=== PATIENT | male | born 1960 | race Caucasian/White ===

== ENCOUNTER 2017-09-16 21:41 | Emergency (ER) | payer MEDICAID ==
[~2017-09-16] VITALS: Ht 177.8 cm; Wt 133.0 kg
[~2017-09-16 21:41] MED LIST: ADV50250 INH; ALBU8HFA PO; AMIO200T57 PO; CHOL10002 PO; DIGO125T PO; DILT120C62 PO; DOXE50CA4 PO; ESCI10TA54 PO; FLO0.4C PO; FURO-150 PO; GABA-532 PO; HALO10TA13 PO; METH5TAB PO; METO-395 PO; METO50TA17 PO; MIRT15TA PO; NAPR-56 PO; PRED10TA23 PO; QUET-1 PO; RISP2TAB3 PO; RIVA15TA PO; SIMV10TA2 PO
[2017-09-16] MEDS ORDERED: nitroGLYCERIN 0.4mg SUBLingual tab SL PRN (21:50)
[2017-09-16] MEDS ORDERED: aspirin 81mg tab.chew PO ONE (21:50)
[2017-09-16] MEDS ORDERED: digoxin 250mcg/ml 2ml ampule IV ONE (22:05)
[2017-09-16] MEDS ORDERED: amiodarone in dextrose, iso-osm 150mg/100ml bag IV ONE (22:10)
[2017-09-16 22:31] LABS: BASOPHILS % (AUTO) 0.7 % (0-1); EOSINOPHILS # (AUTO) 0.1 X10'3 (0-0.9); EOSINOPHILS % (AUTO) 2.1 % (0-6); HEMATOCRIT 48.2 % (42.0-52.0); HEMOGLOBIN 16.5 g/dl (14.0-17.9); LYMPHOCYTES # (AUTO) 3.3 X10'3 (1.1-4.8); LYMPHOCYTES % (AUTO) 50.6 % (21-51); MEAN CORPUSCULAR HEMOGLOBIN 32.6 PG (27.0-31.0); MEAN CORPUSCULAR HGB CONC 34.3 % (33.0-36.5); MEAN CORPUSCULAR VOLUME 95.1 FL (78-98); MEAN PLATELET VOLUME 8.7 FL (7.4-10.4); MONOCYTES # (AUTO) 0.5 X10'3 (0-0.9); MONOCYTES % (AUTO) 8.1 % (2-12); NEUTROPHILS # (AUTO) 2.5 X10'3 (1.8-7.7); NEUTROPHILS % (AUTO) 38.5 % (42-75); PLATELET COUNT 204 X10'3 (140-440); RED BLOOD COUNT 5.07 X10'6 (4.70-6.10); RED CELL DISTRIBUTION WIDTH 13.6 % (11.5-14.5); WHITE BLOOD COUNT 6.5 X10'3 (4.5-11.0)
[2017-09-16 22:41] LABS: URINE AMPHETAMINE SCREEN NEGATIVE (Neg); URINE BARBITUATE SCREEN NEGATIVE (Neg); URINE BENZODIAZEPINES SCREEN NEGATIVE (Neg); URINE CANNABINOID SCREEN POSITIVE (Neg); URINE COCAINE SCREEN NEGATIVE (Neg); URINE METHADONE SCREEN POSITIVE (Neg); URINE OPIATE SCREEN NEGATIVE (Neg); URINE PHENCYCLIDINE SCREEN NEGATIVE (Neg)
[2017-09-16 22:50] LABS: D-DIMER 1.49 MG/L FEU (0-0.50)
[2017-09-16 22:55] LABS: ALANINE AMINOTRANSFERASE 156 U/L (12-78); ALBUMIN 3.5 G/DL (3.4-5.0); ALBUMIN/GLOBULIN RATIO 0.8 (1.1-1.5); ALKALINE PHOSPHATASE 79 IU/L (46-116); ANION GAP 11 (8-16); ASPARTATE AMINO TRANSFERASE 57 U/L (10-37); BILIRUBIN,TOTAL 0.5 MG/DL (0.1-1.0); BLOOD UREA NITROGEN 12 MG/DL (7-18); BUN/CREATININE RATIO 9.4 (5.4-32.0); CALCIUM 8.9 MG/DL (8.5-10.1); CHLORIDE 101 MMOL/L (99-107); CREATININE 1.27 MG/DL (0.60-1.10); ETHANOL < 0.010 GM/DL (0.0-0.010); GLUCOSE 175 MG/DL (70-104); MAGNESIUM 1.8 MG/DL (1.5-2.4); POTASSIUM 3.7 MMOL/L (3.5-5.1); SODIUM 141 MMOL/L (135-145); TOTAL CARBON DIOXIDE 28.9 MMOL/L (24-32); TOTAL PROTEIN 7.9 G/DL (6.4-8.2); eGFR 59 ML/MIN
[2017-09-16] MEDS ORDERED: iohexol 350MG/ML 100ml bottle IV ONE (23:05)
[2017-09-17 00:19] VITALS: BP 114/75
== END 2017-09-17 00:25 | disposition home or self-care (01) ==
LOC: ER 21:42
DX: I24.9 Acute ischemic heart disease, unspecified (principal); T42.6X5A Adverse effect of other antiepileptic and sedative-hypnotic drugs, initial encounter; R25.1 Tremor, unspecified; E66.01 Morbid (severe) obesity due to excess calories; I50.9 Heart failure, unspecified; I48.91 Unspecified atrial fibrillation; F12.10 Cannabis abuse, uncomplicated; Z68.41 Body mass index [BMI] 40.0-44.9, adult; Z88.6 Allergy status to analgesic agent; Z79.899 Other long term (current) drug therapy; Y92.89 Other specified places as the place of occurrence of the external cause
CPT/HCPCS: 36415; 71045; 71275; 80053; 80162; 80305; 80320; 83735; 83880; 84439; 84443; 84484; 85025; 85379; 93005; 96374; 96375; 99285; J0282; J1160; J7030; Q9967

== ENCOUNTER 2017-10-29 22:20 | Emergency (ER) | payer MEDICAID ==
[~2017-10-29] VITALS: Ht 180.3 cm; Wt 127.3 kg
[~2017-10-29 22:20] MED LIST changes: -PRED10TA23 PO
[2017-10-29] MEDS ORDERED: normal saline 1000ML IV soln IVB ONE (22:40)
[2017-10-29 22:45] LABS: INR 1.2 INR; PARTIAL THROMBOPLASTIN TIME 29 SECONDS (22-32)
[2017-10-29] MEDS ORDERED: AMIT50TA3 PO (22:50)
[2017-10-29 22:51] LABS: ALANINE AMINOTRANSFERASE 29 U/L (12-78); ALBUMIN 3.2 G/DL (3.4-5.0); ALBUMIN/GLOBULIN RATIO 0.8 (1.1-1.5); ALKALINE PHOSPHATASE 64 IU/L (46-116); ANION GAP 8 (8-16); ASPARTATE AMINO TRANSFERASE 21 U/L (10-37); BILIRUBIN,TOTAL 0.5 MG/DL (0.1-1.0); BLOOD UREA NITROGEN 11 MG/DL (7-18); BUN/CREATININE RATIO 7.3 (5.4-32.0); CALCIUM 8.5 MG/DL (8.5-10.1); CHLORIDE 98 MMOL/L (99-107); CREATININE 1.51 MG/DL (0.60-1.10); GLUCOSE 366 MG/DL (70-104); POTASSIUM 3.5 MMOL/L (3.5-5.1); SODIUM 139 MMOL/L (135-145); TOTAL PROTEIN 7.1 G/DL (6.4-8.2); eGFR 48 ML/MIN
[2017-10-29 22:58] LABS: BASOPHILS # (AUTO) 0.1 X10'3 (0-0.2); BASOPHILS % (AUTO) 1.9 % (0-1); EOSINOPHILS # (AUTO) 0.2 X10'3 (0-0.9); EOSINOPHILS % (AUTO) 2.4 % (0-6); HEMOGLOBIN 15.2 g/dl (14.0-17.9); LYMPHOCYTES # (AUTO) 3.1 X10'3 (1.1-4.8); LYMPHOCYTES % (AUTO) 47.9 % (21-51); MEAN CORPUSCULAR HGB CONC 35.2 % (33.0-36.5); MEAN CORPUSCULAR VOLUME 93.6 FL (78-98); MEAN PLATELET VOLUME 8.8 FL (7.4-10.4); MONOCYTES # (AUTO) 0.6 X10'3 (0-0.9); MONOCYTES % (AUTO) 9.7 % (2-12); NEUTROPHILS # (AUTO) 2.4 X10'3 (1.8-7.7); NEUTROPHILS % (AUTO) 38.1 % (42-75); PLATELET COUNT 151 X10'3 (140-440); RED CELL DISTRIBUTION WIDTH 13.9 % (11.5-14.5); WHITE BLOOD COUNT 6.4 X10'3 (4.5-11.0)
[2017-10-29 23:39] LABS: D-DIMER 0.77 MG/L FEU (0-0.50)
[2017-10-29] MEDS ORDERED: iohexol 350MG/ML 100ml bottle IV ONE (23:54)
[2017-10-30 05:48] VITALS: BP 126/77
== END 2017-10-30 05:50 | disposition home or self-care (01) ==
LOC: ER 22:20
DX: R07.9 Chest pain, unspecified (principal); I48.91 Unspecified atrial fibrillation; I50.9 Heart failure, unspecified; F12.90 Cannabis use, unspecified, uncomplicated; Z88.6 Allergy status to analgesic agent; Z79.899 Other long term (current) drug therapy
CPT/HCPCS: 36415; 71045; 71275; 80053; 84484; 85025; 85379; 85610; 85730; 93005; 99285; Q9967

== ENCOUNTER 2018-02-20 11:20 | Emergency (ER) | payer MEDICAID, OTHER ==
[~2018-02-20] VITALS: Ht 180.3 cm; Wt 119.0 kg
[~2018-02-20 11:20] MED LIST changes: +AMIO200T40 PO; -AMIO200T57 PO; +AMIT50TA3 PO
[2018-02-20] MEDS ORDERED: acetaminophen 325mg tablet PO ONE (13:05)
[2018-02-20 15:07] VITALS: BP 128/80
== END 2018-02-20 15:11 | disposition home or self-care (01) ==
LOC: ER 11:20
DX: S13.8XXA Sprain of joints and ligaments of other parts of neck, initial encounter (principal); R07.89 Other chest pain; R51 Headache; E66.9 Obesity, unspecified; I48.91 Unspecified atrial fibrillation; I50.9 Heart failure, unspecified; F12.90 Cannabis use, unspecified, uncomplicated; Z88.6 Allergy status to analgesic agent; Z79.899 Other long term (current) drug therapy; Z79.01 Long term (current) use of anticoagulants; V49.59XA Passenger injured in collision with other motor vehicles in traffic accident, initial encounter; Y93.89 Activity, other specified; Y92.413 State road as the place of occurrence of the external cause; Y99.9 Unspecified external cause status
CPT/HCPCS: 70450; 71046; 72125; 93005; 99284

== ENCOUNTER 2018-08-21 16:16 | Emergency (ER) | payer MEDICAID ==
[~2018-08-21] VITALS: Ht 172.7 cm; Wt 73.0 kg
[~2018-08-21 16:16] MED LIST changes: +ALBU8HFA INH; -ALBU8HFA PO
[2018-08-21] MEDS ORDERED: metoprolol tartrate 1mg/ml inj IV ONE (16:30)
[2018-08-21] MEDS ORDERED: metoprolol tartrate 50mg tablet PO ONE (16:30)
[2018-08-21 16:36] LABS: BASOPHILS # (AUTO) 0.1 X10'3 (0-0.2); BASOPHILS % (AUTO) 0.7 % (0-1); EOSINOPHILS # (AUTO) 0.1 X10'3 (0-0.9); EOSINOPHILS % (AUTO) 1.7 % (0-6); HEMATOCRIT 46.5 % (42.0-52.0); HEMOGLOBIN 15.9 g/dl (14.0-17.9); LYMPHOCYTES # (AUTO) 3.7 X10'3 (1.1-4.8); LYMPHOCYTES % (AUTO) 44.2 % (21-51); MEAN CORPUSCULAR HEMOGLOBIN 32.1 PG (27.0-31.0); MEAN CORPUSCULAR HGB CONC 34.1 g/dL (33.0-36.5); MEAN CORPUSCULAR VOLUME 94.3 FL (78-98); MEAN PLATELET VOLUME 8.3 FL (7.4-10.4); MONOCYTES # (AUTO) 0.6 X10'3 (0-0.9); MONOCYTES % (AUTO) 6.9 % (2-12); NEUTROPHILS # (AUTO) 3.9 X10'3 (1.8-7.7); NEUTROPHILS % (AUTO) 46.5 % (42-75); PLATELET COUNT 156 X10'3 (140-440); RED BLOOD COUNT 4.93 X10'6 (4.70-6.10); RED CELL DISTRIBUTION WIDTH 13.2 % (11.5-14.5); WHITE BLOOD COUNT 8.5 X10'3 (4.5-11.0)
[2018-08-21] MEDS ORDERED: FURO40TA4 PO (16:42)
[2018-08-21] MEDS ORDERED: RIVA20TA PO (16:42)
[2018-08-21] MEDS ORDERED: TRAZ-218 PO (16:44)
[2018-08-21] MEDS ORDERED: METF-436 PO (16:44)
[2018-08-21 16:49] LABS: ALANINE AMINOTRANSFERASE 17 U/L (12-78); ALBUMIN/GLOBULIN RATIO 1.1 (1.1-1.5); ALKALINE PHOSPHATASE 63 IU/L (46-116); ANION GAP 9 (8-16); ASPARTATE AMINO TRANSFERASE 14 U/L (10-37); BILIRUBIN,TOTAL 0.5 MG/DL (0.1-1.0); BLOOD UREA NITROGEN 10 MG/DL (7-18); BUN/CREATININE RATIO 8.5 (5.4-32.0); CALCIUM 9.3 MG/DL (8.5-10.1); CHLORIDE 101 MMOL/L (99-107); CREATININE 1.17 MG/DL (0.60-1.10); GLUCOSE 95 MG/DL (70-104); POTASSIUM 3.8 MMOL/L (3.5-5.1); SODIUM 141 MMOL/L (135-145); TOTAL CARBON DIOXIDE 31.2 MMOL/L (24-32); TOTAL PROTEIN 7.5 G/DL (6.4-8.2); eGFR 64 ML/MIN
[2018-08-21 16:56] LABS: MAGNESIUM 1.6 MG/DL (1.5-2.4)
[2018-08-21] MEDS ORDERED: acetaminophen 325mg tablet PO ONE (17:25)
[2018-08-21] MEDS ORDERED: normal saline 1000ML IV soln IVB ONE (17:35)
[2018-08-21 18:01] VITALS: BP 131/97
== END 2018-08-21 18:01 | disposition home or self-care (01) ==
LOC: ER 16:16
DX: I48.91 Unspecified atrial fibrillation (principal); E86.0 Dehydration; R07.89 Other chest pain; I50.9 Heart failure, unspecified; F12.90 Cannabis use, unspecified, uncomplicated; Z88.6 Allergy status to analgesic agent; Z79.84 Long term (current) use of oral hypoglycemic drugs; Z79.899 Other long term (current) drug therapy
CPT/HCPCS: 36415; 71045; 80053; 83735; 83880; 84484; 85025; 93005; 96374; 99284; J7030; J3490

== ENCOUNTER 2018-09-05 13:39 | Emergency (ER) | payer MEDICAID ==
[~2018-09-05] VITALS: Ht 180.3 cm; Wt 123.0 kg
[~2018-09-05 13:39] MED LIST changes: -ADV50250 INH; -CHOL10002 PO; -DIGO125T PO; -DILT120C62 PO; -DOXE50CA4 PO; -FURO-150 PO; +FURO40TA4 PO; +METF-436 PO; -METO-395 PO; -MIRT15TA PO; -NAPR-56 PO; -QUET-1 PO; -RIVA15TA PO; +RIVA20TA PO; -SIMV10TA2 PO; +TRAZ-218 PO
[2018-09-05] MEDS ORDERED: nitroGLYCERIN 0.4mg SUBLingual tab SL PRN (13:50)
[2018-09-05] MEDS ORDERED: aspirin 81mg tab.chew PO ONE (13:50)
[2018-09-05 14:12] LABS: BASOPHILS % (AUTO) 0.4 % (0-1); EOSINOPHILS # (AUTO) 0.1 X10'3 (0-0.9); EOSINOPHILS % (AUTO) 2.2 % (0-6); HEMATOCRIT 42.7 % (42.0-52.0); HEMOGLOBIN 14.8 g/dl (14.0-17.9); LYMPHOCYTES # (AUTO) 2.4 X10'3 (1.1-4.8); LYMPHOCYTES % (AUTO) 35.1 % (21-51); MEAN CORPUSCULAR HEMOGLOBIN 32.5 PG (27.0-31.0); MEAN CORPUSCULAR HGB CONC 34.6 g/dL (33.0-36.5); MEAN PLATELET VOLUME 8.3 FL (7.4-10.4); MONOCYTES # (AUTO) 0.5 X10'3 (0-0.9); MONOCYTES % (AUTO) 7.9 % (2-12); NEUTROPHILS # (AUTO) 3.7 X10'3 (1.8-7.7); NEUTROPHILS % (AUTO) 54.4 % (42-75); PLATELET COUNT 172 X10'3 (140-440); RED BLOOD COUNT 4.54 X10'6 (4.70-6.10); RED CELL DISTRIBUTION WIDTH 13.6 % (11.5-14.5); WHITE BLOOD COUNT 6.8 X10'3 (4.5-11.0)
[2018-09-05 14:20] LABS: ALANINE AMINOTRANSFERASE 15 U/L (12-78); ALBUMIN 3.7 G/DL (3.4-5.0); ALBUMIN/GLOBULIN RATIO 1.1 (1.1-1.5); ALKALINE PHOSPHATASE 59 IU/L (46-116); ANION GAP 5 (8-16); ASPARTATE AMINO TRANSFERASE 10 U/L (10-37); BILIRUBIN,TOTAL 0.4 MG/DL (0.1-1.0); BLOOD UREA NITROGEN 16 MG/DL (7-18); BUN/CREATININE RATIO 12.2 (5.4-32.0); CHLORIDE 103 MMOL/L (99-107); CREATININE 1.31 MG/DL (0.60-1.10); GLUCOSE 99 MG/DL (70-104); POTASSIUM 4.3 MMOL/L (3.5-5.1); SODIUM 141 MMOL/L (135-145); TOTAL CARBON DIOXIDE 32.8 MMOL/L (24-32); eGFR 57 ML/MIN
[2018-09-05] MEDS ORDERED: AMIO200T40 PO (14:24)
[2018-09-05 14:27] LABS: MAGNESIUM 1.7 MG/DL (1.5-2.4)
--- NOTE | 2018-09-05 14:28 | NUR ---
PT REPORTS PAIN RELIEF WITH ON SL NITRO. DENIES ANY C/P AT THIS TIME..
--- NOTE | 2018-09-05 14:42 | NUR ---
PT SAYS HE SEES Isabella MARIE [employer]
[2018-09-05 15:21] VITALS: BP 124/86
== END 2018-09-05 15:22 | disposition home or self-care (01) ==
LOC: ER 13:40
DX: R07.89 Other chest pain (principal); I48.91 Unspecified atrial fibrillation; N18.9 Chronic kidney disease, unspecified; I50.9 Heart failure, unspecified; E11.22 Type 2 diabetes mellitus with diabetic chronic kidney disease; F17.200 Nicotine dependence, unspecified, uncomplicated; F12.90 Cannabis use, unspecified, uncomplicated; Z88.6 Allergy status to analgesic agent; Z79.899 Other long term (current) drug therapy
CPT/HCPCS: 36415; 71045; 80053; 83735; 83880; 84484; 85025; 93005; 99284

== ENCOUNTER 2018-11-12 12:04 | Emergency (ER) | payer MEDICAID ==
[~2018-11-12] VITALS: Ht 180.3 cm; Wt 120.0 kg
[~2018-11-12 12:04] MED LIST changes: -AMIT50TA3 PO; -ESCI10TA54 PO; -HALO10TA13 PO; -TRAZ-218 PO; +TRAZ-251 PO
--- NOTE | 2018-11-12 12:18 | NUR ---
Dr. Cannon notified of patients symptoms and condition.
[2018-11-12] MEDS ORDERED: normal saline 1000ML IV soln IV ONE (12:35)
[2018-11-12 13:04] LABS: BASOPHILS % (AUTO) 0.5 % (0-1); EOSINOPHILS # (AUTO) 0.1 X10'3 (0-0.9); EOSINOPHILS % (AUTO) 1.2 % (0-6); HEMATOCRIT 41.3 % (42.0-52.0); HEMOGLOBIN 14.1 g/dl (14.0-17.9); LYMPHOCYTES # (AUTO) 2.8 X10'3 (1.1-4.8); LYMPHOCYTES % (AUTO) 40.9 % (21-51); MEAN PLATELET VOLUME 8.3 FL (7.4-10.4); MONOCYTES # (AUTO) 0.4 X10'3 (0-0.9); MONOCYTES % (AUTO) 5.6 % (2-12); NEUTROPHILS # (AUTO) 3.6 X10'3 (1.8-7.7); NEUTROPHILS % (AUTO) 51.8 % (42-75); PLATELET COUNT 152 X10'3 (140-440); RED BLOOD COUNT 4.26 X10'6 (4.70-6.10); RED CELL DISTRIBUTION WIDTH 13.3 % (11.5-14.5); WHITE BLOOD COUNT 6.9 X10'3 (4.5-11.0)
[2018-11-12 13:20] LABS: LACTIC SEPSIS 1.6 MMOL/L (0.4-2.0)
[2018-11-12 13:25] LABS: PARTIAL THROMBOPLASTIN TIME 27 SECONDS (22-32)
[2018-11-12 13:49] LABS: ALBUMIN 3.8 G/DL (3.4-5.0); ALBUMIN/GLOBULIN RATIO 1.1 (1.1-1.5); ALKALINE PHOSPHATASE 59 IU/L (46-116); ANION GAP 2 (8-16); ASPARTATE AMINO TRANSFERASE 25 U/L (10-37); BILIRUBIN,TOTAL 0.4 MG/DL (0.1-1.0); BLOOD UREA NITROGEN 17 MG/DL (7-18); BUN/CREATININE RATIO 13.2 (5.4-32.0); CALCIUM 8.6 MG/DL (8.5-10.1); CHLORIDE 102 MMOL/L (99-107); CREATININE 1.29 MG/DL (0.60-1.10); GLUCOSE 90 MG/DL (70-104); MAGNESIUM 1.7 MG/DL (1.5-2.4); PHOSPHORUS 3.3 MG/DL (2.3-4.5); POTASSIUM 3.8 MMOL/L (3.5-5.1); SODIUM 139 MMOL/L (135-145); TOTAL CARBON DIOXIDE 34.7 MMOL/L (24-32); TOTAL PROTEIN 7.3 G/DL (6.4-8.2); eGFR 58 ML/MIN
[2018-11-12 14:15] LABS: ALANINE AMINOTRANSFERASE 12 U/L (12-78)
[2018-11-12 14:19] LABS: CLARITY,URINE CLEAR (Clear); COLOR,URINE STRAW (Yellow); GLUCOSE, URINE NEGATIVE (Neg); KETONES,URINE NEGATIVE (Neg); LEUKOCYTE ESTERASE ,URINE NEGATIVE (Neg); NITRITES, URINE NEGATIVE (Neg); OCCULT BLOOD,URINE TRACE-INTACT (Neg); PH,URINE 5.5 (4.8-8.0); PROTEIN,URINE NEGATIVE (Neg); UROBILINOGEN,URINE 0.2 E.U/dL (0.2-1.0)
[2018-11-12 14:23] LABS: UA COLLECTION TYPE VOIDED
[2018-11-12 14:26] LABS: BACTERIA,URINE FEW /HPF (Neg); RBC,URINE 0-2 /HPF (0-2); SQUAMOUS EPITHELIAL CELL,UR FEW /LPF (FEW); WBC,URINE 0-4 /HPF (0-4)
--- NOTE | 2018-11-12 15:00 | NUR ---
spoke to RN/brother,will be here to tranpsort patient home in 10 minutes.
[2018-11-12 15:01] VITALS: BP 136/85
[2018-11-13] MEDS ORDERED: ESCI10TA54 PO (11:26)
[2018-11-13] MEDS ORDERED: SENN-162 PO (11:26)
[2018-11-13] MEDS ORDERED: NALO4SPR NAS (11:26)
[2018-11-13] MEDS ORDERED: METH-603 PO (11:26)
[2018-11-13] MEDS ORDERED: OXYC10TA47 PO (11:26)
== END 2018-11-12 15:13 | disposition home or self-care (01) ==
LOC: ER 12:04
DX: R53.1 Weakness (principal); R11.0 Nausea; R51 Headache; R07.9 Chest pain, unspecified; R53.83 Other fatigue; R53.81 Other malaise; M79.10 Myalgia, unspecified site; M25.50 Pain in unspecified joint; R00.1 Bradycardia, unspecified; E11.9 Type 2 diabetes mellitus without complications; I50.9 Heart failure, unspecified; I48.91 Unspecified atrial fibrillation; F12.90 Cannabis use, unspecified, uncomplicated; F17.200 Nicotine dependence, unspecified, uncomplicated; Z88.6 Allergy status to analgesic agent; Z79.899 Other long term (current) drug therapy
CPT/HCPCS: 36415; 70450; 71045; 74176; 80053; 81001; 82140; 83605; 83735; 84100; 84145; 84443; 84484; 85025; 85610; 85730; 87040; 93005; 99284; J7030

== ENCOUNTER 2018-11-13 07:47 | Inpatient (IN) | payer MEDICAID ==
[~2018-11-13] VITALS: Ht 182.9 cm; Wt 125.0 kg
[2018-11-13] MEDS ORDERED: naloxone 2mg/2ml inj IV ONE (08:15)
[2018-11-13 08:46] LABS: ABG HCO3 33.7 mmol/L (22.0-26.0); ABG OXYGEN SATURATION 96.7 % (95-98); ABG PCO2 (T) 68.1 mmHg (35.0-48.0); ABG PH (T) 7.312 (7.350-7.450); ABG PO2 (T) 95.3 mmHg (83-108); ALLEN'S TEST Positive; FCOHb 1.6 % (0.5-1.5); FLOW 15 L/min; FMetHb 0.2 % (0.3-1.12)
[2018-11-13 09:01] LABS: BASOPHILS % (AUTO) 0.4 % (0-1); EOSINOPHILS % (AUTO) 0.1 % (0-6); HEMATOCRIT 42.4 % (42.0-52.0); HEMOGLOBIN 14.4 g/dl (14.0-17.9); LYMPHOCYTES # (AUTO) 1.3 X10'3 (1.1-4.8); MEAN CORPUSCULAR HEMOGLOBIN 33.1 PG (27.0-31.0); MEAN CORPUSCULAR HGB CONC 33.9 g/dL (33.0-36.5); MEAN CORPUSCULAR VOLUME 97.4 FL (78-98); MEAN PLATELET VOLUME 8.4 FL (7.4-10.4); MONOCYTES # (AUTO) 0.4 X10'3 (0-0.9); MONOCYTES % (AUTO) 5.1 % (2-12); NEUTROPHILS # (AUTO) 6.7 X10'3 (1.8-7.7); NEUTROPHILS % (AUTO) 79.4 % (42-75); PLATELET COUNT 140 X10'3 (140-440); RED BLOOD COUNT 4.35 X10'6 (4.70-6.10); WHITE BLOOD COUNT 8.4 X10'3 (4.5-11.0)
[2018-11-13 09:13] LABS: LACTIC SEPSIS 1.5 MMOL/L (0.4-2.0)
[2018-11-13 09:20] LABS: ALANINE AMINOTRANSFERASE 46 U/L (12-78); ALBUMIN 3.6 G/DL (3.4-5.0); ALBUMIN/GLOBULIN RATIO 1.1 (1.1-1.5); ALKALINE PHOSPHATASE 56 IU/L (46-116); ANION GAP 5 (8-16); ASPARTATE AMINO TRANSFERASE 57 U/L (10-37); BILIRUBIN,TOTAL 0.5 MG/DL (0.1-1.0); BLOOD UREA NITROGEN 23 MG/DL (7-18); BUN/CREATININE RATIO 13.6 (5.4-32.0); CALCIUM 8.5 MG/DL (8.5-10.1); CHLORIDE 100 MMOL/L (99-107); CREATININE 1.69 MG/DL (0.60-1.10); GLUCOSE 129 MG/DL (70-104); POTASSIUM 4.4 MMOL/L (3.5-5.1); SODIUM 139 MMOL/L (135-145); TOTAL CARBON DIOXIDE 33.6 MMOL/L (24-32); TROPONIN I 0.08 NG/ML (0.0-0.05); eGFR 42 ML/MIN
[2018-11-13 09:24] LABS: ETHANOL < 0.010 GM/DL (0.0-0.010)
[2018-11-13] MEDS ORDERED: normal saline 1000ml 1,000 ML IV ONE ×2 (09:30→11:15)
[2018-11-13 10:31] LABS: CLARITY,URINE CLEAR (Clear); COLOR,URINE YELLOW (Yellow); GLUCOSE, URINE NEGATIVE (Neg); KETONES,URINE NEGATIVE (Neg); LEUKOCYTE ESTERASE ,URINE NEGATIVE (Neg); NITRITES, URINE NEGATIVE (Neg); OCCULT BLOOD,URINE NEGATIVE (Neg); PH,URINE 5.5 (4.8-8.0); PROTEIN,URINE NEGATIVE (Neg); UROBILINOGEN,URINE 0.2 E.U/dL (0.2-1.0)
[2018-11-13 10:39] LABS: UA COLLECTION TYPE STRAIGHT CATH
[2018-11-13 10:43] LABS: URINE AMPHETAMINE SCREEN NEGATIVE (Neg); URINE BARBITUATE SCREEN NEGATIVE (Neg); URINE BENZODIAZEPINES SCREEN NEGATIVE (Neg); URINE CANNABINOID SCREEN POSITIVE (Neg); URINE COCAINE SCREEN NEGATIVE (Neg); URINE METHADONE SCREEN POSITIVE (Neg); URINE OPIATE SCREEN NEGATIVE (Neg); URINE PHENCYCLIDINE SCREEN NEGATIVE (Neg)
[2018-11-13] MEDS ORDERED: ESCI10TA54 PO (11:26)
[2018-11-13] MEDS ORDERED: OXYC10TA47 PO (11:26)
[2018-11-13] MEDS ORDERED: NALO4SPR NAS (11:26)
[2018-11-13] MEDS ORDERED: SENN-162 PO (11:26)
[2018-11-13] MEDS ORDERED: METH-603 PO (11:26)
[2018-11-13] MEDS ORDERED: iohexol 350MG/ML 100ml bottle IV ONE (12:08)
--- NOTE | 2018-11-13 12:50 | NUR ---
RT HERE DRAWING ABGS. PT CONFUSED AND LETHARGIC. STATES, I DONT FEEL VERY WELL, WITH SLURRED SPEECH.
[2018-11-13 13:00] LABS: ABG BASE EXCESS 4.2 mmol/L (-2.0-3.0); ABG HCO3 32.9 mmol/L (22.0-26.0); ABG OXYGEN SATURATION 91.5 % (95-98); ABG PCO2 (T) 67.6 mmHg (35.0-48.0); ABG PH (T) 7.305 (7.350-7.450); ABG PO2 (T) 64.4 mmHg (83-108); ALLEN'S TEST Positive; FLOW 6 L/min; FMetHb 0.3 % (0.3-1.12); FO2Hb 90.3 % (94-100); TOTAL HEMOGLOBIN 14.9 G/dl (14.0-18.0)
--- NOTE | 2018-11-13 13:30 | NUR ---
PT OUT TO CT VIA K[facility]ERON WITH CHEMISTRY TUTOR
--- NOTE | 2018-11-13 14:40 | NUR ---
CALLIE LEACH [facility] PHONE NUMBER [phone]
--- NOTE | 2018-11-13 14:50 | NUR ---
RT AT BEDSIDE TO PLACE BIPAP, FIO2 100%, RR 20. PATIENT TOLERATING WELL, NO SIGNS OF DISTRESS NOTED. ALL SAFETY MEASURES IN PLACE.
[2018-11-13] MEDS ORDERED: sennosides 8.6mg tablet PO PRN (15:30)
[2018-11-13] MEDS ORDERED: potassium Cl 40MEQ/NS 500ml 500 ML IV PRN (15:35)
[2018-11-13] MEDS: K and/or MAG REPLACEMENT MC SCH (15:35)
[2018-11-13] MEDS ORDERED: magnesium 2GM in 50ml NS 50 ML IV PRN (15:35)
[2018-11-13] MEDS ORDERED: diphenhydrAMINE 25mg capsule PO PRN (15:35)
[2018-11-13] MEDS ORDERED: potassium Cl 20 mEq SR tablet PO PRN ×2 (15:35)
[2018-11-13] MEDS ORDERED: acetaminophen 325mg tablet PO PRN ×2 (15:35)
[2018-11-13] MEDS ORDERED: diphenhydrAMINE 50 mg/ml inj IV PRN (15:35)
[2018-11-13] MEDS ORDERED: bisacodyl 10mg suppository rectal RC PRN (15:35)
[2018-11-13] MEDS ORDERED: mag hydrox/Alum hydrox/simeth 30ml oral suspension PO PRN (15:35)
[2018-11-13] MEDS ORDERED: magnesium hydroxide 30ml (MOM) UD suspension PO PRN (15:35)
[2018-11-13] MEDS ORDERED: acetaminophen 650mg rectal suppository RC PRN (15:35)
[2018-11-13] MEDS ORDERED: ondansetron/PF 4mg/2ml inj IV PRN (15:35)
[2018-11-13] MEDS ORDERED: magnesium Cl slow-release 64mg tablet PO PRN (15:35)
[2018-11-13] MEDS ORDERED: potassium CL 10mEq/100ml bag 100 ML IV PRN (15:35)
[2018-11-13] MEDS ORDERED: magnesium 4gm in 100ml NS 100 ML IV PRN (15:35)
[2018-11-13] MEDS ORDERED: ipratropium/albuterol 3ml nebule NEB PRN (15:50)
--- NOTE | 2018-11-13 15:52 | NUR ---
PT GAVE VERBAL PERMISSION TO GIVE HIS BROTHER, ALEXANDRA MAURER, INFORMATION REGARDING PT STATUS. BROTHER WAS CALLED AT PT'S REQUESTED AND NOTIFIED THAT PT WAS CURRENTLY ON BIPAP AND WILL BE ADMITTED TO THE PCU. PT'S BROTHER STATED THAT HE WAS ON HIS WAY TO THE HOSPITAL. Addendum: 11/13/18 at 1616 by KELLI ALEXANDRA MAURER PHONE #: [phone]
[2018-11-13 16:25] LABS: HEMOGLOBIN A1C 5.5 % (4.5-6.2)
--- NOTE | 2018-11-13 16:45 | NUR ---
Received report from Yulia LEACH in ED. Awaiting patient arrival to 3013B.
[2018-11-13 16:49] LABS: TROPONIN I 0.16 NG/ML (0.0-0.05)
[2018-11-13] MEDS: normal saline 1000ml 1,000 ML IV SCH (16:55)
--- NOTE | 2018-11-13 17:05 | NUR ---
Patient arrived to PCU 3013B on gurney. Patient transferred to hospital bed. Telemetry monitoring with continuous pulse ox initiated. Patient VS: T: 98.7, HR: 84, RR: 19, O2: 99% on 9L non-rebreather, BP 135/87. Pain 7/10. Patient oriented to room and call light. In no acute distress. Will continue to monitor.
[2018-11-13 18:00] VITALS: BP 135/87
--- NOTE | 2018-11-13 18:40 | NUR ---
Problems reprioritized. Patient report given, questions answered & plan of care reviewed with Tiffanie LEACH. Patient asleep in bed on non-rebreather @ 7L. Stable at time of transfer of care.
--- NOTE | 2018-11-13 18:41 | NUR ---
Patient in room PCU 3013. I have received report from HANY Ansari and had the opportunity to ask questions and assume patient care. Patient is laying on hospital bed asking for food/water, I advised him until he passes the swallow test he is NPO. He is on a non-rebreather mask @7L.
--- NOTE | 2018-11-13 18:54 | NUR ---
I paged Dr. Carreon as the patient is a diabetic and has no hyperglycemic orders, the MD called back and advised me to put those orders in. He asked how the patient was doing on Bipap and I told him that the patient is on a non-rebreather @7L. He was not happy, said he wants him on Bipap all night! RT was up on floor and I advised of MD order and they will put on Bipap.
[2018-11-13] MEDS ORDERED: dextrose ORAL solution 15 GM/59 ML bottle PO PRN ×2 (19:00)
[2018-11-13] MEDS ORDERED: glucagon, human recombinant 1mg kit SUBCUT PRN (19:00)
[2018-11-13] MEDS ORDERED: dextrose 50%-water 50ml dispensing syringe IV PRN ×2 (19:00)
[2018-11-13] MEDS ORDERED: insulin Lispro (HumaLOG) vial - multi-dose SQ SCH (19:00)
[2018-11-13] MEDS ORDERED: MESSAGE TO PHARMACY PO ONE (19:00)
--- NOTE | 2018-11-13 19:20 | NUR ---
Per RT Dr. Carreon did not write Bipap orders for the floor, I paged him for those orders.
[2018-11-13] MEDS: rivaroxaban 20mg tablet PO SCH (20:04)
[2018-11-13] MEDS: metoprolol tartrate 50mg tablet PO SCH (20:04)
[2018-11-13] MEDS: atorvastatin 20mg tablet PO SCH (20:04)
[2018-11-13] MEDS: amiodarone 200mg tablet PO SCH (20:05)
[2018-11-13] MEDS: gabapentin 300mg capsule PO SCH (20:05)
[2018-11-13] MEDS: risperiDONE 2mg tablet PO SCH (20:05)
[2018-11-13] MEDS: ipratropium/albuterol 3ml nebule NEB SCH (20:07)
[2018-11-13] MEDS: traZODone 50mg tablet PO SCH (21:00)
[2018-11-13] MEDS: insulin glargine (Lantus) pen - multi-dose SQ SCH (21:00)
[2018-11-13 22:00] VITALS: BP 111/83
[2018-11-14] VITALS (7 sets, daily range): BP systolic 115–163; BP diastolic 79–106
[2018-11-14] MEDS: normal saline 1000ml 1,000 ML IV SCH ×2 (01:26→12:43)
--- NOTE | 2018-11-14 02:00 | NUR ---
Patient keeps messing with Bipap and is not compliant, I advised we would give it a break and he is not on 8L O2 NC. I will monitor his SpO2.
[2018-11-14] MEDS: ipratropium/albuterol 3ml nebule NEB SCH ×4 (03:05→19:39)
[2018-11-14 05:02] LABS: BASOPHILS % (AUTO) 0.3 % (0-1); EOSINOPHILS % (AUTO) 0.4 % (0-6); HEMATOCRIT 39.3 % (42.0-52.0); HEMOGLOBIN 13.7 g/dl (14.0-17.9); LYMPHOCYTES # (AUTO) 1.9 X10'3 (1.1-4.8); LYMPHOCYTES % (AUTO) 29.7 % (21-51); MEAN CORPUSCULAR HEMOGLOBIN 33.7 PG (27.0-31.0); MEAN CORPUSCULAR HGB CONC 34.8 g/dL (33.0-36.5); MEAN CORPUSCULAR VOLUME 96.6 FL (78-98); MEAN PLATELET VOLUME 8.4 FL (7.4-10.4); MONOCYTES # (AUTO) 0.5 X10'3 (0-0.9); MONOCYTES % (AUTO) 8.2 % (2-12); NEUTROPHILS # (AUTO) 3.9 X10'3 (1.8-7.7); NEUTROPHILS % (AUTO) 61.4 % (42-75); PLATELET COUNT 112 X10'3 (140-440); RED BLOOD COUNT 4.07 X10'6 (4.70-6.10); RED CELL DISTRIBUTION WIDTH 13.1 % (11.5-14.5); WHITE BLOOD COUNT 6.3 X10'3 (4.5-11.0)
[2018-11-14 05:23] LABS: ALANINE AMINOTRANSFERASE 152 U/L (12-78); ALBUMIN 3.1 G/DL (3.4-5.0); ALKALINE PHOSPHATASE 48 IU/L (46-116); ANION GAP 4 (8-16); ASPARTATE AMINO TRANSFERASE 151 U/L (10-37); BILIRUBIN,TOTAL 0.5 MG/DL (0.1-1.0); BLOOD UREA NITROGEN 15 MG/DL (7-18); BUN/CREATININE RATIO 13.6 (5.4-32.0); CALCIUM 8.4 MG/DL (8.5-10.1); CHLORIDE 106 MMOL/L (99-107); CHOL/HDL RATIO 5.7 (0.00-4.99); CHOLESTEROL 182 MG/DL (0-200); GLUCOSE 91 MG/DL (70-104); HDL CHOLESTEROL 32 MG/DL (35-60); LDL CHOLESTEROL 140 MG/DL (50-100); MAGNESIUM 1.8 MG/DL (1.5-2.4); PHOSPHORUS 2.8 MG/DL (2.3-4.5); SODIUM 143 MMOL/L (135-145); TOTAL PROTEIN 6.2 G/DL (6.4-8.2); TRIGLYCERIDES 89 MG/DL (20-135); TROPONIN I 0.15 NG/ML (0.0-0.05); eGFR 69 ML/MIN
--- NOTE | 2018-11-14 06:00 | NUR ---
Patient in room PCU 3013. I have received report from Coty LEACH and had the opportunity to ask questions and assume patient care. Pt sleeping on BiPAP FiO2 40%, no signs of distress, 94% SpO2.
[2018-11-14 07:25] LABS: ABG PH (T) 7.354 (7.350-7.450); ALLEN'S TEST Positive; MINUTE VOLUME 10 L/min; RESPIRATORY RATE 20 b/min; RESPIRATORY RATE (OBSERVED) 22 b/min
[2018-11-14 07:26] LABS: ABG BASE EXCESS 4.6 mmol/L (-2.0-3.0); ABG HCO3 31.8 mmol/L (22.0-26.0); ABG OXYGEN SATURATION 96.7 % (95-98); ABG PCO2 (T) 58.4 mmHg (35.0-48.0); ABG PO2 (T) 90.6 mmHg (83-108); FCOHb 0.3 % (0.5-1.5); FMetHb 0.2 % (0.3-1.12); FO2Hb 96.2 % (94-100); TOTAL HEMOGLOBIN 14.2 G/dl (14.0-18.0)
[2018-11-14] MEDS: K and/or MAG REPLACEMENT MC SCH (08:00)
[2018-11-14] MEDS ORDERED: aspirin 325mg tablet PO SCH (08:30)
--- NOTE | 2018-11-14 09:00 | NUR ---
Pt receiving carotid duplex exam, will administer AM meds after exam complete.
[2018-11-14] MEDS: gabapentin 300mg capsule PO SCH ×3 (10:40→20:14)
[2018-11-14] MEDS: amiodarone 200mg tablet PO SCH ×2 (10:40→20:15)
[2018-11-14] MEDS: aspirin 81mg tablet.DR PO SCH (10:41)
[2018-11-14] MEDS: citalopram 20mg tablet PO SCH (10:44)
[2018-11-14] MEDS: tamsulosin 0.4mg capsule PO SCH (10:44)
[2018-11-14] MEDS: metoprolol tartrate 50mg tablet PO SCH ×2 (10:44→20:15)
[2018-11-14] MEDS: furosemide 40mg tablet PO SCH (10:45)
[2018-11-14] MEDS: atorvastatin 20mg tablet PO SCH (10:45)
--- NOTE | 2018-11-14 10:57 | NUR ---
PAGER ID: [phone] MESSAGE: [id number] Marychuy Guerra Pt awake and alert. SpO2 92% on RA. Do you want me to keep him RA/NC as needed while awake? Sandra LEACH [phone]
--- NOTE | 2018-11-14 12:43 | NUR ---
PAGER ID: [phone] MESSAGE: [id number] Marychuy Guerra Pt states hx claustrophobia, any anxiolytics for MRI? Thanks. Sandra LEACH [phone]
[2018-11-14] MEDS: LORazepam 2 mg/ml vial IV ONE ×2 (16:10→16:39)
[2018-11-14] MEDS: rivaroxaban 20mg tablet PO SCH (17:30)
[2018-11-14] MEDS: oxyCODONE IR 5mg (immed. release) tablet PO PRN (17:30)
--- NOTE | 2018-11-14 18:00 | NUR ---
Patient in room PCU 3013. I have received report from Sandra LEACH and had the opportunity to ask questions and assume patient care.
--- NOTE | 2018-11-14 18:35 | NUR ---
Problems reprioritized. Patient report given, questions answered & plan of care reviewed with Leah RN and Wojciech RN.
[2018-11-14] MEDS: methadone 10mg tablet PO SCH (20:14)
[2018-11-14] MEDS: risperiDONE 2mg tablet PO SCH (20:14)
[2018-11-14] MEDS: traZODone 50mg tablet PO SCH (20:15)
[2018-11-14] MEDS: insulin glargine (Lantus) pen - multi-dose SQ SCH (21:00)
[2018-11-15] VITALS (10 sets, daily range): BP systolic 101–149; BP diastolic 62–122
--- NOTE | 2018-11-15 02:49 | NUR ---
pt refused all orthostatic VS tonight, attempts maid Q4 with unit routine times.
[2018-11-15] MEDS: ipratropium/albuterol 3ml nebule NEB SCH ×4 (03:09→20:12)
[2018-11-15 05:22] LABS: POTASSIUM 3.5 MMOL/L (3.5-5.1); SODIUM 143 MMOL/L (135-145)
[2018-11-15 05:34] LABS: BASOPHILS % (AUTO) 0.3 % (0-1); EOSINOPHILS # (AUTO) 0.1 X10'3 (0-0.9); EOSINOPHILS % (AUTO) 1.5 % (0-6); HEMATOCRIT 40.1 % (42.0-52.0); HEMOGLOBIN 13.8 g/dl (14.0-17.9); LYMPHOCYTES # (AUTO) 1.6 X10'3 (1.1-4.8); MEAN CORPUSCULAR HEMOGLOBIN 33.4 PG (27.0-31.0); MEAN CORPUSCULAR HGB CONC 34.5 g/dL (33.0-36.5); MEAN CORPUSCULAR VOLUME 96.9 FL (78-98); MEAN PLATELET VOLUME 8.7 FL (7.4-10.4); MONOCYTES # (AUTO) 0.4 X10'3 (0-0.9); MONOCYTES % (AUTO) 7.5 % (2-12); NEUTROPHILS # (AUTO) 3.5 X10'3 (1.8-7.7); NEUTROPHILS % (AUTO) 61.7 % (42-75); PLATELET COUNT 112 X10'3 (140-440); RED BLOOD COUNT 4.13 X10'6 (4.70-6.10); RED CELL DISTRIBUTION WIDTH 12.9 % (11.5-14.5); WHITE BLOOD COUNT 5.6 X10'3 (4.5-11.0)
[2018-11-15 06:02] LABS: ALANINE AMINOTRANSFERASE 166 U/L (12-78); ALBUMIN 3.2 G/DL (3.4-5.0); ALKALINE PHOSPHATASE 50 IU/L (46-116); ANION GAP 7 (8-16); ASPARTATE AMINO TRANSFERASE 106 U/L (10-37); BILIRUBIN,TOTAL 0.6 MG/DL (0.1-1.0); BLOOD UREA NITROGEN 17 MG/DL (7-18); BUN/CREATININE RATIO 16.3 (5.4-32.0); CALCIUM 8.6 MG/DL (8.5-10.1); CHLORIDE 105 MMOL/L (99-107); CREATININE 1.04 MG/DL (0.60-1.10); GLUCOSE 95 MG/DL (70-104); MAGNESIUM 1.8 MG/DL (1.5-2.4); TOTAL CARBON DIOXIDE 31.4 MMOL/L (24-32); TOTAL PROTEIN 6.3 G/DL (6.4-8.2); eGFR 74 ML/MIN
--- NOTE | 2018-11-15 06:29 | NUR ---
Orientee documentation: I have reviewed and agree with all interventions, assessments performed and documented by Wojciech RN . Medication Administration: For this medication-pass time frame, all medication were reviewed, dispensed, administered and documented per hospital policy by .
--- NOTE | 2018-11-15 06:33 | NUR ---
Problems reprioritized. Patient report given, questions answered & plan of care reviewed with Gillian LEACH.
[2018-11-15] MEDS: aspirin 81mg tablet.DR PO SCH (07:25)
[2018-11-15] MEDS: gabapentin 300mg capsule PO SCH ×3 (07:26→20:26)
[2018-11-15] MEDS: amiodarone 200mg tablet PO SCH ×2 (07:26→20:25)
[2018-11-15] MEDS: tamsulosin 0.4mg capsule PO SCH (07:26)
[2018-11-15] MEDS: citalopram 20mg tablet PO SCH (07:27)
[2018-11-15] MEDS: metoprolol tartrate 50mg tablet PO SCH ×2 (07:27→20:00)
[2018-11-15] MEDS: methadone 10mg tablet PO SCH ×2 (07:27→20:26)
[2018-11-15] MEDS: furosemide 40mg tablet PO SCH (07:28)
[2018-11-15] MEDS: atorvastatin 20mg tablet PO SCH (07:30)
[2018-11-15] MEDS: normal saline 1000ml 1,000 ML IV SCH ×3 (07:31→22:14)
[2018-11-15] MEDS: K and/or MAG REPLACEMENT MC SCH (08:00)
--- NOTE | 2018-11-15 12:34 | NUR ---
DM consult: Pt with A1c 5.5; DM ed not warranted at this time. Will continue to follow. Addendum: 11/15/18 at [address] Amended: Links added.
[2018-11-15] MEDS: oxyCODONE IR 5mg (immed. release) tablet PO PRN (13:14)
--- NOTE | 2018-11-15 13:45 | NUR ---
Pt. brother came in and asked for an update on pt. status. Provided with most current information at bedside with patient and answered all inquiries. Pt. and brother verbalized understanding of information given.
--- NOTE | 2018-11-15 14:11 | NUR ---
PAGER ID: [phone] MESSAGE: Benito Guerra [id number]; converted to sinus rhythm. HR 49. Pritesh LEACH PCU [id number]
--- NOTE | 2018-11-15 16:58 | NUR ---
Received call from palliative nurse Betsy with [facility] for update on pt. Provided most recent clinical progress and answered all inquiries. Received feedback that pt. has history of bradycardia with HR getting as low as the 30s-40s.
--- NOTE | 2018-11-15 17:43 | NUR ---
Paged Dr. Pearl regarding pt. request to advance diet from puree to regular. No response yet.
[2018-11-15] MEDS: rivaroxaban 20mg tablet PO SCH (17:49)
--- NOTE | 2018-11-15 18:22 | NUR ---
Problems reprioritized. Patient report given, questions answered & plan of care reviewed with Myah LEACH.
--- NOTE | 2018-11-15 18:33 | NUR ---
Patient in room PCU 3013. I have received report from Gillian LEACH and Janneth LEACH and had the opportunity to ask questions and assume patient care.
[2018-11-15] MEDS: risperiDONE 2mg tablet PO SCH (20:26)
[2018-11-15] MEDS: traZODone 50mg tablet PO SCH (20:26)
[2018-11-16 02:00] VITALS: BP 119/63
[2018-11-16] MEDS: ipratropium/albuterol 3ml nebule NEB SCH ×2 (02:00→07:24)
[2018-11-16 06:09] LABS: BASOPHILS % (AUTO) 0.5 % (0-1); EOSINOPHILS # (AUTO) 0.1 X10'3 (0-0.9); EOSINOPHILS % (AUTO) 2.5 % (0-6); HEMATOCRIT 36.9 % (42.0-52.0); HEMOGLOBIN 12.7 g/dl (14.0-17.9); LYMPHOCYTES % (AUTO) 34.1 % (21-51); MEAN CORPUSCULAR HEMOGLOBIN 33.5 PG (27.0-31.0); MEAN CORPUSCULAR HGB CONC 34.5 g/dL (33.0-36.5); MEAN CORPUSCULAR VOLUME 97.2 FL (78-98); MEAN PLATELET VOLUME 8.3 FL (7.4-10.4); MONOCYTES # (AUTO) 0.5 X10'3 (0-0.9); MONOCYTES % (AUTO) 8.5 % (2-12); NEUTROPHILS # (AUTO) 3.2 X10'3 (1.8-7.7); NEUTROPHILS % (AUTO) 54.4 % (42-75); PLATELET COUNT 116 X10'3 (140-440); RED BLOOD COUNT 3.79 X10'6 (4.70-6.10); RED CELL DISTRIBUTION WIDTH 13.2 % (11.5-14.5); WHITE BLOOD COUNT 5.9 X10'3 (4.5-11.0)
--- NOTE | 2018-11-16 06:12 | NUR ---
Problems reprioritized. Patient report given, questions answered & plan of care reviewed with Smita LEACH.
--- NOTE | 2018-11-16 06:15 | NUR ---
Patient in room PCU 3013. I have received report from Myah LEACH and had the opportunity to ask questions and assume patient care.
[2018-11-16 06:29] LABS: ALANINE AMINOTRANSFERASE 186 U/L (12-78); ALBUMIN 3.1 G/DL (3.4-5.0); ALKALINE PHOSPHATASE 48 IU/L (46-116); ANION GAP 5 (8-16); ASPARTATE AMINO TRANSFERASE 91 U/L (10-37); BILIRUBIN,TOTAL 0.5 MG/DL (0.1-1.0); BLOOD UREA NITROGEN 13 MG/DL (7-18); BUN/CREATININE RATIO 11.1 (5.4-32.0); CALCIUM 8.6 MG/DL (8.5-10.1); CHLORIDE 104 MMOL/L (99-107); CREATININE 1.17 MG/DL (0.60-1.10); GLUCOSE 88 MG/DL (70-104); MAGNESIUM 1.7 MG/DL (1.5-2.4); PHOSPHORUS 3.9 MG/DL (2.3-4.5); POTASSIUM 3.7 MMOL/L (3.5-5.1); SODIUM 143 MMOL/L (135-145); TOTAL CARBON DIOXIDE 34.3 MMOL/L (24-32); TOTAL PROTEIN 6.1 G/DL (6.4-8.2); eGFR 64 ML/MIN
[2018-11-16 07:00] VITALS: BP 127/70
[2018-11-16] MEDS: atorvastatin 20mg tablet PO SCH (07:32)
[2018-11-16] MEDS: furosemide 40mg tablet PO SCH (07:32)
[2018-11-16] MEDS: aspirin 81mg tablet.DR PO SCH (07:33)
[2018-11-16] MEDS: amiodarone 200mg tablet PO SCH (07:33)
[2018-11-16] MEDS: methadone 10mg tablet PO SCH (07:33)
[2018-11-16] MEDS: gabapentin 300mg capsule PO SCH ×2 (07:33→14:42)
[2018-11-16] MEDS: tamsulosin 0.4mg capsule PO SCH (07:34)
[2018-11-16] MEDS: citalopram 20mg tablet PO SCH (07:34)
[2018-11-16 08:00] VITALS: BP_SYST 126; BP_SYST 148; BP_SYST 156; BP_DIAS 69; BP_DIAS 74; BP_DIAS 83
[2018-11-16] MEDS: K and/or MAG REPLACEMENT MC SCH (08:00)
[2018-11-16] MEDS: metoprolol tartrate 50mg tablet PO SCH (08:00)
--- NOTE | 2018-11-16 10:00 | NUR ---
Ambulated pt with minimum assistance on room air. Pt tolerated walk well and SPO2 stayed above 95%. Will continue to monitor.
[2018-11-16 11:00] VITALS: BP 124/93
[2018-11-16] MEDS: normal saline 1000ml 1,000 ML IV SCH (13:15)
--- NOTE | 2018-11-16 15:20 | NUR ---
Patient discharge in stable condition, VSS within normal limits, room air, A&Ox4. Removed IV with catheter intact, tele removed; pt has no personal belongings. Reviewed instruction discharge and medications with the patient. Patient off unit via wheelchair and driven home by his brother.
== END 2018-11-16 15:22 | disposition home health service (06) | DRG 133 ==
LOC: ER 07:47 → PCU 3S 16:21 → CMPBEDREQ 19:39
PROVIDERS: ADMIT Family Medicine; ATTEND Family Medicine
PROC: 5A09357 Assistance with Respiratory Ventilation, Less than 24 Consecutive Hours, Continuous Positive Airway Pressure (ICD-10-PCS; principal; 2018-11-13)
PROC: BW241ZZ Computerized Tomography (CT Scan) of Chest and Abdomen using Low Osmolar Contrast (ICD-10-PCS; 2018-11-13)
DX: J96.02 Acute respiratory failure with hypercapnia (principal); G93.41 Metabolic encephalopathy; E87.2 Acidosis; E11.42 Type 2 diabetes mellitus with diabetic polyneuropathy; F20.9 Schizophrenia, unspecified; I11.0 Hypertensive heart disease with heart failure; I50.9 Heart failure, unspecified; I48.91 Unspecified atrial fibrillation; J44.1 Chronic obstructive pulmonary disease with (acute) exacerbation; T40.601A Poisoning by unspecified narcotics, accidental (unintentional), initial encounter; E78.5 Hyperlipidemia, unspecified; F11.10 Opioid abuse, uncomplicated; F32.9 Major depressive disorder, single episode, unspecified; F41.9 Anxiety disorder, unspecified; F12.90 Cannabis use, unspecified, uncomplicated; G89.4 Chronic pain syndrome; N40.0 Benign prostatic hyperplasia without lower urinary tract symptoms; Z86.19 Personal history of other infectious and parasitic diseases; Z88.8 Allergy status to other drugs, medicaments and biological substances; Z79.899 Other long term (current) drug therapy; Y92.89 Other specified places as the place of occurrence of the external cause
CPT/HCPCS: 36415; 36600; 70450; 70544; 70551; 71045; 71275; 80053; 80061; 80305; 80320; 81003; 82140; 82803; 82948; 83036; 83605; 83735; 84100; 84439; 84443; 84484; 85018; 85025; 87040; 87070; 92508; 92616; 93005; 93306; 93880; 94640; 94660; 94760; 96361; 96374; 97116; 97161; 97530; 99285; G0378; J1815; J2060; J2310; J7030; Q9967

== ENCOUNTER 2020-01-12 12:25 | Inpatient (IN) | payer MEDICAID ==
[~2020-01-12] VITALS: Ht 180.3 cm; Wt 126.4 kg
[~2020-01-12 12:25] MED LIST changes: -ALBU8HFA INH; -AMIO200T40 PO; +AMIO200T61 PO; +ESCI10TA61 PO; +METH-603 PO; -METH5TAB PO; +NALO4SPR NAS; +SENN-263 PO
[2020-01-12 13:06] LABS: BASOPHILS # (AUTO) 0.1 X10'3 (0-0.2); EOSINOPHILS # (AUTO) 0.2 X10'3 (0-0.9); EOSINOPHILS % (AUTO) 2.8 % (0-6); HEMATOCRIT 47.5 % (42.0-52.0); HEMOGLOBIN 16.1 g/dl (14.0-17.9); MEAN CORPUSCULAR HEMOGLOBIN 32.9 PG (27.0-31.0); MEAN CORPUSCULAR VOLUME 96.8 FL (78-98); MEAN PLATELET VOLUME 8.2 FL (7.4-10.4); MONOCYTES # (AUTO) 0.5 X10'3 (0-0.9); MONOCYTES % (AUTO) 6.8 % (2-12); NEUTROPHILS # (AUTO) 3.5 X10'3 (1.8-7.7); NEUTROPHILS % (AUTO) 48.4 % (42-75); PLATELET COUNT 164 X10'3 (140-440); RED CELL DISTRIBUTION WIDTH 13.7 % (11.5-14.5); WHITE BLOOD COUNT 7.3 X10'3 (4.5-11.0)
[2020-01-12 13:20] LABS: ALANINE AMINOTRANSFERASE 15 U/L (12-78); ALBUMIN 3.8 G/DL (3.4-5.0); ALBUMIN/GLOBULIN RATIO 1.1 (1.1-1.5); ALKALINE PHOSPHATASE 60 IU/L (46-116); ANION GAP 7 (8-16); ASPARTATE AMINO TRANSFERASE 14 U/L (10-37); BILIRUBIN,TOTAL 0.5 MG/DL (0.1-1.0); BLOOD UREA NITROGEN 9 MG/DL (7-18); BUN/CREATININE RATIO 8.2 (5.4-32.0); CALCIUM 8.9 MG/DL (8.5-10.1); CHLORIDE 103 MMOL/L (99-107); GLUCOSE 110 MG/DL (70-104); SODIUM 141 MMOL/L (135-145); TOTAL CARBON DIOXIDE 31.1 MMOL/L (24-32); TOTAL PROTEIN 7.4 G/DL (6.4-8.2); eGFR 69 ML/MIN
[2020-01-12] MEDS ORDERED: diltiazem 5mg/ml 5ml inj. IV ONE (13:40)
[2020-01-12 13:53] LABS: D-DIMER 0.46 MG/L FEU (0-0.50); PARTIAL THROMBOPLASTIN TIME 33 SECONDS (22-32)
[2020-01-12] MEDS ORDERED: normal saline 1000ml 1,000 ML IV SCH (14:59)
[2020-01-12] MEDS ORDERED: magnesium Cl slow-release 64mg tablet PO PRN (15:00)
[2020-01-12] MEDS ORDERED: HYDROcodone/acetaminophen 5mg/325mg tablet PO PRN (15:00)
[2020-01-12] MEDS ORDERED: magnesium 4gm in 100ml NS 100 ML IV PRN (15:00)
[2020-01-12] MEDS ORDERED: potassium CL 10mEq/100ml bag 100 ML IV PRN ×2 (15:00)
[2020-01-12] MEDS ORDERED: acetaminophen 325mg tablet PO PRN (15:00)
[2020-01-12] MEDS ORDERED: morphine 2 MG/ML inj. syringe IV PRN (15:00)
[2020-01-12] MEDS ORDERED: ondansetron/PF 4mg/2ml inj IV PRN (15:00)
[2020-01-12] MEDS ORDERED: potassium Cl 20 mEq SR tablet PO PRN ×2 (15:00)
[2020-01-12] MEDS ORDERED: magnesium 2GM in 50ml NS 50 ML IV PRN (15:00)
[2020-01-12] MEDS ORDERED: RISP1TAB3 PO (15:06)
[2020-01-12 15:45] LABS: HEMOGLOBIN A1C 5.7 % (4.5-6.2)
[2020-01-12] MEDS ORDERED: regadenoson 0.4mg/5ml syringe IV PRN (17:30)
[2020-01-12] MEDS ORDERED: nitroGLYCERIN 0.4mg SUBLingual tab SL PRN (17:30)
[2020-01-12] MEDS ORDERED: aminophylline 250mg/10ml inj. IV PRN (17:30)
[2020-01-12] MEDS ORDERED: metoprolol tartrate 1mg/ml inj IV PRN (17:30)
--- NOTE | 2020-01-12 17:54 | NUR ---
Patient sleeping comfortably in bed.
[2020-01-12] MEDS ORDERED: rivaroxaban 20mg tablet PO SCH (18:00)
[2020-01-12] MEDS: amiodarone 200mg tablet PO SCH (18:05)
[2020-01-12] MEDS: tamsulosin 0.4mg capsule PO SCH (18:06)
--- NOTE | 2020-01-12 18:36 | NUR ---
received report from Jim LEACH ER, had opportunity to ask questions, pt states he has had chest pain every morning for past few months, pt is A&O X4, awaiting pt arrival to floor, VS stable.
--- NOTE | 2020-01-12 18:42 | NUR ---
pt arrived to floor with all belongings, VS stable, tele attached to pt, pt oriented to floor, pt ambulated from hallway to bed.
[2020-01-12 18:46] VITALS: BP 152/93
[2020-01-12] MEDS: K and/or MAG REPLACEMENT MC SCH (20:00)
[2020-01-12] MEDS: docusate sod 100mg capsule PO SCH (20:00)
[2020-01-12] MEDS ORDERED: risperiDONE 0.5mg tablet PO SCH (21:00)
[2020-01-12] MEDS ORDERED: traZODone 50mg tablet PO SCH (21:00)
[2020-01-12] MEDS: gabapentin 300mg capsule PO SCH (21:10)
[2020-01-12] MEDS: methadone 10mg tablet PO SCH (21:10)
[2020-01-12] MEDS: metoprolol tartrate 50mg tablet PO SCH (21:11)
--- NOTE | 2020-01-12 21:30 | NUR ---
UNABLE TO DART AT THIS TIME pt states that he does not want to answer any questions tonight (darting Q's) but that he would be agreeable in the morning.
[2020-01-12 22:00] VITALS: BP 105/66
[2020-01-13] VITALS (14 sets, daily range): BP systolic 107–150; BP diastolic 68–114
[2020-01-13 01:01] LABS: BASOPHILS % (AUTO) 0.4 % (0-1); EOSINOPHILS # (AUTO) 0.2 X10'3 (0-0.9); EOSINOPHILS % (AUTO) 2.2 % (0-6); HEMOGLOBIN 15.6 g/dl (14.0-17.9); LYMPHOCYTES # (AUTO) 3.1 X10'3 (1.1-4.8); LYMPHOCYTES % (AUTO) 43.1 % (21-51); MEAN CORPUSCULAR HEMOGLOBIN 32.9 PG (27.0-31.0); MEAN CORPUSCULAR VOLUME 96.9 FL (78-98); MONOCYTES # (AUTO) 0.5 X10'3 (0-0.9); MONOCYTES % (AUTO) 7.2 % (2-12); NEUTROPHILS # (AUTO) 3.4 X10'3 (1.8-7.7); NEUTROPHILS % (AUTO) 47.1 % (42-75); PLATELET COUNT 139 X10'3 (140-440); RED BLOOD COUNT 4.75 X10'6 (4.70-6.10); RED CELL DISTRIBUTION WIDTH 13.9 % (11.5-14.5); WHITE BLOOD COUNT 7.3 X10'3 (4.5-11.0)
[2020-01-13 01:20] LABS: ALBUMIN 3.4 G/DL (3.4-5.0); ANION GAP 4 (8-16); BLOOD UREA NITROGEN 10 MG/DL (7-18); BUN/CREATININE RATIO 8.8 (5.4-32.0); CALCIUM 8.7 MG/DL (8.5-10.1); CHLORIDE 105 MMOL/L (99-107); CHOL/HDL RATIO 6.9 (0.00-4.99); CHOLESTEROL 207 MG/DL (0-200); CREATININE 1.14 MG/DL (0.60-1.10); GLUCOSE 84 MG/DL (70-104); HDL CHOLESTEROL 30 MG/DL (35-60); LDL CHOLESTEROL 145 MG/DL (50-100); POTASSIUM 3.9 MMOL/L (3.5-5.1); SODIUM 142 MMOL/L (135-145); TOTAL CARBON DIOXIDE 33.1 MMOL/L (24-32); TRIGLYCERIDES 242 MG/DL (20-135); eGFR 66 ML/MIN
--- NOTE | 2020-01-13 06:37 | NUR ---
Patient in room PCU 3024A. I have received report from Wojciech RN and had the opportunity to ask questions and assume patient care.
--- NOTE | 2020-01-13 06:40 | NUR ---
Problems reprioritized. Patient report given, questions answered & plan of care reviewed with Sonali LEACH.
[2020-01-13] MEDS: gabapentin 300mg capsule PO SCH ×2 (07:28→13:17)
[2020-01-13] MEDS: methadone 10mg tablet PO SCH (07:28)
[2020-01-13] MEDS: tamsulosin 0.4mg capsule PO SCH (07:28)
[2020-01-13] MEDS: metoprolol tartrate 50mg tablet PO SCH (07:29)
[2020-01-13] MEDS: docusate sod 100mg capsule PO SCH (07:29)
[2020-01-13] MEDS: amiodarone 200mg tablet PO SCH (07:33)
[2020-01-13] MEDS: K and/or MAG REPLACEMENT MC SCH (07:35)
[2020-01-13] MEDS ORDERED: sennosides 8.6mg tablet PO SCH (08:00)
[2020-01-13] MEDS ORDERED: furosemide 40mg tablet PO SCH (08:00)
[2020-01-13] MEDS ORDERED: ESCITALOPRAM OXALATE 5 MG TABLET PO SCH (08:00)
--- NOTE | 2020-01-13 09:45 | NUR ---
Patient taken down for Alia Scan
[2020-01-13] MEDS ORDERED: ondansetron 4mg rapidly disintigrating tab PO PRN (10:20)
--- NOTE | 2020-01-13 12:31 | NUR ---
Paged Dr aMdrid with riley results PAGER ID: [phone] MESSAGE: Sonali ECHEVARRIA. Marychuy Armando 3024A. ARLENE lin resulted stating "Possible small region of myocardial ischemia within the left ventricular apex versus artifact. Cardiology consultation is recommended."
--- NOTE | 2020-01-13 13:39 | NUR ---
DM Consult: Pt A1C 5.7 not on carb controlled diet w/ Glu WNL and not appropriate for DM ed at this time. Addendum: 01/13/20 at [address] Amended: Links added.
--- NOTE | 2020-01-13 14:50 | NUR ---
Paged Dr Madrid PAGER ID: [phone] MESSAGE: Sonali ECHEVARRIA. Marychuy Armando 3024A. Following up on Alia results, pt is asking if he is discharging today and if he can eat. Thank you! Addendum: 01/13/20 at 1453 by Sonali Scruggs RN Dr Madrid called back after page and said she has just left message with Dr Jimenez in cardiology and she will let me know if/when he confirms that patient is safe to discharge. Also told by to keep patient NPO
[2020-01-13] MEDS ORDERED: ATOR40TA PO (15:10)
[2020-01-13] MEDS ORDERED: PANT20TA3 PO (15:32)
--- NOTE | 2020-01-13 17:25 | NUR ---
Per MD, patient stable for discharge home. Discharge packet provided and given to patient. New prescriptions faxed to [facility] on [facility]. All questions answered. IV removed with catheter intact and tele removed and returned to television receiver analyzer. All belongings sent with patient. Patient escorted from hospital via wheelchair, accompanied by aide, and driven home by brother in private vehicle.
== END 2020-01-13 17:23 | disposition home or self-care (01) | DRG 243 ==
LOC: ER 12:26 → ED HOLD 14:59 → PCU 3S 18:40
PROVIDERS: ADMIT Internal Medicine; ATTEND Internal Medicine
DX: K21.9 Gastro-esophageal reflux disease without esophagitis (principal); I48.91 Unspecified atrial fibrillation; E11.9 Type 2 diabetes mellitus without complications; I10 Essential (primary) hypertension; G89.29 Other chronic pain; F32.9 Major depressive disorder, single episode, unspecified; I24.8 Other forms of acute ischemic heart disease; F17.210 Nicotine dependence, cigarettes, uncomplicated; Z88.8 Allergy status to other drugs, medicaments and biological substances; I50.9 Heart failure, unspecified; I11.0 Hypertensive heart disease with heart failure; N40.0 Benign prostatic hyperplasia without lower urinary tract symptoms; Z79.01 Long term (current) use of anticoagulants; Z79.84 Long term (current) use of oral hypoglycemic drugs; Z79.899 Other long term (current) drug therapy; Z86.73 Personal history of transient ischemic attack (TIA), and cerebral infarction without residual deficits
CPT/HCPCS: 36415; 71045; 78452; 80048; 80053; 80061; 82948; 83036; 83735; 83880; 84484; 85025; 85379; 85610; 85730; 87081; 93005; 93017; 93306; 96374; 99285; A9500; G0378; J0280; J2785; J3490; J7030

== ENCOUNTER 2020-01-15 14:22 | Emergency (ER) | payer MEDICAID ==
[~2020-01-15] VITALS: Ht 180.3 cm; Wt 126.0 kg
[~2020-01-15 14:22] MED LIST changes: +ATOR40TA PO; -NALO4SPR NAS; +PANT20TA3 PO; +RISP1TAB3 PO; -RISP2TAB3 PO
[2020-01-15] MEDS ORDERED: diltiazem 5mg/ml 5ml inj. IV ONE (14:55)
[2020-01-15] MEDS ORDERED: diltiazem 30mg tablet PO ONE (14:55)
[2020-01-15] MEDS ORDERED: oxyCODONE/APAP 10/325mg tablet PO ONE (15:00)
[2020-01-15 15:10] LABS: BASOPHILS % (AUTO) 0.6 % (0-1); EOSINOPHILS # (AUTO) 0.1 X10'3 (0-0.9); EOSINOPHILS % (AUTO) 2.2 % (0-6); HEMATOCRIT 46.5 % (42.0-52.0); HEMOGLOBIN 15.7 g/dl (14.0-17.9); LYMPHOCYTES # (AUTO) 2.8 X10'3 (1.1-4.8); LYMPHOCYTES % (AUTO) 44.5 % (21-51); MEAN CORPUSCULAR HGB CONC 33.7 g/dL (33.0-36.5); MEAN CORPUSCULAR VOLUME 97.7 FL (78-98); MEAN PLATELET VOLUME 8.5 FL (7.4-10.4); MONOCYTES # (AUTO) 0.4 X10'3 (0-0.9); MONOCYTES % (AUTO) 6.1 % (2-12); NEUTROPHILS % (AUTO) 46.6 % (42-75); PLATELET COUNT 162 X10'3 (140-440); RED BLOOD COUNT 4.76 X10'6 (4.70-6.10); RED CELL DISTRIBUTION WIDTH 13.8 % (11.5-14.5); WHITE BLOOD COUNT 6.4 X10'3 (4.5-11.0)
--- NOTE | 2020-01-15 15:18 | NUR ---
PT VERY DIAPHORETIC AND STATES PAIN IS WORSE IN HIS CHEST AND BACK. PAIN RX GIVEN. HR RESPONDING WELL TO ORDERED CARDIZEM.
[2020-01-15 15:26] LABS: ALANINE AMINOTRANSFERASE 15 U/L (12-78); ALBUMIN 3.9 G/DL (3.4-5.0); ALBUMIN/GLOBULIN RATIO 1.1 (1.1-1.5); ALKALINE PHOSPHATASE 59 IU/L (46-116); ANION GAP 8 (8-16); ASPARTATE AMINO TRANSFERASE 13 U/L (10-37); BILIRUBIN,TOTAL 0.5 MG/DL (0.1-1.0); BLOOD UREA NITROGEN 11 MG/DL (7-18); BUN/CREATININE RATIO 9.2 (5.4-32.0); CALCIUM 8.9 MG/DL (8.5-10.1); CHLORIDE 103 MMOL/L (99-107); GLUCOSE 127 MG/DL (70-104); POTASSIUM 3.8 MMOL/L (3.5-5.1); SODIUM 141 MMOL/L (135-145); TOTAL CARBON DIOXIDE 29.7 MMOL/L (24-32); TOTAL PROTEIN 7.5 G/DL (6.4-8.2); eGFR 62 ML/MIN
[2020-01-15 15:32] LABS: MAGNESIUM 1.7 MG/DL (1.5-2.4)
[2020-01-15] MEDS ORDERED: furosemide 10 MG/1 ML 10ml inj IV ONE (15:50)
[2020-01-15] MEDS ORDERED: ATOR40TA72 PO (16:29)
[2020-01-15] MEDS ORDERED: PANT-47 PO (16:29)
--- NOTE | 2020-01-15 16:43 | NUR ---
CASSANDRA COMPLETED MED REC
--- NOTE | 2020-01-15 16:52 | NUR ---
PT BP AND SAO2 LOW AND DROPPED WITH MD EMMANUEL AWARE, WAITING HOSPITALIST FOR ADMIT.
--- NOTE | 2020-01-15 16:53 | NUR ---
PTS BROTHER ALEXANDRA MAURER CALLED TO CHECK ON PT. PT GAVE VERBAL AGREEMENT FOR ME TO UPDATE HIS BROTHER. CELL #[phone], #[phone].
[2020-01-15] MEDS ORDERED: METO50TA17 PO (17:28)
[2020-01-15 18:01] VITALS: BP 118/93
== END 2020-01-15 18:06 | disposition home or self-care (01) ==
LOC: ER 14:22
DX: I48.91 Unspecified atrial fibrillation (principal); R06.02 Shortness of breath; R07.89 Other chest pain; I50.9 Heart failure, unspecified; J44.9 Chronic obstructive pulmonary disease, unspecified; N18.9 Chronic kidney disease, unspecified; E11.22 Type 2 diabetes mellitus with diabetic chronic kidney disease; F32.9 Major depressive disorder, single episode, unspecified; F17.210 Nicotine dependence, cigarettes, uncomplicated; F12.90 Cannabis use, unspecified, uncomplicated; Z86.73 Personal history of transient ischemic attack (TIA), and cerebral infarction without residual deficits; Z86.69 Personal history of other diseases of the nervous system and sense organs; Z86.19 Personal history of other infectious and parasitic diseases; Z98.890 Other specified postprocedural states; Z88.8 Allergy status to other drugs, medicaments and biological substances; Z79.01 Long term (current) use of anticoagulants; Z79.899 Other long term (current) drug therapy
CPT/HCPCS: 36415; 71045; 80053; 83735; 83880; 84484; 85025; 85610; 93005; 96374; 96375; 99285; J1940; J3490

== ENCOUNTER 2020-03-22 10:18 | Emergency (ER) | payer MEDICAID ==
[~2020-03-22] VITALS: Ht 180.3 cm; Wt 127.3 kg
[~2020-03-22 10:18] MED LIST changes: -ATOR40TA PO; +ATOR40TA72 PO; +PANT-47 PO; -PANT20TA3 PO
[2020-03-22 10:25] VITALS: BP 159/106
== END 2020-03-22 11:20 | disposition home or self-care (01) ==
LOC: ER 10:19
DX: R30.0 Dysuria (principal); N18.9 Chronic kidney disease, unspecified; I50.9 Heart failure, unspecified; J44.9 Chronic obstructive pulmonary disease, unspecified; F41.9 Anxiety disorder, unspecified; F32.9 Major depressive disorder, single episode, unspecified; B18.2 Chronic viral hepatitis C; F17.210 Nicotine dependence, cigarettes, uncomplicated; F12.10 Cannabis abuse, uncomplicated
CPT/HCPCS: 99283

== ENCOUNTER 2020-05-02 04:50 | Inpatient (IN) | payer MEDICAID ==
[~2020-05-02] VITALS: Ht 175.3 cm; Wt 125.0 kg
[2020-05-02] VITALS (15 sets, daily range): BP systolic 90–143; BP diastolic 55–96
[~2020-05-02 04:50] MED LIST changes: -RISP1TAB3 PO; +RISP1TAB98 PO
--- NOTE | 2020-05-02 04:57 | NUR ---
0455 PREPPED FOR INTUBATION, ETOMIDATE 40 MG IV HR 129, 91% ON 15 LITERS
--- NOTE | 2020-05-02 05:00 | NUR ---
VERBAL FOR: FROM DR. CASH VERSED 5 MG PROPOFOL GTT
[2020-05-02] MEDS ORDERED: propofol 1000mg/100ml bottle 100 ML IV ONE (05:03)
[2020-05-02] MEDS ORDERED: etomidate 2mg/ml inj. IV ONE (05:05)
[2020-05-02] MEDS ORDERED: MIDAZolam 5mg/ml 2ml vial IV ONE (05:05)
--- NOTE | 2020-05-02 05:14 | NUR ---
DR CASH ORIGINALLY ORDERED PROPOFOL AND D?T BP 101/59, STOPPED ORDER AND NOW ORDERING VERSED GTT.
[2020-05-02 05:18] LABS: BASOPHILS % (AUTO) 0.5 % (0-1); EOSINOPHILS # (AUTO) 0.2 X10'3 (0-0.9); EOSINOPHILS % (AUTO) 2.2 % (0-6); HEMATOCRIT 42.7 % (42.0-52.0); HEMOGLOBIN 14.3 g/dl (14.0-17.9); LYMPHOCYTES # (AUTO) 2.8 X10'3 (1.1-4.8); MEAN CORPUSCULAR HEMOGLOBIN 32.8 PG (27.0-31.0); MEAN CORPUSCULAR HGB CONC 33.4 g/dL (33.0-36.5); MEAN CORPUSCULAR VOLUME 98.2 FL (78-98); MEAN PLATELET VOLUME 8.3 FL (7.4-10.4); MONOCYTES # (AUTO) 0.4 X10'3 (0-0.9); MONOCYTES % (AUTO) 5.9 % (2-12); NEUTROPHILS # (AUTO) 3.5 X10'3 (1.8-7.7); NEUTROPHILS % (AUTO) 50.4 % (42-75); PLATELET COUNT 139 X10'3 (140-440); RED BLOOD COUNT 4.35 X10'6 (4.70-6.10); RED CELL DISTRIBUTION WIDTH 13.3 % (11.5-14.5); WHITE BLOOD COUNT 6.9 X10'3 (4.5-11.0)
--- NOTE | 2020-05-02 05:18 | NUR ---
BP 87/56, KATARINA ZIEGLER DOPAMINE
[2020-05-02] MEDS ORDERED: DOPamine 400mg/D5W 250ml 250 ML IV SCH (05:20)
[2020-05-02 05:26] LABS: ABG BASE EXCESS 3.6 mmol/L (-2.0-2.0); ABG PCO2 (T) 65.1 mmHg (35.0-48.0); ALLEN'S TEST POSITIVE; FCOHb 3.4 % (0.0-3.9); FMetHb 0.2 % (0.0-1.5); FO2Hb 89.7 % (94-97); PATIENT TEMPERATURE 36.6; PEEP 5 cm H2O; RESPIRATORY RATE 18 b/min; TIDAL VOLUME 500 mL; TOTAL HEMOGLOBIN 14.1 G/dl (14.0-18.0)
--- NOTE | 2020-05-02 05:26 | NUR ---
COVID RAPD SWAB COLLECTE AND LABS AND BCX.
[2020-05-02] MEDS: midazolam 100mg in NS 100ml 100 ML IV SCH ×5 (05:31→23:15)
[2020-05-02 05:38] LABS: ALANINE AMINOTRANSFERASE 19 U/L (12-78); ALBUMIN 3.9 G/DL (3.4-5.0); ALBUMIN/GLOBULIN RATIO 1.1 (1.1-1.5); ALKALINE PHOSPHATASE 75 IU/L (46-116); ANION GAP 4 (8-16); ASPARTATE AMINO TRANSFERASE 18 U/L (10-37); BILIRUBIN,TOTAL 0.4 MG/DL (0.1-1.0); BLOOD UREA NITROGEN 12 MG/DL (7-18); BUN/CREATININE RATIO 10.3 (5.4-32.0); CALCIUM 8.9 MG/DL (8.5-10.1); CHLORIDE 103 MMOL/L (99-107); CREATININE 1.16 MG/DL (0.60-1.10); GLUCOSE 121 MG/DL (70-104); POTASSIUM 4.5 MMOL/L (3.5-5.1); SODIUM 141 MMOL/L (135-145); TOTAL CARBON DIOXIDE 33.8 MMOL/L (24-32); TOTAL PROTEIN 7.6 G/DL (6.4-8.2); eGFR 65 ML/MIN
[2020-05-02] MEDS ORDERED: LIDOcaine 2% 10ml TOPICAL JELLY (Urojet) TP ONE (05:45)
--- NOTE | 2020-05-02 05:53 | NUR ---
versed gtt and dopamine gtt infusing.
[2020-05-02] MEDS ORDERED: aspirin 300mg supp.rect RC ONE (05:55)
--- NOTE | 2020-05-02 06:07 | NUR ---
PT WAS SHOWING SIGNS OF ALERTNESS TONGUE MOVING IN AND OUT OF MOUTH AND FEET WIGGLING. bOLUS OF vERCED ADMINISTERED
[2020-05-02 06:21] LABS: C-REACTIVE PROTEIN 1.85 MG/DL (0.0-0.5)
--- NOTE | 2020-05-02 06:24 | NUR ---
NEW ORDER FOR FENTYNL DRIP REC'VD FROM TOM LOPEZ IS ASSESSING PT BEDSIDE
[2020-05-02 06:28] LABS: LACTATE DEHYDROGENASE 315 U/L (85-227)
[2020-05-02] MEDS: FENTANYL-0.9 % NACL/PF 100 ML IV PRN ×2 (06:42→17:56)
[2020-05-02] MEDS ORDERED: ondansetron/PF 4mg/2ml inj IV PRN (06:45)
[2020-05-02] MEDS ORDERED: acetaminophen 325mg tablet PO PRN ×2 (06:45)
[2020-05-02] MEDS ORDERED: albuterol 2.5 MG/3 ML nebule NEB PRN (06:45)
[2020-05-02] MEDS ORDERED: FENTANYL-0.9 % NACL/PF 100 ML IV PRN (06:45)
[2020-05-02] MEDS ORDERED: potassium Cl 20mEq/100mL bag 100 ML IV PRN (06:45)
[2020-05-02] MEDS ORDERED: midazolam 100mg in NS 100ml 100 ML IV PRN (06:45)
[2020-05-02] MEDS ORDERED: DOPamine 400mg/D5W 250ml 250 ML IV PRN (06:45)
[2020-05-02 06:55] LABS: FERRITIN 124 NG/ML (26-388)
--- NOTE | 2020-05-02 06:55 | NUR ---
FERRITIN 124
[2020-05-02] MEDS: ipratropium/albuterol 3ml nebule NEB SCH ×5 (07:00→23:02)
--- NOTE | 2020-05-02 07:02 | NUR ---
Blood gas drawn by RT after ET tube exchange. Pt remains in isolation per ER MD request. Appepars comfortabhle, RASS of 0. Awaiting ICU bed.
[2020-05-02] MEDS: DOPamine 400mg/D5W 250ml 250 ML IV SCH ×2 (07:09→17:27)
--- NOTE | 2020-05-02 07:10 | NUR ---
versxed decreaed from 15ml.hr to 10 ml/hr d/t decreased hr.
[2020-05-02 07:11] LABS: ABG BASE EXCESS 1.1 mmol/L (-2.0-2.0); ABG HCO3 30.6 mmol/L (22.0-26.0); ABG OXYGEN SATURATION 89.2 % (94-97); ABG PCO2 (T) 75.9 mmHg (35.0-48.0); ABG PO2 (T) 65.8 mmHg (75.0-100.0); ALLEN'S TEST POSITIVE; FCOHb 2.3 % (0.0-3.9); FMetHb 0.2 % (0.0-1.5); PATIENT TEMPERATURE 38.3; RESPIRATORY RATE 20 b/min; TIDAL VOLUME 450 mL; TOTAL HEMOGLOBIN 15.1 G/dl (14.0-18.0)
[2020-05-02] MEDS: normal saline 1000ml 1,000 ML IV SCH ×2 (07:15→15:52)
--- NOTE | 2020-05-02 07:20 | NUR ---
Versed gtt decreased to 7 mg/hr for HR 52-51. WCTM heart rate. BP stable. RT adjusted vent settings after blood gas.
[2020-05-02 07:41] LABS: PARTIAL THROMBOPLASTIN TIME 37 SECONDS (22-32)
[2020-05-02 07:43] LABS: MAGNESIUM 2.1 MG/DL (1.5-2.4)
[2020-05-02 07:51] LABS: CLARITY,URINE SLIGHTLY CLOUDY (Clear); COLOR,URINE YELLOW (Yellow); GLUCOSE, URINE NEGATIVE (Neg); KETONES,URINE NEGATIVE (Neg); LEUKOCYTE ESTERASE ,URINE NEGATIVE (Neg); NITRITES, URINE NEGATIVE (Neg); OCCULT BLOOD,URINE SMALL (Neg); PROTEIN,URINE NEGATIVE (Neg); UROBILINOGEN,URINE 0.2 E.U/dL (0.2-1.0)
[2020-05-02 07:59] LABS: UA COLLECTION TYPE FOLEY CATH
[2020-05-02] MEDS ORDERED: rocuronium 10mg/ml inj IV ONE (08:00)
[2020-05-02] MEDS: docusate sodium 100mg/10ml UD cup PO SCH ×2 (08:00→20:00)
[2020-05-02] MEDS ORDERED: atropine 0.1mg/ml 10ml syringe ONE ×2 (08:00)
[2020-05-02] MEDS ORDERED: epiNEPHrine 0.1mg/ml 10ml syringe ONE ×2 (08:00)
[2020-05-02] MEDS ORDERED: etomidate 2mg/ml inj. ONE (08:00)
[2020-05-02] MEDS ORDERED: DOBUTamine/D5W 500mg/250ml premix IV ONE (08:00)
[2020-05-02 08:03] LABS: SQUAMOUS EPITHELIAL CELL,UR MANY /LPF (FEW)
[2020-05-02 08:04] LABS: BACTERIA,URINE FEW /HPF (Neg); WBC,URINE 0-4 /HPF (0-4)
[2020-05-02] MEDS: dexamethasone 4mg/ml inj IV SCH (08:36)
[2020-05-02] MEDS: pantoprazole 40 MG vial IV SCH (08:37)
[2020-05-02] MEDS ORDERED: OXYC10TA47 PO (09:15)
[2020-05-02] MEDS ORDERED: ONDA4TAB6 PO (09:17)
[2020-05-02] MEDS ORDERED: CefTRIAXone/D5W-Rocephin 1gm 50 ML IV ONE (09:50)
[2020-05-02] MEDS ORDERED: azithromycin/NS 500mg/250ml 250 ML IV ONE (09:50)
--- NOTE | 2020-05-02 10:40 | NUR ---
Pt. arrived to 2006 at approx. 0900 from ED. Set up on monitor and vent. MRSA swab obtained per protocol. Skin check done. Pt. assessed. IV lines labeled. Medicated with Tylenol for temp 38.7 per OGT now.
--- NOTE | 2020-05-02 11:03 | NUR ---
Initial: Pt intubated this AM admit DX bilateral PNA, COPD exacerbation, acute respiratory failure, and concerns for COVID-19 pending result verification per WEATHERSTRIP MACHINE OPERATOR note. Hx T2DM 1C 5.7 January this year, HTN, CHF, and COPD per EMR. EN recs below in case prolonged intubation; using IBW pending scaled wt this admit. Will continue to monitor. Rec: 1. IF TF; Vital High Protein at 90ml/hr; adjust as medically indicated 2. IF TF; water flush 200ml Q4 3. IF TF; PALB Q M/; daily wts 4. routine bowel care; consider opioid antagonist as medically indicated 5. scaled wt this admit Addendum: 05/02/20 at [address] Amended: Links added.
[2020-05-02 11:40] LABS: ABG BASE EXCESS 2.5 mmol/L (-2.0-2.0); ABG HCO3 27.6 mmol/L (22.0-26.0); ABG PCO2 (T) 46.8 mmHg (35.0-48.0); ABG PO2 (T) 105.1 mmHg (75.0-100.0); ALLEN'S TEST POSITIVE; FMetHb 0.4 % (0.0-1.5); FO2Hb 96.6 % (94-97); PATIENT TEMPERATURE 38.2; PEEP 10 cm H2O; RESPIRATORY RATE 26 b/min; TIDAL VOLUME 450 mL; TOTAL HEMOGLOBIN 15.7 G/dl (14.0-18.0)
[2020-05-02] MEDS ORDERED: amiodarone 150mg/dext, iso-os 100 ML IV ONE (12:25)
[2020-05-02] MEDS: amiodarone/D5 360MG/200ML BAG 200 ML IV SCH ×2 (12:42→18:29)
--- NOTE | 2020-05-02 12:43 | NUR ---
Notified Dr. Brothers of afib with labile rate up to 144. Ordered Amiodarone. Amiodarone initiated.
[2020-05-02 12:55] LABS: D-DIMER 0.57 MG/L FEU (0-0.50)
[2020-05-02 13:03] LABS: HEMOGLOBIN A1C 5.7 % (4.5-6.2)
--- NOTE | 2020-05-02 13:16 | NUR ---
Dr. Brothers said he spoke with Dr. Zambrano who stated pt. does not need a second Covid test or droplet isolation. Charge nurse notified. Pt's brother and sister called for updates.
[2020-05-02] MEDS ORDERED: mineral oil/petrolatum ophthal oint EACHEYE SCH (14:13)
[2020-05-02] MEDS ORDERED: dextrose 50%-water 50ml dispensing syringe IV PRN ×2 (17:25)
[2020-05-02] MEDS ORDERED: dextrose ORAL solution 15 GM/59 ML bottle PO PRN ×2 (17:25)
[2020-05-02] MEDS ORDERED: insulin Lispro (HumaLOG) vial - multi-dose SQ SCH (17:25)
[2020-05-02] MEDS ORDERED: MESSAGE TO PHARMACY PO ONE (17:25)
[2020-05-02] MEDS ORDERED: glucagon, human recombinant 1mg kit SUBCUT PRN (17:25)
[2020-05-02] MEDS: rivaroxaban 20mg tablet OGT SCH (17:38)
--- NOTE | 2020-05-02 18:19 | NUR ---
Problems reprioritized. Patient report given, questions answered & plan of care reviewed with Estela LEACH.
--- NOTE | 2020-05-02 18:20 | NUR ---
Patient in room CICU 2006. I have received report from HANY Lockhart and had the opportunity to ask questions and assume patient care. Patient is intubated/sedated and resting comfortably.
[2020-05-02] MEDS: metoprolol tartrate 50mg tablet PO SCH (20:00)
[2020-05-02] MEDS: insulin glargine (Lantus) pen - multi-dose SQ SCH (21:00)
[2020-05-02] MEDS: gabapentin 300mg capsule PO SCH (21:49)
[2020-05-03] VITALS (24 sets, daily range): BP systolic 104–167; BP diastolic 64–102
[2020-05-03] MEDS: amiodarone/D5 360MG/200ML BAG 200 ML IV SCH ×5 (00:48→22:57)
[2020-05-03] MEDS: normal saline 1000ml 1,000 ML IV SCH ×3 (00:50→20:43)
[2020-05-03 03:17] LABS: BASOPHILS % (AUTO) 0.4 % (0-1); EOSINOPHILS % (AUTO) 0.1 % (0-6); HEMATOCRIT 39.4 % (42.0-52.0); HEMOGLOBIN 13.1 g/dl (14.0-17.9); LYMPHOCYTES # (AUTO) 0.8 X10'3 (1.1-4.8); LYMPHOCYTES % (AUTO) 15.4 % (21-51); MEAN CORPUSCULAR HEMOGLOBIN 32.4 PG (27.0-31.0); MEAN CORPUSCULAR HGB CONC 33.2 g/dL (33.0-36.5); MEAN CORPUSCULAR VOLUME 97.5 FL (78-98); MEAN PLATELET VOLUME 8.5 FL (7.4-10.4); MONOCYTES # (AUTO) 0.2 X10'3 (0-0.9); MONOCYTES % (AUTO) 4.3 % (2-12); NEUTROPHILS # (AUTO) 4.4 X10'3 (1.8-7.7); NEUTROPHILS % (AUTO) 79.8 % (42-75); PLATELET COUNT 120 X10'3 (140-440); RED BLOOD COUNT 4.05 X10'6 (4.70-6.10); RED CELL DISTRIBUTION WIDTH 13.2 % (11.5-14.5); WHITE BLOOD COUNT 5.5 X10'3 (4.5-11.0)
[2020-05-03] MEDS: ipratropium/albuterol 3ml nebule NEB SCH ×6 (03:25→23:08)
[2020-05-03 03:26] LABS: PARTIAL THROMBOPLASTIN TIME 33 SECONDS (22-32)
[2020-05-03 03:29] LABS: ALANINE AMINOTRANSFERASE 14 U/L (12-78); ALBUMIN 3.1 G/DL (3.4-5.0); ALBUMIN/GLOBULIN RATIO 0.9 (1.1-1.5); ALKALINE PHOSPHATASE 60 IU/L (46-116); ANION GAP 5 (8-16); ASPARTATE AMINO TRANSFERASE 11 U/L (10-37); BILIRUBIN,TOTAL 0.5 MG/DL (0.1-1.0); BLOOD UREA NITROGEN 10 MG/DL (7-18); BUN/CREATININE RATIO 10.3 (5.4-32.0); CALCIUM 8.3 MG/DL (8.5-10.1); CHLORIDE 108 MMOL/L (99-107); CREATININE 0.97 MG/DL (0.60-1.10); GLUCOSE 144 MG/DL (70-104); MAGNESIUM 1.9 MG/DL (1.5-2.4); PHOSPHORUS 2.1 MG/DL (2.3-4.5); POTASSIUM 4.2 MMOL/L (3.5-5.1); SODIUM 143 MMOL/L (135-145); TOTAL CARBON DIOXIDE 29.6 MMOL/L (24-32); TOTAL PROTEIN 6.4 G/DL (6.4-8.2); eGFR 79 ML/MIN
[2020-05-03] MEDS: DOPamine 400mg/D5W 250ml 250 ML IV SCH (03:45)
[2020-05-03 04:01] LABS: ABG BASE EXCESS 0.2 mmol/L (-2.0-2.0); ABG HCO3 25.7 mmol/L (22.0-26.0); ABG OXYGEN SATURATION 92.4 % (94-97); ABG PCO2 (T) 42.6 mmHg (35.0-48.0); ABG PO2 (T) 58.7 mmHg (75.0-100.0); ALLEN'S TEST POSITIVE; FCOHb 0.3 % (0.0-3.9); FMetHb 0.1 % (0.0-1.5); PATIENT TEMPERATURE 35.8; PEEP 10 cm H2O; RESPIRATORY RATE 22 b/min; TIDAL VOLUME 450 mL; TOTAL HEMOGLOBIN 14.1 G/dl (14.0-18.0)
--- NOTE | 2020-05-03 06:18 | NUR ---
Problems reprioritized. Patient report given, questions answered & plan of care reviewed with CJ.
[2020-05-03] MEDS: docusate sodium 100mg/10ml UD cup PO SCH (07:03)
[2020-05-03] MEDS: pantoprazole 40 MG vial IV SCH (07:03)
[2020-05-03] MEDS: dexamethasone 4mg/ml inj IV SCH (07:03)
[2020-05-03] MEDS: azithromycin/NS 500mg/250ml 250 ML IV SCH (07:03)
[2020-05-03] MEDS: gabapentin 300mg capsule PO SCH ×2 (07:04→12:07)
[2020-05-03] MEDS: metoprolol tartrate 50mg tablet PO SCH (07:04)
[2020-05-03] MEDS: CefTRIAXone/D5W-Rocephin 1gm 50 ML IV SCH (07:15)
[2020-05-03] MEDS: tamsulosin 0.4mg capsule PO SCH (07:17)
[2020-05-03] MEDS ORDERED: risperiDONE 0.5mg tablet PO SCH (08:00)
[2020-05-03] MEDS ORDERED: ESCITALOPRAM OXALATE 5 MG TABLET PO SCH (08:00)
[2020-05-03] MEDS ORDERED: furosemide 40mg tablet PO SCH (08:00)
[2020-05-03] MEDS ORDERED: sennosides 8.6mg tablet PO SCH (08:00)
[2020-05-03] MEDS ORDERED: mineral oil/petrolatum ophthal oint EACHEYE SCH (08:00)
[2020-05-03] MEDS: midazolam 100mg in NS 100ml 100 ML IV SCH ×2 (08:42→20:51)
[2020-05-03] MEDS ORDERED: ondansetron 4mg rapidly disintigrating tab PO PRN (10:50)
[2020-05-03] MEDS: VANCOmycin 1250MG/NS 250ml Bag 250 ML IV SCH ×2 (11:15→23:30)
--- NOTE | 2020-05-03 12:40 | NUR ---
TF Consult: Pt to start OGTF today per MD at rounds; EN recs below using IBW given no scaled wt yet this admit. No BM yet this admit receiving routine colace and senna. Will continue to monitor for EN tolerance. Rec: 1. Continuous OGTF per MD using Vital High Protein at 90ml/hr; to provide 2160ml volume, 1814ml free water, 2160kcals, and 189g protein. 2. water flush 200ml Q4 3. IF TF; PALB Q /; daily wts 4. routine bowel care; consider opioid antagonist as medically indicated 5. scaled wt this admit; adjust EN recs pending updated wt Addendum: 05/03/20 at [address] Amended: Links added.
[2020-05-03] MEDS ORDERED: furosemide 40mg tablet OGT SCH (13:26)
[2020-05-03] MEDS ORDERED: ondansetron 4mg rapidly disintigrating tab OGT PRN (13:27)
[2020-05-03] MEDS ORDERED: dextrose ORAL solution 15 GM/59 ML bottle OGT PRN ×2 (13:40)
[2020-05-03] MEDS: FENTANYL-0.9 % NACL/PF 100 ML IV PRN (15:00)
[2020-05-03] MEDS: rivaroxaban 20mg tablet OGT SCH (17:01)
[2020-05-03] MEDS ORDERED: rivaroxaban 20mg tablet PO SCH (18:00)
--- NOTE | 2020-05-03 18:10 | NUR ---
Patient in room CICU 2006. I have received report from BORARN and had the opportunity to ask questions and assume patient care. Patient is still intubated and sedated, tube feed and additional antibiotics added today otherwise no changes
[2020-05-03] MEDS: docusate sodium 100mg/10ml UD cup OGT SCH (19:53)
[2020-05-03] MEDS: lactobacillus rhamnosus 10,000 MMU CELLS/CAPSULE PO SCH (19:53)
[2020-05-03] MEDS: metoprolol tartrate 50mg tablet OGT SCH (19:54)
[2020-05-03] MEDS: gabapentin 300mg capsule OGT SCH (19:54)
[2020-05-03] MEDS: nystatin 15 GM powder TP SCH (19:54)
[2020-05-03] MEDS: insulin glargine (Lantus) pen - multi-dose SQ SCH (21:00)
[2020-05-04] VITALS (24 sets, daily range): BP systolic 117–164; BP diastolic 9–112
[2020-05-04] MEDS: FENTANYL-0.9 % NACL/PF 100 ML IV PRN ×3 (00:12→20:19)
[2020-05-04 02:37] LABS: BASOPHILS % (AUTO) 0.1 % (0-1); EOSINOPHILS % (AUTO) 0.1 % (0-6); HEMATOCRIT 38.6 % (42.0-52.0); LYMPHOCYTES # (AUTO) 1.7 X10'3 (1.1-4.8); LYMPHOCYTES % (AUTO) 21.5 % (21-51); MEAN CORPUSCULAR HEMOGLOBIN 32.8 PG (27.0-31.0); MEAN CORPUSCULAR HGB CONC 33.6 g/dL (33.0-36.5); MEAN CORPUSCULAR VOLUME 97.5 FL (78-98); MEAN PLATELET VOLUME 8.5 FL (7.4-10.4); MONOCYTES # (AUTO) 0.5 X10'3 (0-0.9); MONOCYTES % (AUTO) 6.6 % (2-12); NEUTROPHILS # (AUTO) 5.6 X10'3 (1.8-7.7); NEUTROPHILS % (AUTO) 71.7 % (42-75); PLATELET COUNT 141 X10'3 (140-440); RED BLOOD COUNT 3.95 X10'6 (4.70-6.10); RED CELL DISTRIBUTION WIDTH 13.6 % (11.5-14.5); WHITE BLOOD COUNT 7.8 X10'3 (4.5-11.0)
[2020-05-04 02:48] LABS: PARTIAL THROMBOPLASTIN TIME 30 SECONDS (22-32)
[2020-05-04 02:55] LABS: ALANINE AMINOTRANSFERASE 14 U/L (12-78); ALBUMIN 2.9 G/DL (3.4-5.0); ALBUMIN/GLOBULIN RATIO 0.9 (1.1-1.5); ALKALINE PHOSPHATASE 52 IU/L (46-116); ANION GAP 5 (8-16); ASPARTATE AMINO TRANSFERASE 5 U/L (10-37); BILIRUBIN,TOTAL 0.3 MG/DL (0.1-1.0); BLOOD UREA NITROGEN 15 MG/DL (7-18); BUN/CREATININE RATIO 16.1 (5.4-32.0); CALCIUM 8.2 MG/DL (8.5-10.1); CHLORIDE 108 MMOL/L (99-107); CREATININE 0.93 MG/DL (0.60-1.10); GLUCOSE 119 MG/DL (70-104); MAGNESIUM 1.9 MG/DL (1.5-2.4); PHOSPHORUS 2.6 MG/DL (2.3-4.5); POTASSIUM 3.9 MMOL/L (3.5-5.1); SODIUM 142 MMOL/L (135-145); TOTAL CARBON DIOXIDE 29.3 MMOL/L (24-32); TOTAL PROTEIN 6.3 G/DL (6.4-8.2); eGFR 83 ML/MIN
[2020-05-04] MEDS: ipratropium/albuterol 3ml nebule NEB SCH ×6 (03:27→23:07)
[2020-05-04 03:41] LABS: ABG BASE EXCESS 1.1 mmol/L (-2.0-2.0); ABG HCO3 25.8 mmol/L (22.0-26.0); ABG OXYGEN SATURATION 95.5 % (94-97); ABG PCO2 (T) 40.9 mmHg (35.0-48.0); ABG PO2 (T) 75.1 mmHg (75.0-100.0); ALLEN'S TEST POSITIVE; FCOHb 0.2 % (0.0-3.9); FMetHb 0.2 % (0.0-1.5); FO2Hb 95.1 % (94-97); PATIENT TEMPERATURE 36.8; PEEP 10 cm H2O; RESPIRATORY RATE 22 b/min; TIDAL VOLUME 450 mL
--- NOTE | 2020-05-04 06:14 | NUR ---
Problems reprioritized. Patient report given, questions answered & plan of care reviewed with BORARN.
[2020-05-04] MEDS: midazolam 100mg in NS 100ml 100 ML IV SCH ×2 (06:41→17:06)
[2020-05-04] MEDS ORDERED: lactulose 20gm/30ml cup OGT PRN (06:45)
[2020-05-04] MEDS: amiodarone/D5 360MG/200ML BAG 200 ML IV SCH ×4 (07:23→22:47)
[2020-05-04] MEDS: nystatin 15 GM powder TP SCH ×2 (07:24→20:04)
[2020-05-04] MEDS: CefTRIAXone/D5W-Rocephin 1gm 50 ML IV SCH (07:24)
[2020-05-04] MEDS: dexamethasone 4mg/ml inj IV SCH (07:26)
[2020-05-04] MEDS: sennosides 8.6mg tablet OGT SCH (07:27)
[2020-05-04] MEDS: ESCITALOPRAM OXALATE 5 MG TABLET OGT SCH (07:27)
[2020-05-04] MEDS: pantoprazole 40 MG vial IV SCH (07:28)
[2020-05-04] MEDS: risperiDONE 0.5mg tablet OGT SCH (07:28)
[2020-05-04] MEDS: lactobacillus rhamnosus 10,000 MMU CELLS/CAPSULE PO SCH ×2 (07:29→20:04)
[2020-05-04] MEDS: tamsulosin 0.4mg capsule PO SCH (07:29)
[2020-05-04] MEDS: metoprolol tartrate 50mg tablet OGT SCH ×2 (07:29→20:05)
[2020-05-04] MEDS: docusate sodium 100mg/10ml UD cup OGT SCH ×2 (07:29→20:04)
[2020-05-04] MEDS: gabapentin 300mg capsule OGT SCH ×3 (07:29→20:04)
[2020-05-04] MEDS: azithromycin/NS 500mg/250ml 250 ML IV SCH (07:29)
[2020-05-04] MEDS: VANCOmycin 1250MG/NS 250ml Bag 250 ML IV SCH ×2 (10:11→23:21)
[2020-05-04] MEDS: lisinopril 10 MG tablet PO SCH (12:05)
[2020-05-04] MEDS: normal saline 1000ml 1,000 ML IV SCH (15:27)
[2020-05-04] MEDS: rivaroxaban 20mg tablet OGT SCH (17:05)
--- NOTE | 2020-05-04 18:10 | NUR ---
Patient in room CICU 2006. I have received report from BORARN and had the opportunity to ask questions and assume patient care.
[2020-05-04] MEDS: insulin glargine (Lantus) pen - multi-dose SQ SCH (20:11)
[2020-05-04] MEDS ORDERED: VANCOMYCIN LEVEL IV ONE (22:30)
[2020-05-05] VITALS (24 sets, daily range): BP systolic 105–152; BP diastolic 59–110
[2020-05-05] MEDS: midazolam 100mg in NS 100ml 100 ML IV SCH ×3 (02:25→16:26)
[2020-05-05 02:35] LABS: BASOPHILS % (AUTO) 0.1 % (0-1); EOSINOPHILS % (AUTO) 0.1 % (0-6); HEMATOCRIT 38.4 % (42.0-52.0); HEMOGLOBIN 12.9 g/dl (14.0-17.9); LYMPHOCYTES # (AUTO) 1.4 X10'3 (1.1-4.8); LYMPHOCYTES % (AUTO) 21.7 % (21-51); MEAN CORPUSCULAR HEMOGLOBIN 32.8 PG (27.0-31.0); MEAN CORPUSCULAR HGB CONC 33.6 g/dL (33.0-36.5); MEAN CORPUSCULAR VOLUME 97.7 FL (78-98); MEAN PLATELET VOLUME 8.2 FL (7.4-10.4); MONOCYTES # (AUTO) 0.4 X10'3 (0-0.9); MONOCYTES % (AUTO) 6.5 % (2-12); NEUTROPHILS # (AUTO) 4.7 X10'3 (1.8-7.7); NEUTROPHILS % (AUTO) 71.6 % (42-75); PLATELET COUNT 140 X10'3 (140-440); RED BLOOD COUNT 3.93 X10'6 (4.70-6.10); RED CELL DISTRIBUTION WIDTH 13.8 % (11.5-14.5); WHITE BLOOD COUNT 6.6 X10'3 (4.5-11.0)
[2020-05-05 02:49] LABS: PARTIAL THROMBOPLASTIN TIME 28 SECONDS (22-32)
[2020-05-05 02:58] LABS: ALANINE AMINOTRANSFERASE 15 U/L (12-78); ALBUMIN 2.8 G/DL (3.4-5.0); ALBUMIN/GLOBULIN RATIO 0.8 (1.1-1.5); ALKALINE PHOSPHATASE 51 IU/L (46-116); ANION GAP 6 (8-16); ASPARTATE AMINO TRANSFERASE 6 U/L (10-37); BILIRUBIN,TOTAL 0.3 MG/DL (0.1-1.0); BLOOD UREA NITROGEN 21 MG/DL (7-18); BUN/CREATININE RATIO 23.9 (5.4-32.0); C-REACTIVE PROTEIN 1.59 MG/DL (0.0-0.5); CALCIUM 8.2 MG/DL (8.5-10.1); CHLORIDE 107 MMOL/L (99-107); CREATININE 0.88 MG/DL (0.60-1.10); GLUCOSE 134 MG/DL (70-104); MAGNESIUM 2.1 MG/DL (1.5-2.4); PHOSPHORUS 3.1 MG/DL (2.3-4.5); POTASSIUM 3.9 MMOL/L (3.5-5.1); SODIUM 141 MMOL/L (135-145); TOTAL CARBON DIOXIDE 27.6 MMOL/L (24-32); TOTAL PROTEIN 6.2 G/DL (6.4-8.2); eGFR 89 ML/MIN
[2020-05-05] MEDS: ipratropium/albuterol 3ml nebule NEB SCH ×6 (03:19→23:27)
[2020-05-05 03:50] LABS: ABG BASE EXCESS 0.8 mmol/L (-2.0-2.0); ABG HCO3 25.2 mmol/L (22.0-26.0); ABG OXYGEN SATURATION 96.1 % (94-97); ABG PCO2 (T) 40.1 mmHg (35.0-48.0); ABG PO2 (T) 80.3 mmHg (75.0-100.0); ALLEN'S TEST POSITIVE; FMetHb 0.1 % (0.0-1.5); PATIENT TEMPERATURE 37.2; PEEP 10 cm H2O; RESPIRATORY RATE 22 b/min; TIDAL VOLUME 450 mL; TOTAL HEMOGLOBIN 13.8 G/dl (14.0-18.0)
--- NOTE | 2020-05-05 06:16 | NUR ---
Problems reprioritized. Patient report given, questions answered & plan of care reviewed with HANY Avila.
[2020-05-05] MEDS: azithromycin/NS 500mg/250ml 250 ML IV SCH (08:01)
[2020-05-05] MEDS: risperiDONE 0.5mg tablet OGT SCH (08:02)
[2020-05-05] MEDS: ESCITALOPRAM OXALATE 5 MG TABLET OGT SCH (08:02)
[2020-05-05] MEDS: sennosides 8.6mg tablet OGT SCH (08:02)
[2020-05-05] MEDS: docusate sodium 100mg/10ml UD cup OGT SCH ×2 (08:02→20:22)
[2020-05-05] MEDS: pantoprazole 40 MG vial IV SCH (08:02)
[2020-05-05] MEDS: lactobacillus rhamnosus 10,000 MMU CELLS/CAPSULE PO SCH ×2 (08:04→20:22)
[2020-05-05] MEDS: gabapentin 300mg capsule OGT SCH ×3 (08:04→20:21)
[2020-05-05] MEDS: metoprolol tartrate 50mg tablet OGT SCH ×2 (08:04→20:22)
[2020-05-05] MEDS: nystatin 15 GM powder TP SCH ×2 (08:04→20:23)
[2020-05-05] MEDS: lisinopril 10 MG tablet PO SCH (08:04)
[2020-05-05] MEDS: dexamethasone 4mg/ml inj IV SCH (08:20)
[2020-05-05] MEDS: amiodarone 200mg tablet PO SCH ×2 (08:20→20:21)
[2020-05-05] MEDS: cloNIDine 0.1 mg tablet PO SCH ×3 (08:20→20:21)
[2020-05-05] MEDS: furosemide 40mg/4ml inj IV SCH ×3 (08:21→20:21)
--- NOTE | 2020-05-05 08:34 | NUR ---
Per Dr. Trujillo d/c free water order
[2020-05-05] MEDS: FENTANYL-0.9 % NACL/PF 100 ML IV PRN (11:59)
--- NOTE | 2020-05-05 13:39 | NUR ---
Per Dr. Trujillo, if unable to tolerate 0.2mg clonidine TID, able to switch to 0.1mg TID. Hold if SBP < ____
[2020-05-05] MEDS: rivaroxaban 20mg tablet OGT SCH (17:38)
--- NOTE | 2020-05-05 18:22 | NUR ---
Problems reprioritized. Patient report given, questions answered & plan of care reviewed with HANY Spicer.
--- NOTE | 2020-05-05 18:30 | NUR ---
Patient in room ICU 2038. I have received report from HANY hardin and had the opportunity to ask questions and assume patient care.
[2020-05-05] MEDS: insulin glargine (Lantus) pen - multi-dose SQ SCH (20:31)
[2020-05-06] VITALS (24 sets, daily range): BP systolic 61–166; BP diastolic 34–90
[2020-05-06] MEDS: midazolam 100mg in NS 100ml 100 ML IV SCH ×3 (00:47→16:32)
[2020-05-06] MEDS: furosemide 40mg/4ml inj IV SCH ×3 (02:22→13:03)
[2020-05-06] MEDS: ipratropium/albuterol 3ml nebule NEB SCH ×6 (02:42→23:09)
[2020-05-06 02:59] LABS: BASOPHILS % (AUTO) 0.3 % (0-1); EOSINOPHILS % (AUTO) 0.1 % (0-6); HEMATOCRIT 42.5 % (42.0-52.0); HEMOGLOBIN 14.3 g/dl (14.0-17.9); LYMPHOCYTES # (AUTO) 1.8 X10'3 (1.1-4.8); LYMPHOCYTES % (AUTO) 25.1 % (21-51); MEAN CORPUSCULAR HEMOGLOBIN 33.1 PG (27.0-31.0); MEAN CORPUSCULAR HGB CONC 33.7 g/dL (33.0-36.5); MEAN CORPUSCULAR VOLUME 98.2 FL (78-98); MEAN PLATELET VOLUME 8.8 FL (7.4-10.4); MONOCYTES # (AUTO) 0.6 X10'3 (0-0.9); MONOCYTES % (AUTO) 8.5 % (2-12); NEUTROPHILS # (AUTO) 4.6 X10'3 (1.8-7.7); PLATELET COUNT 152 X10'3 (140-440); RED BLOOD COUNT 4.32 X10'6 (4.70-6.10); RED CELL DISTRIBUTION WIDTH 13.5 % (11.5-14.5)
[2020-05-06 03:14] LABS: ALANINE AMINOTRANSFERASE 15 U/L (12-78); ALBUMIN 3.2 G/DL (3.4-5.0); ALBUMIN/GLOBULIN RATIO 0.9 (1.1-1.5); ALKALINE PHOSPHATASE 53 IU/L (46-116); ANION GAP 7 (8-16); ASPARTATE AMINO TRANSFERASE 3 U/L (10-37); BILIRUBIN,TOTAL 0.4 MG/DL (0.1-1.0); BLOOD UREA NITROGEN 29 MG/DL (7-18); CALCIUM 8.3 MG/DL (8.5-10.1); CHLORIDE 106 MMOL/L (99-107); GLUCOSE 144 MG/DL (70-104); MAGNESIUM 2.2 MG/DL (1.5-2.4); PHOSPHORUS 4.1 MG/DL (2.3-4.5); POTASSIUM 3.8 MMOL/L (3.5-5.1); SODIUM 143 MMOL/L (135-145); TOTAL CARBON DIOXIDE 30.4 MMOL/L (24-32); TOTAL PROTEIN 6.7 G/DL (6.4-8.2); eGFR 77 ML/MIN
[2020-05-06 03:23] LABS: PARTIAL THROMBOPLASTIN TIME 27 SECONDS (22-32)
[2020-05-06] MEDS: FENTANYL-0.9 % NACL/PF 100 ML IV PRN ×3 (04:22→18:22)
[2020-05-06 04:46] LABS: ABG BASE EXCESS 3.2 mmol/L (-2.0-2.0); ABG HCO3 27.5 mmol/L (22.0-26.0); ABG OXYGEN SATURATION 92.2 % (94-97); ABG PCO2 (T) 40.8 mmHg (35.0-48.0); ABG PO2 (T) 62.4 mmHg (75.0-100.0); ALLEN'S TEST POSITIVE; FCOHb 0.2 % (0.0-3.9); FMetHb 0.2 % (0.0-1.5); FO2Hb 91.8 % (94-97); PATIENT TEMPERATURE 37.1; RESPIRATORY RATE 22 b/min; TIDAL VOLUME 450 mL; TOTAL HEMOGLOBIN 15.2 G/dl (14.0-18.0)
--- NOTE | 2020-05-06 06:12 | NUR ---
Problems reprioritized. Patient report given, questions answered & plan of care reviewed with HANY Avila.
[2020-05-06] MEDS: dexamethasone 4mg/ml inj IV SCH (07:11)
[2020-05-06] MEDS: cloNIDine 0.1 mg tablet PO SCH (07:11)
[2020-05-06] MEDS: gabapentin 300mg capsule OGT SCH ×3 (07:11→20:33)
[2020-05-06] MEDS: docusate sodium 100mg/10ml UD cup OGT SCH ×2 (07:11→20:33)
[2020-05-06] MEDS: nystatin 15 GM powder TP SCH ×2 (07:11→20:33)
[2020-05-06] MEDS: sennosides 8.6mg tablet OGT SCH (07:11)
[2020-05-06] MEDS: lactobacillus rhamnosus 10,000 MMU CELLS/CAPSULE PO SCH ×2 (07:11→20:33)
[2020-05-06] MEDS: pantoprazole 40 MG vial IV SCH (07:11)
[2020-05-06] MEDS: risperiDONE 0.5mg tablet OGT SCH (07:12)
[2020-05-06] MEDS: lisinopril 10 MG tablet PO SCH (07:12)
[2020-05-06] MEDS: metoprolol tartrate 50mg tablet OGT SCH ×2 (07:12→20:00)
[2020-05-06] MEDS: ESCITALOPRAM OXALATE 5 MG TABLET OGT SCH (07:12)
[2020-05-06] MEDS: amiodarone 200mg tablet PO SCH ×2 (07:12→20:33)
[2020-05-06] MEDS: azithromycin/NS 500mg/250ml 250 ML IV SCH (07:51)
[2020-05-06] MEDS ORDERED: methylnaltrexone br 12mg/0.6ml inj***SubQ only SQ ONE (10:35)
[2020-05-06 10:57] LABS: C-REACTIVE PROTEIN 0.79 MG/DL (0.0-0.5)
--- NOTE | 2020-05-06 11:10 | NUR ---
Reassessment: Pt tolerating TF at goal GRV WNL. No BM yet this admit to start relistor and reglan today per title search manager at rounds. CRP down to .79 from prior 1.85. Updated PALB pending at this time. Will continue to monitor for additional protein needs. Rec: 1. Continuous OGTF per MD using Vital High Protein at 90ml/hr; to provide 2160ml volume, 1814ml free water, 2160kcals, and 189g protein. 2. water flush 200ml Q4 3. IF TF; PALB Q M/Th; daily wts 4. routine bowel care; opioid antagonist and promotility agent per title search manager 5. monitor for additional protein needs pending latest PALB Addendum: 05/06/20 at [address] Amended: Links added.
[2020-05-06] MEDS: metoclopramide 5 mg/ml inj IV SCH ×2 (13:02→20:32)
[2020-05-06] MEDS: NORepinephrine 8mg/ 250ml NS 250 ML IV SCH (13:02)
[2020-05-06 13:16] LABS: CLARITY,URINE CLEAR (Clear); COLOR,URINE YELLOW (Yellow); GLUCOSE, URINE NEGATIVE (Neg); KETONES,URINE NEGATIVE (Neg); LEUKOCYTE ESTERASE ,URINE NEGATIVE (Neg); NITRITES, URINE NEGATIVE (Neg); OCCULT BLOOD,URINE NEGATIVE (Neg); PROTEIN,URINE NEGATIVE (Neg); UROBILINOGEN,URINE 0.2 E.U/dL (0.2-1.0)
[2020-05-06 13:18] LABS: UA COLLECTION TYPE NON-SPECIFIED
[2020-05-06 13:19] LABS: D-DIMER 0.94 MG/L FEU (0-0.50)
[2020-05-06] MEDS: DOPamine 400mg/D5W 250ml 250 ML IV PRN ×2 (14:25→23:51)
[2020-05-06 14:46] LABS: ABG BASE EXCESS 2.3 mmol/L (-2.0-2.0); ABG HCO3 26.7 mmol/L (22.0-26.0); ABG OXYGEN SATURATION 91.4 % (94-97); ABG PCO2 (T) 41.5 mmHg (35.0-48.0); ABG PO2 (T) 61.6 mmHg (75.0-100.0); FCOHb 0.3 % (0.0-3.9); FMetHb 0.1 % (0.0-1.5); PATIENT TEMPERATURE 37.3; PEEP 10 cm H2O; RESPIRATORY RATE 22 b/min; TIDAL VOLUME 450 mL; TOTAL HEMOGLOBIN 15.3 G/dl (14.0-18.0)
--- NOTE | 2020-05-06 15:12 | NUR ---
At 1215 pt flipped from afib in low 100s to sinus mulu in the 50s. Pt had slowly been dropping o2 sats for several hours. At start of shift, pt was on 70% FiO2 with sats in low 90s. Throughout morning, pt's sats had been hovering around 90%, then 89%, then 88%. At the same time pt's rhythm changed, RT went up to 80% FiO2 because pt's sat was 87%. Pt's blood pressure then started to decrease to 80s/40s. Levo initiated. Sats continued to slowly drop and FiO2 changed to 100%. Dr. Trujillo notified and order was given for rodrigues cultures, d dimer, procal, and troponin. Orders placed, labs and cultures drawn. physics faculty member notified of pt's bradycardia, decreased BP, and increase in O2 demands. While returning from talking to child welfare consultant. Pt's blood pressure read 61/34. Levo immediately maxed out. Pt's HR went from 50s to 40s to 30s. Crash cart wheeled to bedside. Atropine pushed with HR in 20s. physics faculty member did not feel a pulse and O2 pleth flatlined. CPR started immediately but pt grimaced after 2 compressions. HR went up to 80s, O2 sats went up to 100% and pt was moving. Dr. Trujillo at bedside. ART line placed, levo decreased significantly (bp in 200s now), FiO2 decreased back to 70%. After several minutes, HR and sats began to slowly drop again. BP stable, FiO2 increased to 100% again, and dopamine initiated. Pt's HR did not respond to high dose dopamine. Dopamine remains at 5mcg with HR sustaining in mid 50s at the moment. CXR taken. Per MD, pt will go for CTA when stabilized.
[2020-05-06] MEDS ORDERED: iohexol 350MG/ML 100ml bottle IV ONE (17:29)
--- NOTE | 2020-05-06 18:30 | NUR ---
Patient in room ICU 2038. I have received report from HANY Avila and had the opportunity to ask questions and assume patient care.
--- NOTE | 2020-05-06 18:31 | NUR ---
Problems reprioritized. Patient report given, questions answered & plan of care reviewed with HANY Spicer.
[2020-05-06] MEDS: rivaroxaban 20mg tablet OGT SCH (18:40)
[2020-05-06] MEDS: insulin glargine (Lantus) pen - multi-dose SQ SCH (20:39)
[2020-05-06] MEDS ORDERED: VANCOMYCIN LEVEL IV ONE (22:30)
[2020-05-07] VITALS (29 sets, daily range): BP systolic 90–150; BP diastolic 55–94
[2020-05-07] MEDS: midazolam 100mg in NS 100ml 100 ML IV SCH ×3 (01:17→14:51)
[2020-05-07] MEDS: ipratropium/albuterol 3ml nebule NEB SCH ×6 (02:25→23:16)
[2020-05-07] MEDS: metoclopramide 5 mg/ml inj IV SCH ×4 (02:34→19:56)
[2020-05-07] MEDS: FENTANYL-0.9 % NACL/PF 100 ML IV PRN ×2 (02:35→08:08)
[2020-05-07 02:41] LABS: ABG BASE EXCESS 1.1 mmol/L (-2.0-2.0); ABG HCO3 26.4 mmol/L (22.0-26.0); ABG OXYGEN SATURATION 94.9 % (94-97); ABG PCO2 (T) 43.9 mmHg (35.0-48.0); ABG PO2 (T) 74.8 mmHg (75.0-100.0); FCOHb 0.2 % (0.0-3.9); FMetHb 0.2 % (0.0-1.5); FO2Hb 94.5 % (94-97); PATIENT TEMPERATURE 36.9; PEEP 12 cm H2O; RESPIRATORY RATE 22 b/min; TIDAL VOLUME 450 mL; TOTAL HEMOGLOBIN 15.5 G/dl (14.0-18.0)
[2020-05-07 03:38] LABS: BASOPHILS % (AUTO) 0.1 % (0-1); EOSINOPHILS % (AUTO) 0 % (0-6); HEMATOCRIT 43.4 % (42.0-52.0); HEMOGLOBIN 14.4 g/dl (14.0-17.9); LYMPHOCYTES # (AUTO) 1.5 X10'3 (1.1-4.8); LYMPHOCYTES % (AUTO) 12.6 % (21-51); MEAN CORPUSCULAR HEMOGLOBIN 32.2 PG (27.0-31.0); MEAN CORPUSCULAR HGB CONC 33.3 g/dL (33.0-36.5); MEAN CORPUSCULAR VOLUME 96.9 FL (78-98); MEAN PLATELET VOLUME 8.1 FL (7.4-10.4); MONOCYTES % (AUTO) 8.8 % (2-12); NEUTROPHILS # (AUTO) 9.1 X10'3 (1.8-7.7); NEUTROPHILS % (AUTO) 78.5 % (42-75); PLATELET COUNT 192 X10'3 (140-440); RED BLOOD COUNT 4.48 X10'6 (4.70-6.10); RED CELL DISTRIBUTION WIDTH 13.6 % (11.5-14.5); WHITE BLOOD COUNT 11.7 X10'3 (4.5-11.0)
[2020-05-07 03:49] LABS: PARTIAL THROMBOPLASTIN TIME 26 SECONDS (22-32)
[2020-05-07 03:58] LABS: ALANINE AMINOTRANSFERASE 19 U/L (12-78); ALBUMIN 3.4 G/DL (3.4-5.0); ALBUMIN/GLOBULIN RATIO 0.9 (1.1-1.5); ALKALINE PHOSPHATASE 52 IU/L (46-116); ANION GAP 9 (8-16); ASPARTATE AMINO TRANSFERASE 7 U/L (10-37); BILIRUBIN,TOTAL 0.6 MG/DL (0.1-1.0); BLOOD UREA NITROGEN 36 MG/DL (7-18); BUN/CREATININE RATIO 39.6 (5.4-32.0); CALCIUM 8.6 MG/DL (8.5-10.1); CHLORIDE 104 MMOL/L (99-107); CREATININE 0.91 MG/DL (0.60-1.10); GLUCOSE 157 MG/DL (70-104); MAGNESIUM 2.4 MG/DL (1.5-2.4); POTASSIUM 4.2 MMOL/L (3.5-5.1); SODIUM 140 MMOL/L (135-145); TOTAL CARBON DIOXIDE 27.5 MMOL/L (24-32); TOTAL PROTEIN 7.1 G/DL (6.4-8.2); eGFR 86 ML/MIN
--- NOTE | 2020-05-07 06:20 | NUR ---
Problems reprioritized. Patient report given, questions answered & plan of care reviewed with HANY Sweet.
--- NOTE | 2020-05-07 06:30 | NUR ---
Patient in room ICU 2038. I have received report from RN and had the opportunity to ask questions and assume patient care.
[2020-05-07] MEDS: nystatin 15 GM powder TP SCH ×2 (07:39→20:02)
[2020-05-07] MEDS: ESCITALOPRAM OXALATE 5 MG TABLET OGT SCH (07:40)
[2020-05-07] MEDS: docusate sodium 100mg/10ml UD cup OGT SCH ×2 (07:40→20:01)
[2020-05-07] MEDS: pantoprazole 40 MG vial IV SCH (07:40)
[2020-05-07] MEDS: sennosides 8.6mg tablet OGT SCH (07:40)
[2020-05-07] MEDS: dexamethasone 4mg/ml inj IV SCH (07:40)
[2020-05-07] MEDS: azithromycin/NS 500mg/250ml 250 ML IV SCH (07:41)
[2020-05-07] MEDS: amiodarone 200mg tablet PO SCH ×2 (07:41→20:00)
[2020-05-07] MEDS: gabapentin 300mg capsule OGT SCH ×3 (07:42→21:59)
[2020-05-07] MEDS: lactobacillus rhamnosus 10,000 MMU CELLS/CAPSULE PO SCH (07:42)
[2020-05-07] MEDS: risperiDONE 0.5mg tablet OGT SCH (07:42)
[2020-05-07] MEDS: lisinopril 10 MG tablet PO SCH (07:43)
[2020-05-07] MEDS: metoprolol tartrate 50mg tablet OGT SCH (08:00)
[2020-05-07] MEDS: DOPamine 400mg/D5W 250ml 250 ML IV PRN (08:09)
[2020-05-07] MEDS ORDERED: linezolid 600mg/300ml PREMIX 300 ML IV ONE (08:15)
[2020-05-07] MEDS: meropenem inj 1 GM in normal saline 100ml IV soln 100 ML IV SCH ×2 (08:20→15:55)
[2020-05-07] MEDS: NORepinephrine 8mg/ 250ml NS 250 ML IV SCH (08:29)
[2020-05-07] MEDS: morphine 4 MG/ML inj SYRINge IV PRN ×2 (10:57→19:55)
[2020-05-07] MEDS: methylPREDNISolone sod succ 125mg/2ml vial IV SCH ×2 (13:33→19:57)
--- NOTE | 2020-05-07 15:15 | NUR ---
PT rhythm changed to AFIB RVR. PT diaphoretic, alert. BP began to drop. MD present. Orders received to stop Dopamine gtt and start amiodarone gtt.
[2020-05-07] MEDS ORDERED: amiodarone 150mg/dext, iso-os 100 ML IV ONE ×2 (15:30→15:33)
[2020-05-07] MEDS: amiodarone/D5 360MG/200ML BAG 200 ML IV SCH ×3 (15:51→22:00)
[2020-05-07] MEDS: rivaroxaban 20mg tablet OGT SCH (17:36)
[2020-05-07] MEDS: linezolid 600mg/300ml PREMIX 300 ML IV SCH (20:01)
[2020-05-07] MEDS: lactobacillus rhamnosus 10,000 MMU CELLS/CAPSULE OGT SCH (20:01)
[2020-05-07] MEDS ORDERED: dextrose 50%-water 50ml dispensing syringe IV PRN (20:35)
[2020-05-07] MEDS ORDERED: insulin Lispro (HumaLOG) vial - multi-dose SQ SCH (20:35)
[2020-05-07] MEDS ORDERED: MESSAGE TO PHARMACY PO ONE (20:35)
[2020-05-07] MEDS ORDERED: dextrose ORAL solution 15 GM/59 ML bottle PO PRN ×2 (20:35)
[2020-05-07] MEDS ORDERED: insulin glargine (Lantus) pen - multi-dose SQ SCH (21:00)
[2020-05-07] MEDS: propofol 1000mg/100ml bottle 100 ML IV SCH (21:05)
[2020-05-07] MEDS: insulin regular, human U-100 3ml vial - multi-dose SQ SCH (21:31)
[2020-05-07] MEDS: insulin glargine (Lantus) pen - multi-dose SQ SCH (22:19)
[2020-05-08] VITALS (23 sets, daily range): BP systolic 92–179; BP diastolic 60–105
[2020-05-08] MEDS: meropenem inj 1 GM in normal saline 100ml IV soln 100 ML IV SCH ×3 (00:36→16:26)
[2020-05-08] MEDS: ipratropium/albuterol 3ml nebule NEB SCH ×6 (02:47→23:23)
[2020-05-08 03:01] LABS: ABG BASE EXCESS 0.6 mmol/L (-2.0-2.0); ABG HCO3 24.7 mmol/L (22.0-26.0); ABG OXYGEN SATURATION 98.8 % (94-97); ABG PCO2 (T) 38.9 mmHg (35.0-48.0); ABG PO2 (T) 139.1 mmHg (75.0-100.0); ALLEN'S TEST POSITIVE; FCOHb 0.3 % (0.0-3.9); FMetHb 0.2 % (0.0-1.5); FO2Hb 98.3 % (94-97); PATIENT TEMPERATURE 37.4; PEEP 12 cm H2O; RESPIRATORY RATE 22 b/min; TIDAL VOLUME 450 mL; TOTAL HEMOGLOBIN 13.8 G/dl (14.0-18.0)
[2020-05-08] MEDS: methylPREDNISolone sod succ 125mg/2ml vial IV SCH ×4 (03:02→20:08)
[2020-05-08] MEDS: metoclopramide 5 mg/ml inj IV SCH ×4 (03:02→20:08)
[2020-05-08] MEDS: insulin regular, human U-100 3ml vial - multi-dose SQ SCH ×4 (03:05→21:31)
[2020-05-08] MEDS: NORepinephrine 8mg/ 250ml NS 250 ML IV SCH (03:07)
[2020-05-08 03:22] LABS: PARTIAL THROMBOPLASTIN TIME 28 SECONDS (22-32)
[2020-05-08 03:24] LABS: BASOPHILS % (AUTO) 0.2 % (0-1); EOSINOPHILS % (AUTO) 0 % (0-6); HEMATOCRIT 38.6 % (42.0-52.0); HEMOGLOBIN 12.8 g/dl (14.0-17.9); LYMPHOCYTES # (AUTO) 0.9 X10'3 (1.1-4.8); LYMPHOCYTES % (AUTO) 9.7 % (21-51); MEAN CORPUSCULAR HEMOGLOBIN 32.6 PG (27.0-31.0); MEAN CORPUSCULAR HGB CONC 33.2 g/dL (33.0-36.5); MEAN CORPUSCULAR VOLUME 98.3 FL (78-98); MEAN PLATELET VOLUME 8.4 FL (7.4-10.4); MONOCYTES # (AUTO) 0.3 X10'3 (0-0.9); MONOCYTES % (AUTO) 3.9 % (2-12); NEUTROPHILS # (AUTO) 7.7 X10'3 (1.8-7.7); NEUTROPHILS % (AUTO) 86.2 % (42-75); PLATELET COUNT 167 X10'3 (140-440); RED BLOOD COUNT 3.92 X10'6 (4.70-6.10); RED CELL DISTRIBUTION WIDTH 13.8 % (11.5-14.5); WHITE BLOOD COUNT 8.9 X10'3 (4.5-11.0)
[2020-05-08 03:36] LABS: ALANINE AMINOTRANSFERASE 18 U/L (12-78); ALBUMIN 3.2 G/DL (3.4-5.0); ALKALINE PHOSPHATASE 46 IU/L (46-116); ANION GAP 9 (8-16); ASPARTATE AMINO TRANSFERASE 9 U/L (10-37); BILIRUBIN,TOTAL 0.4 MG/DL (0.1-1.0); BLOOD UREA NITROGEN 39 MG/DL (7-18); BUN/CREATININE RATIO 37.1 (5.4-32.0); CALCIUM 8.5 MG/DL (8.5-10.1); CHLORIDE 105 MMOL/L (99-107); CREATININE 1.05 MG/DL (0.60-1.10); GLUCOSE 212 MG/DL (70-104); MAGNESIUM 2.5 MG/DL (1.5-2.4); PHOSPHORUS 3.5 MG/DL (2.3-4.5); POTASSIUM 4.3 MMOL/L (3.5-5.1); SODIUM 140 MMOL/L (135-145); TOTAL CARBON DIOXIDE 25.9 MMOL/L (24-32); TOTAL PROTEIN 6.5 G/DL (6.4-8.2); TRIGLYCERIDES 80 MG/DL (20-135); eGFR 73 ML/MIN
--- NOTE | 2020-05-08 06:30 | NUR ---
Patient in room ICU 2038. I have received report from Ayala Velarde RN and had the opportunity to ask questions and assume patient care.
[2020-05-08] MEDS: pantoprazole 40 MG vial IV SCH (07:57)
[2020-05-08] MEDS: methylnaltrexone br 12mg/0.6ml inj***SubQ only SQ SCH ×2 (07:58→08:25)
[2020-05-08] MEDS: sennosides 8.6mg tablet OGT SCH (08:05)
[2020-05-08] MEDS: amiodarone 200mg tablet PO SCH (08:05)
[2020-05-08] MEDS: gabapentin 300mg capsule OGT SCH ×3 (08:05→21:20)
[2020-05-08] MEDS: lactobacillus rhamnosus 10,000 MMU CELLS/CAPSULE OGT SCH ×2 (08:05→20:09)
[2020-05-08] MEDS: docusate sodium 100mg/10ml UD cup OGT SCH ×2 (08:05→20:08)
[2020-05-08] MEDS: risperiDONE 0.5mg tablet OGT SCH (08:08)
[2020-05-08] MEDS: linezolid 600mg/300ml PREMIX 300 ML IV SCH ×2 (08:24→20:08)
[2020-05-08] MEDS ORDERED: etomidate 2mg/ml inj. IV ONE (08:35)
--- NOTE | 2020-05-08 09:00 | NUR ---
Tube exchange performed due to leaking balloon to ETT. Etomodate given per Dr. Trujillo order. Patient tolerated well and maintained saturations no less than 98%. VS being monitored q3min. VSS. Will continue to monitor.
--- NOTE | 2020-05-08 09:33 | NUR ---
Reassessment: Pt tolerating TF at goal GRV WNL. Pt with CHF with EF 40%, no longer receiving water flushes per MD. Still no BM this admit, receiving routine bowel care, opioid antagonist, and prokinetic agent with PRN Lactulose available. Per RN at critical care rounds pt with active bowel sounds and passing gas, hopeful for a BM soon. Pt now receiving Zyvox, low tyramine nutrition therapy education deferred at this time as pt remains intubated. Will continue to follow closely. Rec: 1. Continuous OGTF using Vital High Protein with 90 mL/hr goal; to provide 2160 mL total volume/day, 1814 mL water, 2160 kcals, and 189 g protein. 2. Water flushes per MD given CHF with EF 40% 3. PALB Q /; daily wts 4. routine bowel care; opioid antagonist and promotility agent per manager agency Addendum: 05/08/20 at [address] Amended: Links added.
[2020-05-08] MEDS: amiodarone/D5 360MG/200ML BAG 200 ML IV SCH ×2 (09:42→17:33)
[2020-05-08] MEDS: dexmedetomidine/D5W 100mL 100 ML IV SCH ×3 (10:51→21:50)
[2020-05-08] MEDS: propofol 1000mg/100ml bottle 100 ML IV SCH ×3 (11:01→21:50)
[2020-05-08] MEDS: nystatin 15 GM powder TP SCH ×2 (12:36→20:09)
[2020-05-08] MEDS: rivaroxaban 20mg tablet OGT SCH (17:33)
[2020-05-08] MEDS: morphine 4 MG/ML inj SYRINge IV PRN ×3 (17:46→22:36)
--- NOTE | 2020-05-08 18:22 | NUR ---
Problems reprioritized. Patient report given, questions answered & plan of care reviewed with Cindi LEACH.
[2020-05-08] MEDS: insulin glargine (Lantus) pen - multi-dose SQ SCH (21:28)
[2020-05-09] VITALS (24 sets, daily range): BP systolic 111–167; BP diastolic 74–120
[2020-05-09] MEDS: meropenem inj 1 GM in normal saline 100ml IV soln 100 ML IV SCH ×3 (00:22→16:33)
[2020-05-09] MEDS: propofol 1000mg/100ml bottle 100 ML IV SCH ×6 (01:41→20:29)
[2020-05-09] MEDS: dexmedetomidine/D5W 100mL 100 ML IV SCH ×5 (01:55→21:08)
[2020-05-09] MEDS: metoclopramide 5 mg/ml inj IV SCH ×4 (02:32→21:05)
[2020-05-09] MEDS: methylPREDNISolone sod succ 125mg/2ml vial IV SCH ×2 (02:33→07:18)
[2020-05-09] MEDS: insulin regular, human U-100 3ml vial - multi-dose SQ SCH ×4 (02:37→21:30)
[2020-05-09] MEDS: ipratropium/albuterol 3ml nebule NEB SCH ×6 (02:53→23:18)
[2020-05-09 03:12] LABS: BASOPHILS % (AUTO) 0.1 % (0-1); EOSINOPHILS % (AUTO) 0 % (0-6); HEMATOCRIT 42.4 % (42.0-52.0); LYMPHOCYTES # (AUTO) 0.9 X10'3 (1.1-4.8); LYMPHOCYTES % (AUTO) 10.8 % (21-51); MEAN CORPUSCULAR VOLUME 97.1 FL (78-98); MEAN PLATELET VOLUME 8.3 FL (7.4-10.4); MONOCYTES # (AUTO) 0.4 X10'3 (0-0.9); MONOCYTES % (AUTO) 5.2 % (2-12); NEUTROPHILS % (AUTO) 83.9 % (42-75); PLATELET COUNT 170 X10'3 (140-440); RED BLOOD COUNT 4.36 X10'6 (4.70-6.10); WHITE BLOOD COUNT 8.4 X10'3 (4.5-11.0)
[2020-05-09 03:16] LABS: ABG HCO3 24.4 mmol/L (22.0-26.0); ABG OXYGEN SATURATION 91.8 % (94-97); ABG PCO2 (T) 35.8 mmHg (35.0-48.0); ABG PO2 (T) 63.1 mmHg (75.0-100.0); ALLEN'S TEST POSITIVE; FCOHb 0.5 % (0.0-3.9); FMetHb 0.2 % (0.0-1.5); FO2Hb 91.2 % (94-97); PATIENT TEMPERATURE 37.3; PEEP 10 cm H2O; RESPIRATORY RATE 22 b/min; TIDAL VOLUME 450 mL; TOTAL HEMOGLOBIN 15.2 G/dl (14.0-18.0)
[2020-05-09 03:22] LABS: ALANINE AMINOTRANSFERASE 20 U/L (12-78); ALBUMIN 3.1 G/DL (3.4-5.0); ALBUMIN/GLOBULIN RATIO 0.9 (1.1-1.5); ALKALINE PHOSPHATASE 47 IU/L (46-116); ANION GAP 7 (8-16); ASPARTATE AMINO TRANSFERASE 11 U/L (10-37); BILIRUBIN,TOTAL 0.4 MG/DL (0.1-1.0); BLOOD UREA NITROGEN 32 MG/DL (7-18); CALCIUM 8.5 MG/DL (8.5-10.1); CHLORIDE 101 MMOL/L (99-107); GLUCOSE 267 MG/DL (70-104); MAGNESIUM 2.6 MG/DL (1.5-2.4); PHOSPHORUS 4.3 MG/DL (2.3-4.5); POTASSIUM 4.6 MMOL/L (3.5-5.1); SODIUM 135 MMOL/L (135-145); TOTAL CARBON DIOXIDE 27.3 MMOL/L (24-32); TOTAL PROTEIN 6.5 G/DL (6.4-8.2); eGFR 77 ML/MIN
[2020-05-09 03:39] LABS: PARTIAL THROMBOPLASTIN TIME 28 SECONDS (22-32)
[2020-05-09] MEDS: amiodarone/D5 360MG/200ML BAG 200 ML IV SCH ×5 (05:12→22:06)
[2020-05-09] MEDS: gabapentin 300mg capsule OGT SCH ×3 (07:19→21:06)
[2020-05-09] MEDS: sennosides 8.6mg tablet OGT SCH (07:19)
[2020-05-09] MEDS: lactobacillus rhamnosus 10,000 MMU CELLS/CAPSULE OGT SCH ×2 (07:19→21:06)
[2020-05-09] MEDS: risperiDONE 0.5mg tablet OGT SCH (07:19)
[2020-05-09] MEDS: docusate sodium 100mg/10ml UD cup OGT SCH ×2 (07:19→21:06)
[2020-05-09] MEDS: nystatin 15 GM powder TP SCH ×2 (07:26→20:00)
[2020-05-09] MEDS: pantoprazole 40 MG vial IV SCH (07:26)
[2020-05-09] MEDS: acetaminophen 325mg/10.15ml oral unit dose solution OGT PRN ×2 (07:55→12:55)
[2020-05-09] MEDS: linezolid 600mg/300ml PREMIX 300 ML IV SCH ×2 (09:39→21:08)
[2020-05-09] MEDS: rivaroxaban 20mg tablet OGT SCH (17:37)
[2020-05-09] MEDS: mineral oil/petrolatum ophthal oint EACHEYE SCH (20:00)
[2020-05-09] MEDS: methylPREDNISolone sod succ/PF 40mg inj. IV SCH (21:05)
[2020-05-09] MEDS: morphine 4 MG/ML inj SYRINge IV PRN (21:06)
[2020-05-09] MEDS: insulin glargine (Lantus) pen - multi-dose SQ SCH (21:26)
[2020-05-10] VITALS (24 sets, daily range): BP systolic 114–158; BP diastolic 73–105
[2020-05-10] MEDS: meropenem inj 1 GM in normal saline 100ml IV soln 100 ML IV SCH ×4 (00:05→23:46)
[2020-05-10] MEDS: propofol 1000mg/100ml bottle 100 ML IV SCH ×8 (00:06→23:42)
[2020-05-10] MEDS: morphine 4 MG/ML inj SYRINge IV PRN ×2 (01:10→12:39)
[2020-05-10] MEDS: metoclopramide 5 mg/ml inj IV SCH ×2 (01:50→07:59)
[2020-05-10] MEDS: dexmedetomidine/D5W 100mL 100 ML IV SCH ×5 (01:51→19:23)
[2020-05-10] MEDS: mineral oil/petrolatum ophthal oint EACHEYE SCH ×4 (02:00→21:22)
[2020-05-10] MEDS: ipratropium/albuterol 3ml nebule NEB SCH ×6 (02:22→23:04)
[2020-05-10 02:40] LABS: ABG BASE EXCESS -0.5 mmol/L (-2.0-2.0); ABG HCO3 22.6 mmol/L (22.0-26.0); ABG OXYGEN SATURATION 95.8 % (94-97); ABG PCO2 (T) 34.5 mmHg (35.0-48.0); ABG PO2 (T) 84.2 mmHg (75.0-100.0); ALLEN'S TEST POSITIVE; FCOHb 0.2 % (0.0-3.9); FMetHb 0.2 % (0.0-1.5); FO2Hb 95.4 % (94-97); PATIENT TEMPERATURE 37.8; PEEP 10 cm H2O; RESPIRATORY RATE 22 b/min; TIDAL VOLUME 450 mL; TOTAL HEMOGLOBIN 15.4 G/dl (14.0-18.0)
[2020-05-10] MEDS: insulin regular, human U-100 3ml vial - multi-dose SQ SCH ×4 (02:55→21:36)
[2020-05-10 03:26] LABS: BASOPHILS % (AUTO) 0.1 % (0-1); EOSINOPHILS % (AUTO) 0 % (0-6); HEMATOCRIT 42.1 % (42.0-52.0); HEMOGLOBIN 14.2 g/dl (14.0-17.9); LYMPHOCYTES % (AUTO) 12.1 % (21-51); MEAN CORPUSCULAR HEMOGLOBIN 32.7 PG (27.0-31.0); MEAN CORPUSCULAR HGB CONC 33.8 g/dL (33.0-36.5); MEAN CORPUSCULAR VOLUME 96.9 FL (78-98); MEAN PLATELET VOLUME 8.5 FL (7.4-10.4); MONOCYTES # (AUTO) 0.5 X10'3 (0-0.9); MONOCYTES % (AUTO) 6.9 % (2-12); NEUTROPHILS # (AUTO) 6.4 X10'3 (1.8-7.7); NEUTROPHILS % (AUTO) 80.9 % (42-75); PLATELET COUNT 157 X10'3 (140-440); RED BLOOD COUNT 4.35 X10'6 (4.70-6.10); RED CELL DISTRIBUTION WIDTH 13.7 % (11.5-14.5); WHITE BLOOD COUNT 7.9 X10'3 (4.5-11.0)
[2020-05-10 03:32] LABS: PARTIAL THROMBOPLASTIN TIME 27 SECONDS (22-32)
[2020-05-10 03:38] LABS: ALANINE AMINOTRANSFERASE 20 U/L (12-78); ALBUMIN/GLOBULIN RATIO 0.9 (1.1-1.5); ALKALINE PHOSPHATASE 42 IU/L (46-116); ANION GAP 6 (8-16); ASPARTATE AMINO TRANSFERASE 8 U/L (10-37); BILIRUBIN,TOTAL 0.5 MG/DL (0.1-1.0); BLOOD UREA NITROGEN 37 MG/DL (7-18); BUN/CREATININE RATIO 38.5 (5.4-32.0); CHLORIDE 99 MMOL/L (99-107); CREATININE 0.96 MG/DL (0.60-1.10); GLUCOSE 312 MG/DL (70-104); MAGNESIUM 2.4 MG/DL (1.5-2.4); POTASSIUM 4.9 MMOL/L (3.5-5.1); SODIUM 131 MMOL/L (135-145); TOTAL PROTEIN 6.2 G/DL (6.4-8.2); eGFR 80 ML/MIN
[2020-05-10] MEDS: amiodarone/D5 360MG/200ML BAG 200 ML IV SCH ×3 (04:10→12:15)
[2020-05-10] MEDS: sennosides 8.6mg tablet OGT SCH (07:58)
[2020-05-10] MEDS: gabapentin 300mg capsule OGT SCH ×3 (07:58→21:22)
[2020-05-10] MEDS: lactobacillus rhamnosus 10,000 MMU CELLS/CAPSULE OGT SCH ×2 (07:58→21:22)
[2020-05-10] MEDS: pantoprazole 40 MG vial IV SCH (07:59)
[2020-05-10] MEDS: linezolid 600mg/300ml PREMIX 300 ML IV SCH (07:59)
[2020-05-10] MEDS: docusate sodium 100mg/10ml UD cup OGT SCH ×2 (07:59→20:00)
[2020-05-10] MEDS: nystatin 15 GM powder TP SCH ×2 (08:01→20:00)
[2020-05-10] MEDS: risperiDONE 0.5mg tablet OGT SCH (08:01)
[2020-05-10] MEDS: methylnaltrexone br 12mg/0.6ml inj***SubQ only SQ SCH (08:12)
[2020-05-10] MEDS: methylPREDNISolone sod succ/PF 40mg inj. IV SCH ×2 (08:59→21:22)
--- NOTE | 2020-05-10 11:26 | NUR ---
Javan Consult: Javan 12; skin intact. Pt tolerating TF at goal GRV WNL. No BM 8 days to receive suppository vs enema in addition to current bowel care regimen per viscera washer at rounds. Receiving colace, senna, and relistor routinely. Phos 5.0; constipation relief likely to positively impact. Will continue to monitor. Rec: 1. Continuous OGTF using Vital High Protein with 90 mL/hr goal; to provide 2160 mL total volume/day, 1814 mL water, 2160 kcals, and 189 g protein. 2. Water flushes per MD given CHF with EF 40% 3. PALB Q /; daily wts 4. routine bowel care; opioid antagonist and promotility agent per viscera washer Addendum: 05/10/20 at [address] Amended: Links added.
[2020-05-10] MEDS ORDERED: diltiazem 30mg tablet OGT SCH (14:00)
[2020-05-10] MEDS: acetaminophen 325mg/10.15ml oral unit dose solution OGT PRN (15:35)
[2020-05-10] MEDS ORDERED: bisacodyl 10mg suppository rectal RC ONE (16:00)
[2020-05-10] MEDS: rivaroxaban 20mg tablet OGT SCH (17:01)
--- NOTE | 2020-05-10 18:30 | NUR ---
Patient in room ICU 2038. I have received report from HANY SAHNI and had the opportunity to ask questions and assume patient care.
[2020-05-10] MEDS: linezolid 600mg tablet PO SCH (21:22)
[2020-05-10] MEDS: insulin glargine (Lantus) pen - multi-dose SQ SCH (21:39)
[2020-05-11] VITALS (24 sets, daily range): BP systolic 95–145; BP diastolic 60–95
[2020-05-11] MEDS: amiodarone/D5 360MG/200ML BAG 200 ML IV SCH ×6 (00:22→23:02)
[2020-05-11] MEDS: propofol 1000mg/100ml bottle 100 ML IV SCH ×9 (01:20→23:02)
[2020-05-11] MEDS: ipratropium/albuterol 3ml nebule NEB SCH ×6 (02:48→22:44)
[2020-05-11] MEDS: mineral oil/petrolatum ophthal oint EACHEYE SCH ×4 (02:49→20:07)
[2020-05-11] MEDS: insulin regular, human U-100 3ml vial - multi-dose SQ SCH ×4 (02:53→20:25)
[2020-05-11 03:01] LABS: BASOPHILS % (AUTO) 0.1 % (0-1); EOSINOPHILS % (AUTO) 0 % (0-6); HEMATOCRIT 46.2 % (42.0-52.0); HEMOGLOBIN 15.5 g/dl (14.0-17.9); LYMPHOCYTES # (AUTO) 1.2 X10'3 (1.1-4.8); LYMPHOCYTES % (AUTO) 12.4 % (21-51); MEAN CORPUSCULAR HEMOGLOBIN 32.8 PG (27.0-31.0); MEAN CORPUSCULAR HGB CONC 33.5 g/dL (33.0-36.5); MEAN PLATELET VOLUME 8.6 FL (7.4-10.4); MONOCYTES # (AUTO) 0.5 X10'3 (0-0.9); MONOCYTES % (AUTO) 5.2 % (2-12); NEUTROPHILS # (AUTO) 7.8 X10'3 (1.8-7.7); NEUTROPHILS % (AUTO) 82.3 % (42-75); PLATELET COUNT 169 X10'3 (140-440); RED BLOOD COUNT 4.71 X10'6 (4.70-6.10); RED CELL DISTRIBUTION WIDTH 13.7 % (11.5-14.5); WHITE BLOOD COUNT 9.5 X10'3 (4.5-11.0)
[2020-05-11 03:05] LABS: ABG HCO3 22.8 mmol/L (22.0-26.0); ABG OXYGEN SATURATION 95.7 % (94-97); ABG PO2 (T) 83.7 mmHg (75.0-100.0); ALLEN'S TEST POSITIVE; FCOHb 0.3 % (0.0-3.9); FMetHb 0.2 % (0.0-1.5); FO2Hb 95.2 % (94-97); PATIENT TEMPERATURE 37.5; PEEP 8 cm H2O; RESPIRATORY RATE 22 b/min; TIDAL VOLUME 400 mL; TOTAL HEMOGLOBIN 16.3 G/dl (14.0-18.0)
[2020-05-11 03:10] LABS: PARTIAL THROMBOPLASTIN TIME 26 SECONDS (22-32)
[2020-05-11 03:12] LABS: ALANINE AMINOTRANSFERASE 17 U/L (12-78); ALBUMIN 2.9 G/DL (3.4-5.0); ALBUMIN/GLOBULIN RATIO 0.9 (1.1-1.5); ALKALINE PHOSPHATASE 42 IU/L (46-116); ANION GAP 7 (8-16); ASPARTATE AMINO TRANSFERASE 4 U/L (10-37); BILIRUBIN,TOTAL 0.5 MG/DL (0.1-1.0); BLOOD UREA NITROGEN 41 MG/DL (7-18); BUN/CREATININE RATIO 41.8 (5.4-32.0); CALCIUM 8.5 MG/DL (8.5-10.1); CHLORIDE 100 MMOL/L (99-107); CREATININE 0.98 MG/DL (0.60-1.10); GLUCOSE 217 MG/DL (70-104); MAGNESIUM 2.5 MG/DL (1.5-2.4); PHOSPHORUS 5.9 MG/DL (2.3-4.5); POTASSIUM 5.1 MMOL/L (3.5-5.1); SODIUM 134 MMOL/L (135-145); TOTAL CARBON DIOXIDE 26.7 MMOL/L (24-32); TOTAL PROTEIN 6.3 G/DL (6.4-8.2); eGFR 79 ML/MIN
--- NOTE | 2020-05-11 06:11 | NUR ---
Problems reprioritized. Patient report given, questions answered & plan of care reviewed with BORARN.
[2020-05-11] MEDS: meropenem inj 1 GM in normal saline 100ml IV soln 100 ML IV SCH ×3 (07:49→23:44)
[2020-05-11] MEDS: pantoprazole 40 MG vial IV SCH (07:51)
[2020-05-11] MEDS: methylPREDNISolone sod succ/PF 40mg inj. IV SCH ×2 (07:54→20:07)
[2020-05-11] MEDS: gabapentin 300mg capsule OGT SCH ×3 (07:55→20:08)
[2020-05-11] MEDS: docusate sodium 100mg/10ml UD cup OGT SCH ×2 (07:55→20:07)
[2020-05-11] MEDS: lactobacillus rhamnosus 10,000 MMU CELLS/CAPSULE OGT SCH ×2 (07:55→20:08)
[2020-05-11] MEDS: linezolid 600mg tablet PO SCH ×2 (07:56→20:08)
[2020-05-11] MEDS: risperiDONE 0.5mg tablet OGT SCH (07:56)
[2020-05-11] MEDS: sennosides 8.6mg tablet OGT SCH (07:56)
[2020-05-11] MEDS: nystatin 15 GM powder TP SCH ×2 (07:56→20:08)
[2020-05-11] MEDS: furosemide 40mg/4ml inj IV SCH ×3 (08:08→20:07)
[2020-05-11] MEDS ORDERED: diltiazem 30mg tablet PO SCH ×2 (09:00→14:00)
[2020-05-11] MEDS: diltiazem-NS 100mg/100ml 100 ML IV SCH ×2 (17:06→23:44)
[2020-05-11] MEDS: rivaroxaban 20mg tablet OGT SCH (17:06)
--- NOTE | 2020-05-11 18:30 | NUR ---
Patient in room ICU 2038. I have received report from HANY SAHNI and had the opportunity to ask questions and assume patient care.
[2020-05-11] MEDS: dexmedetomidine/D5W 100mL 100 ML IV SCH (19:38)
[2020-05-11] MEDS: insulin glargine (Lantus) pen - multi-dose SQ SCH (20:27)
[2020-05-12] VITALS (24 sets, daily range): BP systolic 97–149; BP diastolic 58–92
[2020-05-12] MEDS: furosemide 40mg/4ml inj IV SCH ×2 (02:02→07:40)
[2020-05-12] MEDS: mineral oil/petrolatum ophthal oint EACHEYE SCH ×4 (02:02→19:43)
[2020-05-12] MEDS: morphine 4 MG/ML inj SYRINge IV PRN ×2 (02:03→12:16)
[2020-05-12] MEDS: insulin regular, human U-100 3ml vial - multi-dose SQ SCH ×4 (02:12→20:34)
[2020-05-12 02:47] LABS: BASOPHILS % (AUTO) 0 % (0-1); EOSINOPHILS % (AUTO) 0 % (0-6); HEMATOCRIT 48.7 % (42.0-52.0); LYMPHOCYTES # (AUTO) 1.2 X10'3 (1.1-4.8); MEAN CORPUSCULAR HGB CONC 32.8 g/dL (33.0-36.5); MEAN CORPUSCULAR VOLUME 97.6 FL (78-98); MONOCYTES # (AUTO) 0.7 X10'3 (0-0.9); MONOCYTES % (AUTO) 5.6 % (2-12); NEUTROPHILS # (AUTO) 11.2 X10'3 (1.8-7.7); NEUTROPHILS % (AUTO) 85.4 % (42-75); PLATELET COUNT 227 X10'3 (140-440); RED BLOOD COUNT 4.99 X10'6 (4.70-6.10); RED CELL DISTRIBUTION WIDTH 13.9 % (11.5-14.5); WHITE BLOOD COUNT 13.1 X10'3 (4.5-11.0)
[2020-05-12] MEDS: ipratropium/albuterol 3ml nebule NEB SCH ×6 (02:49→23:10)
[2020-05-12 02:51] LABS: PARTIAL THROMBOPLASTIN TIME 25 SECONDS (22-32)
[2020-05-12 02:54] LABS: ALANINE AMINOTRANSFERASE 16 U/L (12-78); ALBUMIN 3.3 G/DL (3.4-5.0); ALKALINE PHOSPHATASE 44 IU/L (46-116); ANION GAP 7 (8-16); ASPARTATE AMINO TRANSFERASE 7 U/L (10-37); BILIRUBIN,TOTAL 0.8 MG/DL (0.1-1.0); BLOOD UREA NITROGEN 61 MG/DL (7-18); BUN/CREATININE RATIO 46.9 (5.4-32.0); CALCIUM 8.7 MG/DL (8.5-10.1); CHLORIDE 99 MMOL/L (99-107); GLUCOSE 153 MG/DL (70-104); MAGNESIUM 2.5 MG/DL (1.5-2.4); PHOSPHORUS 7.1 MG/DL (2.3-4.5); POTASSIUM 4.6 MMOL/L (3.5-5.1); SODIUM 137 MMOL/L (135-145); TOTAL CARBON DIOXIDE 30.9 MMOL/L (24-32); TOTAL PROTEIN 6.7 G/DL (6.4-8.2); eGFR 57 ML/MIN
[2020-05-12 03:05] LABS: ABG HCO3 26.2 mmol/L (22.0-26.0); ABG OXYGEN SATURATION 97.6 % (94-97); ABG PCO2 (T) 37.1 mmHg (35.0-48.0); ABG PO2 (T) 100.2 mmHg (75.0-100.0); ALLEN'S TEST POSITIVE; FMetHb 0.3 % (0.0-1.5); FO2Hb 97.3 % (94-97); PATIENT TEMPERATURE 37.5; PEEP 5 cm H2O; RESPIRATORY RATE 22 b/min; TIDAL VOLUME 450 mL; TOTAL HEMOGLOBIN 17.5 G/dl (14.0-18.0)
[2020-05-12] MEDS: dexmedetomidine/D5W 100mL 100 ML IV SCH ×6 (03:11→21:37)
[2020-05-12] MEDS: propofol 1000mg/100ml bottle 100 ML IV SCH ×3 (03:34→07:47)
--- NOTE | 2020-05-12 06:08 | NUR ---
Problems reprioritized. Patient report given, questions answered & plan of care reviewed with BORARN.
[2020-05-12] MEDS: gabapentin 300mg capsule OGT SCH ×3 (07:40→20:21)
[2020-05-12] MEDS: methylnaltrexone br 12mg/0.6ml inj***SubQ only SQ SCH (07:40)
[2020-05-12] MEDS: pantoprazole 40 MG vial IV SCH (07:40)
[2020-05-12] MEDS: methylPREDNISolone sod succ/PF 40mg inj. IV SCH (07:40)
[2020-05-12] MEDS: linezolid 600mg tablet PO SCH (07:41)
[2020-05-12] MEDS: risperiDONE 0.5mg tablet OGT SCH (07:41)
[2020-05-12] MEDS: lactobacillus rhamnosus 10,000 MMU CELLS/CAPSULE OGT SCH ×2 (07:41→19:43)
[2020-05-12] MEDS: sennosides 8.6mg tablet OGT SCH (07:41)
[2020-05-12] MEDS: meropenem inj 1 GM in normal saline 100ml IV soln 100 ML IV SCH ×3 (07:43→23:35)
[2020-05-12] MEDS: nystatin 15 GM powder TP SCH ×2 (07:47→19:43)
[2020-05-12] MEDS: docusate sodium 100mg/10ml UD cup OGT SCH ×2 (07:49→19:43)
[2020-05-12] MEDS: diltiazem-NS 100mg/100ml 100 ML IV SCH ×3 (09:26→21:41)
[2020-05-12] MEDS: amiodarone/D5 360MG/200ML BAG 200 ML IV SCH ×3 (09:26→21:37)
[2020-05-12] MEDS: acetaminophen 325mg/10.15ml oral unit dose solution OGT PRN ×2 (12:15→19:07)
[2020-05-12] MEDS: rivaroxaban 20mg tablet OGT SCH (17:17)
--- NOTE | 2020-05-12 18:30 | NUR ---
Patient in room ICU 2038. I have received report from HANY SAHNI and had the opportunity to ask questions and assume patient care.
[2020-05-12] MEDS: insulin glargine (Lantus) pen - multi-dose SQ SCH (20:36)
[2020-05-13] VITALS (24 sets, daily range): BP systolic 94–148; BP diastolic 62–95
[2020-05-13] MEDS: dexmedetomidine/D5W 100mL 100 ML IV SCH ×5 (00:12→11:02)
[2020-05-13] MEDS: acetaminophen 325mg/10.15ml oral unit dose solution OGT PRN ×2 (02:32→08:20)
[2020-05-13] MEDS: mineral oil/petrolatum ophthal oint EACHEYE SCH ×4 (02:32→20:00)
[2020-05-13] MEDS: insulin regular, human U-100 3ml vial - multi-dose SQ SCH ×3 (02:35→13:44)
[2020-05-13] MEDS: ipratropium/albuterol 3ml nebule NEB SCH ×6 (03:02→23:00)
[2020-05-13 03:25] LABS: ABG BASE EXCESS 3.4 mmol/L (-2.0-2.0); ABG HCO3 24.5 mmol/L (22.0-26.0); ABG OXYGEN SATURATION 96.6 % (94-97); ABG PO2 (T) 97.8 mmHg (75.0-100.0); ALLEN'S TEST POSITIVE; FCOHb 0.4 % (0.0-3.9); FO2Hb 96.2 % (94-97); PATIENT TEMPERATURE 38.4; PEEP 5 cm H2O; RESPIRATORY RATE 18 b/min; TIDAL VOLUME 450 mL
[2020-05-13 03:36] LABS: BASOPHILS % (AUTO) 0.1 % (0-1); EOSINOPHILS % (AUTO) 0 % (0-6); HEMATOCRIT 44.2 % (42.0-52.0); LYMPHOCYTES # (AUTO) 2.1 X10'3 (1.1-4.8); LYMPHOCYTES % (AUTO) 19.5 % (21-51); MEAN CORPUSCULAR HEMOGLOBIN 33.2 PG (27.0-31.0); MEAN CORPUSCULAR VOLUME 97.8 FL (78-98); MONOCYTES % (AUTO) 9.4 % (2-12); NEUTROPHILS # (AUTO) 7.6 X10'3 (1.8-7.7); PLATELET COUNT 157 X10'3 (140-440); RED BLOOD COUNT 4.52 X10'6 (4.70-6.10); RED CELL DISTRIBUTION WIDTH 13.4 % (11.5-14.5); WHITE BLOOD COUNT 10.6 X10'3 (4.5-11.0)
[2020-05-13 03:45] LABS: PARTIAL THROMBOPLASTIN TIME 26 SECONDS (22-32)
[2020-05-13 03:59] LABS: ALANINE AMINOTRANSFERASE 19 U/L (12-78); ALBUMIN 2.9 G/DL (3.4-5.0); ALBUMIN/GLOBULIN RATIO 0.9 (1.1-1.5); ALKALINE PHOSPHATASE 36 IU/L (46-116); ANION GAP 5 (8-16); ASPARTATE AMINO TRANSFERASE 12 U/L (10-37); BILIRUBIN,TOTAL 1.1 MG/DL (0.1-1.0); BLOOD UREA NITROGEN 58 MG/DL (7-18); BUN/CREATININE RATIO 55.2 (5.4-32.0); CALCIUM 8.4 MG/DL (8.5-10.1); CHLORIDE 103 MMOL/L (99-107); CREATININE 1.05 MG/DL (0.60-1.10); GLUCOSE 130 MG/DL (70-104); MAGNESIUM 2.6 MG/DL (1.5-2.4); PHOSPHORUS 4.9 MG/DL (2.3-4.5); SODIUM 139 MMOL/L (135-145); TOTAL CARBON DIOXIDE 30.7 MMOL/L (24-32); TOTAL PROTEIN 6.1 G/DL (6.4-8.2); eGFR 73 ML/MIN
[2020-05-13] MEDS: amiodarone/D5 360MG/200ML BAG 200 ML IV SCH ×4 (04:58→23:10)
--- NOTE | 2020-05-13 06:23 | NUR ---
Problems reprioritized. Patient report given, questions answered & plan of care reviewed with HANY Smallwood.
[2020-05-13] MEDS: methylPREDNISolone sod succ/PF 40mg inj. IV SCH (07:56)
[2020-05-13] MEDS: lactobacillus rhamnosus 10,000 MMU CELLS/CAPSULE OGT SCH ×2 (07:56→20:06)
[2020-05-13] MEDS: docusate sodium 100mg/10ml UD cup OGT SCH ×2 (07:56→20:06)
[2020-05-13] MEDS: gabapentin 300mg capsule OGT SCH ×3 (07:56→20:06)
[2020-05-13] MEDS: sennosides 8.6mg tablet OGT SCH (07:56)
[2020-05-13] MEDS: pantoprazole 40 MG vial IV SCH (07:56)
[2020-05-13] MEDS: risperiDONE 0.5mg tablet OGT SCH (07:57)
[2020-05-13] MEDS: meropenem inj 1 GM in normal saline 100ml IV soln 100 ML IV SCH ×3 (07:57→23:48)
[2020-05-13] MEDS: nystatin 15 GM powder TP SCH ×2 (08:08→20:06)
--- NOTE | 2020-05-13 09:30 | NUR ---
Pt placed on cooling blanket for temperature of 38.6
[2020-05-13 11:31] LABS: CREATINE KINASE 299 U/L (39-308)
--- NOTE | 2020-05-13 11:40 | NUR ---
Reassessment: Pt tolerating TF at goal GRV WNL. Phos down to 4.9 from 7.1 prior now having consistent BM's; receiving routine senna, colace, and relistor. Pending possible extubation today w/ MOISTURE TESTER BSS prior to PO per back roll lathe operator at rounds. Will monitor for PO diet advancement if extubation and additional nutrition support needs this admit. Rec: 1. Continuous OGTF using Vital High Protein with 90 mL/hr goal; to provide 2160 mL total volume/day, 1814 mL water, 2160 kcals, and 189 g protein. 2. Water flushes per MD given CHF with EF 40% 3. PALB Q /; daily wts 4. routine bowel care; opioid antagonist and promotility agent per back roll lathe operator 5. upon extubation; advance diet as medically indicated to heart healthy Addendum: 05/13/20 at [address] Amended: Links added.
--- NOTE | 2020-05-13 13:25 | NUR ---
5F TRIPLE LUMEN PICC LINE PLACEMENT. NOTIFIED MAXX LEACH LINE WAS GOOD TO USE PER CHEST X-RAY REF: [id number] LOT: [id number] EXP: 03/03/2021
[2020-05-13] MEDS: diltiazem-NS 100mg/100ml 100 ML IV SCH (14:46)
[2020-05-13] MEDS ORDERED: digoxin 250mcg/ml 2ml ampule IV ONE (16:05)
[2020-05-13] MEDS: rivaroxaban 20mg tablet OGT SCH (17:20)
--- NOTE | 2020-05-13 18:15 | NUR ---
Problems reprioritized. Patient report given, questions answered & plan of care reviewed with to HANY Tubbs.
--- NOTE | 2020-05-13 19:48 | NUR ---
BEDSIDE SWALLOW EXAMINATION PERFORMED. PT GIVEN ICE CHIPS AND HAD NO PROBLEMS CHEWING, SWALLOWING OR BREATHING.
[2020-05-13] MEDS: amiodarone 200mg tablet PO SCH (20:06)
[2020-05-13] MEDS: diltiazem 30mg tablet PO SCH (20:06)
[2020-05-13] MEDS: insulin glargine (Lantus) pen - multi-dose SQ SCH (20:07)
[2020-05-14] VITALS (32 sets, daily range): BP systolic 118–168; BP diastolic 56–102
[2020-05-14] MEDS: mineral oil/petrolatum ophthal oint EACHEYE SCH ×4 (00:44→20:00)
[2020-05-14] MEDS: diltiazem 30mg tablet PO SCH ×4 (01:46→21:24)
--- NOTE | 2020-05-14 02:20 | NUR ---
Pt vomited. Zofran administered, bed changed.
[2020-05-14] MEDS ORDERED: ondansetron/PF 4mg/2ml inj IV PRN (02:30)
[2020-05-14 02:43] LABS: BASOPHILS % (AUTO) 0.1 % (0-1); EOSINOPHILS % (AUTO) 0 % (0-6); HEMATOCRIT 49.3 % (42.0-52.0); HEMOGLOBIN 16.4 g/dl (14.0-17.9); LYMPHOCYTES # (AUTO) 2.9 X10'3 (1.1-4.8); LYMPHOCYTES % (AUTO) 12.8 % (21-51); MEAN CORPUSCULAR HEMOGLOBIN 32.3 PG (27.0-31.0); MEAN CORPUSCULAR HGB CONC 33.3 g/dL (33.0-36.5); MEAN CORPUSCULAR VOLUME 97.2 FL (78-98); MEAN PLATELET VOLUME 8.7 FL (7.4-10.4); MONOCYTES # (AUTO) 1.9 X10'3 (0-0.9); MONOCYTES % (AUTO) 8.5 % (2-12); NEUTROPHILS # (AUTO) 17.9 X10'3 (1.8-7.7); NEUTROPHILS % (AUTO) 78.6 % (42-75); PLATELET COUNT 218 X10'3 (140-440); RED BLOOD COUNT 5.07 X10'6 (4.70-6.10); RED CELL DISTRIBUTION WIDTH 14.1 % (11.5-14.5); WHITE BLOOD COUNT 22.8 X10'3 (4.5-11.0)
[2020-05-14 02:52] LABS: PARTIAL THROMBOPLASTIN TIME 24 SECONDS (22-32)
[2020-05-14 02:59] LABS: ALANINE AMINOTRANSFERASE 20 U/L (12-78); ALBUMIN 3.3 G/DL (3.4-5.0); ALKALINE PHOSPHATASE 40 IU/L (46-116); ANION GAP 7 (8-16); ASPARTATE AMINO TRANSFERASE 17 U/L (10-37); BILIRUBIN,TOTAL 1.4 MG/DL (0.1-1.0); BLOOD UREA NITROGEN 41 MG/DL (7-18); BUN/CREATININE RATIO 47.1 (5.4-32.0); CHLORIDE 104 MMOL/L (99-107); CREATININE 0.87 MG/DL (0.60-1.10); GLUCOSE 62 MG/DL (70-104); MAGNESIUM 2.6 MG/DL (1.5-2.4); PHOSPHORUS 3.1 MG/DL (2.3-4.5); POTASSIUM 3.5 MMOL/L (3.5-5.1); SODIUM 141 MMOL/L (135-145); TOTAL CARBON DIOXIDE 30.1 MMOL/L (24-32); TOTAL PROTEIN 6.6 G/DL (6.4-8.2); eGFR 90 ML/MIN
[2020-05-14] MEDS: ipratropium/albuterol 3ml nebule NEB SCH ×6 (03:00→23:00)
[2020-05-14] MEDS: morphine 4 MG/ML inj SYRINge IV PRN ×3 (03:04→19:40)
[2020-05-14] MEDS: diltiazem-NS 100mg/100ml 100 ML IV SCH ×3 (03:34→19:02)
--- NOTE | 2020-05-14 04:12 | NUR ---
Per Julio GUITAR TEACHER, okay if pt's heart rate is in 130s. Keep npo since pt vomited, no PO meds.
[2020-05-14] MEDS: amiodarone/D5 360MG/200ML BAG 200 ML IV SCH (05:14)
[2020-05-14] MEDS: risperiDONE 0.5mg tablet OGT SCH (08:00)
[2020-05-14] MEDS: lactobacillus rhamnosus 10,000 MMU CELLS/CAPSULE OGT SCH ×2 (08:00→21:23)
[2020-05-14] MEDS: ESCITALOPRAM OXALATE 5 MG TABLET OGT SCH (08:00)
[2020-05-14] MEDS: docusate sodium 100mg/10ml UD cup OGT SCH ×2 (08:00→21:22)
[2020-05-14] MEDS: sennosides 8.6mg tablet OGT SCH (08:00)
[2020-05-14] MEDS: gabapentin 300mg capsule OGT SCH ×3 (08:00→21:23)
[2020-05-14] MEDS: amiodarone 200mg tablet PO SCH ×2 (08:00→21:24)
[2020-05-14] MEDS: methylnaltrexone br 12mg/0.6ml inj***SubQ only SQ SCH (08:00)
[2020-05-14] MEDS: meropenem inj 1 GM in normal saline 100ml IV soln 100 ML IV SCH ×2 (09:15→18:03)
[2020-05-14] MEDS: pantoprazole 40 MG vial IV SCH (09:17)
[2020-05-14] MEDS: methylPREDNISolone sod succ/PF 40mg inj. IV SCH (09:17)
[2020-05-14] MEDS: nystatin 15 GM powder TP SCH ×2 (09:18→21:22)
--- NOTE | 2020-05-14 10:37 | NUR ---
0700 SVN triaged-RT in ER
[2020-05-14] MEDS ORDERED: acetaminophen 650mg rectal suppository RC PRN (11:45)
[2020-05-14] MEDS: dexmedetomidine/D5W 100mL 100 ML IV SCH ×2 (15:28→23:02)
--- NOTE | 2020-05-14 16:45 | NUR ---
1600 svn HELD DUE TO UNSTABLE AND ELEVATED hr >130
--- NOTE | 2020-05-14 17:00 | NUR ---
For some reason unknown his BG did not register in the lab section of his chart it was 147
[2020-05-14] MEDS ORDERED: acetaminophen 1,000mg/100ml IV 100 ML IV ONE (17:10)
[2020-05-14 17:55] LABS: BASOPHILS % (AUTO) 0.1 % (0-1); EOSINOPHILS % (AUTO) 0.1 % (0-6); HEMATOCRIT 53.1 % (42.0-52.0); HEMOGLOBIN 17.6 g/dl (14.0-17.9); LYMPHOCYTES # (AUTO) 0.9 X10'3 (1.1-4.8); LYMPHOCYTES % (AUTO) 5.4 % (21-51); MEAN CORPUSCULAR HEMOGLOBIN 32.7 PG (27.0-31.0); MEAN CORPUSCULAR HGB CONC 33.1 g/dL (33.0-36.5); MEAN CORPUSCULAR VOLUME 98.8 FL (78-98); MEAN PLATELET VOLUME 8.4 FL (7.4-10.4); MONOCYTES # (AUTO) 0.4 X10'3 (0-0.9); MONOCYTES % (AUTO) 2.2 % (2-12); NEUTROPHILS # (AUTO) 14.6 X10'3 (1.8-7.7); NEUTROPHILS % (AUTO) 92.2 % (42-75); PLATELET COUNT 209 X10'3 (140-440); RED BLOOD COUNT 5.38 X10'6 (4.70-6.10); RED CELL DISTRIBUTION WIDTH 14.1 % (11.5-14.5); WHITE BLOOD COUNT 15.9 X10'3 (4.5-11.0)
--- NOTE | 2020-05-14 18:30 | NUR ---
Dr Trujillo wanted Dr Pool About pt running a most of the day 37.7 then went up to 38 38.1, 3.2 He was placed on a cooling blanket and still after several hours on it his temp was still 38 -38.1, He was clammy but his BG was checked and it was fine. Informed the dr of all the orders and she stated she would come see him tomorrow. Going for CT of the abd.
--- NOTE | 2020-05-14 18:30 | NUR ---
Patient in room ICU 2038. I have received report from Angelica LEACH and had the opportunity to ask questions and assume patient care.
[2020-05-14] MEDS: rivaroxaban 20mg tablet OGT SCH (20:05)
[2020-05-14] MEDS ORDERED: diatr meglu/diatrizoate 30ml oral sol.-(3 dose) bottle PO SCH (21:00)
[2020-05-14] MEDS: insulin glargine (Lantus) pen - multi-dose SQ SCH (21:00)
[2020-05-15] VITALS (25 sets, daily range): BP systolic 123–167; BP diastolic 74–105
[2020-05-15] MEDS: meropenem inj 1 GM in normal saline 100ml IV soln 100 ML IV SCH ×3 (01:13→17:35)
[2020-05-15] MEDS: mineral oil/petrolatum ophthal oint EACHEYE SCH ×4 (02:00→20:00)
[2020-05-15] MEDS: ipratropium/albuterol 3ml nebule NEB SCH ×6 (02:14→23:00)
[2020-05-15] MEDS: diltiazem 30mg tablet PO SCH ×4 (02:38→19:56)
[2020-05-15 03:36] LABS: PARTIAL THROMBOPLASTIN TIME 25 SECONDS (22-32)
[2020-05-15 03:45] LABS: ALANINE AMINOTRANSFERASE 24 U/L (12-78); ALBUMIN 3.3 G/DL (3.4-5.0); ALKALINE PHOSPHATASE 43 IU/L (46-116); ANION GAP 8 (8-16); ASPARTATE AMINO TRANSFERASE 19 U/L (10-37); BILIRUBIN,TOTAL 1.7 MG/DL (0.1-1.0); BLOOD UREA NITROGEN 35 MG/DL (7-18); BUN/CREATININE RATIO 39.3 (5.4-32.0); CALCIUM 8.7 MG/DL (8.5-10.1); CHLORIDE 107 MMOL/L (99-107); CREATININE 0.89 MG/DL (0.60-1.10); GLUCOSE 142 MG/DL (70-104); MAGNESIUM 2.7 MG/DL (1.5-2.4); PHOSPHORUS 2.6 MG/DL (2.3-4.5); POTASSIUM 4.5 MMOL/L (3.5-5.1); SODIUM 143 MMOL/L (135-145); TOTAL CARBON DIOXIDE 27.9 MMOL/L (24-32); TOTAL PROTEIN 6.6 G/DL (6.4-8.2); TRIGLYCERIDES 96 MG/DL (20-135); eGFR 88 ML/MIN
[2020-05-15 04:02] LABS: BASOPHILS % (AUTO) 0 % (0-1); EOSINOPHILS % (AUTO) 0 % (0-6); HEMATOCRIT 48.3 % (42.0-52.0); LYMPHOCYTES # (AUTO) 1.6 X10'3 (1.1-4.8); LYMPHOCYTES % (AUTO) 11.4 % (21-51); MEAN CORPUSCULAR HEMOGLOBIN 32.5 PG (27.0-31.0); MEAN CORPUSCULAR HGB CONC 33.2 g/dL (33.0-36.5); MEAN CORPUSCULAR VOLUME 97.9 FL (78-98); MEAN PLATELET VOLUME 8.6 FL (7.4-10.4); MONOCYTES # (AUTO) 1.1 X10'3 (0-0.9); MONOCYTES % (AUTO) 7.9 % (2-12); NEUTROPHILS # (AUTO) 11.3 X10'3 (1.8-7.7); NEUTROPHILS % (AUTO) 80.7 % (42-75); PLATELET COUNT 218 X10'3 (140-440); RED BLOOD COUNT 4.93 X10'6 (4.70-6.10); RED CELL DISTRIBUTION WIDTH 13.9 % (11.5-14.5)
[2020-05-15] MEDS: dexmedetomidine/D5W 100mL 100 ML IV SCH ×3 (06:36→21:44)
--- NOTE | 2020-05-15 06:36 | NUR ---
Problems reprioritized. Patient report given, questions answered & plan of care reviewed with Shobha LEACH .
[2020-05-15] MEDS: docusate sodium 100mg/10ml UD cup OGT SCH (08:00)
[2020-05-15] MEDS: sennosides 8.6mg tablet OGT SCH (08:00)
[2020-05-15] MEDS: amiodarone 200mg tablet PO SCH ×2 (08:33→19:55)
[2020-05-15] MEDS: nystatin 15 GM powder TP SCH ×2 (08:33→20:09)
[2020-05-15] MEDS: ESCITALOPRAM OXALATE 5 MG TABLET OGT SCH (08:33)
[2020-05-15] MEDS: methylPREDNISolone sod succ/PF 40mg inj. IV SCH (08:34)
[2020-05-15] MEDS: pantoprazole 40 MG vial IV SCH (08:34)
[2020-05-15] MEDS: lactobacillus rhamnosus 10,000 MMU CELLS/CAPSULE OGT SCH ×2 (08:34→19:55)
[2020-05-15] MEDS: gabapentin 300mg capsule OGT SCH (08:34)
[2020-05-15] MEDS: risperiDONE 0.5mg tablet OGT SCH (08:48)
--- NOTE | 2020-05-15 09:00 | NUR ---
Pt had large bowel movement soft formed Denies any nausea and vomiting Taking full liq without nausea Sl temp remains Afib remains rate low 100 VSS
--- NOTE | 2020-05-15 10:00 | NUR ---
Dr Davis aware of high heart rate A fib already on cardiazem and amiodarone Home med restarted Pt helps turns well in bed Good cough and deep breathing Does IS and flutter well with direction
[2020-05-15 10:46] LABS: TOTAL CELLS COUNTED 100
[2020-05-15 10:47] LABS: PLATELET ESTIMATE NORMAL; POLYCHROMASIA FEW; TEAR DROP CELLS FEW
[2020-05-15 10:48] LABS: STOMATOCYTES FEW
--- NOTE | 2020-05-15 12:00 | NUR ---
fell asleep during lunch Worked with PT Max assist x 2 Weak and slow to respond to questions at times MADHAVI Lopez chg from a fib to rsr HR 70 with good b/p
[2020-05-15] MEDS ORDERED: metoprolol tartrate 50mg tablet PO SCH (12:30)
[2020-05-15] MEDS ORDERED: dextrose ORAL solution 15 GM/59 ML bottle PO PRN ×2 (12:45)
[2020-05-15] MEDS ORDERED: acetaminophen 325mg/10.15ml oral unit dose solution PO PRN ×2 (12:45)
[2020-05-15] MEDS ORDERED: ondansetron 4mg rapidly disintigrating tab PO PRN (12:47)
[2020-05-15] MEDS ORDERED: lactulose 20gm/30ml cup PO PRN (12:47)
[2020-05-15] MEDS ORDERED: insulin Lispro (HumaLOG) vial - multi-dose SQ SCH (12:50)
[2020-05-15] MEDS: gabapentin 300mg capsule PO SCH ×2 (13:38→22:48)
--- NOTE | 2020-05-15 14:00 | NUR ---
turned to right side jeromy well No skin issues noted VSS Urine output QS Jeromy liq will progress to diet tomorrow
--- NOTE | 2020-05-15 17:00 | NUR ---
refusing to do resp tx explained importance then became compliant States just tired When tryin to eat was weak and tenisha stated he is like this at home
--- NOTE | 2020-05-15 18:56 | NUR ---
Report to Elicia LEACH
--- NOTE | 2020-05-15 19:00 | NUR ---
Patient in room ICU 2038. I have received report from Shobha LEACH and had the opportunity to ask questions and assume patient care.
[2020-05-15] MEDS: rivaroxaban 20mg tablet PO SCH (19:56)
[2020-05-15] MEDS: docusate sodium 100mg/10ml UD cup PO SCH (19:57)
[2020-05-15] MEDS: morphine 4 MG/ML inj SYRINge IV PRN ×2 (19:58→22:49)
[2020-05-15] MEDS: insulin glargine (Lantus) pen - multi-dose SQ SCH (21:00)
[2020-05-15] MEDS: metoprolol tartrate 50mg tablet PO SCH (22:48)
[2020-05-16] VITALS (23 sets, daily range): BP systolic 119–152; BP diastolic 79–106
[2020-05-16] MEDS: mineral oil/petrolatum ophthal oint EACHEYE SCH ×2 (02:00→08:00)
[2020-05-16] MEDS: diltiazem 30mg tablet PO SCH ×4 (02:11→20:21)
[2020-05-16] MEDS: ipratropium/albuterol 3ml nebule NEB SCH ×6 (03:00→23:00)
[2020-05-16] MEDS: dexmedetomidine/D5W 100mL 100 ML IV SCH (05:45)
--- NOTE | 2020-05-16 06:49 | NUR ---
Patient in room ICU 2038. I have received report from HANY BEJARANO and had the opportunity to ask questions and assume patient care.
--- NOTE | 2020-05-16 06:49 | NUR ---
Problems reprioritized. Patient report given, questions answered & plan of care reviewed with Yang RN.
[2020-05-16] MEDS: pantoprazole 40 MG vial IV SCH (07:56)
[2020-05-16] MEDS: methylPREDNISolone sod succ/PF 40mg inj. IV SCH (07:59)
[2020-05-16] MEDS: lactobacillus rhamnosus 10,000 MMU CELLS/CAPSULE OGT SCH ×2 (08:00→20:21)
[2020-05-16] MEDS: sennosides 8.6mg tablet PO SCH (08:00)
[2020-05-16] MEDS: docusate sodium 100mg/10ml UD cup PO SCH ×2 (08:00→20:00)
[2020-05-16] MEDS: methylnaltrexone br 12mg/0.6ml inj***SubQ only SQ SCH (08:00)
[2020-05-16] MEDS: amiodarone 200mg tablet PO SCH ×2 (08:02→20:21)
[2020-05-16] MEDS: ESCITALOPRAM OXALATE 5 MG TABLET PO SCH (08:03)
[2020-05-16] MEDS: metoprolol tartrate 50mg tablet PO SCH ×2 (08:04→20:21)
[2020-05-16] MEDS: gabapentin 300mg capsule PO SCH ×3 (08:05→20:21)
[2020-05-16] MEDS: risperiDONE 0.5mg tablet PO SCH (08:06)
[2020-05-16] MEDS: nystatin 15 GM powder TP SCH ×2 (08:07→20:21)
[2020-05-16 09:14] LABS: BASOPHILS % (AUTO) 0.1 % (0-1); EOSINOPHILS % (AUTO) 0.2 % (0-6); HEMATOCRIT 46.7 % (42.0-52.0); HEMOGLOBIN 15.3 g/dl (14.0-17.9); LYMPHOCYTES # (AUTO) 2.6 X10'3 (1.1-4.8); LYMPHOCYTES % (AUTO) 17.1 % (21-51); MEAN CORPUSCULAR HEMOGLOBIN 32.4 PG (27.0-31.0); MEAN CORPUSCULAR HGB CONC 32.8 g/dL (33.0-36.5); MEAN CORPUSCULAR VOLUME 98.9 FL (78-98); MEAN PLATELET VOLUME 8.1 FL (7.4-10.4); MONOCYTES # (AUTO) 1.4 X10'3 (0-0.9); MONOCYTES % (AUTO) 9.1 % (2-12); NEUTROPHILS % (AUTO) 73.5 % (42-75); PLATELET COUNT 187 X10'3 (140-440); RED BLOOD COUNT 4.73 X10'6 (4.70-6.10); RED CELL DISTRIBUTION WIDTH 13.6 % (11.5-14.5)
[2020-05-16] MEDS: morphine 4 MG/ML inj SYRINge IV PRN (09:14)
[2020-05-16 09:23] LABS: PARTIAL THROMBOPLASTIN TIME 26 SECONDS (22-32)
[2020-05-16 09:24] LABS: ALANINE AMINOTRANSFERASE 20 U/L (12-78); ALBUMIN 3.1 G/DL (3.4-5.0); ALKALINE PHOSPHATASE 40 IU/L (46-116); ANION GAP 8 (8-16); ASPARTATE AMINO TRANSFERASE 13 U/L (10-37); BILIRUBIN,TOTAL 1.6 MG/DL (0.1-1.0); BLOOD UREA NITROGEN 29 MG/DL (7-18); BUN/CREATININE RATIO 34.5 (5.4-32.0); CALCIUM 7.9 MG/DL (8.5-10.1); CHLORIDE 106 MMOL/L (99-107); CREATININE 0.84 MG/DL (0.60-1.10); GLUCOSE 128 MG/DL (70-104); MAGNESIUM 2.2 MG/DL (1.5-2.4); PHOSPHORUS 1.9 MG/DL (2.3-4.5); SODIUM 141 MMOL/L (135-145); TOTAL CARBON DIOXIDE 27.5 MMOL/L (24-32); TOTAL PROTEIN 6.1 G/DL (6.4-8.2); eGFR > 90 ML/MIN
--- NOTE | 2020-05-16 13:00 | NUR ---
DR. QUIROZ NOTIFIED OF MORHINE 4 MG ORDERED FOR PAIN Q 2 HOURS. ADM X1 TODAY. STATES"NO MORE MORPHINE, I WILL TAKE CARE OF IT"
[2020-05-16] MEDS: diltiazem-NS 100mg/100ml 100 ML IV SCH (14:25)
[2020-05-16] MEDS: rivaroxaban 20mg tablet PO SCH (17:40)
--- NOTE | 2020-05-16 18:29 | NUR ---
Problems reprioritized. Patient report given, questions answered & plan of care reviewed with HANY ZEE.
--- NOTE | 2020-05-16 19:10 | NUR ---
Patient in room ICU 2038. I have received report from Yang LEACH and had the opportunity to ask questions and assume patient care.
[2020-05-16] MEDS: insulin glargine (Lantus) pen - multi-dose SQ SCH (21:00)
[2020-05-16] MEDS: traZODone 50mg tablet PO SCH (21:10)
[2020-05-17] VITALS (15 sets, daily range): BP systolic 104–156; BP diastolic 73–98
[2020-05-17] MEDS: diltiazem 30mg tablet PO SCH ×4 (02:49→20:31)
[2020-05-17 04:10] LABS: BASOPHILS % (AUTO) 0.2 % (0-1); EOSINOPHILS % (AUTO) 0.1 % (0-6); HEMATOCRIT 44.7 % (42.0-52.0); HEMOGLOBIN 14.8 g/dl (14.0-17.9); LYMPHOCYTES % (AUTO) 19.3 % (21-51); MEAN CORPUSCULAR HEMOGLOBIN 32.3 PG (27.0-31.0); MEAN CORPUSCULAR VOLUME 97.7 FL (78-98); MEAN PLATELET VOLUME 8.2 FL (7.4-10.4); MONOCYTES # (AUTO) 0.8 X10'3 (0-0.9); NEUTROPHILS # (AUTO) 7.4 X10'3 (1.8-7.7); NEUTROPHILS % (AUTO) 72.4 % (42-75); PLATELET COUNT 170 X10'3 (140-440); RED BLOOD COUNT 4.57 X10'6 (4.70-6.10); RED CELL DISTRIBUTION WIDTH 13.5 % (11.5-14.5); WHITE BLOOD COUNT 10.2 X10'3 (4.5-11.0)
[2020-05-17 04:17] LABS: ALANINE AMINOTRANSFERASE 22 U/L (12-78); ALBUMIN/GLOBULIN RATIO 1.1 (1.1-1.5); ALKALINE PHOSPHATASE 38 IU/L (46-116); ANION GAP 6 (8-16); ASPARTATE AMINO TRANSFERASE 13 U/L (10-37); BILIRUBIN,TOTAL 1.6 MG/DL (0.1-1.0); BLOOD UREA NITROGEN 25 MG/DL (7-18); BUN/CREATININE RATIO 34.7 (5.4-32.0); CALCIUM 8.2 MG/DL (8.5-10.1); CHLORIDE 105 MMOL/L (99-107); CREATININE 0.72 MG/DL (0.60-1.10); GLUCOSE 99 MG/DL (70-104); POTASSIUM 4.5 MMOL/L (3.5-5.1); SODIUM 139 MMOL/L (135-145); TOTAL PROTEIN 5.8 G/DL (6.4-8.2); eGFR > 90 ML/MIN
--- NOTE | 2020-05-17 05:08 | NUR ---
0415 Patient called out for help. Pt fell out of bed while adjusting self. Stated that he "turned too far and landed on his arm." The patient was assessed, vital signs were taken HR 108, SPo2 96%, Blood pressure 145/106, Resp Rate 15. Alert and orientated. CT of the head, xray of forearm and humerous, PT, PTT and INR ordered. Patient is currently back in bed, will continue to monitor.
[2020-05-17 05:32] LABS: PARTIAL THROMBOPLASTIN TIME 24 SECONDS (22-32)
--- NOTE | 2020-05-17 06:20 | NUR ---
Patient in room ICU 2038. I have received report from james farooq and had the opportunity to ask questions and assume patient care.
--- NOTE | 2020-05-17 06:31 | NUR ---
Problems reprioritized. Patient report given, questions answered & plan of care reviewed with Amy LEACH.
[2020-05-17] MEDS: ESCITALOPRAM OXALATE 5 MG TABLET PO SCH (08:00)
[2020-05-17] MEDS: nystatin 15 GM powder TP SCH (08:00)
[2020-05-17] MEDS: docusate sodium 100mg/10ml UD cup PO SCH ×3 (08:00→20:32)
[2020-05-17] MEDS: methylPREDNISolone sod succ/PF 40mg inj. IV SCH (08:27)
[2020-05-17] MEDS: pantoprazole 40 MG vial IV SCH (08:28)
[2020-05-17] MEDS: gabapentin 300mg capsule PO SCH ×3 (08:28→20:32)
[2020-05-17] MEDS: lactobacillus rhamnosus 10,000 MMU CELLS/CAPSULE OGT SCH ×2 (08:28→20:28)
[2020-05-17] MEDS: sennosides 8.6mg tablet PO SCH (08:28)
[2020-05-17] MEDS: risperiDONE 0.5mg tablet PO SCH (08:28)
[2020-05-17] MEDS: amiodarone 200mg tablet PO SCH ×2 (08:29→20:28)
[2020-05-17] MEDS: metoprolol tartrate 50mg tablet PO SCH ×2 (08:29→20:29)
[2020-05-17] MEDS: ipratropium/albuterol 3ml nebule NEB SCH ×5 (08:42→23:00)
--- NOTE | 2020-05-17 12:18 | NUR ---
F/u 05/17: Pt extubated advanced to MM5 diet per APIARIST today. PO 25-49% prior 3 days of clear liquids. Would benefit from ensure enlive TIDWM given additional protein/kcal needs at this time; MD notified. LBM 05/15 receiving routine colace, senna, and relistor though refused relistor today per EMR. Noted zyvox last dosage 05/12; will need diet ed if discharged prior to 2 week interval following last dosage. Will continue to monitor for PO hx additional protein needs. Rec: 1. Advance diet as medically indicated to heart healthy/MM5/thins per APIARIST/MD; encourage PO 2. ensure enlive TIDWM 3. routine bowel care 4. weekly wts Addendum: 05/17/20 at [address] Amended: Links added.
[2020-05-17] MEDS: lactose-reduced food (Ensure Enlive) - 237ml bottle PO SCH ×2 (13:00→18:00)
--- NOTE | 2020-05-17 13:27 | NUR ---
attempted to call report to telemetry, rn unavailable due to rapid on another pt.left #
--- NOTE | 2020-05-17 14:35 | NUR ---
Problems reprioritized. Patient report given, questions answered & plan of care reviewed with james coronel.
--- NOTE | 2020-05-17 14:45 | NUR ---
pt transported to room 3028a with all belongings,homer ramirez aware
[2020-05-17] MEDS: morphine 4 MG/ML inj SYRINge IV PRN ×2 (15:17→23:48)
--- NOTE | 2020-05-17 16:46 | NUR ---
Patient in room PCU 3028. I have received report from Amy LEACH and had the opportunity to ask questions and assume patient care.
--- NOTE | 2020-05-17 17:06 | NUR ---
MD notified of HR trends of 120's-140's sustaining. MD order to increase Cardizem to 60 mg po q 6 hrs and increase amiodarone to 400 mg po BID. MD aware of times scheduled. No new other orders at this time. Patient is totally asymptomatic.
[2020-05-17] MEDS: rivaroxaban 20mg tablet PO SCH (18:04)
--- NOTE | 2020-05-17 18:25 | NUR ---
Problems reprioritized. Patient report given, questions answered & plan of care reviewed with Mk LEACH. Pt. eating dinner, offers no complaints, just requesting nursing to help open items on his tray.
[2020-05-17] MEDS: traZODone 50mg tablet PO SCH (20:32)
[2020-05-17] MEDS: insulin glargine (Lantus) pen - multi-dose SQ SCH (21:00)
--- NOTE | 2020-05-18 02:09 | NUR ---
Patient in room PCU 3028. I have received report from HANY Peña and had the opportunity to ask questions and assume patient care. Patient resting in bed, no signs of distress. Safety measures in place, bed in low and locked position. Call light and personal items within reach. Will continue to monitor throughout shift.
[2020-05-18] MEDS: ipratropium/albuterol 3ml nebule NEB SCH ×6 (02:18→23:00)
[2020-05-18] MEDS: nystatin 15 GM powder TP SCH ×3 (03:28→19:26)
[2020-05-18] MEDS: diltiazem 30mg tablet PO SCH ×4 (03:29→19:17)
--- NOTE | 2020-05-18 06:30 | NUR ---
Problems reprioritized. Patient report given, questions answered & plan of care reviewed with HANY Peña. VSS. Medicatons administered as ordered. Care plan followed. Patient resting in bed with no signs of distress. Safety measures in place, bed in low and locked position. Call light and personal items within reach. Will continue to monitor for remainder of shift.
--- NOTE | 2020-05-18 06:34 | NUR ---
Patient in room PCU 3028. I have received report from Monroe LEACH and had the opportunity to ask questions and assume patient care. Pt. is sleeping comfortably, in no apparent distress.
[2020-05-18 07:00] VITALS: BP 108/67
[2020-05-18] MEDS: pantoprazole 40 MG vial IV SCH (07:54)
[2020-05-18] MEDS: docusate sodium 100mg/10ml UD cup PO SCH ×2 (07:54→19:27)
[2020-05-18] MEDS: metoprolol tartrate 50mg tablet PO SCH ×2 (07:55→19:16)
[2020-05-18] MEDS: amiodarone 200mg tablet PO SCH ×2 (07:56→19:15)
[2020-05-18] MEDS: ESCITALOPRAM OXALATE 5 MG TABLET PO SCH (07:56)
[2020-05-18] MEDS: lactobacillus rhamnosus 10,000 MMU CELLS/CAPSULE OGT SCH ×2 (07:56→19:15)
[2020-05-18] MEDS: sennosides 8.6mg tablet PO SCH (07:56)
[2020-05-18] MEDS: risperiDONE 0.5mg tablet PO SCH (07:56)
[2020-05-18] MEDS: prednisone 10mg tablet PO SCH (07:57)
[2020-05-18] MEDS: gabapentin 300mg capsule PO SCH ×3 (07:57→22:06)
[2020-05-18] MEDS: methylnaltrexone br 12mg/0.6ml inj***SubQ only SQ SCH (08:00)
[2020-05-18] MEDS: lactose-reduced food (Ensure Enlive) - 237ml bottle PO SCH ×3 (08:00→14:48)
[2020-05-18] MEDS: morphine 4 MG/ML inj SYRINge IV PRN ×3 (09:30→19:17)
--- NOTE | 2020-05-18 09:52 | NUR ---
Patients [place] removed without incident. Will monitor for urinary retention. Pt. offers no complaints.
[2020-05-18 10:44] LABS: BASOPHILS % (AUTO) 0.1 % (0-1); EOSINOPHILS % (AUTO) 0.3 % (0-6); HEMATOCRIT 43.9 % (42.0-52.0); HEMOGLOBIN 14.6 g/dl (14.0-17.9); LYMPHOCYTES # (AUTO) 1.7 X10'3 (1.1-4.8); LYMPHOCYTES % (AUTO) 16.6 % (21-51); MEAN CORPUSCULAR HEMOGLOBIN 32.7 PG (27.0-31.0); MEAN CORPUSCULAR HGB CONC 33.3 g/dL (33.0-36.5); MEAN CORPUSCULAR VOLUME 98.1 FL (78-98); MONOCYTES # (AUTO) 0.7 X10'3 (0-0.9); MONOCYTES % (AUTO) 7.1 % (2-12); NEUTROPHILS # (AUTO) 7.8 X10'3 (1.8-7.7); NEUTROPHILS % (AUTO) 75.9 % (42-75); PLATELET COUNT 161 X10'3 (140-440); RED BLOOD COUNT 4.48 X10'6 (4.70-6.10); RED CELL DISTRIBUTION WIDTH 13.5 % (11.5-14.5); WHITE BLOOD COUNT 10.3 X10'3 (4.5-11.0)
[2020-05-18 10:57] LABS: ALANINE AMINOTRANSFERASE 22 U/L (12-78); ALBUMIN 3.3 G/DL (3.4-5.0); ALBUMIN/GLOBULIN RATIO 1.1 (1.1-1.5); ALKALINE PHOSPHATASE 40 IU/L (46-116); ANION GAP 11 (8-16); ASPARTATE AMINO TRANSFERASE 12 U/L (10-37); BILIRUBIN,TOTAL 1.4 MG/DL (0.1-1.0); BLOOD UREA NITROGEN 30 MG/DL (7-18); BUN/CREATININE RATIO 29.7 (5.4-32.0); CALCIUM 8.1 MG/DL (8.5-10.1); CHLORIDE 103 MMOL/L (99-107); CREATININE 1.01 MG/DL (0.60-1.10); GLUCOSE 138 MG/DL (70-104); POTASSIUM 3.7 MMOL/L (3.5-5.1); SODIUM 137 MMOL/L (135-145); TOTAL PROTEIN 6.2 G/DL (6.4-8.2); eGFR 76 ML/MIN
[2020-05-18 11:00] VITALS: BP 139/71
[2020-05-18 15:00] VITALS: BP 142/75
[2020-05-18 18:00] VITALS: BP 135/78
--- NOTE | 2020-05-18 18:00 | NUR ---
Patient in room PCU 3028. I have received report from Mariana LEACH and had the opportunity to ask questions and assume patient care.
--- NOTE | 2020-05-18 18:02 | NUR ---
PAGER ID: [phone] MESSAGE: [id number] Benito Guerra - Pt. has converted to SR, SB. Cardizem and amio was increased yesterday for a-fib uncontrolled rate. May consider decreasing dose?. Mariana LEACH
--- NOTE | 2020-05-18 18:31 | NUR ---
Received orders to decrease cardizem back to 30 mg po q 6 hrs. Reported SR, SB to NOC nurse. Problems reprioritized. Patient report given, questions answered & plan of care reviewed with Tisha LEACH. Pt. resting comfortably.
[2020-05-18] MEDS: rivaroxaban 20mg tablet PO SCH (19:16)
[2020-05-18] MEDS: insulin glargine (Lantus) pen - multi-dose SQ SCH (21:00)
[2020-05-18] MEDS: traZODone 50mg tablet PO SCH (22:06)
[2020-05-19 02:00] VITALS: BP_SYST 112; BP_SYST 113; BP_DIAS 57; BP_DIAS 68
[2020-05-19] MEDS: diltiazem 30mg tablet PO SCH ×4 (02:00→19:58)
[2020-05-19] MEDS: ipratropium/albuterol 3ml nebule NEB SCH ×6 (03:00→23:00)
--- NOTE | 2020-05-19 06:29 | NUR ---
missed 199 yaya, took blood pressure at 0400 it was 101/47, so didn't give at that time
--- NOTE | 2020-05-19 06:32 | NUR ---
Patient in room PCU 3028. I have received report from HANY Barnes and had the opportunity to ask questions and assume patient care.
--- NOTE | 2020-05-19 06:37 | NUR ---
Problems reprioritized. Patient report given, questions answered & plan of care reviewed with Marita LEACH.
[2020-05-19 07:00] VITALS: BP 148/87
[2020-05-19] MEDS: gabapentin 300mg capsule PO SCH ×3 (07:31→19:58)
[2020-05-19] MEDS: pantoprazole 40 MG vial IV SCH (07:31)
[2020-05-19] MEDS: sennosides 8.6mg tablet PO SCH (07:31)
[2020-05-19] MEDS: docusate sodium 100mg/10ml UD cup PO SCH ×2 (07:31→20:00)
[2020-05-19] MEDS: lactobacillus rhamnosus 10,000 MMU CELLS/CAPSULE OGT SCH ×2 (07:31→19:58)
[2020-05-19] MEDS: metoprolol tartrate 50mg tablet PO SCH ×2 (07:32→19:58)
[2020-05-19] MEDS: ESCITALOPRAM OXALATE 5 MG TABLET PO SCH (07:32)
[2020-05-19] MEDS: prednisone 10mg tablet PO SCH (07:32)
[2020-05-19] MEDS: amiodarone 200mg tablet PO SCH ×2 (07:32→19:58)
[2020-05-19] MEDS: risperiDONE 0.5mg tablet PO SCH (07:32)
[2020-05-19] MEDS: morphine 4 MG/ML inj SYRINge IV PRN ×3 (07:37→18:57)
[2020-05-19] MEDS: nystatin 15 GM powder TP SCH ×2 (07:40→19:58)
[2020-05-19] MEDS: lactose-reduced food (Ensure Enlive) - 237ml bottle PO SCH ×3 (07:49→18:54)
[2020-05-19 12:26] VITALS: BP 108/60
[2020-05-19 15:00] VITALS: BP 130/76
[2020-05-19 18:00] VITALS: BP 133/89
--- NOTE | 2020-05-19 18:27 | NUR ---
Problems reprioritized. Patient report given, questions answered & plan of care reviewed with HANY Ordoñez.
[2020-05-19] MEDS: rivaroxaban 20mg tablet PO SCH (18:59)
[2020-05-19] MEDS: traZODone 50mg tablet PO SCH (19:58)
[2020-05-19] MEDS: insulin glargine (Lantus) pen - multi-dose SQ SCH (21:00)
[2020-05-19 22:00] VITALS: BP 106/67
[2020-05-20 02:00] VITALS: BP 114/84
[2020-05-20] MEDS: ipratropium/albuterol 3ml nebule NEB SCH ×5 (03:00→23:20)
[2020-05-20] MEDS: diltiazem 30mg tablet PO SCH ×4 (04:04→20:15)
[2020-05-20] MEDS: morphine 4 MG/ML inj SYRINge IV PRN ×2 (04:04→09:41)
[2020-05-20 06:00] VITALS: BP 116/75
[2020-05-20] MEDS: methylnaltrexone br 12mg/0.6ml inj***SubQ only SQ SCH (08:00)
[2020-05-20] MEDS: docusate sodium 100mg/10ml UD cup PO SCH ×2 (08:00→20:17)
[2020-05-20] MEDS: sennosides 8.6mg tablet PO SCH (08:00)
[2020-05-20] MEDS: risperiDONE 0.5mg tablet PO SCH (08:01)
[2020-05-20] MEDS: prednisone 10mg tablet PO SCH (08:02)
[2020-05-20] MEDS: lactobacillus rhamnosus 10,000 MMU CELLS/CAPSULE OGT SCH ×2 (08:02→20:17)
[2020-05-20] MEDS: gabapentin 300mg capsule PO SCH ×3 (08:02→20:16)
[2020-05-20] MEDS: ESCITALOPRAM OXALATE 5 MG TABLET PO SCH (08:02)
[2020-05-20] MEDS: amiodarone 200mg tablet PO SCH ×2 (08:02→20:00)
[2020-05-20] MEDS: pantoprazole 40 MG vial IV SCH (08:03)
[2020-05-20] MEDS: nystatin 15 GM powder TP SCH ×2 (08:03→20:18)
[2020-05-20] MEDS: metoprolol tartrate 50mg tablet PO SCH ×2 (08:03→20:16)
[2020-05-20] MEDS: lactose-reduced food (Ensure Enlive) - 237ml bottle PO SCH ×3 (08:11→18:00)
[2020-05-20 11:00] VITALS: BP 96/67
--- NOTE | 2020-05-20 11:00 | NUR ---
Made MD aware that patient converted to Afib last night, heart rate 60-70's. No change in orders.
[2020-05-20] MEDS ORDERED: HYDROcodone/acetaminophen 5mg/325mg tablet PO PRN (12:25)
[2020-05-20] MEDS: HYDROcodone/acetaminophen 10/325mg tab PO PRN ×2 (13:31→19:03)
--- NOTE | 2020-05-20 14:55 | NUR ---
F/u 05/20: Pt PO 75-100% avg carb controlled/MM5 meals w/ ensure enlive TIDWM meeting needs. Glu 103-154 w/ A1C 5.7 on steroids. LBM 05/19. No nutrition concerns at this time. Will continue to monitor. Rec: 1. Advance diet as medically indicated to heart healthy/MM5/thins per [employer]/MD; encourage PO 2. ensure enlive TIDWM 3. routine bowel care 4. weekly wts Addendum: 05/20/20 at [address] Amended: Links added.
[2020-05-20 15:00] VITALS: BP 97/76
--- NOTE | 2020-05-20 16:00 | NUR ---
Spoke with patients brother to give an update.
--- NOTE | 2020-05-20 16:04 | NUR ---
Per Betsy Mallory, palliative care nurse from [facility], patient lives a sedentary lifestyle at home, he does not walk much. Patient has 3-4 steps into his home. Patient has 79 IHSS hours. And take methadone 10 mg q12 hrs and oxy 10 mg tab BID.
[2020-05-20 18:00] VITALS: BP 109/69
--- NOTE | 2020-05-20 18:21 | NUR ---
Problems reprioritized. Patient report given, questions answered & plan of care reviewed with Jareth LEACH.
--- NOTE | 2020-05-20 18:47 | NUR ---
I have received report from HANY Pina and had the opportunity to ask questions and assume patient care.
[2020-05-20] MEDS: rivaroxaban 20mg tablet PO SCH (19:04)
[2020-05-20] MEDS: traZODone 50mg tablet PO SCH (20:14)
[2020-05-20] MEDS: insulin glargine (Lantus) pen - multi-dose SQ SCH (21:00)
[2020-05-20] MEDS: morphine 2 MG/ML inj. syringe IV PRN (21:51)
[2020-05-20 22:00] VITALS: BP 106/65
[2020-05-20] MEDS ORDERED: potassium Cl 40MEQ/1/2NS 520ml 520 ML IV PRN (22:45)
[2020-05-20] MEDS ORDERED: magnesium 4gm in 100ml NS 100 ML IV PRN (22:45)
[2020-05-20] MEDS ORDERED: potassium Cl 20 mEq SR tablet PO PRN ×2 (22:45)
[2020-05-20] MEDS ORDERED: magnesium Cl slow-release 64mg tablet PO PRN (22:45)
[2020-05-21] MEDS: diltiazem 30mg tablet PO SCH ×4 (02:00→19:52)
[2020-05-21 02:34] VITALS: BP 91/48
--- NOTE | 2020-05-21 02:35 | NUR ---
yaya held to to bp 91/48 Addendum: 05/21/20 at 0235 by Jareth Mcgowan RN Amended: Links added.
[2020-05-21] MEDS: ipratropium/albuterol 3ml nebule NEB SCH ×2 (03:15→07:00)
[2020-05-21 06:00] VITALS: BP 124/69
--- NOTE | 2020-05-21 06:38 | NUR ---
Problems reprioritized. Patient report given, questions answered & plan of care reviewed with HANY Truong.
--- NOTE | 2020-05-21 06:53 | NUR ---
Patient in room PCU 3028. I have received report from Nicolás LEACH and had the opportunity to ask questions and assume patient care.
[2020-05-21] MEDS: metoprolol tartrate 50mg tablet PO SCH ×2 (08:00→19:52)
[2020-05-21] MEDS: docusate sodium 100mg/10ml UD cup PO SCH ×3 (08:00→19:58)
[2020-05-21] MEDS: K and/or MAG REPLACEMENT MC SCH ×2 (08:00→20:00)
[2020-05-21 08:21] LABS: BASOPHILS % (AUTO) 0.2 % (0-1); EOSINOPHILS # (AUTO) 0.1 X10'3 (0-0.9); EOSINOPHILS % (AUTO) 1.9 % (0-6); HEMOGLOBIN 14.5 g/dl (14.0-17.9); LYMPHOCYTES # (AUTO) 2.3 X10'3 (1.1-4.8); LYMPHOCYTES % (AUTO) 31.8 % (21-51); MEAN CORPUSCULAR HEMOGLOBIN 32.7 PG (27.0-31.0); MEAN CORPUSCULAR HGB CONC 33.6 g/dL (33.0-36.5); MEAN CORPUSCULAR VOLUME 97.4 FL (78-98); MEAN PLATELET VOLUME 8.1 FL (7.4-10.4); MONOCYTES # (AUTO) 0.4 X10'3 (0-0.9); MONOCYTES % (AUTO) 5.2 % (2-12); NEUTROPHILS # (AUTO) 4.5 X10'3 (1.8-7.7); NEUTROPHILS % (AUTO) 60.9 % (42-75); PLATELET COUNT 123 X10'3 (140-440); RED BLOOD COUNT 4.41 X10'6 (4.70-6.10); RED CELL DISTRIBUTION WIDTH 13.5 % (11.5-14.5); WHITE BLOOD COUNT 7.3 X10'3 (4.5-11.0)
[2020-05-21 08:40] LABS: ALANINE AMINOTRANSFERASE 25 U/L (12-78); ALBUMIN 3.2 G/DL (3.4-5.0); ALBUMIN/GLOBULIN RATIO 1.1 (1.1-1.5); ALKALINE PHOSPHATASE 44 IU/L (46-116); ANION GAP 8 (8-16); ASPARTATE AMINO TRANSFERASE 12 U/L (10-37); BILIRUBIN,TOTAL 0.8 MG/DL (0.1-1.0); BLOOD UREA NITROGEN 22 MG/DL (7-18); BUN/CREATININE RATIO 22.9 (5.4-32.0); CALCIUM 8.4 MG/DL (8.5-10.1); CHLORIDE 107 MMOL/L (99-107); CREATININE 0.96 MG/DL (0.60-1.10); GLUCOSE 102 MG/DL (70-104); MAGNESIUM 2.1 MG/DL (1.5-2.4); PHOSPHORUS 3.4 MG/DL (2.3-4.5); POTASSIUM 4.1 MMOL/L (3.5-5.1); SODIUM 141 MMOL/L (135-145); TOTAL CARBON DIOXIDE 25.9 MMOL/L (24-32); TOTAL PROTEIN 6.2 G/DL (6.4-8.2); TRIGLYCERIDES 112 MG/DL (20-135); eGFR 80 ML/MIN
[2020-05-21] MEDS: lactobacillus rhamnosus 10,000 MMU CELLS/CAPSULE OGT SCH ×2 (09:01→19:51)
[2020-05-21] MEDS: sennosides 8.6mg tablet PO SCH (09:01)
[2020-05-21] MEDS: risperiDONE 0.5mg tablet PO SCH (09:02)
[2020-05-21] MEDS: ESCITALOPRAM OXALATE 5 MG TABLET PO SCH (09:03)
[2020-05-21] MEDS: prednisone 10mg tablet PO SCH (09:03)
[2020-05-21] MEDS: pantoprazole 40mg Tablet.DR PO SCH (09:03)
[2020-05-21] MEDS: gabapentin 300mg capsule PO SCH ×3 (09:03→21:36)
[2020-05-21] MEDS: HYDROcodone/acetaminophen 10/325mg tab PO PRN ×2 (09:04→19:53)
[2020-05-21] MEDS: amiodarone 200mg tablet PO SCH ×2 (09:04→20:00)
[2020-05-21] MEDS: lactose-reduced food (Ensure Enlive) - 237ml bottle PO SCH ×3 (09:10→18:00)
[2020-05-21] MEDS: nystatin 15 GM powder TP SCH ×2 (09:30→19:52)
[2020-05-21 11:00] VITALS: BP 104/60
[2020-05-21] MEDS: morphine 2 MG/ML inj. syringe IV PRN ×2 (13:05→22:49)
[2020-05-21 15:00] VITALS: BP 113/67
[2020-05-21 18:00] VITALS: BP 128/70
--- NOTE | 2020-05-21 18:39 | NUR ---
Patient in room PCU 3028. I have received report from Dionne LEACH and had the opportunity to ask questions and assume patient care.
--- NOTE | 2020-05-21 18:46 | NUR ---
Problems reprioritized. Patient report given, questions answered & plan of care reviewed with Tamar LEACH.
[2020-05-21] MEDS: rivaroxaban 20mg tablet PO SCH (19:51)
[2020-05-21] MEDS: insulin glargine (Lantus) pen - multi-dose SQ SCH (21:00)
[2020-05-21] MEDS: traZODone 50mg tablet PO SCH (21:36)
[2020-05-21 22:00] VITALS: BP 123/89
[2020-05-22 02:00] VITALS: BP 128/86
[2020-05-22] MEDS: diltiazem 30mg tablet PO SCH ×4 (02:40→21:01)
--- NOTE | 2020-05-22 06:37 | NUR ---
Problems reprioritized. Patient report given, questions answered & plan of care reviewed with Gricelda LEACH.
[2020-05-22 06:47] LABS: BASOPHILS % (AUTO) 0.2 % (0-1); EOSINOPHILS # (AUTO) 0.1 X10'3 (0-0.9); EOSINOPHILS % (AUTO) 1.7 % (0-6); HEMOGLOBIN 13.7 g/dl (14.0-17.9); LYMPHOCYTES # (AUTO) 2.2 X10'3 (1.1-4.8); LYMPHOCYTES % (AUTO) 33.9 % (21-51); MEAN CORPUSCULAR HEMOGLOBIN 32.7 PG (27.0-31.0); MEAN CORPUSCULAR HGB CONC 33.5 g/dL (33.0-36.5); MEAN CORPUSCULAR VOLUME 97.5 FL (78-98); MEAN PLATELET VOLUME 7.8 FL (7.4-10.4); MONOCYTES # (AUTO) 0.4 X10'3 (0-0.9); MONOCYTES % (AUTO) 6.7 % (2-12); NEUTROPHILS # (AUTO) 3.7 X10'3 (1.8-7.7); NEUTROPHILS % (AUTO) 57.5 % (42-75); PLATELET COUNT 110 X10'3 (140-440); RED CELL DISTRIBUTION WIDTH 13.8 % (11.5-14.5); WHITE BLOOD COUNT 6.4 X10'3 (4.5-11.0)
[2020-05-22 07:00] VITALS: BP 133/78
--- NOTE | 2020-05-22 07:16 | NUR ---
Patient in room PCU 3028. I have received report from Tamar LEACH and had the opportunity to ask questions and assume patient care.
[2020-05-22 07:46] LABS: ALANINE AMINOTRANSFERASE 25 U/L (12-78); ALKALINE PHOSPHATASE 39 IU/L (46-116); ANION GAP 5 (8-16); ASPARTATE AMINO TRANSFERASE 14 U/L (10-37); BILIRUBIN,TOTAL 0.7 MG/DL (0.1-1.0); BLOOD UREA NITROGEN 20 MG/DL (7-18); CALCIUM 8.5 MG/DL (8.5-10.1); CHLORIDE 107 MMOL/L (99-107); GLUCOSE 96 MG/DL (70-104); PHOSPHORUS 3.4 MG/DL (2.3-4.5); POTASSIUM 4.4 MMOL/L (3.5-5.1); SODIUM 143 MMOL/L (135-145); TOTAL CARBON DIOXIDE 30.9 MMOL/L (24-32); TOTAL PROTEIN 5.9 G/DL (6.4-8.2); TRIGLYCERIDES 87 MG/DL (20-135); eGFR 77 ML/MIN
[2020-05-22] MEDS: nystatin 15 GM powder TP SCH ×2 (08:00→21:03)
[2020-05-22] MEDS: K and/or MAG REPLACEMENT MC SCH ×2 (08:00→20:00)
[2020-05-22] MEDS: docusate sodium 100mg/10ml UD cup PO SCH ×2 (08:00→21:00)
[2020-05-22] MEDS: ESCITALOPRAM OXALATE 5 MG TABLET PO SCH (08:01)
[2020-05-22] MEDS: lactobacillus rhamnosus 10,000 MMU CELLS/CAPSULE OGT SCH ×2 (08:01→21:01)
[2020-05-22] MEDS: prednisone 10mg tablet PO SCH (08:01)
[2020-05-22] MEDS: sennosides 8.6mg tablet PO SCH (08:01)
[2020-05-22] MEDS: amiodarone 200mg tablet PO SCH ×2 (08:01→21:00)
[2020-05-22] MEDS: gabapentin 300mg capsule PO SCH ×3 (08:01→21:00)
[2020-05-22] MEDS: methylnaltrexone br 12mg/0.6ml inj***SubQ only SQ SCH (08:01)
[2020-05-22] MEDS: risperiDONE 0.5mg tablet PO SCH (08:01)
[2020-05-22] MEDS: HYDROcodone/acetaminophen 10/325mg tab PO PRN ×4 (08:01→23:07)
[2020-05-22] MEDS: metoprolol tartrate 50mg tablet PO SCH ×2 (08:02→21:02)
[2020-05-22] MEDS: pantoprazole 40mg Tablet.DR PO SCH (08:02)
[2020-05-22] MEDS: lactose-reduced food (Ensure Enlive) - 237ml bottle PO SCH ×3 (08:05→18:31)
--- NOTE | 2020-05-22 08:05 | NUR ---
pATIENTS ENSURE DOESN'T SCAN. mANUAL ADMINISTERED.
[2020-05-22] MEDS: morphine 2 MG/ML inj. syringe IV PRN ×2 (09:48→18:31)
[2020-05-22] MEDS: rivaroxaban 20mg tablet PO SCH (17:31)
[2020-05-22 18:00] VITALS: BP 104/70
--- NOTE | 2020-05-22 18:23 | NUR ---
Problems reprioritized. Patient report given, questions answered & plan of care reviewed with Tamar LEACH.
--- NOTE | 2020-05-22 18:31 | NUR ---
Patient in room PCU 3028. I have received report from Gricelda LEACH and had the opportunity to ask questions and assume patient care.
[2020-05-22] MEDS: insulin glargine (Lantus) pen - multi-dose SQ SCH (21:00)
[2020-05-22] MEDS: traZODone 50mg tablet PO SCH (21:00)
[2020-05-22 22:00] VITALS: BP 122/72
[2020-05-23 02:00] VITALS: BP 110/79
[2020-05-23] MEDS: diltiazem 30mg tablet PO SCH ×3 (03:28→13:19)
[2020-05-23] MEDS: morphine 2 MG/ML inj. syringe IV PRN ×2 (03:29→10:27)
--- NOTE | 2020-05-23 06:15 | NUR ---
Patient in room PCU 3028. I have received report from Tamar LEACH and had the opportunity to ask questions and assume patient care.
--- NOTE | 2020-05-23 06:22 | NUR ---
Problems reprioritized. Patient report given, questions answered & plan of care reviewed with Gricelda LEACH.
[2020-05-23 06:24] LABS: BASOPHILS % (AUTO) 0.1 % (0-1); EOSINOPHILS # (AUTO) 0.1 X10'3 (0-0.9); EOSINOPHILS % (AUTO) 1.5 % (0-6); HEMATOCRIT 41.8 % (42.0-52.0); LYMPHOCYTES # (AUTO) 2.2 X10'3 (1.1-4.8); LYMPHOCYTES % (AUTO) 37.5 % (21-51); MEAN CORPUSCULAR HEMOGLOBIN 32.7 PG (27.0-31.0); MEAN CORPUSCULAR HGB CONC 33.4 g/dL (33.0-36.5); MEAN CORPUSCULAR VOLUME 97.8 FL (78-98); MEAN PLATELET VOLUME 8.2 FL (7.4-10.4); MONOCYTES # (AUTO) 0.4 X10'3 (0-0.9); MONOCYTES % (AUTO) 7.1 % (2-12); NEUTROPHILS # (AUTO) 3.2 X10'3 (1.8-7.7); NEUTROPHILS % (AUTO) 53.8 % (42-75); PLATELET COUNT 115 X10'3 (140-440); RED BLOOD COUNT 4.28 X10'6 (4.70-6.10); RED CELL DISTRIBUTION WIDTH 13.8 % (11.5-14.5); WHITE BLOOD COUNT 5.9 X10'3 (4.5-11.0)
[2020-05-23 06:37] LABS: ALANINE AMINOTRANSFERASE 28 U/L (12-78); ALBUMIN 3.1 G/DL (3.4-5.0); ALBUMIN/GLOBULIN RATIO 1.1 (1.1-1.5); ALKALINE PHOSPHATASE 41 IU/L (46-116); ANION GAP 8 (8-16); ASPARTATE AMINO TRANSFERASE 13 U/L (10-37); BILIRUBIN,TOTAL 0.7 MG/DL (0.1-1.0); BLOOD UREA NITROGEN 15 MG/DL (7-18); BUN/CREATININE RATIO 17.4 (5.4-32.0); CALCIUM 8.8 MG/DL (8.5-10.1); CHLORIDE 107 MMOL/L (99-107); CREATININE 0.86 MG/DL (0.60-1.10); GLUCOSE 88 MG/DL (70-104); PHOSPHORUS 3.7 MG/DL (2.3-4.5); POTASSIUM 4.1 MMOL/L (3.5-5.1); SODIUM 143 MMOL/L (135-145); TOTAL CARBON DIOXIDE 28.4 MMOL/L (24-32); eGFR > 90 ML/MIN
[2020-05-23 07:00] VITALS: BP 99/69
[2020-05-23] MEDS: docusate sodium 100mg/10ml UD cup PO SCH (08:00)
[2020-05-23] MEDS: risperiDONE 0.5mg tablet PO SCH (08:00)
[2020-05-23] MEDS: pantoprazole 40mg Tablet.DR PO SCH (08:00)
[2020-05-23] MEDS: K and/or MAG REPLACEMENT MC SCH (08:00)
[2020-05-23] MEDS: metoprolol tartrate 50mg tablet PO SCH (08:00)
[2020-05-23] MEDS: HYDROcodone/acetaminophen 10/325mg tab PO PRN ×2 (08:00→13:19)
[2020-05-23] MEDS: amiodarone 200mg tablet PO SCH (08:01)
[2020-05-23] MEDS: gabapentin 300mg capsule PO SCH ×2 (08:01→13:19)
[2020-05-23] MEDS: sennosides 8.6mg tablet PO SCH (08:01)
[2020-05-23] MEDS: lactobacillus rhamnosus 10,000 MMU CELLS/CAPSULE OGT SCH (08:02)
[2020-05-23] MEDS: ESCITALOPRAM OXALATE 5 MG TABLET PO SCH (08:02)
[2020-05-23] MEDS: prednisone 10mg tablet PO SCH (08:02)
[2020-05-23] MEDS: lactose-reduced food (Ensure Enlive) - 237ml bottle PO SCH (08:09)
[2020-05-23] MEDS: nystatin 15 GM powder TP SCH (08:10)
--- NOTE | 2020-05-23 08:12 | NUR ---
Patients Am BP was low, held BP medications. Pt refused docusate liquid having BMs regularly. Ensure did not scan, manually administered. Will continue to monitor.
[2020-05-23 11:00] VITALS: BP 124/79
[2020-05-23] MEDS ORDERED: CHLO25TA11 PO (11:12)
[2020-05-23] MEDS ORDERED: PANT40TA54 PO (11:12)
[2020-05-23] MEDS ORDERED: AMIO200T67 PO (11:12)
[2020-05-23] MEDS ORDERED: LACT1CAP26 OGT (11:12)
[2020-05-23] MEDS ORDERED: PRED10TA PO (11:12)
[2020-05-23] MEDS ORDERED: RIVA20TA PO (11:12)
[2020-05-23] MEDS ORDERED: LISI-604 PO (11:12)
[2020-05-23] MEDS ORDERED: LACT10SO32 PO (11:12)
[2020-05-23] MEDS ORDERED: ATOR20TA66 PO (11:16)
[2020-05-23] MEDS ORDERED: ASPI81TA52 PO (11:16)
--- NOTE | 2020-05-23 11:58 | NUR ---
Dr. Carreon at bedside with patient and Nurse. OK to discharge to home with home health. Case management is aware. Will continue to monitor.
--- NOTE | 2020-05-23 13:06 | NUR ---
Paged Case Management, Re: Benito Guerra [id number]. Pt discharging making sure Orders are acknowledge. Thank you Gricelda Le [phone]
--- NOTE | 2020-05-23 14:22 | NUR ---
Patient OK to discharge per MD orders. Patient was educated on all discharge instructions and medication regiments. Also, provided teaching to caregiver, Bulmaro, and Brother, Geoffrey. All medications were sent to pharmacy at [facility] on [address]. All education material was acknowledge and all questions were answered. Patient was dressed, tele removed, PIV removed, patient tolerated well. Patient was transported via wheelchair to [facility] with 2 Rns and helped into private vehicle with family members. Brother is aware to make follow up appt with PCP to continue to support patient.
== END 2020-05-23 14:07 | disposition home health service (06) | DRG 720 ==
LOC: ER 04:51 → ED HOLD 06:45 → CICU 2S 09:28 → ICU 2S 05-05 17:00 → PCU 3S 05-17 14:57
PROVIDERS: ADMIT Internal Medicine Critical Care Medicine; ATTEND Internal Medicine Critical Care Medicine
PROC: 5A1955Z Respiratory Ventilation, Greater than 96 Consecutive Hours (ICD-10-PCS; principal; 2020-05-02)
PROC: 0BH17EZ Insertion of Endotracheal Airway into Trachea, Via Natural or Artificial Opening (ICD-10-PCS; 2020-05-02)
PROC: 02HV33Z Insertion of Infusion Device into Superior Vena Cava, Percutaneous Approach (ICD-10-PCS; 2020-05-02)
PROC: B548ZZA Ultrasonography of Superior Vena Cava, Guidance (ICD-10-PCS; 2020-05-02)
DX: A41.9 Sepsis, unspecified organism (principal); J96.00 Acute respiratory failure, unspecified whether with hypoxia or hypercapnia; E11.22 Type 2 diabetes mellitus with diabetic chronic kidney disease; E11.65 Type 2 diabetes mellitus with hyperglycemia; E78.5 Hyperlipidemia, unspecified; E87.4 Mixed disorder of acid-base balance; F20.9 Schizophrenia, unspecified; I13.0 Hypertensive heart and chronic kidney disease with heart failure and stage 1 through stage 4 chronic kidney disease, or unspecified chronic kidney disease; I48.91 Unspecified atrial fibrillation; I50.40 Unspecified combined systolic (congestive) and diastolic (congestive) heart failure; J18.9 Pneumonia, unspecified organism; J44.0 Chronic obstructive pulmonary disease with (acute) lower respiratory infection; N18.9 Chronic kidney disease, unspecified; F17.210 Nicotine dependence, cigarettes, uncomplicated; N40.0 Benign prostatic hyperplasia without lower urinary tract symptoms; F32.9 Major depressive disorder, single episode, unspecified; R00.1 Bradycardia, unspecified; E66.01 Morbid (severe) obesity due to excess calories; Z20.828 Contact with and (suspected) exposure to other viral communicable diseases; Z68.41 Body mass index [BMI] 40.0-44.9, adult; Z74.01 Bed confinement status; Z86.73 Personal history of transient ischemic attack (TIA), and cerebral infarction without residual deficits; Z87.01 Personal history of pneumonia (recurrent); Z99.81 Dependence on supplemental oxygen; Z79.899 Other long term (current) drug therapy; Z88.8 Allergy status to other drugs, medicaments and biological substances; Z79.84 Long term (current) use of oral hypoglycemic drugs
CPT/HCPCS: 31500; 36415; 36556; 36573; 36600; 70450; 71045; 71275; 73060; 73090; 74018; 74176; 76700; 80053; 80202; 81001; 81003; 82550; 82728; 82803; 82948; 83036; 83605; 83615; 83735; 83880; 84100; 84134; 84145; 84478; 84484; 85007; 85018; 85025; 85379; 85384; 85610; 85730; 86140; 87040; 87070; 87077; 87081; 87186; 87502; 87503; 87635; 92508; 92616; 92950; 93005; 93306; 93971; 94002; 94003; 94640; 94668; 94760; 94799; 97110; 97116; 97161; 97530; 99291; C9113; C9803; G0378; J0131; J0171; J0456; J0461; J0696; J1100; J1160; J1250; J1265; J1815; J1940; J2020; J2185; J2212; J2250; J2270; J2405; J2704; J2765; J2920; J2930; J3010; J3370; J3490; J7030; J7512; Q9967

== ENCOUNTER 2020-07-29 15:02 | Emergency (ER) | payer MEDICAID ==
[~2020-07-29] VITALS: Ht 175.3 cm; Wt 127.3 kg
[~2020-07-29 15:02] MED LIST changes: -AMIO200T61 PO; +AMIO200T67 PO; +ATOR20TA66 PO; -ATOR40TA72 PO; +CHLO25TA11 PO; +ESCI-8 PO; -ESCI10TA61 PO; -FURO40TA4 PO; +LACT10SO32 PO; +LACT1CAP26 OGT; +LISI-790 PO; +ONDA4TAB6 PO; +OXYC10TA47 PO; -PANT-47 PO; +PANT40TA54 PO; +PRED10TA PO
[2020-07-29 16:58] VITALS: BP 115/51
== END 2020-07-29 17:01 | disposition home or self-care (01) ==
LOC: ER 15:03
DX: T17.228A Food in pharynx causing other injury, initial encounter (principal); R09.89 Other specified symptoms and signs involving the circulatory and respiratory systems; R05 Cough; I48.91 Unspecified atrial fibrillation; E11.22 Type 2 diabetes mellitus with diabetic chronic kidney disease; N18.9 Chronic kidney disease, unspecified; I50.9 Heart failure, unspecified; F32.9 Major depressive disorder, single episode, unspecified; J44.9 Chronic obstructive pulmonary disease, unspecified; F12.90 Cannabis use, unspecified, uncomplicated; Z86.73 Personal history of transient ischemic attack (TIA), and cerebral infarction without residual deficits; Z86.69 Personal history of other diseases of the nervous system and sense organs; Z98.890 Other specified postprocedural states; Z86.19 Personal history of other infectious and parasitic diseases; Z88.6 Allergy status to analgesic agent; Z79.899 Other long term (current) drug therapy; X58.XXXA Exposure to other specified factors, initial encounter; Y93.89 Activity, other specified; Y92.89 Other specified places as the place of occurrence of the external cause; Y99.8 Other external cause status
CPT/HCPCS: 71045; 99284

== ENCOUNTER 2021-01-29 21:21 | Inpatient (IN) | payer MEDICAID ==
[~2021-01-29] VITALS: Ht 175.3 cm; Wt 126.3 kg
[2021-01-29] MEDS ORDERED: normal saline 1000ML IV soln IVB ONE (21:40)
--- NOTE | 2021-01-29 21:50 | NUR ---
PA AT BEDSIDE
[2021-01-29 21:52] LABS: BASOPHILS % (AUTO) 0.3 % (0-1); EOSINOPHILS # (AUTO) 0.2 X10'3 (0-0.9); EOSINOPHILS % (AUTO) 2.5 % (0-6); HEMOGLOBIN 12.9 g/dl (14.0-17.9); LYMPHOCYTES # (AUTO) 2.2 X10'3 (1.1-4.8); LYMPHOCYTES % (AUTO) 31.9 % (21-51); MEAN CORPUSCULAR HEMOGLOBIN 32.2 PG (27.0-31.0); MEAN CORPUSCULAR HGB CONC 33.2 g/dL (33.0-36.5); MEAN CORPUSCULAR VOLUME 97.2 FL (78-98); MEAN PLATELET VOLUME 8.9 FL (7.4-10.4); MONOCYTES # (AUTO) 0.5 X10'3 (0-0.9); MONOCYTES % (AUTO) 6.8 % (2-12); NEUTROPHILS % (AUTO) 58.5 % (42-75); PLATELET COUNT 129 X10'3 (140-440); RED BLOOD COUNT 4.01 X10'6 (4.70-6.10); WHITE BLOOD COUNT 6.8 X10'3 (4.5-11.0)
--- NOTE | 2021-01-29 21:55 | NUR ---
PT OUT TO CT
[2021-01-29 22:14] LABS: ALANINE AMINOTRANSFERASE 15 U/L (12-78); ALBUMIN 3.9 G/DL (3.4-5.0); ALBUMIN/GLOBULIN RATIO 1.3 (1.1-1.5); ALKALINE PHOSPHATASE 103 IU/L (46-116); ANION GAP 6 (8-16); ASPARTATE AMINO TRANSFERASE 12 U/L (10-37); BILIRUBIN,TOTAL 0.5 MG/DL (0.1-1.0); BLOOD UREA NITROGEN 44 MG/DL (7-18); BUN/CREATININE RATIO 10.4 (5.4-32.0); CALCIUM 8.3 MG/DL (8.5-10.1); CHLORIDE 107 MMOL/L (99-107); CREATININE 4.22 MG/DL (0.60-1.10); GLUCOSE 101 MG/DL (70-104); POTASSIUM 5.2 MMOL/L (3.5-5.1); SODIUM 144 MMOL/L (135-145); TOTAL CARBON DIOXIDE 31.1 MMOL/L (24-32); TOTAL PROTEIN 6.9 G/DL (6.4-8.2); eGFR 15 ML/MIN
[2021-01-29] MEDS ORDERED: sodium polystyrene sulfonate 15gm/60ml oral suspension PO ONE (22:35)
[2021-01-29] MEDS ORDERED: insulin regular, human 10 units/0.1 ml syringe IV ONE (22:35)
[2021-01-29] MEDS ORDERED: normal saline 1000ml 1,000 ML IV ONE (22:55)
[2021-01-30] MEDS ORDERED: HYDROcodone/acetaminophen 5mg/325mg tablet PO PRN (00:35)
[2021-01-30] MEDS ORDERED: ondansetron/PF 4mg/2ml inj IV PRN (00:35)
[2021-01-30] MEDS ORDERED: magnesium 4gm in 100ml NS 100 ML IV PRN (00:35)
[2021-01-30] MEDS ORDERED: potassium Cl 20 mEq SR tablet PO PRN ×2 (00:35)
[2021-01-30] MEDS ORDERED: potassium Cl 40MEQ/1/2NS 520ml 520 ML IV PRN ×2 (00:35)
[2021-01-30] MEDS ORDERED: magnesium Cl slow-release 64mg tablet PO PRN (00:35)
[2021-01-30] MEDS ORDERED: acetaminophen 325mg tablet PO PRN ×2 (00:35)
[2021-01-30] MEDS ORDERED: magnesium 2GM in 50ml NS 50 ML IV PRN (00:35)
[2021-01-30] MEDS: normal saline 1000ml 1,000 ML IV SCH ×4 (01:15→13:55)
[2021-01-30] MEDS ORDERED: FLEC100T35 PO (06:48)
[2021-01-30] MEDS ORDERED: LACT10SO3 PO (06:48)
[2021-01-30] MEDS ORDERED: POTA10CA44 PO (06:48)
[2021-01-30] MEDS ORDERED: NITR0.4T51 SL (06:48)
[2021-01-30] MEDS ORDERED: PREG75CA75 PO (06:48)
[2021-01-30] MEDS ORDERED: PANT-47 PO (06:48)
[2021-01-30] MEDS ORDERED: BUME1TAB8 PO (06:48)
[2021-01-30] MEDS: K and/or MAG REPLACEMENT MC SCH ×2 (08:00→20:00)
[2021-01-30] MEDS ORDERED: heparin, porcine 5000 units/ml vial SQ SCH (08:00)
[2021-01-30 12:15] LABS: CLARITY,URINE CLEAR (Clear); COLOR,URINE YELLOW (Yellow); GLUCOSE, URINE NEGATIVE (Neg); KETONES,URINE NEGATIVE (Neg); LEUKOCYTE ESTERASE ,URINE NEGATIVE (Neg); NITRITES, URINE NEGATIVE (Neg); OCCULT BLOOD,URINE NEGATIVE (Neg); PH,URINE 5.5 (4.8-8.0); PROTEIN,URINE NEGATIVE (Neg); UA COLLECTION TYPE VOIDED; UROBILINOGEN,URINE 0.2 E.U/dL (0.2-1.0)
[2021-01-30 12:17] LABS: URINE AMPHETAMINE SCREEN NEGATIVE (Neg); URINE BARBITUATE SCREEN NEGATIVE (Neg); URINE BENZODIAZEPINES SCREEN NEGATIVE (Neg); URINE CANNABINOID SCREEN NEGATIVE (Neg); URINE COCAINE SCREEN NEGATIVE (Neg); URINE METHADONE SCREEN POSITIVE (Neg); URINE OPIATE SCREEN POSITIVE (Neg); URINE PHENCYCLIDINE SCREEN NEGATIVE (Neg)
--- NOTE | 2021-01-30 13:12 | NUR ---
FEED MILL SUPERVISOR DEBBIE NOTIFIED OF PT STATUS AND MD SHIELDS, PT BEING TAKEN TO ROOM 09
[2021-01-30] MEDS ORDERED: traZODone 50mg tablet PO PRN (14:35)
[2021-01-30] MEDS ORDERED: lactulose 20gm/30ml cup PO PRN (14:35)
[2021-01-30] MEDS ORDERED: oxyCODONE IR 5mg (immed. release) tablet PO PRN (14:50)
[2021-01-30] MEDS: pantoprazole 40mg Tablet.DR PO SCH (16:01)
[2021-01-30] MEDS: sennosides 8.6mg tablet PO SCH (16:01)
[2021-01-30] MEDS: atorvastatin 20mg tablet PO SCH (16:01)
[2021-01-30] MEDS ORDERED: rivaroxaban 20mg tablet PO SCH (18:00)
--- NOTE | 2021-01-30 19:00 | NUR ---
Patient in room PCU 3012. I have received report from jose ramirez and had the opportunity to ask questions and assume patient care.
--- NOTE | 2021-01-30 19:25 | NUR ---
pt arrives on unit via wc. from Er.
[2021-01-30] MEDS: pregabalin 75mg capsule PO SCH (20:56)
[2021-01-30] MEDS: flecainide 50mg tablet PO SCH (20:57)
[2021-01-30] MEDS: methadone 10mg tablet PO SCH (20:58)
[2021-01-30] MEDS ORDERED: temazepam 15mg capsule PO PRN (21:00)
[2021-01-30] MEDS ORDERED: tamsulosin 0.4mg capsule PO SCH (21:00)
[2021-01-30] MEDS ORDERED: risperiDONE 0.5mg tablet PO SCH (21:00)
[2021-01-30] MEDS: metoprolol tartrate 50mg tablet PO SCH (21:03)
[2021-01-31 02:00] VITALS: BP 104/56
--- NOTE | 2021-01-31 06:59 | NUR ---
Patient in room PCU 3012. I have received report from Raquel Le and had the opportunity to ask questions and assume patient care.
[2021-01-31 07:00] VITALS: BP 134/88
[2021-01-31 07:23] LABS: EOSINOPHILS # (AUTO) 0.1 X10'3 (0-0.9); LYMPHOCYTES # (AUTO) 2.5 X10'3 (1.1-4.8); MONOCYTES # (AUTO) 0.4 X10'3 (0-0.9); NEUTROPHILS # (AUTO) 2.7 X10'3 (1.8-7.7); PLATELET COUNT 107 X10'3 (140-440); WHITE BLOOD COUNT 5.8 X10'3 (4.5-11.0)
[2021-01-31 07:25] LABS: BASOPHILS % (AUTO) 0.5 % (0-1); EOSINOPHILS % (AUTO) 2.6 % (0-6); HEMATOCRIT 38.5 % (42.0-52.0); HEMOGLOBIN 12.7 g/dl (14.0-17.9); LYMPHOCYTES % (AUTO) 43.5 % (21-51); MEAN CORPUSCULAR HEMOGLOBIN 32.6 PG (27.0-31.0); MEAN CORPUSCULAR HGB CONC 32.9 g/dL (33.0-36.5); MEAN CORPUSCULAR VOLUME 99.1 FL (78-98); MEAN PLATELET VOLUME 8.8 FL (7.4-10.4); MONOCYTES % (AUTO) 7.6 % (2-12); NEUTROPHILS % (AUTO) 45.8 % (42-75); RED BLOOD COUNT 3.89 X10'6 (4.70-6.10); RED CELL DISTRIBUTION WIDTH 13.6 % (11.5-14.5)
[2021-01-31 07:38] LABS: ALANINE AMINOTRANSFERASE 9 U/L (12-78); ALBUMIN 3.1 G/DL (3.4-5.0); ALBUMIN/GLOBULIN RATIO 1.1 (1.1-1.5); ALKALINE PHOSPHATASE 87 IU/L (46-116); ANION GAP 11 (8-16); ASPARTATE AMINO TRANSFERASE 19 U/L (10-37); BILIRUBIN,TOTAL 0.5 MG/DL (0.1-1.0); BLOOD UREA NITROGEN 22 MG/DL (7-18); BUN/CREATININE RATIO 15.3 (5.4-32.0); CALCIUM 7.9 MG/DL (8.5-10.1); CHLORIDE 110 MMOL/L (99-107); CREATININE 1.44 MG/DL (0.60-1.10); GLUCOSE 85 MG/DL (70-104); MAGNESIUM 1.7 MG/DL (1.5-2.4); POTASSIUM 4.8 MMOL/L (3.5-5.1); SODIUM 143 MMOL/L (135-145); eGFR 50 ML/MIN
[2021-01-31] MEDS: K and/or MAG REPLACEMENT MC SCH (08:00)
[2021-01-31] MEDS ORDERED: ESCITALOPRAM OXALATE 5 MG TABLET PO SCH (08:00)
[2021-01-31 08:54] VITALS: BP_SYST 134
[2021-01-31] MEDS: pantoprazole 40mg Tablet.DR PO SCH (08:54)
[2021-01-31] MEDS: pregabalin 75mg capsule PO SCH (08:54)
[2021-01-31] MEDS: sennosides 8.6mg tablet PO SCH (08:54)
[2021-01-31] MEDS: atorvastatin 20mg tablet PO SCH (08:54)
[2021-01-31] MEDS: metoprolol tartrate 50mg tablet PO SCH (08:54)
[2021-01-31] MEDS: flecainide 50mg tablet PO SCH (08:54)
[2021-01-31] MEDS: methadone 10mg tablet PO SCH (08:54)
[2021-01-31] MEDS: normal saline 1000ml 1,000 ML IV SCH (08:57)
--- NOTE | 2021-01-31 11:33 | NUR ---
Pt stable for discharge per MD orders. discharge instructions explained to patient and all questions answered. PIV discontinued. Telemonitoring discontinued. Tech notified. Medications electronically transmitted to pharmacy. Pt wheeled to lobby by staff and transported home by his caregiver.
[2021-01-31] MEDS ORDERED: potassium chloride 10mEq ER tablet PO SCH (12:00)
[2021-01-31] MEDS ORDERED: bumetanide 1mg tablet PO SCH (12:00)
== END 2021-01-31 11:32 | disposition home or self-care (01) | DRG 469 ==
LOC: ER 21:23 → ED HOLD 01-30 00:37 → PCU 3S 01-30 19:25
PROVIDERS: ADMIT Internal Medicine; ATTEND Internal Medicine
DX: N17.0 Acute kidney failure with tubular necrosis (principal); D69.6 Thrombocytopenia, unspecified; E11.22 Type 2 diabetes mellitus with diabetic chronic kidney disease; I50.9 Heart failure, unspecified; E78.5 Hyperlipidemia, unspecified; E87.5 Hyperkalemia; F17.210 Nicotine dependence, cigarettes, uncomplicated; F32.9 Major depressive disorder, single episode, unspecified; G47.00 Insomnia, unspecified; G89.4 Chronic pain syndrome; I48.91 Unspecified atrial fibrillation; J44.9 Chronic obstructive pulmonary disease, unspecified; K21.9 Gastro-esophageal reflux disease without esophagitis; Z20.822 Contact with and (suspected) exposure to COVID-19; B19.20 Unspecified viral hepatitis C without hepatic coma; T50.2X5A Adverse effect of carbonic-anhydrase inhibitors, benzothiadiazides and other diuretics, initial encounter; F12.90 Cannabis use, unspecified, uncomplicated; N18.9 Chronic kidney disease, unspecified; N40.0 Benign prostatic hyperplasia without lower urinary tract symptoms; R56.9 Unspecified convulsions; Z79.01 Long term (current) use of anticoagulants; Z79.84 Long term (current) use of oral hypoglycemic drugs; Z79.899 Other long term (current) drug therapy; Z86.73 Personal history of transient ischemic attack (TIA), and cerebral infarction without residual deficits; Z88.5 Allergy status to narcotic agent; Z71.6 Tobacco abuse counseling; Y92.89 Other specified places as the place of occurrence of the external cause
CPT/HCPCS: 36415; 70450; 71045; 76770; 80053; 80305; 81003; 82948; 83735; 84484; 85025; 85610; 87081; 87635; 93005; 93306; 99285; G0378; J1644; J1815; J7030

== ENCOUNTER 2021-07-30 10:33 | Emergency (ER) | payer MEDICAID ==
[~2021-07-30] VITALS: Ht 180.3 cm; Wt 122.7 kg
[~2021-07-30 10:33] MED LIST changes: -AMIO200T67 PO; -CHLO25TA11 PO; +FLEC100T35 PO; -GABA-532 PO; -LACT10SO32 PO; -LACT1CAP26 OGT; -LISI-790 PO; +NITR0.4T51 SL; -ONDA4TAB6 PO; +PANT-47 PO; -PANT40TA54 PO; -PRED10TA PO; +PREG75CA75 PO; -SENN-263 PO
--- NOTE | 2021-07-30 11:45 | NUR ---
Attempted to call patients caregiver at which went straight to voicemail. Left a voicemail to call ER back. Addendum: 07/30/21 at [address] Oconnell request to see if patient has worsened in symptoms over the last 2-3 days.
[2021-07-30 12:06] VITALS: BP 133/79
--- NOTE | 2021-07-30 12:39 | NUR ---
Attempted to call listed number for caregiver at which went straight to voicemail.
== END 2021-07-30 14:28 | disposition home or self-care (01) ==
LOC: ER 10:34
DX: R53.1 Weakness (principal); Z20.822 Contact with and (suspected) exposure to COVID-19; R05.9 Cough, unspecified; R06.02 Shortness of breath; I48.91 Unspecified atrial fibrillation; I50.9 Heart failure, unspecified; E11.22 Type 2 diabetes mellitus with diabetic chronic kidney disease; J44.9 Chronic obstructive pulmonary disease, unspecified; F12.90 Cannabis use, unspecified, uncomplicated; N18.9 Chronic kidney disease, unspecified; Z86.73 Personal history of transient ischemic attack (TIA), and cerebral infarction without residual deficits; Z79.899 Other long term (current) drug therapy; Z95.0 Presence of cardiac pacemaker
CPT/HCPCS: 87635; 93005; 99284; C9803; 99283

== ENCOUNTER 2021-10-04 16:35 | Emergency (ER) | payer MEDICAID ==
[~2021-10-04] VITALS: Ht 177.8 cm; Wt 125.0 kg
[2021-10-04 17:16] LABS: BASOPHILS % (AUTO) 0.5 % (0-1); EOSINOPHILS # (AUTO) 0.2 X10'3 (0-0.9); EOSINOPHILS % (AUTO) 2.5 % (0-6); HEMATOCRIT 41.5 % (42.0-52.0); HEMOGLOBIN 13.3 g/dl (14.0-17.9); LYMPHOCYTES # (AUTO) 3.6 X10'3 (1.1-4.8); LYMPHOCYTES % (AUTO) 44.4 % (21-51); MEAN CORPUSCULAR HEMOGLOBIN 28.4 PG (27.0-31.0); MEAN CORPUSCULAR VOLUME 88.9 FL (78-98); MEAN PLATELET VOLUME 8.4 FL (7.4-10.4); MONOCYTES # (AUTO) 0.6 X10'3 (0-0.9); MONOCYTES % (AUTO) 7.2 % (2-12); NEUTROPHILS # (AUTO) 3.7 X10'3 (1.8-7.7); NEUTROPHILS % (AUTO) 45.4 % (42-75); PLATELET COUNT 215 X10'3 (140-440); RED BLOOD COUNT 4.66 X10'6 (4.70-6.10); RED CELL DISTRIBUTION WIDTH 15.3 % (11.5-14.5); WHITE BLOOD COUNT 8.1 X10'3 (4.5-11.0)
[2021-10-04 17:25] LABS: ANION GAP 2 (8-16); BLOOD UREA NITROGEN 10 MG/DL (7-18); CHLORIDE 107 MMOL/L (99-107); CREATININE 1.25 MG/DL (0.60-1.10); GLUCOSE 91 MG/DL (70-104); POTASSIUM 4.2 MMOL/L (3.5-5.1); SODIUM 142 MMOL/L (135-145); TOTAL CARBON DIOXIDE 32.9 MMOL/L (24-32)
[2021-10-04 17:26] LABS: ALANINE AMINOTRANSFERASE 10 U/L (12-78); ALBUMIN 3.7 G/DL (3.4-5.0); ALBUMIN/GLOBULIN RATIO 1.2 (1.1-1.5); ALKALINE PHOSPHATASE 92 IU/L (46-116); ASPARTATE AMINO TRANSFERASE 9 U/L (10-37); BILIRUBIN,TOTAL 0.5 MG/DL (0.1-1.0); CALCIUM 8.4 MG/DL (8.5-10.1); LIPASE 96 U/L (73-393); TOTAL PROTEIN 6.9 G/DL (6.4-8.2); eGFR 59 ML/MIN
--- NOTE | 2021-10-04 17:54 | NUR ---
Gave pt urinal and urine cup, asked for urine sample. Pt stable, c/o pain and blood when peeing. L flank pain as well.
[2021-10-04 18:06] LABS: CLARITY,URINE CLEAR (Clear); GLUCOSE, URINE NEGATIVE (Neg); KETONES,URINE NEGATIVE (Neg); LEUKOCYTE ESTERASE ,URINE NEGATIVE (Neg); NITRITES, URINE NEGATIVE (Neg); OCCULT BLOOD,URINE SMALL (Neg); PROTEIN,URINE NEGATIVE (Neg); UROBILINOGEN,URINE 0.2 E.U/dL (0.2-1.0)
[2021-10-04 18:11] LABS: COLOR,URINE DARK YELLOW (Yellow); UA COLLECTION TYPE NON-SPECIFIED
[2021-10-04 18:13] LABS: BACTERIA,URINE FEW /HPF (Neg); WBC,URINE 0-4 /HPF (0-4)
[2021-10-04 18:14] LABS: MUCUS STRANDS FEW /LPF (Neg); SQUAMOUS EPITHELIAL CELL,UR MODERATE /LPF (FEW)
[2021-10-04 18:49] VITALS: BP 145/97
== END 2021-10-04 19:51 | disposition home or self-care (01) ==
LOC: ER 16:36
DX: R31.9 Hematuria, unspecified (principal); Z53.21 Procedure and treatment not carried out due to patient leaving prior to being seen by health care provider
CPT/HCPCS: 36415; 80053; 81001; 83690; 85025

== ENCOUNTER 2021-11-03 01:59 | Inpatient (IN) | payer MEDICAID ==
[2021-11-03] VITALS (10 sets, daily range): BP systolic 133–164; BP diastolic 79–112
[~2021-11-03] VITALS: Ht 177.8 cm; Wt 123.6 kg
[2021-11-03 02:30] LABS: BASOPHILS % (AUTO) 0.1 % (0-1); EOSINOPHILS % (AUTO) 0.1 % (0-6); HEMATOCRIT 34.2 % (42.0-52.0); HEMOGLOBIN 10.9 g/dl (14.0-17.9); LYMPHOCYTES # (AUTO) 1.3 X10'3 (1.1-4.8); LYMPHOCYTES % (AUTO) 18.1 % (21-51); MEAN CORPUSCULAR HGB CONC 31.9 g/dL (33.0-36.5); MEAN CORPUSCULAR VOLUME 90.9 FL (78-98); MEAN PLATELET VOLUME 8.3 FL (7.4-10.4); MONOCYTES # (AUTO) 0.4 X10'3 (0-0.9); MONOCYTES % (AUTO) 6.4 % (2-12); NEUTROPHILS # (AUTO) 5.2 X10'3 (1.8-7.7); NEUTROPHILS % (AUTO) 75.3 % (42-75); PLATELET COUNT 123 X10'3 (140-440); RED BLOOD COUNT 3.76 X10'6 (4.70-6.10); RED CELL DISTRIBUTION WIDTH 15.4 % (11.5-14.5)
--- NOTE | 2021-11-03 02:35 | NUR ---
PT REPORTED HE IS USUALLY ON 2.5 LITERS OF 02 AT HOME. HE ADMITTED TO SMOKING CIGARRETES AFTER HIS CARDIAC ABLATION TODAY.
[2021-11-03 02:44] LABS: ALANINE AMINOTRANSFERASE 13 U/L (12-78); ALBUMIN 3.8 G/DL (3.4-5.0); ALBUMIN/GLOBULIN RATIO 1.3 (1.1-1.5); ALKALINE PHOSPHATASE 68 IU/L (46-116); ANION GAP 5 (8-16); ASPARTATE AMINO TRANSFERASE 17 U/L (10-37); BILIRUBIN,TOTAL 0.2 MG/DL (0.1-1.0); BLOOD UREA NITROGEN 18 MG/DL (7-18); CALCIUM 8.2 MG/DL (8.5-10.1); CHLORIDE 106 MMOL/L (99-107); GLUCOSE 133 MG/DL (70-104); POTASSIUM 4.4 MMOL/L (3.5-5.1); SODIUM 140 MMOL/L (135-145); TOTAL CARBON DIOXIDE 29.1 MMOL/L (24-32); TOTAL PROTEIN 6.8 G/DL (6.4-8.2); eGFR 62 ML/MIN
[2021-11-03 03:06] LABS: D-DIMER 0.52 MG/L FEU (0-0.50)
--- NOTE | 2021-11-03 03:20 | NUR ---
CONVERSED W/ DR COHEN CONCERNING PT'S TROPONIN. HE WILL PUT IN ORDERS FOR ASA.
[2021-11-03] MEDS ORDERED: aspirin 325mg tablet PO ONE (03:25)
[2021-11-03] MEDS ORDERED: heparin 10,000 units/1 ML INJ IV ONE ×2 (03:35→03:40)
[2021-11-03] MEDS ORDERED: methylPREDNISolone sod succ 125mg/2ml vial IV ONE (03:35)
--- NOTE | 2021-11-03 03:42 | NUR ---
PT REPORTED HE TOOK 4 BABY ASPIRIN PILLS RIGHT EMS WAS BRINGING HIM TO THE HOSPITAL. I REPORTED THIS TO DR COHEN. ORDER FOR 325 MG ASA CANCELL[address] BY DR Luque
[2021-11-03 03:59] LABS: APTT 29 SECONDS (22-32)
[2021-11-03] MEDS: heparin 25,000 UNIT/250ml bag 250 ML IV SCH ×2 (04:07→11:13)
[2021-11-03] MEDS ORDERED: nitroGLYCERIN 0.4mg SUBLingual tab SL PRN ×3 (05:15→13:40)
[2021-11-03] MEDS ORDERED: morphine 2 MG/ML inj. syringe IV PRN (05:15)
[2021-11-03] MEDS ORDERED: magnesium hydroxide 30ml (MOM) UD suspension PO PRN (05:15)
[2021-11-03] MEDS ORDERED: ondansetron/PF 4mg/2ml inj IV PRN (05:15)
[2021-11-03] MEDS ORDERED: mag hydrox/Alum hydrox/simeth 30ml oral suspension PO PRN (05:15)
[2021-11-03] MEDS ORDERED: acetaminophen 325mg tablet PO PRN ×2 (05:15)
[2021-11-03] MEDS: docusate sod 100mg capsule PO SCH ×2 (08:00→19:42)
[2021-11-03 08:16] LABS: HEMOGLOBIN A1C 5.7 % (4.5-6.2)
[2021-11-03] MEDS ORDERED: regadenoson 0.4mg/5ml syringe IV PRN (10:55)
[2021-11-03] MEDS ORDERED: metoprolol tartrate 1mg/ml inj IV PRN (10:55)
[2021-11-03] MEDS ORDERED: aminophylline 500mg/20ml vial IV PRN (10:55)
[2021-11-03] MEDS: heparin 10,000 units/1 ML INJ IV PRN (11:10)
[2021-11-03 11:59] LABS: CHOL/HDL RATIO 2.3 (0.00-4.99); CHOLESTEROL 144 MG/DL (0-200); HDL CHOLESTEROL 62 MG/DL (35-60); LDL CHOLESTEROL 67 MG/DL (50-100); TRIGLYCERIDES 43 MG/DL (20-135)
[2021-11-03] MEDS ORDERED: PREG150C46 PO (12:52)
[2021-11-03] MEDS ORDERED: FLEC150T PO (12:52)
[2021-11-03] MEDS ORDERED: RISP2TAB SL (12:52)
[2021-11-03] MEDS ORDERED: METF-516 PO (12:52)
[2021-11-03] MEDS ORDERED: traZODone 50mg tablet PO PRN (13:40)
[2021-11-03] MEDS ORDERED: tamsulosin 0.4mg capsule PO SCH (13:40)
[2021-11-03] MEDS: flecainide 50mg tablet PO SCH ×2 (14:08→19:38)
--- NOTE | 2021-11-03 16:51 | NUR ---
Message: Benito Nunezall [id number] can you review riley scan? Can patient eat? He is agitated re his wait. Thank you Rena LEACH [phone]
[2021-11-03] MEDS: atorvastatin 20mg tablet PO SCH (17:07)
[2021-11-03] MEDS: ESCITALOPRAM OXALATE 5 MG TABLET PO SCH (17:08)
[2021-11-03] MEDS: morphine 2 MG/ML inj. syringe IV PRN (17:11)
[2021-11-03] MEDS: pregabalin 75mg capsule PO SCH (19:38)
[2021-11-03] MEDS: metoprolol tartrate 50mg tablet PO SCH (19:39)
[2021-11-03] MEDS: risperiDONE 2mg tablet PO SCH (20:55)
[2021-11-04] MEDS: heparin 25,000 UNIT/250ml bag 250 ML IV SCH (01:30)
[2021-11-04] MEDS: heparin 10,000 units/1 ML INJ IV PRN ×2 (01:53→13:06)
--- NOTE | 2021-11-04 02:00 | NUR ---
Pt refused 0200 vital signs
--- NOTE | 2021-11-04 02:00 | NUR ---
PTT lab late d/t requiring three separate lab draws for successful lab reading. Lab deemed for tube "too full," second one coagulated, third success.
[2021-11-04 07:04] VITALS: BP 160/104
[2021-11-04] MEDS: flecainide 50mg tablet PO SCH ×2 (07:58→20:08)
[2021-11-04] MEDS: ESCITALOPRAM OXALATE 5 MG TABLET PO SCH (07:58)
[2021-11-04] MEDS: metoprolol tartrate 50mg tablet PO SCH ×2 (07:59→20:09)
[2021-11-04] MEDS: pregabalin 75mg capsule PO SCH ×2 (08:00→20:08)
[2021-11-04] MEDS: atorvastatin 20mg tablet PO SCH (08:00)
[2021-11-04] MEDS: docusate sod 100mg capsule PO SCH ×2 (08:00→20:00)
[2021-11-04] MEDS: morphine 2 MG/ML inj. syringe IV PRN ×3 (08:03→20:13)
--- NOTE | 2021-11-04 08:12 | NUR ---
DM consult: Pt with T2DM, well controlled with A1c 5.7%, DM education not warranted at this time. Recommend not providing CHO controlled restriction with diet advancement. Will continue to follow. Addendum: 11/04/21 at [address] Amended: Links added.
[2021-11-04] MEDS: pantoprazole 40mg Tablet.DR PO SCH (08:15)
[2021-11-04 08:25] LABS: BASOPHILS % (AUTO) 0.1 % (0-1); EOSINOPHILS % (AUTO) 0 % (0-6); HEMATOCRIT 36.5 % (42.0-52.0); HEMOGLOBIN 11.8 g/dl (14.0-17.9); LYMPHOCYTES # (AUTO) 1.1 X10'3 (1.1-4.8); LYMPHOCYTES % (AUTO) 20.2 % (21-51); MEAN CORPUSCULAR HEMOGLOBIN 29.2 PG (27.0-31.0); MEAN CORPUSCULAR HGB CONC 32.4 g/dL (33.0-36.5); MEAN PLATELET VOLUME 8.6 FL (7.4-10.4); MONOCYTES # (AUTO) 0.4 X10'3 (0-0.9); MONOCYTES % (AUTO) 6.6 % (2-12); NEUTROPHILS # (AUTO) 4.1 X10'3 (1.8-7.7); NEUTROPHILS % (AUTO) 73.1 % (42-75); PLATELET COUNT 123 X10'3 (140-440); RED BLOOD COUNT 4.05 X10'6 (4.70-6.10); WHITE BLOOD COUNT 5.6 X10'3 (4.5-11.0)
[2021-11-04 08:35] LABS: ALBUMIN 3.5 G/DL (3.4-5.0); ANION GAP 4 (8-16); BLOOD UREA NITROGEN 16 MG/DL (7-18); BUN/CREATININE RATIO 15.8 (5.4-32.0); CALCIUM 8.8 MG/DL (8.5-10.1); CHLORIDE 106 MMOL/L (99-107); CHOL/HDL RATIO 2.6 (0.00-4.99); CHOLESTEROL 183 MG/DL (0-200); CREATININE 1.01 MG/DL (0.60-1.10); GLUCOSE 108 MG/DL (70-104); HDL CHOLESTEROL 71 MG/DL (35-60); LDL CHOLESTEROL 85 MG/DL (50-100); POTASSIUM 4.5 MMOL/L (3.5-5.1); SODIUM 139 MMOL/L (135-145); TOTAL CARBON DIOXIDE 28.7 MMOL/L (24-32); TRIGLYCERIDES 78 MG/DL (20-135); eGFR 76 ML/MIN
[2021-11-04 09:35] LABS: APTT 29 SECONDS (22-32)
[2021-11-04 11:00] VITALS: BP 168/108
--- NOTE | 2021-11-04 12:43 | NUR ---
Dr. Lauri sen
--- NOTE | 2021-11-04 12:44 | NUR ---
Dr. Carreon called to ask nursing to turn off Heparin drip and walk patient to see if he had chest pain. I walked patient 300' and he had no chest pain. Will notify Dr. Carreon.
--- NOTE | 2021-11-04 12:50 | NUR ---
Message: Benito Guerra in 3012C walked with Heparin off and had no chest pain. Please advise? I turned the heparin back on. Rena [phone]
[2021-11-04] MEDS ORDERED: ondansetron 4mg rapidly disintigrating tab PO PRN (14:20)
[2021-11-04 17:00] VITALS: BP 141/87
[2021-11-04 18:00] VITALS: BP 116/68
[2021-11-04] MEDS: risperiDONE 2mg tablet PO SCH (20:09)
[2021-11-04 22:00] VITALS: BP 137/78
--- NOTE | 2021-11-04 23:39 | NUR ---
Patient easily agitated, when RN tried to draw blood for PTT patient initially refused. stated " I, sick of being poked, I wanna go home, you people dont let me sleep" Rn informed patient why the lab draw was needed d/t heparin drip, risk of not having lab checked. Rn also informed patient why he has heparin drip and that it is 2300 at night. Patient finally agreed but states "im leaving in the morning, Im going to check myself out". RN thanked patient for allowing lab draw.
[2021-11-05] MEDS: heparin 25,000 UNIT/250ml bag 250 ML IV SCH (00:22)
[2021-11-05] MEDS: heparin 10,000 units/1 ML INJ IV PRN (00:23)
[2021-11-05] MEDS: morphine 2 MG/ML inj. syringe IV PRN ×2 (05:37→11:01)
[2021-11-05 06:54] LABS: BASOPHILS % (AUTO) 0.1 % (0-1); EOSINOPHILS % (AUTO) 0.6 % (0-6); HEMATOCRIT 35.5 % (42.0-52.0); HEMOGLOBIN 11.6 g/dl (14.0-17.9); LYMPHOCYTES # (AUTO) 2.2 X10'3 (1.1-4.8); LYMPHOCYTES % (AUTO) 34.6 % (21-51); MEAN CORPUSCULAR HEMOGLOBIN 29.3 PG (27.0-31.0); MEAN CORPUSCULAR HGB CONC 32.6 g/dL (33.0-36.5); MEAN PLATELET VOLUME 8.2 FL (7.4-10.4); MONOCYTES # (AUTO) 0.5 X10'3 (0-0.9); MONOCYTES % (AUTO) 8.3 % (2-12); NEUTROPHILS # (AUTO) 3.6 X10'3 (1.8-7.7); NEUTROPHILS % (AUTO) 56.4 % (42-75); PLATELET COUNT 115 X10'3 (140-440); RED BLOOD COUNT 3.95 X10'6 (4.70-6.10); RED CELL DISTRIBUTION WIDTH 15.3 % (11.5-14.5); WHITE BLOOD COUNT 6.4 X10'3 (4.5-11.0)
[2021-11-05 07:14] LABS: ALBUMIN 3.1 G/DL (3.4-5.0); ANION GAP 6 (8-16); BLOOD UREA NITROGEN 18 MG/DL (7-18); BUN/CREATININE RATIO 15.7 (5.4-32.0); CALCIUM 8.4 MG/DL (8.5-10.1); CHLORIDE 106 MMOL/L (99-107); CREATININE 1.15 MG/DL (0.60-1.10); GLUCOSE 88 MG/DL (70-104); POTASSIUM 4.4 MMOL/L (3.5-5.1); SODIUM 142 MMOL/L (135-145); eGFR 65 ML/MIN
--- NOTE | 2021-11-05 07:40 | NUR ---
Patient in room PCU 3012. I have received report from Joana and had the opportunity to ask questions and assume patient care.
--- NOTE | 2021-11-05 07:41 | NUR ---
Message: Benito Charlie 3012C FYI has a ptt of 130 I turned heparin drip off for 120 minutes per protocol. Rena LEACH ext [phone]
[2021-11-05] MEDS: docusate sod 100mg capsule PO SCH (08:00)
[2021-11-05] MEDS: pregabalin 75mg capsule PO SCH (08:00)
[2021-11-05 09:28] VITALS: BP_SYST 149
[2021-11-05] MEDS: atorvastatin 20mg tablet PO SCH (09:28)
[2021-11-05] MEDS: pantoprazole 40mg Tablet.DR PO SCH (09:28)
[2021-11-05] MEDS: metoprolol tartrate 50mg tablet PO SCH (09:28)
[2021-11-05] MEDS: ESCITALOPRAM OXALATE 5 MG TABLET PO SCH (09:29)
[2021-11-05] MEDS: flecainide 50mg tablet PO SCH (09:29)
[2021-11-05] MEDS ORDERED: AMIO100T4 PO (14:07)
[2021-11-05] MEDS ORDERED: ASPI-611 PO (14:07)
--- NOTE | 2021-11-05 15:17 | NUR ---
Patient was discharged at 15:10 PM with staff bringing him in the front lobby via w/C, his family brother picked him at the front of lobby via car, patient is alert/oriented x 3, no complain of pain, no distressful, IV right AC discontinued, Tele meter disconnected patient no S/S of bleeding/infection at IV inserted area, discharge instruction, home meds and follow up instruction are reviewed with patient by primary RN, answered all questions patients asked for.
== END 2021-11-05 15:15 | disposition home health service (06) | DRG 190 ==
LOC: ER 02:00 → ED HOLD 05:18 → PCU 3S 15:30
PROVIDERS: ADMIT Internal Medicine; ATTEND Internal Medicine
PROC: 4A02XM4 Measurement of Cardiac Total Activity, External Approach (ICD-10-PCS; principal; 2021-11-03)
PROC: 3E033HZ Introduction of Radioactive Substance into Peripheral Vein, Percutaneous Approach (ICD-10-PCS; 2021-11-03)
DX: I21.4 Non-ST elevation (NSTEMI) myocardial infarction (principal); J96.11 Chronic respiratory failure with hypoxia; I49.5 Sick sinus syndrome; I13.0 Hypertensive heart and chronic kidney disease with heart failure and stage 1 through stage 4 chronic kidney disease, or unspecified chronic kidney disease; I50.9 Heart failure, unspecified; J44.1 Chronic obstructive pulmonary disease with (acute) exacerbation; I48.0 Paroxysmal atrial fibrillation; B19.20 Unspecified viral hepatitis C without hepatic coma; G40.909 Epilepsy, unspecified, not intractable, without status epilepticus; E11.22 Type 2 diabetes mellitus with diabetic chronic kidney disease; N18.9 Chronic kidney disease, unspecified; G47.30 Sleep apnea, unspecified; G89.29 Other chronic pain; M54.9 Dorsalgia, unspecified; N40.0 Benign prostatic hyperplasia without lower urinary tract symptoms; E66.01 Morbid (severe) obesity due to excess calories; E78.5 Hyperlipidemia, unspecified; F17.210 Nicotine dependence, cigarettes, uncomplicated; F32.A Depression, unspecified; F41.9 Anxiety disorder, unspecified; Z68.39 Body mass index [BMI] 39.0-39.9, adult; Z79.01 Long term (current) use of anticoagulants; Z79.899 Other long term (current) drug therapy; Z95.0 Presence of cardiac pacemaker; Z86.73 Personal history of transient ischemic attack (TIA), and cerebral infarction without residual deficits; Z88.8 Allergy status to other drugs, medicaments and biological substances; Z86.718 Personal history of other venous thrombosis and embolism; Z99.81 Dependence on supplemental oxygen; Z71.6 Tobacco abuse counseling
CPT/HCPCS: 36415; 71045; 78452; 80048; 80053; 80061; 82948; 83036; 83880; 84145; 84439; 84443; 84484; 85025; 85379; 85610; 85730; 87081; 93005; 93017; 93306; 96374; 96375; 99285; A9500; G0378; J1644; J2270; J2785; J2930

== ENCOUNTER 2022-02-07 20:08 | Emergency (ER) | payer MEDICAID ==
[~2022-02-07] VITALS: Ht 180.3 cm; Wt 122.7 kg
[~2022-02-07 20:08] MED LIST changes: +AMIO100T4 PO; -FLEC100T35 PO; -METF-436 PO; +METF-516 PO; +PREG150C46 PO; -PREG75CA75 PO; -RISP1TAB98 PO; +RISP2TAB SL
[2022-02-07 21:27] LABS: BASOPHILS # (AUTO) 0.1 X10'3 (0-0.2); BASOPHILS % (AUTO) 1.5 % (0-1); EOSINOPHILS % (AUTO) 0.7 % (0-6); HEMATOCRIT 41.4 % (42.0-52.0); HEMOGLOBIN 13.8 g/dl (14.0-17.9); LYMPHOCYTES # (AUTO) 1.2 X10'3 (1.1-4.8); LYMPHOCYTES % (AUTO) 29.1 % (21-51); MEAN CORPUSCULAR HGB CONC 33.3 g/dL (33.0-36.5); MEAN CORPUSCULAR VOLUME 90.1 FL (78-98); MEAN PLATELET VOLUME 8.7 FL (7.4-10.4); MONOCYTES # (AUTO) 0.4 X10'3 (0-0.9); MONOCYTES % (AUTO) 10.1 % (2-12); NEUTROPHILS # (AUTO) 2.3 X10'3 (1.8-7.7); NEUTROPHILS % (AUTO) 58.6 % (42-75); PLATELET COUNT 106 X10'3 (140-440); RED BLOOD COUNT 4.59 X10'6 (4.70-6.10); RED CELL DISTRIBUTION WIDTH 15.7 % (11.5-14.5)
[2022-02-07 21:42] LABS: ALANINE AMINOTRANSFERASE 30 U/L (12-78); ALBUMIN 3.7 G/DL (3.4-5.0); ALBUMIN/GLOBULIN RATIO 1.1 (1.1-1.5); ALKALINE PHOSPHATASE 75 IU/L (46-116); ANION GAP 10 (8-16); ASPARTATE AMINO TRANSFERASE 42 U/L (10-37); BILIRUBIN,TOTAL 0.4 MG/DL (0.1-1.0); BLOOD UREA NITROGEN 14 MG/DL (7-18); BUN/CREATININE RATIO 9.1 (5.4-32.0); CALCIUM 8.7 MG/DL (8.5-10.1); CHLORIDE 103 MMOL/L (99-107); CREATININE 1.54 MG/DL (0.60-1.10); GLUCOSE 109 MG/DL (70-104); POTASSIUM 4.3 MMOL/L (3.5-5.1); SODIUM 142 MMOL/L (135-145); TOTAL CARBON DIOXIDE 28.8 MMOL/L (24-32); eGFR 46 ML/MIN
[2022-02-07 21:48] LABS: MAGNESIUM 1.3 MG/DL (1.5-2.4)
[2022-02-07] MEDS ORDERED: acetaminophen 325mg tablet PO ONE (23:40)
[2022-02-07] MEDS ORDERED: ondansetron/PF 4mg/2ml inj IV ONE (23:40)
[2022-02-07] MEDS ORDERED: normal saline 1000ml 1,000 ML IV ONE (23:40)
[2022-02-08 00:48] VITALS: BP 114/85
[2022-02-09] MEDS ORDERED: AMIO100T4 PO (13:20)
[2022-02-09] MEDS ORDERED: ATOR20TA66 PO (13:20)
== END 2022-02-08 00:49 | disposition home or self-care (01) ==
LOC: ER 20:09
DX: T67.5XXA Heat exhaustion, unspecified, initial encounter (principal); R07.9 Chest pain, unspecified; I13.0 Hypertensive heart and chronic kidney disease with heart failure and stage 1 through stage 4 chronic kidney disease, or unspecified chronic kidney disease; E13.22 Other specified diabetes mellitus with diabetic chronic kidney disease; N18.9 Chronic kidney disease, unspecified; J44.9 Chronic obstructive pulmonary disease, unspecified; F12.10 Cannabis abuse, uncomplicated; Z79.899 Other long term (current) drug therapy; Z88.6 Allergy status to analgesic agent; F31.9 Bipolar disorder, unspecified; X58.XXXA Exposure to other specified factors, initial encounter; Y93.89 Activity, other specified; Y92.89 Other specified places as the place of occurrence of the external cause; Y99.8 Other external cause status
CPT/HCPCS: 36415; 71045; 80053; 83735; 83880; 84484; 85025; 93005; 96361; 96374; 99285; J2405; J7030; A4615

== ENCOUNTER 2022-02-08 13:34 | Inpatient (IN) | payer MEDICAID ==
[~2022-02-08] VITALS: Ht 180.3 cm; Wt 124.0 kg
[2022-02-08] MEDS ORDERED: acetaminophen 325mg tablet PO ONE (14:15)
--- NOTE | 2022-02-08 14:54 | NUR ---
Placed in isolation due to positive covid status.
[2022-02-08 15:02] LABS: BASOPHILS % (AUTO) 0.4 % (0-1); EOSINOPHILS % (AUTO) 0.1 % (0-6); HEMATOCRIT 36.1 % (42.0-52.0); HEMOGLOBIN 12.1 g/dl (14.0-17.9); LYMPHOCYTES # (AUTO) 0.6 X10'3 (1.1-4.8); LYMPHOCYTES % (AUTO) 22.9 % (21-51); MEAN CORPUSCULAR HGB CONC 33.4 g/dL (33.0-36.5); MEAN CORPUSCULAR VOLUME 89.7 FL (78-98); MEAN PLATELET VOLUME 8.6 FL (7.4-10.4); MONOCYTES # (AUTO) 0.3 X10'3 (0-0.9); MONOCYTES % (AUTO) 11.1 % (2-12); NEUTROPHILS # (AUTO) 1.6 X10'3 (1.8-7.7); NEUTROPHILS % (AUTO) 65.5 % (42-75); PLATELET COUNT 89 X10'3 (140-440); RED BLOOD COUNT 4.02 X10'6 (4.70-6.10); RED CELL DISTRIBUTION WIDTH 15.8 % (11.5-14.5); WHITE BLOOD COUNT 2.4 X10'3 (4.5-11.0)
[2022-02-08 15:04] LABS: ALANINE AMINOTRANSFERASE 43 U/L (12-78); ALBUMIN 3.1 G/DL (3.4-5.0); ALBUMIN/GLOBULIN RATIO 1.1 (1.1-1.5); ALKALINE PHOSPHATASE 59 IU/L (46-116); ANION GAP 6 (8-16); ASPARTATE AMINO TRANSFERASE 70 U/L (10-37); BILIRUBIN,TOTAL 0.3 MG/DL (0.1-1.0); BLOOD UREA NITROGEN 15 MG/DL (7-18); BUN/CREATININE RATIO 10.9 (5.4-32.0); CALCIUM 7.8 MG/DL (8.5-10.1); CHLORIDE 106 MMOL/L (99-107); CREATININE 1.37 MG/DL (0.60-1.10); GLUCOSE 108 MG/DL (70-104); SODIUM 142 MMOL/L (135-145); TOTAL CARBON DIOXIDE 30.2 MMOL/L (24-32); TOTAL PROTEIN 5.9 G/DL (6.4-8.2); eGFR 53 ML/MIN
[2022-02-08 15:05] LABS: POTASSIUM 4.4 MMOL/L (3.5-5.1)
[2022-02-08 15:06] LABS: CLARITY,URINE CLEAR (Clear); GLUCOSE, URINE NEGATIVE (Neg); KETONES,URINE NEGATIVE (Neg); LEUKOCYTE ESTERASE ,URINE NEGATIVE (Neg); NITRITES, URINE NEGATIVE (Neg); OCCULT BLOOD,URINE SMALL (Neg); PH,URINE 5.5 (4.8-8.0); PROTEIN,URINE TRACE mg/dl (Neg); UROBILINOGEN,URINE 0.2 E.U/dL (0.2-1.0)
[2022-02-08 15:14] LABS: URINE AMPHETAMINE SCREEN NEGATIVE (Neg); URINE BARBITUATE SCREEN NEGATIVE (Neg); URINE BENZODIAZEPINES SCREEN NEGATIVE (Neg); URINE CANNABINOID SCREEN NEGATIVE (Neg); URINE COCAINE SCREEN NEGATIVE (Neg); URINE METHADONE SCREEN POSITIVE (Neg); URINE OPIATE SCREEN POSITIVE (Neg); URINE PHENCYCLIDINE SCREEN NEGATIVE (Neg)
[2022-02-08 15:21] LABS: COLOR,URINE YELLOW (Yellow); UA COLLECTION TYPE VOIDED
[2022-02-08 15:23] LABS: SQUAMOUS EPITHELIAL CELL,UR FEW /LPF (FEW)
[2022-02-08 15:24] LABS: BACTERIA,URINE FEW /HPF (Neg); RBC,URINE 0-2 /HPF (0-2); WBC,URINE 0-4 /HPF (0-4)
[2022-02-08 15:48] LABS: PLATELET ESTIMATE DECREASED; TOTAL CELLS COUNTED 100
[2022-02-08 15:54] LABS: CREATINE KINASE 625 U/L (39-308); ETHANOL < 0.010 GM/DL (0.0-0.010)
[2022-02-08 16:04] LABS: ACETAMINOPHEN < 2.0 UG/ML (10-30)
[2022-02-08] MEDS ORDERED: REMDESIVIR INJ 200 MG in normal saline 100ml IV soln 100 ML IV ONE (16:20)
[2022-02-08] MEDS ORDERED: HYDROcodone/acetaminophen 5mg/325mg tablet PO PRN (16:45)
[2022-02-08] MEDS ORDERED: bisacodyl 10mg suppository rectal RC PRN (16:45)
[2022-02-08] MEDS ORDERED: POTASSIUM BICARB 20meq eff tab 20 MEQ TABLET.EFF PO PRN ×2 (16:45)
[2022-02-08] MEDS ORDERED: acetaminophen 325mg tablet PO PRN ×2 (16:45)
[2022-02-08] MEDS ORDERED: ondansetron 4mg rapidly disintigrating tab PO PRN (16:45)
[2022-02-08] MEDS ORDERED: magnesium 4gm in 100ml NS 100 ML IV PRN (16:45)
[2022-02-08] MEDS ORDERED: potassium CL 10mEq/100ml bag 100 ML IV PRN (16:45)
[2022-02-08] MEDS ORDERED: ondansetron/PF 4mg/2ml inj IV PRN (16:45)
[2022-02-08] MEDS ORDERED: magnesium 2GM in 50ml NS 50 ML IV PRN (16:45)
[2022-02-08] MEDS ORDERED: mag hydrox/Alum hydrox/simeth 30ml oral suspension PO PRN (16:45)
[2022-02-08] MEDS ORDERED: magnesium Cl slow-release 64mg tablet PO PRN (16:45)
[2022-02-08] MEDS ORDERED: magnesium hydroxide 30ml (MOM) UD suspension PO PRN (16:45)
[2022-02-08] MEDS: normal saline 1000ml 1,000 ML IV SCH ×2 (16:58→20:45)
[2022-02-08] MEDS ORDERED: iohexol 350MG/ML 100ml bottle IV ONE (16:59)
[2022-02-08 17:32] LABS: C-REACTIVE PROTEIN 1.26 MG/DL (0.0-0.5); MAGNESIUM 1.6 MG/DL (1.5-2.4); POTASSIUM 4.4 MMOL/L (3.5-5.1)
[2022-02-08 17:33] LABS: APTT 32 SECONDS (22-32); D-DIMER 0.54 MG/L FEU (0-0.50)
--- NOTE | 2022-02-08 18:00 | NUR ---
Pharmacy verified and delivered the Remdesivir Does that was due @8943.
[2022-02-08] MEDS: MESSAGE TO NURSING PO NR (18:09)
[2022-02-08] MEDS: K and/or MAG REPLACEMENT MC SCH (19:57)
[2022-02-08] MEDS: docusate sod 100mg capsule PO SCH (20:00)
[2022-02-08 21:00] VITALS: BP 123/77
[2022-02-08] MEDS ORDERED: temazepam 15mg capsule PO PRN (21:00)
[2022-02-08 22:00] VITALS: BP 144/97
[2022-02-09 02:00] VITALS: BP 149/94
[2022-02-09 06:00] VITALS: BP 149/59
[2022-02-09] MEDS: dexamethasone inj 6 MG in dextrose 5%-water 50ml 50 ML IV SCH (07:33)
[2022-02-09] MEDS: REMDESIVIR INJ 100 MG in normal saline 100ml IV soln 100 ML IV SCH (07:33)
[2022-02-09] MEDS: docusate sod 100mg capsule PO SCH ×2 (07:33→20:06)
[2022-02-09] MEDS: DEXAMETHASONE 6 MG TABLET PO SCH (07:33)
[2022-02-09 07:41] LABS: BASOPHILS % (AUTO) 0.3 % (0-1); EOSINOPHILS % (AUTO) 0.2 % (0-6); HEMATOCRIT 38.7 % (42.0-52.0); HEMOGLOBIN 12.8 g/dl (14.0-17.9); LYMPHOCYTES % (AUTO) 47.9 % (21-51); MEAN CORPUSCULAR VOLUME 90.7 FL (78-98); MEAN PLATELET VOLUME 8.1 FL (7.4-10.4); MONOCYTES # (AUTO) 0.4 X10'3 (0-0.9); MONOCYTES % (AUTO) 9.1 % (2-12); NEUTROPHILS # (AUTO) 1.8 X10'3 (1.8-7.7); NEUTROPHILS % (AUTO) 42.5 % (42-75); PLATELET COUNT 91 X10'3 (140-440); RED BLOOD COUNT 4.26 X10'6 (4.70-6.10); RED CELL DISTRIBUTION WIDTH 15.7 % (11.5-14.5); WHITE BLOOD COUNT 4.2 X10'3 (4.5-11.0)
[2022-02-09 07:58] LABS: ALANINE AMINOTRANSFERASE 53 U/L (12-78); ALBUMIN 3.3 G/DL (3.4-5.0); ALBUMIN/GLOBULIN RATIO 1.2 (1.1-1.5); ALKALINE PHOSPHATASE 57 IU/L (46-116); ANION GAP 7 (8-16); ASPARTATE AMINO TRANSFERASE 75 U/L (10-37); BILIRUBIN,TOTAL 0.2 MG/DL (0.1-1.0); BLOOD UREA NITROGEN 13 MG/DL (7-18); BUN/CREATININE RATIO 11.7 (5.4-32.0); C-REACTIVE PROTEIN 1.15 MG/DL (0.0-0.5); CHLORIDE 106 MMOL/L (99-107); CREATININE 1.11 MG/DL (0.60-1.10); GLUCOSE 99 MG/DL (70-104); MAGNESIUM 1.7 MG/DL (1.5-2.4); POTASSIUM 4.2 MMOL/L (3.5-5.1); SODIUM 143 MMOL/L (135-145); TOTAL CARBON DIOXIDE 30.4 MMOL/L (24-32); eGFR 68 ML/MIN
[2022-02-09] MEDS: K and/or MAG REPLACEMENT MC SCH ×2 (08:00→20:27)
[2022-02-09] MEDS: HYDROcodone/acetaminophen 10/325mg tab PO PRN ×2 (08:35→20:08)
[2022-02-09 08:47] LABS: D-DIMER 0.73 MG/L FEU (0-0.50)
[2022-02-09] MEDS: MESSAGE TO NURSING PO NR (10:14)
[2022-02-09] MEDS: ALBUTEROL INHALER 1 PUFF/90 MCG INHALation IH PRN (10:43)
[2022-02-09 11:00] VITALS: BP 140/85
[2022-02-09] MEDS: methadone 10mg tablet PO SCH ×2 (11:05→20:07)
[2022-02-09] MEDS ORDERED: oxyCODONE IR 5mg (immed. release) tablet PO PRN (11:05)
[2022-02-09] MEDS: normal saline 1000ml 1,000 ML IV SCH ×2 (12:45→20:10)
[2022-02-09] MEDS ORDERED: ATOR20TA66 PO (13:20)
[2022-02-09] MEDS ORDERED: AMIO100T4 PO (13:20)
[2022-02-09 15:00] VITALS: BP 159/98
[2022-02-09] MEDS ORDERED: traZODone 50mg tablet PO PRN (17:50)
[2022-02-09] MEDS ORDERED: non-formulary drug (Oxycodone Hcl 1 TAB) PO PRN (17:50)
[2022-02-09] MEDS ORDERED: tamsulosin 0.4mg capsule PO SCH (17:50)
[2022-02-09 18:00] VITALS: BP 171/106
[2022-02-09] MEDS ORDERED: rivaroxaban 20mg tablet PO SCH (18:00)
--- NOTE | 2022-02-09 18:30 | NUR ---
Patient in room PCU 3008. I have received report from Wanda LEACH and had the opportunity to ask questions and assume patient care.
[2022-02-09] MEDS ORDERED: metoprolol tartrate 50mg tablet PO SCH (20:00)
[2022-02-09] MEDS ORDERED: methadone 10mg tablet PO SCH (20:00)
[2022-02-09] MEDS ORDERED: amiodarone 100mg tablet PO SCH (20:00)
[2022-02-09] MEDS: amiodarone 100mg tablet PO SCH (20:06)
[2022-02-09] MEDS: metoprolol tartrate 50mg tablet PO SCH (20:07)
[2022-02-09] MEDS: pregabalin 75mg capsule PO SCH (20:07)
[2022-02-09] MEDS ORDERED: risperiDONE 2mg tablet PO SCH (21:00)
--- NOTE | 2022-02-09 22:00 | NUR ---
pt was resting and did not want to get up for 2200 BP check.
[2022-02-10 02:00] VITALS: BP 149/96
--- NOTE | 2022-02-10 06:25 | NUR ---
Problems reprioritized. Patient report given, questions answered & plan of care reviewed with Ruthie LEACH.
[2022-02-10] MEDS ORDERED: glucagon, human recombinant 1mg kit SUBCUT PRN (06:30)
[2022-02-10] MEDS ORDERED: MESSAGE TO PHARMACY PO ONE (06:30)
[2022-02-10] MEDS ORDERED: insulin Lispro (HumaLOG) vial - multi-dose SQ SCH (06:30)
[2022-02-10] MEDS ORDERED: dextrose 50%-water 50ml dispensing syringe IV PRN ×2 (06:30)
[2022-02-10] MEDS ORDERED: DEXTROSE 15 GM of carb/4 tabs (each vial/BOTTLE has 4 tablets) PO PRN ×2 (06:30)
[2022-02-10 08:00] VITALS: BP_SYST 124; BP_SYST 127; BP_DIAS 70; BP_DIAS 74
[2022-02-10] MEDS ORDERED: REMDESIVIR INJ 100 MG in normal saline 100ml IV soln 100 ML IV SCH (08:00)
[2022-02-10] MEDS ORDERED: atorvastatin 20mg tablet PO SCH (08:00)
[2022-02-10] MEDS: K and/or MAG REPLACEMENT MC SCH (08:00)
[2022-02-10] MEDS ORDERED: pantoprazole 40mg Tablet.DR PO SCH (08:00)
[2022-02-10] MEDS ORDERED: ESCITALOPRAM OXALATE 5 MG TABLET PO SCH (08:00)
[2022-02-10 08:05] VITALS: BP 120/76
[2022-02-10 08:10] VITALS: BP 117/71
[2022-02-10 08:35] LABS: BASOPHILS % (AUTO) 0.1 % (0-1); EOSINOPHILS % (AUTO) 0 % (0-6); HEMATOCRIT 40.7 % (42.0-52.0); HEMOGLOBIN 13.5 g/dl (14.0-17.9); LYMPHOCYTES % (AUTO) 38.1 % (21-51); MEAN CORPUSCULAR HEMOGLOBIN 29.9 PG (27.0-31.0); MEAN CORPUSCULAR HGB CONC 33.2 g/dL (33.0-36.5); MEAN CORPUSCULAR VOLUME 90.1 FL (78-98); MEAN PLATELET VOLUME 8.4 FL (7.4-10.4); MONOCYTES # (AUTO) 0.3 X10'3 (0-0.9); MONOCYTES % (AUTO) 10.2 % (2-12); NEUTROPHILS # (AUTO) 1.4 X10'3 (1.8-7.7); NEUTROPHILS % (AUTO) 51.6 % (42-75); PLATELET COUNT 94 X10'3 (140-440); RED BLOOD COUNT 4.52 X10'6 (4.70-6.10); RED CELL DISTRIBUTION WIDTH 15.4 % (11.5-14.5); WHITE BLOOD COUNT 2.7 X10'3 (4.5-11.0)
[2022-02-10] MEDS: REMDESIVIR INJ 100 MG in normal saline 100ml IV soln 100 ML IV SCH (08:44)
[2022-02-10] MEDS: methadone 10mg tablet PO SCH (08:45)
[2022-02-10] MEDS: pregabalin 75mg capsule PO SCH (08:45)
[2022-02-10] MEDS: normal saline 1000ml 1,000 ML IV SCH (08:45)
[2022-02-10] MEDS: docusate sod 100mg capsule PO SCH (08:45)
[2022-02-10] MEDS: dexamethasone inj 6 MG in dextrose 5%-water 50ml 50 ML IV SCH (08:46)
[2022-02-10] MEDS: DEXAMETHASONE 6 MG TABLET PO SCH (08:46)
[2022-02-10 08:53] LABS: D-DIMER 0.86 MG/L FEU (0-0.50)
[2022-02-10] MEDS: metoprolol tartrate 50mg tablet PO SCH (08:56)
[2022-02-10 08:58] LABS: ALANINE AMINOTRANSFERASE 50 U/L (12-78); ALBUMIN 3.4 G/DL (3.4-5.0); ALBUMIN/GLOBULIN RATIO 1.1 (1.1-1.5); ALKALINE PHOSPHATASE 58 IU/L (46-116); ANION GAP 4 (8-16); ASPARTATE AMINO TRANSFERASE 47 U/L (10-37); BILIRUBIN,TOTAL 0.3 MG/DL (0.1-1.0); BLOOD UREA NITROGEN 11 MG/DL (7-18); BUN/CREATININE RATIO 11.1 (5.4-32.0); C-REACTIVE PROTEIN 0.67 MG/DL (0.0-0.5); CALCIUM 8.6 MG/DL (8.5-10.1); CHLORIDE 106 MMOL/L (99-107); CREATININE 0.99 MG/DL (0.60-1.10); GLUCOSE 103 MG/DL (70-104); MAGNESIUM 1.9 MG/DL (1.5-2.4); POTASSIUM 4.8 MMOL/L (3.5-5.1); SODIUM 145 MMOL/L (135-145); TOTAL CARBON DIOXIDE 34.6 MMOL/L (24-32); TOTAL PROTEIN 6.4 G/DL (6.4-8.2); eGFR 77 ML/MIN
[2022-02-10] MEDS: amiodarone 100mg tablet PO SCH (09:01)
[2022-02-10 09:20] LABS: TOTAL CELLS COUNTED 100
[2022-02-10 09:21] LABS: PLATELET ESTIMATE DECREASED
[2022-02-10] MEDS: MESSAGE TO NURSING PO NR ×2 (10:00→16:18)
[2022-02-10] MEDS ORDERED: DEC4T PO (10:29)
[2022-02-10] MEDS ORDERED: ALBU6.7H9 IH (10:29)
[2022-02-10 11:00] VITALS: BP 124/76
[2022-02-10] MEDS: ALBUTEROL INHALER 1 PUFF/90 MCG INHALation IH PRN (11:48)
[2022-02-10 15:45] VITALS: BP 129/67
[2022-02-10] MEDS: HYDROcodone/acetaminophen 10/325mg tab PO PRN (15:58)
[2022-02-10] MEDS ORDERED: FURO-150 PO (16:44)
--- NOTE | 2022-02-10 16:45 | NUR ---
Patient cleared for discharge. Patient's IV and tele discontinued. Patient gathered all belongings. Patient verbalized understanding of discharge instructions and prescriptions. Instructions and prescription information also given to patient's brother and caregiver over the phone. They said they would package pick up prescriptions before picking up patient.
[2022-02-10] MEDS ORDERED: insulin glargine (Lantus) pen - multi-dose SQ SCH (21:00)
== END 2022-02-10 17:19 | disposition home health service (06) | DRG 137 ==
LOC: ER 13:35 → ED HOLD 16:52 → EDBEDREQ 18:12 → PCU 3S 20:00
PROVIDERS: ADMIT Family Medicine; ATTEND Family Medicine
PROC: XW033E5 Introduction of Remdesivir Anti-infective into Peripheral Vein, Percutaneous Approach, New Technology Group 5 (ICD-10-PCS; principal; 2022-02-08)
PROC: B32T1ZZ Computerized Tomography (CT Scan) of Left Pulmonary Artery using Low Osmolar Contrast (ICD-10-PCS; 2022-02-08)
PROC: B3201ZZ Computerized Tomography (CT Scan) of Thoracic Aorta using Low Osmolar Contrast (ICD-10-PCS; 2022-02-08)
PROC: B32S1ZZ Computerized Tomography (CT Scan) of Right Pulmonary Artery using Low Osmolar Contrast (ICD-10-PCS; 2022-02-08)
DX: U07.1 COVID-19 (principal); J96.01 Acute respiratory failure with hypoxia; J12.82 Pneumonia due to coronavirus disease 2019; G93.41 Metabolic encephalopathy; D69.6 Thrombocytopenia, unspecified; I50.9 Heart failure, unspecified; I27.81 Cor pulmonale (chronic); I13.0 Hypertensive heart and chronic kidney disease with heart failure and stage 1 through stage 4 chronic kidney disease, or unspecified chronic kidney disease; E11.22 Type 2 diabetes mellitus with diabetic chronic kidney disease; B19.20 Unspecified viral hepatitis C without hepatic coma; F11.90 Opioid use, unspecified, uncomplicated; F32.A Depression, unspecified; E66.01 Morbid (severe) obesity due to excess calories; G89.4 Chronic pain syndrome; I25.10 Atherosclerotic heart disease of native coronary artery without angina pectoris; E78.5 Hyperlipidemia, unspecified; F17.210 Nicotine dependence, cigarettes, uncomplicated; I48.0 Paroxysmal atrial fibrillation; J44.0 Chronic obstructive pulmonary disease with (acute) lower respiratory infection; N18.9 Chronic kidney disease, unspecified; N40.0 Benign prostatic hyperplasia without lower urinary tract symptoms; Z79.01 Long term (current) use of anticoagulants; Z79.84 Long term (current) use of oral hypoglycemic drugs; Z79.899 Other long term (current) drug therapy; Z86.73 Personal history of transient ischemic attack (TIA), and cerebral infarction without residual deficits; Z88.8 Allergy status to other drugs, medicaments and biological substances; Z68.38 Body mass index [BMI] 38.0-38.9, adult; Z71.6 Tobacco abuse counseling
CPT/HCPCS: 36415; 70450; 71045; 71275; 80053; 80305; 80320; 80329; 81001; 82550; 82948; 83036; 83605; 83735; 83880; 84100; 84132; 84145; 85007; 85025; 85379; 85610; 85730; 86140; 87040; 87081; 87635; 94640; 94664; 94668; 94760; 97162; 99285; C9803; G0378; J1100; J1815; J3490; J7030; J7040; J7060; J8540; Q9967

== ENCOUNTER 2022-02-23 09:01 | Inpatient (IN) | payer MEDICAID ==
[~2022-02-23] VITALS: Ht 177.8 cm; Wt 122.7 kg
[~2022-02-23 09:01] MED LIST changes: +ALBU6.7H14 IH; +DEC4T PO; +FURO-150 PO; -NITR0.4T51 SL
[2022-02-23 09:59] LABS: BASOPHILS % (AUTO) 0.4 % (0-1); EOSINOPHILS % (AUTO) 0.6 % (0-6); HEMATOCRIT 40.6 % (42.0-52.0); HEMOGLOBIN 13.7 g/dl (14.0-17.9); LYMPHOCYTES # (AUTO) 2.5 X10'3 (1.1-4.8); LYMPHOCYTES % (AUTO) 33.9 % (21-51); MEAN CORPUSCULAR HEMOGLOBIN 30.5 PG (27.0-31.0); MEAN CORPUSCULAR HGB CONC 33.6 g/dL (33.0-36.5); MEAN CORPUSCULAR VOLUME 90.7 FL (78-98); MEAN PLATELET VOLUME 7.8 FL (7.4-10.4); MONOCYTES # (AUTO) 0.5 X10'3 (0-0.9); MONOCYTES % (AUTO) 6.7 % (2-12); NEUTROPHILS # (AUTO) 4.3 X10'3 (1.8-7.7); NEUTROPHILS % (AUTO) 58.4 % (42-75); PLATELET COUNT 102 X10'3 (140-440); RED BLOOD COUNT 4.47 X10'6 (4.70-6.10); WHITE BLOOD COUNT 7.4 X10'3 (4.5-11.0)
--- NOTE | 2022-02-23 10:02 | NUR ---
pt requesting prn for pain,Dr Brian made aware.
--- NOTE | 2022-02-23 10:25 | NUR ---
Dr. Brian at bedside.
[2022-02-23] MEDS ORDERED: acetaminophen 325mg tablet PO ONE ×2 (10:30→13:28)
[2022-02-23 10:36] LABS: ALANINE AMINOTRANSFERASE 18 U/L (12-78); ALBUMIN 2.7 G/DL (3.4-5.0); ALBUMIN/GLOBULIN RATIO 0.9 (1.1-1.5); ALKALINE PHOSPHATASE 54 IU/L (46-116); ANION GAP 5 (8-16); ASPARTATE AMINO TRANSFERASE 15 U/L (10-37); BILIRUBIN,TOTAL 0.6 MG/DL (0.1-1.0); BLOOD UREA NITROGEN 17 MG/DL (7-18); BUN/CREATININE RATIO 15.2 (5.4-32.0); CALCIUM 8.1 MG/DL (8.5-10.1); CHLORIDE 109 MMOL/L (99-107); CREATININE 1.12 MG/DL (0.60-1.10); GLUCOSE 119 MG/DL (70-104); POTASSIUM 3.9 MMOL/L (3.5-5.1); SODIUM 144 MMOL/L (135-145); TOTAL CARBON DIOXIDE 29.8 MMOL/L (24-32); TOTAL PROTEIN 5.7 G/DL (6.4-8.2); eGFR 67 ML/MIN
[2022-02-23] MEDS ORDERED: BEBTELOVIMAB 175 MG/2 ML VIAL IV ONE (12:20)
--- NOTE | 2022-02-23 13:00 | NUR ---
Patient is a very hard stick,multiple attempts to start piv. Started successfully on right upper arm.
[2022-02-23] MEDS ORDERED: iohexol 350MG/ML 100ml bottle IV ONE ×2 (13:21→13:35)
--- NOTE | 2022-02-23 13:58 | NUR ---
Patient came back with infiltrated right upper arm PIV.CT with contrast not completed.
--- NOTE | 2022-02-23 14:07 | NUR ---
ALEXANDRA MAURER BROTHER #: [phone]
[2022-02-23] MEDS ORDERED: methadone 10mg tablet PO ONE (14:10)
--- NOTE | 2022-02-23 14:47 | NUR ---
methadone unavailable from the [facility] 1 or 2, pharmacy to deliver.
[2022-02-23] MEDS ORDERED: esmolol/sodium cl bag 250 ML IV SCH (16:15)
--- NOTE | 2022-02-23 16:22 | NUR ---
started on esmolol, no bolus per Dr. Brian.
[2022-02-23] MEDS ORDERED: morphine 4 MG/ML inj SYRINge IV ONE (16:30)
--- NOTE | 2022-02-23 17:09 | NUR ---
Left arm bp 163/114 hr 78 saturation 97% right arm Bp 188/120 hr 86 saturation 97%
--- NOTE | 2022-02-23 17:21 | NUR ---
Change esmolol rate to 300mcg/kg/min.Bp 179/117 hr 77 paced at this time,pt erquesting prn for pain. aware.
--- NOTE | 2022-02-23 17:31 | NUR ---
Paged Group pager hospitalist,pt requesting prn for anxiety.
[2022-02-23] MEDS ORDERED: morphine 10mg/ml inj. IV ONE (17:35)
[2022-02-23] MEDS: niCARDipine-NS 40mg/200ml IVPB 200 ML IV SCH (17:50)
--- NOTE | 2022-02-23 17:57 | NUR ---
started on nicardipine.esmolol dcd by .
[2022-02-23] MEDS ORDERED: magnesium 2GM in 50ml NS 50 ML IV PRN (20:30)
[2022-02-23] MEDS ORDERED: acetaminophen 325mg tablet PO PRN ×2 (20:30)
[2022-02-23] MEDS ORDERED: potassium CL 10mEq/100ml bag 100 ML IV PRN (20:30)
[2022-02-23] MEDS ORDERED: POTASSIUM BICARB 20meq eff tab 20 MEQ TABLET.EFF PO PRN ×2 (20:30)
[2022-02-23] MEDS ORDERED: magnesium Cl slow-release 64mg tablet PO PRN (20:30)
[2022-02-23] MEDS ORDERED: magnesium 4gm in 100ml NS 100 ML IV PRN (20:30)
[2022-02-23] MEDS ORDERED: albuterol 2.5 MG/3 ML nebule NEB PRN (20:35)
[2022-02-23] MEDS ORDERED: dextrose 50%-water 50ml dispensing syringe IV PRN ×2 (20:40)
[2022-02-23] MEDS ORDERED: MESSAGE TO PHARMACY PO ONE (20:40)
[2022-02-23] MEDS ORDERED: insulin Lispro (HumaLOG) vial - multi-dose SQ SCH (20:40)
[2022-02-23] MEDS ORDERED: DEXTROSE 15 GM of carb/4 tabs (each vial/BOTTLE has 4 tablets) PO PRN ×2 (20:40)
[2022-02-23] MEDS ORDERED: glucagon, human recombinant 1mg kit SUBCUT PRN (20:40)
[2022-02-23] MEDS ORDERED: temazepam 15mg capsule PO PRN (21:00)
[2022-02-23] MEDS: insulin glargine (Lantus) pen - multi-dose SQ SCH (21:00)
[2022-02-23] MEDS ORDERED: FURO-150 PO (21:36)
[2022-02-23] MEDS ORDERED: ALBU6.7H14 INH (22:10)
[2022-02-23] MEDS: ondansetron/PF 4mg/2ml inj IV PRN (22:49)
[2022-02-23] MEDS: morphine 2 MG/ML inj. syringe IV PRN (22:49)
[2022-02-23] MEDS ORDERED: traZODone 50mg tablet PO PRN (23:55)
[2022-02-23] MEDS ORDERED: tamsulosin 0.4mg capsule PO SCH (23:55)
[2022-02-24] MEDS: niCARDipine-NS 40mg/200ml IVPB 200 ML IV SCH ×2 (01:35→09:35)
--- NOTE | 2022-02-24 05:23 | NUR ---
Patient sat at bedside to use the urinal, HR rodríguez to 170 and returned to 130.. Patient c/o of slightly worsening chest pain. Call to Magu, ordered single troponin, no other orders at this time.
--- NOTE | 2022-02-24 05:30 | NUR ---
After patient used the urinal and laid back down, IV stopped working. New IV established with use of ultrasound.
[2022-02-24] MEDS: morphine 2 MG/ML inj. syringe IV PRN ×2 (05:33→09:31)
[2022-02-24] MEDS: ondansetron/PF 4mg/2ml inj IV PRN (05:33)
[2022-02-24 06:39] LABS: ALANINE AMINOTRANSFERASE 18 U/L (12-78); ALBUMIN 3.1 G/DL (3.4-5.0); ALKALINE PHOSPHATASE 62 IU/L (46-116); ANION GAP 4 (8-16); ASPARTATE AMINO TRANSFERASE 10 U/L (10-37); BLOOD UREA NITROGEN 10 MG/DL (7-18); BUN/CREATININE RATIO 10.9 (5.4-32.0); CALCIUM 8.5 MG/DL (8.5-10.1); CHLORIDE 104 MMOL/L (99-107); CREATININE 0.92 MG/DL (0.60-1.10); GLUCOSE 101 MG/DL (70-104); POTASSIUM 3.9 MMOL/L (3.5-5.1); SODIUM 141 MMOL/L (135-145); TOTAL CARBON DIOXIDE 33.1 MMOL/L (24-32); TOTAL PROTEIN 6.3 G/DL (6.4-8.2); eGFR 84 ML/MIN
--- NOTE | 2022-02-24 07:05 | NUR ---
Pt BP with two consecutive BP under 100 systolic. Titrated down to 2.5mg/hr
--- NOTE | 2022-02-24 07:37 | NUR ---
BP 93/70, Nicardipine held. Oxygen increased to 4L as pt is desatting while asleep.
--- NOTE | 2022-02-24 07:43 | NUR ---
Spoke to Hospitalist, Dr. Brian regarding pt's case. Per Dr. Gonsalez(ID) pt no longer needs COVID isolation as he had active COVID 16 days ago. Also made hospitalist aware of pt's BP and a-fib RVR. Order to hold PO amiodarone; and gtt to be initiated. Keep nicardipine held pending BP.
[2022-02-24] MEDS ORDERED: amiodarone 150mg/dext, iso-os 100 ML IV ONE (07:45)
[2022-02-24] MEDS: K and/or MAG REPLACEMENT MC SCH ×2 (08:00→20:00)
[2022-02-24] MEDS ORDERED: amiodarone 100mg tablet PO SCH (08:00)
[2022-02-24] MEDS ORDERED: rivaroxaban 10mg tablet PO SCH (08:00)
[2022-02-24 08:45] LABS: BASOPHILS % (AUTO) 0.2 % (0-1); EOSINOPHILS % (AUTO) 0.4 % (0-6); HEMATOCRIT 40.2 % (42.0-52.0); HEMOGLOBIN 13.7 g/dl (14.0-17.9); LYMPHOCYTES # (AUTO) 1.2 X10'3 (1.1-4.8); MEAN CORPUSCULAR HEMOGLOBIN 30.8 PG (27.0-31.0); MEAN CORPUSCULAR HGB CONC 34.1 g/dL (33.0-36.5); MEAN CORPUSCULAR VOLUME 90.5 FL (78-98); MEAN PLATELET VOLUME 7.8 FL (7.4-10.4); MONOCYTES # (AUTO) 0.6 X10'3 (0-0.9); MONOCYTES % (AUTO) 8.3 % (2-12); NEUTROPHILS # (AUTO) 5.4 X10'3 (1.8-7.7); NEUTROPHILS % (AUTO) 75.1 % (42-75); PLATELET COUNT 98 X10'3 (140-440); RED BLOOD COUNT 4.44 X10'6 (4.70-6.10); RED CELL DISTRIBUTION WIDTH 15.6 % (11.5-14.5); WHITE BLOOD COUNT 7.3 X10'3 (4.5-11.0)
--- NOTE | 2022-02-24 08:50 | NUR ---
Amiodarone and nicardipine IV Y-site compatible per [employer].
[2022-02-24] MEDS: amiodarone/D5 360MG/200ML BAG 200 ML IV SCH ×2 (09:22→15:12)
[2022-02-24] MEDS: pantoprazole 40mg Tablet.DR PO SCH (09:33)
[2022-02-24] MEDS: metoprolol tartrate 50mg tablet PO SCH ×2 (09:34→21:11)
[2022-02-24] MEDS: ESCITALOPRAM OXALATE 5 MG TABLET PO SCH (09:34)
[2022-02-24] MEDS: atorvastatin 20mg tablet PO SCH (09:35)
[2022-02-24] MEDS: pregabalin 75mg capsule PO SCH ×2 (09:35→21:09)
[2022-02-24] MEDS: methadone 10mg tablet PO SCH ×2 (10:12→21:12)
--- NOTE | 2022-02-24 10:30 | NUR ---
BEDSIDE ECHO BEING DONE @ BEDSIDE BY TECH. PATIENT PLACED ON HOSPITAL BED EARLIER D/T BACK DISCOMFORT ON GURNEY. AWAITING IP ROOM ASSIGNMENT
--- NOTE | 2022-02-24 14:02 | NUR ---
Spoke to hospitalist regarding ecchymosis to B/L upper arms. Telephone order obtained for DIC panel and PT INR.
[2022-02-24] MEDS ORDERED: ondansetron 4mg rapidly disintigrating tab PO PRN (14:20)
[2022-02-24 14:50] VITALS: BP 100/58
[2022-02-24 15:23] LABS: PLATELET COUNT 102 X10'3 (140-440)
[2022-02-24 15:32] LABS: APTT 28 SECONDS (22-32); D-DIMER 0.68 MG/L FEU (0-0.50)
[2022-02-24 16:00] VITALS: BP 85/70
[2022-02-24 18:00] VITALS: BP 115/81
--- NOTE | 2022-02-24 18:00 | NUR ---
Patient in room PCU 3026. I have received report from Vonda LEACH and had the opportunity to ask questions and assume patient care.
[2022-02-24] MEDS: insulin glargine (Lantus) pen - multi-dose SQ SCH (21:00)
[2022-02-24] MEDS: risperiDONE 2mg tablet PO SCH (21:12)
[2022-02-24 22:00] VITALS: BP 112/78
[2022-02-25] MEDS: amiodarone/D5 360MG/200ML BAG 200 ML IV SCH (01:38)
[2022-02-25 02:00] VITALS: BP 115/76
[2022-02-25 06:00] VITALS: BP 115/71
[2022-02-25 06:30] VITALS: BP 101/67
[2022-02-25 06:35] LABS: BASOPHILS % (AUTO) 0.2 % (0-1); EOSINOPHILS # (AUTO) 0.1 X10'3 (0-0.9); EOSINOPHILS % (AUTO) 0.8 % (0-6); HEMATOCRIT 37.9 % (42.0-52.0); HEMOGLOBIN 12.7 g/dl (14.0-17.9); LYMPHOCYTES # (AUTO) 1.4 X10'3 (1.1-4.8); MEAN CORPUSCULAR HEMOGLOBIN 30.7 PG (27.0-31.0); MEAN CORPUSCULAR HGB CONC 33.5 g/dL (33.0-36.5); MEAN CORPUSCULAR VOLUME 91.6 FL (78-98); MEAN PLATELET VOLUME 7.8 FL (7.4-10.4); MONOCYTES # (AUTO) 0.6 X10'3 (0-0.9); MONOCYTES % (AUTO) 8.5 % (2-12); NEUTROPHILS # (AUTO) 4.5 X10'3 (1.8-7.7); NEUTROPHILS % (AUTO) 68.5 % (42-75); PLATELET COUNT 86 X10'3 (140-440); RED BLOOD COUNT 4.13 X10'6 (4.70-6.10); RED CELL DISTRIBUTION WIDTH 15.7 % (11.5-14.5); WHITE BLOOD COUNT 6.5 X10'3 (4.5-11.0)
[2022-02-25 06:52] LABS: ALANINE AMINOTRANSFERASE 15 U/L (12-78); ALBUMIN 2.6 G/DL (3.4-5.0); ALBUMIN/GLOBULIN RATIO 0.8 (1.1-1.5); ALKALINE PHOSPHATASE 51 IU/L (46-116); ANION GAP 3 (8-16); ASPARTATE AMINO TRANSFERASE 13 U/L (10-37); BILIRUBIN,TOTAL 0.7 MG/DL (0.1-1.0); BLOOD UREA NITROGEN 11 MG/DL (7-18); BUN/CREATININE RATIO 12.6 (5.4-32.0); CALCIUM 8.1 MG/DL (8.5-10.1); CHLORIDE 107 MMOL/L (99-107); CREATININE 0.87 MG/DL (0.60-1.10); GLUCOSE 94 MG/DL (70-104); POTASSIUM 4.2 MMOL/L (3.5-5.1); SODIUM 143 MMOL/L (135-145); TOTAL CARBON DIOXIDE 32.8 MMOL/L (24-32); TOTAL PROTEIN 5.7 G/DL (6.4-8.2); eGFR 90 ML/MIN
--- NOTE | 2022-02-25 07:21 | NUR ---
Problems reprioritized. Patient report given, questions answered & plan of care reviewed with Lala LEACH.
[2022-02-25] MEDS: K and/or MAG REPLACEMENT MC SCH (08:00)
[2022-02-25 08:30] VITALS: BP 124/99
[2022-02-25] MEDS ORDERED: ipratropium/albuterol 3ml nebule NEB PRN (09:40)
[2022-02-25] MEDS ORDERED: albuterol 2.5 MG/3 ML nebule NEB PRN (09:40)
[2022-02-25] MEDS: nicotine 14mg patch - 24hr TD SCH (10:21)
[2022-02-25] MEDS: HYDROcodone/acetaminophen 5mg/325mg tablet PO PRN ×2 (10:22→18:51)
[2022-02-25] MEDS: atorvastatin 20mg tablet PO SCH (10:22)
[2022-02-25] MEDS: pregabalin 75mg capsule PO SCH ×2 (10:23→23:23)
[2022-02-25] MEDS: ESCITALOPRAM OXALATE 5 MG TABLET PO SCH (10:23)
[2022-02-25] MEDS: amiodarone 200mg tablet PO SCH ×2 (10:23→21:36)
[2022-02-25] MEDS: metoprolol tartrate 50mg tablet PO SCH ×2 (10:24→21:40)
[2022-02-25] MEDS: pantoprazole 40mg Tablet.DR PO SCH (10:24)
[2022-02-25] MEDS: rivaroxaban 10mg tablet PO SCH (10:25)
[2022-02-25 11:13] VITALS: BP 137/85
[2022-02-25] MEDS: methadone 10mg tablet PO SCH ×2 (11:18→21:40)
[2022-02-25] MEDS: methylPREDNISolone sod succ 125mg/2ml vial IV SCH ×2 (14:10→23:26)
[2022-02-25 15:45] VITALS: BP 91/65
--- NOTE | 2022-02-25 18:30 | NUR ---
Problems reprioritized. Patient report given, questions answered & plan of care reviewed with HANY Pabon.
[2022-02-25] MEDS: insulin glargine (Lantus) pen - multi-dose SQ SCH (21:00)
[2022-02-25] MEDS: risperiDONE 2mg tablet PO SCH (23:23)
[2022-02-26 06:00] VITALS: BP 129/70
[2022-02-26] MEDS: nicotine 14mg patch - 24hr TD SCH (07:26)
[2022-02-26] MEDS: pregabalin 75mg capsule PO SCH (07:28)
[2022-02-26] MEDS: methylPREDNISolone sod succ 125mg/2ml vial IV SCH (07:28)
[2022-02-26] MEDS: atorvastatin 20mg tablet PO SCH (07:28)
[2022-02-26] MEDS: amiodarone 200mg tablet PO SCH (07:28)
[2022-02-26] MEDS: methadone 10mg tablet PO SCH (07:28)
[2022-02-26 07:32] VITALS: BP_SYST 137
[2022-02-26] MEDS: metoprolol tartrate 50mg tablet PO SCH (07:32)
[2022-02-26] MEDS: ESCITALOPRAM OXALATE 5 MG TABLET PO SCH (07:32)
[2022-02-26] MEDS: pantoprazole 40mg Tablet.DR PO SCH (07:32)
[2022-02-26] MEDS: rivaroxaban 10mg tablet PO SCH (07:32)
[2022-02-26 08:12] LABS: BASOPHILS % (AUTO) 0 % (0-1); EOSINOPHILS % (AUTO) 0 % (0-6); HEMATOCRIT 37.7 % (42.0-52.0); HEMOGLOBIN 12.7 g/dl (14.0-17.9); LYMPHOCYTES # (AUTO) 0.7 X10'3 (1.1-4.8); LYMPHOCYTES % (AUTO) 9.4 % (21-51); MEAN CORPUSCULAR HGB CONC 33.8 g/dL (33.0-36.5); MEAN CORPUSCULAR VOLUME 91.9 FL (78-98); MEAN PLATELET VOLUME 8.5 FL (7.4-10.4); MONOCYTES # (AUTO) 0.3 X10'3 (0-0.9); MONOCYTES % (AUTO) 3.8 % (2-12); NEUTROPHILS # (AUTO) 6.7 X10'3 (1.8-7.7); NEUTROPHILS % (AUTO) 86.8 % (42-75); PLATELET COUNT 100 X10'3 (140-440); RED BLOOD COUNT 4.11 X10'6 (4.70-6.10); RED CELL DISTRIBUTION WIDTH 15.5 % (11.5-14.5); WHITE BLOOD COUNT 7.7 X10'3 (4.5-11.0)
[2022-02-26 08:26] LABS: ALANINE AMINOTRANSFERASE 15 U/L (12-78); ALBUMIN 2.7 G/DL (3.4-5.0); ALBUMIN/GLOBULIN RATIO 0.8 (1.1-1.5); ALKALINE PHOSPHATASE 54 IU/L (46-116); ANION GAP 3 (8-16); ASPARTATE AMINO TRANSFERASE 13 U/L (10-37); BILIRUBIN,TOTAL 0.7 MG/DL (0.1-1.0); BLOOD UREA NITROGEN 15 MG/DL (7-18); BUN/CREATININE RATIO 16.5 (5.4-32.0); CALCIUM 8.7 MG/DL (8.5-10.1); CHLORIDE 107 MMOL/L (99-107); CREATININE 0.91 MG/DL (0.60-1.10); GLUCOSE 168 MG/DL (70-104); POTASSIUM 4.7 MMOL/L (3.5-5.1); SODIUM 142 MMOL/L (135-145); TOTAL CARBON DIOXIDE 31.8 MMOL/L (24-32); TOTAL PROTEIN 6.3 G/DL (6.4-8.2); eGFR 85 ML/MIN
[2022-02-26] MEDS ORDERED: AMIO200T67 PO (10:56)
[2022-02-26] MEDS ORDERED: NICO-631 TD (10:56)
[2022-02-26] MEDS: HYDROcodone/acetaminophen 5mg/325mg tablet PO PRN (11:56)
--- NOTE | 2022-02-26 15:29 | NUR ---
Discharge: met by Brother for transportation home and also to [facility] pharmacy to berry picker discharge medications. Patient is stable he has all of his belongings. Written instructions are provided, family support is available, and he does have a personal service workers to assist with ADL.
== END 2022-02-26 14:45 | disposition home health service (06) | DRG 197 ==
LOC: ER 09:02 → ED HOLD 20:33 → PCU 3S 02-24 14:55
PROVIDERS: ADMIT Internal Medicine; ATTEND Family Medicine
PROC: XW033H6 Introduction of Other New Technology Monoclonal Antibody into Peripheral Vein, Percutaneous Approach, New Technology Group 6 (ICD-10-PCS; principal; 2022-02-23)
PROC: B32T1ZZ Computerized Tomography (CT Scan) of Left Pulmonary Artery using Low Osmolar Contrast (ICD-10-PCS; 2022-02-23)
PROC: B3201ZZ Computerized Tomography (CT Scan) of Thoracic Aorta using Low Osmolar Contrast (ICD-10-PCS; 2022-02-23)
PROC: B32S1ZZ Computerized Tomography (CT Scan) of Right Pulmonary Artery using Low Osmolar Contrast (ICD-10-PCS; 2022-02-23)
DX: I71.01 Dissection of thoracic aorta (principal); U07.1 COVID-19; D69.6 Thrombocytopenia, unspecified; J96.10 Chronic respiratory failure, unspecified whether with hypoxia or hypercapnia; E11.22 Type 2 diabetes mellitus with diabetic chronic kidney disease; I50.9 Heart failure, unspecified; I13.0 Hypertensive heart and chronic kidney disease with heart failure and stage 1 through stage 4 chronic kidney disease, or unspecified chronic kidney disease; G40.909 Epilepsy, unspecified, not intractable, without status epilepticus; I48.20 Chronic atrial fibrillation, unspecified; B19.20 Unspecified viral hepatitis C without hepatic coma; E66.9 Obesity, unspecified; E78.5 Hyperlipidemia, unspecified; F17.210 Nicotine dependence, cigarettes, uncomplicated; F31.9 Bipolar disorder, unspecified; G89.4 Chronic pain syndrome; I16.9 Hypertensive crisis, unspecified; F11.90 Opioid use, unspecified, uncomplicated; I25.10 Atherosclerotic heart disease of native coronary artery without angina pectoris; M54.9 Dorsalgia, unspecified; J44.9 Chronic obstructive pulmonary disease, unspecified; N18.9 Chronic kidney disease, unspecified; Z78.9 Other specified health status; Z79.01 Long term (current) use of anticoagulants; Z79.84 Long term (current) use of oral hypoglycemic drugs; Z79.899 Other long term (current) drug therapy; Z86.73 Personal history of transient ischemic attack (TIA), and cerebral infarction without residual deficits; Z87.01 Personal history of pneumonia (recurrent); Z91.19 Patient's noncompliance with other medical treatment and regimen; Z95.0 Presence of cardiac pacemaker; Z88.8 Allergy status to other drugs, medicaments and biological substances; Z68.38 Body mass index [BMI] 38.0-38.9, adult; Z71.6 Tobacco abuse counseling
CPT/HCPCS: 36415; 71045; 71275; 80053; 82948; 83880; 84484; 85025; 85379; 85384; 85610; 85730; 87502; 87503; 87635; 93306; 94760; 97161; 97530; 99285; A4615; A6213; C9803; G0378; J0282; J1815; J2270; J2274; J2405; J2930; J3490; Q0222; Q9967

== ENCOUNTER 2022-02-28 13:37 | Emergency (ER) | payer MEDICAID ==
[~2022-02-28] VITALS: Ht 177.8 cm; Wt 118.2 kg
[~2022-02-28 13:37] MED LIST changes: -ALBU6.7H14 IH; +ALBU6.7H14 INH; -AMIO100T4 PO; +AMIO200T67 PO; -DEC4T PO; +NICO-631 TD
[2022-02-28] MEDS ORDERED: iohexol 350MG/ML 100ml bottle IV ONE (14:14)
[2022-02-28 14:16] LABS: BASOPHILS % (AUTO) 0.3 % (0-1); EOSINOPHILS % (AUTO) 0.9 % (0-6); HEMATOCRIT 38.4 % (42.0-52.0); HEMOGLOBIN 12.6 g/dl (14.0-17.9); LYMPHOCYTES # (AUTO) 1.4 X10'3 (1.1-4.8); LYMPHOCYTES % (AUTO) 28.1 % (21-51); MEAN CORPUSCULAR HEMOGLOBIN 30.6 PG (27.0-31.0); MEAN CORPUSCULAR HGB CONC 32.9 g/dL (33.0-36.5); MEAN CORPUSCULAR VOLUME 92.8 FL (78-98); MEAN PLATELET VOLUME 8.1 FL (7.4-10.4); MONOCYTES # (AUTO) 0.4 X10'3 (0-0.9); MONOCYTES % (AUTO) 8.1 % (2-12); NEUTROPHILS # (AUTO) 3.2 X10'3 (1.8-7.7); NEUTROPHILS % (AUTO) 62.6 % (42-75); PLATELET COUNT 100 X10'3 (140-440); RED BLOOD COUNT 4.14 X10'6 (4.70-6.10); RED CELL DISTRIBUTION WIDTH 16.3 % (11.5-14.5); WHITE BLOOD COUNT 5.1 X10'3 (4.5-11.0)
--- NOTE | 2022-02-28 14:23 | NUR ---
Pt left ED for CT, offered apple juice due to having blood glucose 87
[2022-02-28] MEDS ORDERED: normal saline 1000ML IV soln IVB ONE (14:25)
[2022-02-28 14:33] LABS: ALANINE AMINOTRANSFERASE 26 U/L (12-78); ALBUMIN 2.6 G/DL (3.4-5.0); ALBUMIN/GLOBULIN RATIO 0.8 (1.1-1.5); ALKALINE PHOSPHATASE 58 IU/L (46-116); ANION GAP 8 (8-16); ASPARTATE AMINO TRANSFERASE 15 U/L (10-37); BILIRUBIN,TOTAL 0.4 MG/DL (0.1-1.0); BLOOD UREA NITROGEN 15 MG/DL (7-18); BUN/CREATININE RATIO 13.3 (5.4-32.0); CALCIUM 8.4 MG/DL (8.5-10.1); CHLORIDE 103 MMOL/L (99-107); CREATININE 1.13 MG/DL (0.60-1.10); GLUCOSE 123 MG/DL (70-104); POTASSIUM 3.7 MMOL/L (3.5-5.1); SODIUM 141 MMOL/L (135-145); TOTAL CARBON DIOXIDE 29.6 MMOL/L (24-32); TOTAL PROTEIN 5.8 G/DL (6.4-8.2); eGFR 66 ML/MIN
[2022-02-28] MEDS ORDERED: MESSAGE TO NURSING PO NR ×2 (14:35)
[2022-02-28 16:50] VITALS: BP 126/67
== END 2022-02-28 16:51 | disposition home or self-care (01) ==
LOC: ER 13:37
DX: R07.9 Chest pain, unspecified (principal); I11.0 Hypertensive heart disease with heart failure; F12.10 Cannabis abuse, uncomplicated; F31.9 Bipolar disorder, unspecified; F17.200 Nicotine dependence, unspecified, uncomplicated; J44.9 Chronic obstructive pulmonary disease, unspecified; Z88.6 Allergy status to analgesic agent; Z79.899 Other long term (current) drug therapy
CPT/HCPCS: 36415; 71045; 71275; 74174; 80053; 82948; 83880; 84145; 84484; 85025; 86885; 86900; 86901; 93005; 96360; 99285; J3490; J7030; Q9967

== ENCOUNTER 2023-05-16 22:25 | Inpatient (IN) | payer MEDICAID ==
[~2023-05-16] VITALS: Ht 177.8 cm; Wt 130.2 kg
[~2023-05-16 22:25] MED LIST changes: -PREG150C46 PO; +PREG150C47 PO
[2023-05-16] MEDS ORDERED: acetaminophen 325mg tablet PO ONE (22:40)
[2023-05-16] MEDS ORDERED: acetaminophen 1,000mg/100ml IV 100 ML IV ONE (23:15)
[2023-05-16] MEDS ORDERED: CefTRIAXone/D5W-Rocephin 1gm 50 ML IV ONE (23:15)
[2023-05-16] MEDS ORDERED: normal saline 1000ML IV soln IVB ONE (23:15)
[2023-05-16 23:44] LABS: BASOPHILS # (AUTO) 0.1 X10'3 (0-0.2); BASOPHILS % (AUTO) 1.3 % (0-1); EOSINOPHILS % (AUTO) 0.2 % (0-6); HEMOGLOBIN 13.9 g/dl (14.0-17.9); LYMPHOCYTES # (AUTO) 0.5 X10'3 (1.1-4.8); LYMPHOCYTES % (AUTO) 4.8 % (21-51); MEAN CORPUSCULAR HEMOGLOBIN 31.3 PG (27.0-31.0); MEAN CORPUSCULAR HGB CONC 33.1 g/dL (33.0-36.5); MEAN CORPUSCULAR VOLUME 94.7 FL (78-98); MEAN PLATELET VOLUME 8.5 FL (7.4-10.4); MONOCYTES # (AUTO) 0.5 X10'3 (0-0.9); MONOCYTES % (AUTO) 4.6 % (2-12); NEUTROPHILS # (AUTO) 10.1 X10'3 (1.8-7.7); NEUTROPHILS % (AUTO) 89.1 % (42-75); PLATELET COUNT 162 X10'3 (140-440); RED BLOOD COUNT 4.43 X10'6 (4.70-6.10); RED CELL DISTRIBUTION WIDTH 14.2 % (11.5-14.5); WHITE BLOOD COUNT 11.4 X10'3 (4.5-11.0)
[2023-05-16 23:57] LABS: ALANINE AMINOTRANSFERASE 18 U/L (12-78); ALBUMIN 3.5 G/DL (3.4-5.0); ALBUMIN/GLOBULIN RATIO 0.9 (1.1-1.5); ALKALINE PHOSPHATASE 102 IU/L (46-116); ANION GAP 7 (8-16); ASPARTATE AMINO TRANSFERASE 20 U/L (10-37); BILIRUBIN,TOTAL 0.5 MG/DL (0.1-1.0); BLOOD UREA NITROGEN 19 MG/DL (7-18); BUN/CREATININE RATIO 13.2 (10.0-20.0); CALCIUM 7.8 MG/DL (8.5-10.1); CHLORIDE 101 MMOL/L (99-107); CREATININE 1.44 MG/DL (0.60-1.10); GLUCOSE 154 MG/DL (70-104); POTASSIUM 4.3 MMOL/L (3.5-5.1); SODIUM 137 MMOL/L (135-145); TOTAL CARBON DIOXIDE 28.8 MMOL/L (24-32); TOTAL PROTEIN 7.2 G/DL (6.4-8.2); eCRCL 56 ML/MIN; eGFR 50 ML/MIN
[2023-05-17 00:06] LABS: PRO BRAIN NATRIURETIC PEPTIDE 298 PG/ML (0-125)
[2023-05-17 00:47] LABS: BILIRUBIN,URINE NEGATIVE (Neg); COLOR,URINE YELLOW (Yellow); GLUCOSE, URINE NEGATIVE (Neg); KETONES,URINE TRACE mg/dl (Neg); LEUKOCYTE ESTERASE ,URINE NEGATIVE (Neg); NITRITES, URINE NEGATIVE (Neg); OCCULT BLOOD,URINE NEGATIVE (Neg); PH,URINE 5.5 (4.8-8.0); PROTEIN,URINE NEGATIVE (Neg); UROBILINOGEN,URINE 0.2 E.U/dL (0.2-1.0)
[2023-05-17 00:50] LABS: UA COLLECTION TYPE CLN CATCH MIDSTREAM
[2023-05-17 00:53] LABS: CLARITY,URINE SLIGHTLY CLOUDY (Clear)
[2023-05-17 00:56] LABS: BACTERIA,URINE NONE SEEN /HPF (Neg); RBC,URINE 0-2 /HPF (0-2); SQUAMOUS EPITHELIAL CELL,UR FEW /LPF (FEW); TRANSITIONAL EPI CELLS,URINE FEW /HPF; WBC,URINE 0-4 /HPF (0-4)
[2023-05-17 00:57] LABS: URIC ACID CRYSTALS FEW /HPF (NEGATIVE)
[2023-05-17] MEDS ORDERED: magnesium hydroxide 30ml (MOM) UD suspension PO PRN (03:10)
[2023-05-17] MEDS ORDERED: mag hydrox/Alum hydrox/simeth 30ml oral suspension PO PRN (03:10)
[2023-05-17] MEDS ORDERED: acetaminophen 650mg rectal suppository RC PRN (03:10)
[2023-05-17] MEDS ORDERED: diphenhydrAMINE 50 mg/ml inj IV PRN (03:10)
[2023-05-17] MEDS ORDERED: ondansetron 4mg rapidly disintigrating tab PO PRN (03:10)
[2023-05-17] MEDS ORDERED: bisacodyl 10mg suppository rectal RC PRN (03:10)
[2023-05-17] MEDS ORDERED: HYDROcodone/acetaminophen 5mg/325mg tablet PO PRN (03:10)
[2023-05-17] MEDS ORDERED: morphine 2 MG/ML inj. syringe IV PRN (03:10)
[2023-05-17] MEDS ORDERED: diphenhydrAMINE 25mg capsule PO PRN (03:10)
[2023-05-17] MEDS ORDERED: ondansetron/PF 4mg/2ml inj IV PRN (03:10)
[2023-05-17] MEDS ORDERED: ipratropium/albuterol 3ml nebule NEB PRN (03:10)
[2023-05-17] MEDS ORDERED: acetaminophen 325mg tablet PO PRN ×2 (03:10)
[2023-05-17] MEDS ORDERED: insulin Lispro (HumaLOG) vial - multi-dose SQ SCH (03:15)
[2023-05-17] MEDS ORDERED: glucagon, human recombinant 1mg kit SUBCUT PRN (03:15)
[2023-05-17] MEDS ORDERED: DEXTROSE 15 GM of carb/4 tabs (each vial/BOTTLE has 4 tablets) PO PRN ×2 (03:15)
[2023-05-17] MEDS ORDERED: dextrose 50%-water 50ml dispensing syringe IV PRN ×2 (03:15)
[2023-05-17] MEDS ORDERED: MESSAGE TO PHARMACY PO ONE (03:15)
[2023-05-17 03:34] LABS: APTT 31 SECONDS (22-32); D-DIMER 0.72 MG/L FEU (0-0.50); PROTHROMBIN TIME 10.9 SECONDS (9.0-12.0)
[2023-05-17 03:42] LABS: MAGNESIUM 1.6 MG/DL (1.5-2.4); PHOSPHORUS 2.3 MG/DL (2.3-4.5)
[2023-05-17 03:54] VITALS: PULSE 70; RESP 16; O2SAT 96
[2023-05-17] MEDS: normal saline 1000ml 1,000 ML IV SCH ×2 (04:00→13:22)
[2023-05-17] MEDS: docusate sod 100mg capsule PO SCH ×2 (07:23→20:00)
[2023-05-17] MEDS: CefTRIAXone/D5W-Rocephin 1gm 50 ML IV SCH (07:24)
[2023-05-17] MEDS: pantoprazole 40mg Tablet.DR PO SCH (07:24)
[2023-05-17] MEDS: azithromycin/NS 500mg/250ml 250 ML IV SCH (10:36)
[2023-05-17 20:59] VITALS: PULSE 70; RESP 16; O2SAT 92
[2023-05-17] MEDS ORDERED: insulin glargine (Lantus) pen - multi-dose SQ SCH (21:00)
[2023-05-17] MEDS ORDERED: temazepam 15mg capsule PO PRN (21:00)
[2023-05-18] MEDS: normal saline 1000ml 1,000 ML IV SCH (04:44)
[2023-05-18 06:42] VITALS: BP 144/97; PULSE 72; RESP 15; TEMP 98.6; O2SAT 96
[2023-05-18] MEDS: azithromycin/NS 500mg/250ml 250 ML IV SCH (08:00)
[2023-05-18] MEDS: CefTRIAXone/D5W-Rocephin 1gm 50 ML IV SCH (08:00)
[2023-05-18] MEDS: docusate sod 100mg capsule PO SCH (08:00)
[2023-05-18 09:00] LABS: BASOPHILS % (AUTO) 0.3 % (0-1); EOSINOPHILS # (AUTO) 0.1 X10'3 (0-0.9); EOSINOPHILS % (AUTO) 1.4 % (0-6); HEMATOCRIT 40.2 % (42.0-52.0); HEMOGLOBIN 13.1 g/dl (14.0-17.9); LYMPHOCYTES # (AUTO) 1.8 X10'3 (1.1-4.8); LYMPHOCYTES % (AUTO) 33.8 % (21-51); MEAN CORPUSCULAR HGB CONC 32.7 g/dL (33.0-36.5); MEAN CORPUSCULAR VOLUME 94.9 FL (78-98); MEAN PLATELET VOLUME 8.2 FL (7.4-10.4); MONOCYTES # (AUTO) 0.5 X10'3 (0-0.9); MONOCYTES % (AUTO) 9.2 % (2-12); NEUTROPHILS # (AUTO) 2.9 X10'3 (1.8-7.7); NEUTROPHILS % (AUTO) 55.3 % (42-75); PLATELET COUNT 130 X10'3 (140-440); RED BLOOD COUNT 4.24 X10'6 (4.70-6.10); RED CELL DISTRIBUTION WIDTH 14.2 % (11.5-14.5); WHITE BLOOD COUNT 5.3 X10'3 (4.5-11.0)
[2023-05-18 09:13] LABS: ALBUMIN 3.1 G/DL (3.4-5.0); ANION GAP 8 (8-16); BLOOD UREA NITROGEN 10 MG/DL (7-18); BUN/CREATININE RATIO 9.8 (10.0-20.0); CALCIUM 8.9 MG/DL (8.5-10.1); CHLORIDE 106 MMOL/L (99-107); CREATININE 1.02 MG/DL (0.60-1.10); GLUCOSE 94 MG/DL (70-104); POTASSIUM 3.9 MMOL/L (3.5-5.1); SODIUM 141 MMOL/L (135-145); TOTAL CARBON DIOXIDE 27.4 MMOL/L (24-32); eCRCL 79 ML/MIN; eGFR 74 ML/MIN
[2023-05-18] MEDS ORDERED: LEVO-65 PO (09:36)
[2023-05-18] MEDS: pantoprazole 40mg Tablet.DR PO SCH (09:48)
== END 2023-05-18 10:39 | disposition home or self-care (01) | DRG 194 ==
LOC: ER 22:26 → ED HOLD 05-17 03:14
PROVIDERS: ADMIT Family Medicine; ATTEND Internal Medicine
DX: I13.0 Hypertensive heart and chronic kidney disease with heart failure and stage 1 through stage 4 chronic kidney disease, or unspecified chronic kidney disease (principal); J96.01 Acute respiratory failure with hypoxia; N17.9 Acute kidney failure, unspecified; E86.1 Hypovolemia; E11.22 Type 2 diabetes mellitus with diabetic chronic kidney disease; I48.91 Unspecified atrial fibrillation; E11.65 Type 2 diabetes mellitus with hyperglycemia; B19.20 Unspecified viral hepatitis C without hepatic coma; I50.33 Acute on chronic diastolic (congestive) heart failure; E66.01 Morbid (severe) obesity due to excess calories; F20.9 Schizophrenia, unspecified; R82.4 Acetonuria; G89.4 Chronic pain syndrome; Z20.822 Contact with and (suspected) exposure to COVID-19; F32.A Depression, unspecified; N18.9 Chronic kidney disease, unspecified; Z79.899 Other long term (current) drug therapy; Z88.1 Allergy status to other antibiotic agents; Z79.01 Long term (current) use of anticoagulants; Z68.41 Body mass index [BMI] 40.0-44.9, adult; Z87.891 Personal history of nicotine dependence; Z79.891 Long term (current) use of opiate analgesic; Z86.73 Personal history of transient ischemic attack (TIA), and cerebral infarction without residual deficits; Z95.0 Presence of cardiac pacemaker
CPT/HCPCS: 36415; 71045; 74176; 80048; 80053; 81001; 82948; 83605; 83735; 83880; 84100; 84145; 84484; 85025; 85379; 85610; 85730; 87040; 87502; 87503; 87811; 94760; 96365; 96367; 99285; A4615; G0378; J0131; J0456; J0696; J1815; J7030

== ENCOUNTER 2023-11-04 17:53 | Emergency (ER) | payer MEDICAID ==
[~2023-11-04] VITALS: Ht 175.3 cm; Wt 131.4 kg
[~2023-11-04 17:53] MED LIST changes: -FURO-150 PO; -METF-516 PO; -PANT-47 PO
[2023-11-04 19:12] LABS: BASOPHILS % (AUTO) 0.3 % (0-1); EOSINOPHILS # (AUTO) 0.1 X10'3 (0-0.9); EOSINOPHILS % (AUTO) 1.3 % (0-6); HEMATOCRIT 37.3 % (42.0-52.0); HEMOGLOBIN 12.4 g/dl (14.0-17.9); LYMPHOCYTES % (AUTO) 24.8 % (21-51); MEAN CORPUSCULAR HEMOGLOBIN 31.4 PG (27.0-31.0); MEAN CORPUSCULAR HGB CONC 33.4 g/dL (33.0-36.5); MEAN PLATELET VOLUME 8.3 FL (7.4-10.4); MONOCYTES # (AUTO) 0.7 X10'3 (0-0.9); MONOCYTES % (AUTO) 8.3 % (2-12); NEUTROPHILS # (AUTO) 5.3 X10'3 (1.8-7.7); NEUTROPHILS % (AUTO) 65.3 % (42-75); PLATELET COUNT 175 X10'3 (140-440); RED BLOOD COUNT 3.97 X10'6 (4.70-6.10); RED CELL DISTRIBUTION WIDTH 14.6 % (11.5-14.5); WHITE BLOOD COUNT 8.1 X10'3 (4.5-11.0)
[2023-11-04 19:24] LABS: ALBUMIN 3.3 G/DL (3.4-5.0); ANION GAP 7 (8-16); BLOOD UREA NITROGEN 12 MG/DL (7-18); BUN/CREATININE RATIO 10.3 (10.0-20.0); CALCIUM 8.4 MG/DL (8.5-10.1); CHLORIDE 102 MMOL/L (99-107); CREATININE 1.17 MG/DL (0.60-1.10); GLUCOSE 117 MG/DL (70-104); POTASSIUM 4.3 MMOL/L (3.5-5.1); SODIUM 139 MMOL/L (135-145); TOTAL CARBON DIOXIDE 29.7 MMOL/L (24-32); eCRCL 66 ML/MIN; eGFR 63 ML/MIN
[2023-11-04] MEDS: ipratropium/albuterol 3ml nebule NEB ONE (19:40)
[2023-11-04] MEDS: DOXYCYCLINE 100MG CAPSULE PO STA (19:49)
[2023-11-04] MEDS: predniSONE 20 mg tablet PO ONE (19:49)
[2023-11-04] MEDS: amox tr/potassium clavulanate 875/125mg TAB PO ONE (19:50)
[2023-11-04 20:31] LABS: PRO BRAIN NATRIURETIC PEPTIDE 645 PG/ML (0-125)
[2023-11-04] MEDS ORDERED: DOXY-457 PO (20:36)
[2023-11-04] MEDS ORDERED: PRED20TA PO (20:36)
[2023-11-04] MEDS ORDERED: AMOX-117 PO (20:36)
[2023-11-04 20:43] LABS: BILIRUBIN,URINE NEGATIVE (Neg); CLARITY,URINE CLEAR (Clear); COLOR,URINE YELLOW (Yellow); GLUCOSE, URINE NEGATIVE (Neg); KETONES,URINE NEGATIVE (Neg); LEUKOCYTE ESTERASE ,URINE NEGATIVE (Neg); NITRITES, URINE NEGATIVE (Neg); OCCULT BLOOD,URINE NEGATIVE (Neg); PROTEIN,URINE NEGATIVE (Neg); UROBILINOGEN,URINE 0.2 E.U/dL (0.2-1.0)
[2023-11-04 20:55] LABS: UA COLLECTION TYPE CLN CATCH MIDSTREAM
[2023-11-04 21:28] VITALS: BP 158/77; PULSE 63; RESP 16; TEMP 97.7; O2SAT 98
== END 2023-11-04 21:30 | disposition home or self-care (01) ==
LOC: ER 17:54
DX: J18.9 Pneumonia, unspecified organism (principal); Z88.8 Allergy status to other drugs, medicaments and biological substances; Z86.73 Personal history of transient ischemic attack (TIA), and cerebral infarction without residual deficits; I48.91 Unspecified atrial fibrillation; I11.0 Hypertensive heart disease with heart failure; I50.9 Heart failure, unspecified; E11.9 Type 2 diabetes mellitus without complications; J45.909 Unspecified asthma, uncomplicated; J44.9 Chronic obstructive pulmonary disease, unspecified; F32.A Depression, unspecified; Z95.0 Presence of cardiac pacemaker; F12.90 Cannabis use, unspecified, uncomplicated
CPT/HCPCS: 36415; 71045; 80048; 81003; 83605; 83880; 84145; 84484; 85025; 87040; 93005; 99285; J7512

== ENCOUNTER 2023-12-13 11:58 | Emergency (ER) | payer MEDICAID ==
[~2023-12-13] VITALS: Ht 175.3 cm; Wt 127.3 kg
[2023-12-13 12:05] VITALS: TEMP 99
[2023-12-13 12:58] LABS: BASOPHILS % (AUTO) 0.3 % (0-1); EOSINOPHILS # (AUTO) 0.1 X10'3 (0-0.9); EOSINOPHILS % (AUTO) 0.6 % (0-6); HEMATOCRIT 41.2 % (42.0-52.0); HEMOGLOBIN 13.4 g/dl (14.0-17.9); LYMPHOCYTES # (AUTO) 1.7 X10'3 (1.1-4.8); MEAN CORPUSCULAR HEMOGLOBIN 30.4 PG (27.0-31.0); MEAN CORPUSCULAR HGB CONC 32.5 g/dL (33.0-36.5); MEAN CORPUSCULAR VOLUME 93.3 FL (78-98); MEAN PLATELET VOLUME 8.4 FL (7.4-10.4); MONOCYTES # (AUTO) 0.5 X10'3 (0-0.9); MONOCYTES % (AUTO) 5.7 % (2-12); NEUTROPHILS # (AUTO) 5.9 X10'3 (1.8-7.7); NEUTROPHILS % (AUTO) 72.4 % (42-75); PLATELET COUNT 183 X10'3 (140-440); RED BLOOD COUNT 4.41 X10'6 (4.70-6.10); RED CELL DISTRIBUTION WIDTH 14.3 % (11.5-14.5); WHITE BLOOD COUNT 8.1 X10'3 (4.5-11.0)
[2023-12-13] MEDS: methylPREDNISolone sod succ 125mg/2ml vial IV ONE (12:59)
[2023-12-13 13:13] LABS: ALANINE AMINOTRANSFERASE 25 U/L (12-78); ALBUMIN 3.7 G/DL (3.4-5.0); ALBUMIN/GLOBULIN RATIO 0.9 (1.1-1.5); ALKALINE PHOSPHATASE 105 IU/L (46-116); ANION GAP 9 (8-16); ASPARTATE AMINO TRANSFERASE 30 U/L (10-37); BILIRUBIN,TOTAL 0.6 MG/DL (0.1-1.0); BLOOD UREA NITROGEN 17 MG/DL (7-18); BUN/CREATININE RATIO 11.7 (10.0-20.0); CALCIUM 9.3 MG/DL (8.5-10.1); CHLORIDE 103 MMOL/L (99-107); CREATININE 1.45 MG/DL (0.60-1.10); GLUCOSE 132 MG/DL (70-104); POTASSIUM 5.4 MMOL/L (3.5-5.1); SODIUM 138 MMOL/L (135-145); TOTAL CARBON DIOXIDE 26.5 MMOL/L (24-32); TOTAL PROTEIN 7.6 G/DL (6.4-8.2); eCRCL 54 ML/MIN; eGFR 49 ML/MIN
[2023-12-13 13:20] LABS: BILIRUBIN,DIRECT 0.2 MG/DL (0-0.3); PRO BRAIN NATRIURETIC PEPTIDE 224 PG/ML (0-125)
[2023-12-13] MEDS: normal saline 500ml IV soln 500 ML IV SCH (13:47)
[2023-12-13 16:23] LABS: BILIRUBIN,URINE NEGATIVE (Neg); CLARITY,URINE SLIGHTLY CLOUDY (Clear); COLOR,URINE YELLOW (Yellow); GLUCOSE, URINE NEGATIVE (Neg); KETONES,URINE NEGATIVE (Neg); LEUKOCYTE ESTERASE ,URINE NEGATIVE (Neg); NITRITES, URINE NEGATIVE (Neg); OCCULT BLOOD,URINE NEGATIVE (Neg); PROTEIN,URINE NEGATIVE (Neg); UROBILINOGEN,URINE 0.2 E.U/dL (0.2-1.0)
[2023-12-13 16:32] LABS: SQUAMOUS EPITHELIAL CELL,UR MANY /LPF (FEW); UA COLLECTION TYPE CLN CATCH MIDSTREAM
[2023-12-13 16:33] LABS: BACTERIA,URINE 1+ /HPF (Neg); HYALINE CASTS 0-3 /LPF (NEGATIVE); RBC,URINE 0-2 /HPF (0-2); WBC,URINE 0-4 /HPF (0-4)
[2023-12-13 17:12] VITALS: BP 136/88; PULSE 84; RESP 14; O2SAT 96
== END 2023-12-13 17:25 | disposition home or self-care (01) ==
LOC: ER 11:58
DX: R53.1 Weakness (principal); R05.9 Cough, unspecified; R52 Pain, unspecified; J45.909 Unspecified asthma, uncomplicated; J44.9 Chronic obstructive pulmonary disease, unspecified; I13.0 Hypertensive heart and chronic kidney disease with heart failure and stage 1 through stage 4 chronic kidney disease, or unspecified chronic kidney disease; I50.9 Heart failure, unspecified; N18.9 Chronic kidney disease, unspecified; E11.9 Type 2 diabetes mellitus without complications; F32.A Depression, unspecified; F12.90 Cannabis use, unspecified, uncomplicated; I48.91 Unspecified atrial fibrillation; F15.90 Other stimulant use, unspecified, uncomplicated; R22.0 Localized swelling, mass and lump, head; Z20.822 Contact with and (suspected) exposure to COVID-19; Z88.8 Allergy status to other drugs, medicaments and biological substances; Z79.899 Other long term (current) drug therapy; Z86.73 Personal history of transient ischemic attack (TIA), and cerebral infarction without residual deficits; Z95.0 Presence of cardiac pacemaker; Z98.890 Other specified postprocedural states
CPT/HCPCS: 36415; 70450; 71045; 71250; 80048; 80076; 81001; 83605; 83880; 84145; 84484; 85025; 87040; 87811; 93005; 96374; 99285; J2919; J7040

== ENCOUNTER 2024-03-07 11:03 | Emergency (ER) | payer MEDICAID ==
[~2024-03-07] VITALS: Ht 177.8 cm; Wt 129.8 kg
[2024-03-07] MEDS: HYDROcodone/acetaminophen 5mg/325mg tablet PO ONE (13:30)
[2024-03-07 13:31] VITALS: BP 128/83; PULSE 70; RESP 20; TEMP 98.9; O2SAT 95
== END 2024-03-07 14:45 | disposition home or self-care (01) ==
LOC: ER 11:05
DX: S60.211A Contusion of right wrist, initial encounter (principal); J44.89 Other specified chronic obstructive pulmonary disease; E11.22 Type 2 diabetes mellitus with diabetic chronic kidney disease; I13.0 Hypertensive heart and chronic kidney disease with heart failure and stage 1 through stage 4 chronic kidney disease, or unspecified chronic kidney disease; I48.91 Unspecified atrial fibrillation; I50.9 Heart failure, unspecified; N18.9 Chronic kidney disease, unspecified; R51.9 Headache, unspecified; F12.90 Cannabis use, unspecified, uncomplicated; Z88.6 Allergy status to analgesic agent; Z88.8 Allergy status to other drugs, medicaments and biological substances; Z86.73 Personal history of transient ischemic attack (TIA), and cerebral infarction without residual deficits; Y04.0XXA Assault by unarmed brawl or fight, initial encounter; Y93.89 Activity, other specified; Y92.89 Other specified places as the place of occurrence of the external cause; Y99.8 Other external cause status
CPT/HCPCS: 29125; 70450; 72125; 73060; 73090; 73110; 99284; A4615

== ENCOUNTER 2024-05-15 14:42 | Emergency (ER) | payer MEDICAID ==
[~2024-05-15] VITALS: Ht 177.8 cm; Wt 129.6 kg
[2024-05-15] MEDS ORDERED: CLIN-97 PO (16:34)
[2024-05-15 17:08] VITALS: BP 132/87; PULSE 70; RESP 18; TEMP 98.3; O2SAT 95
== END 2024-05-15 17:11 | disposition home or self-care (01) ==
LOC: ER 14:43
DX: L03.213 Periorbital cellulitis (principal); I48.91 Unspecified atrial fibrillation; E11.22 Type 2 diabetes mellitus with diabetic chronic kidney disease; I13.0 Hypertensive heart and chronic kidney disease with heart failure and stage 1 through stage 4 chronic kidney disease, or unspecified chronic kidney disease; I50.9 Heart failure, unspecified; N18.9 Chronic kidney disease, unspecified; F12.90 Cannabis use, unspecified, uncomplicated; Z88.6 Allergy status to analgesic agent; Z79.899 Other long term (current) drug therapy; Z86.73 Personal history of transient ischemic attack (TIA), and cerebral infarction without residual deficits; Z95.0 Presence of cardiac pacemaker
CPT/HCPCS: 99283

== ENCOUNTER 2024-06-09 13:32 | Inpatient (IN) | payer MEDICAID ==
[~2024-06-09] VITALS: Ht 177.8 cm; Wt 132.0 kg
[~2024-06-09 13:32] MED LIST changes: +CLIN-97 PO
[2024-06-09 14:07] LABS: BASOPHILS % (AUTO) 0.5 % (0-1); EOSINOPHILS # (AUTO) 0.4 X10'3 (0-0.9); EOSINOPHILS % (AUTO) 8.1 % (0-6); HEMATOCRIT 41.8 % (42.0-52.0); LYMPHOCYTES # (AUTO) 1.6 X10'3 (1.1-4.8); LYMPHOCYTES % (AUTO) 33.8 % (21-51); MEAN CORPUSCULAR HEMOGLOBIN 27.4 PG (27.0-31.0); MEAN CORPUSCULAR VOLUME 88.3 FL (78-98); MONOCYTES # (AUTO) 0.5 X10'3 (0-0.9); NEUTROPHILS # (AUTO) 2.3 X10'3 (1.8-7.7); NEUTROPHILS % (AUTO) 47.6 % (42-75); PLATELET COUNT 157 X10'3 (140-440); RED BLOOD COUNT 4.74 X10'6 (4.70-6.10); RED CELL DISTRIBUTION WIDTH 17.8 % (11.5-14.5); WHITE BLOOD COUNT 4.7 X10'3 (4.5-11.0)
[2024-06-09 14:18] LABS: ALBUMIN 3.2 G/DL (3.4-5.0); ANION GAP 11 (8-16); BLOOD UREA NITROGEN 11 MG/DL (7-18); BUN/CREATININE RATIO 8.2 (10.0-20.0); CALCIUM 8.3 MG/DL (8.5-10.1); CHLORIDE 106 MMOL/L (99-107); CREATININE 1.34 MG/DL (0.60-1.10); GLUCOSE 107 MG/DL (70-104); MAGNESIUM 3.6 MG/DL (1.5-2.4); POTASSIUM 4.7 MMOL/L (3.5-5.1); SODIUM 138 MMOL/L (135-145); TOTAL CARBON DIOXIDE 20.8 MMOL/L (24-32); eCRCL 59 ML/MIN; eGFR 54 ML/MIN
[2024-06-09] MEDS: normal saline 1000ML IV soln IVB ONE (14:39)
[2024-06-09] MEDS: methylPREDNISolone sod succ 125mg/2ml vial IV ONE (14:39)
[2024-06-09] MEDS ORDERED: ondansetron/PF 4mg/2ml inj IV PRN (15:25)
[2024-06-09] MEDS ORDERED: magnesium sulf-water 2g/50mL 50 ML IV PRN (15:25)
[2024-06-09] MEDS ORDERED: potassium Cl 40MEQ/1/2NS 520ml 520 ML IV PRN (15:25)
[2024-06-09] MEDS ORDERED: magnesium sulf-water 4G/100mL 100 ML IV PRN (15:25)
[2024-06-09] MEDS ORDERED: potassium Cl 20 mEq SR tablet PO PRN ×2 (15:25)
[2024-06-09] MEDS ORDERED: acetaminophen 325mg tablet PO PRN (15:25)
[2024-06-09] MEDS ORDERED: magnesium Cl slow-release 64mg tablet PO PRN (15:25)
[2024-06-09] MEDS ORDERED: guaiFENesin 200 MG/10 ML oral syrup UD cup PO PRN (15:50)
[2024-06-09] MEDS: albuterol 2.5 MG/3 ML nebule NEB SCH (16:00)
[2024-06-09] MEDS: CefTRIAXone 2gm/D5W 50ml BAG 50 ML IV SCH (17:00)
[2024-06-09 17:40] LABS: BILIRUBIN,URINE NEGATIVE (Neg); CLARITY,URINE CLEAR (Clear); COLOR,URINE YELLOW (Yellow); GLUCOSE, URINE >=1000 mg/dl (Neg); KETONES,URINE NEGATIVE (Neg); LEUKOCYTE ESTERASE ,URINE SMALL (Neg); NITRITES, URINE NEGATIVE (Neg); OCCULT BLOOD,URINE NEGATIVE (Neg); PROTEIN,URINE NEGATIVE (Neg); UROBILINOGEN,URINE 0.2 E.U/dL (0.2-1.0)
[2024-06-09 17:41] LABS: UA COLLECTION TYPE CLN CATCH MIDSTREAM
[2024-06-09 17:45] LABS: URINE AMPHETAMINE SCREEN NEGATIVE (Neg); URINE BARBITUATE SCREEN NEGATIVE (Neg); URINE BENZODIAZEPINES SCREEN NEGATIVE (Neg); URINE CANNABINOID SCREEN NEGATIVE (Neg); URINE COCAINE SCREEN NEGATIVE (Neg); URINE METHADONE SCREEN POSITIVE (Neg); URINE OPIATE SCREEN NEGATIVE (Neg); URINE PHENCYCLIDINE SCREEN NEGATIVE (Neg)
[2024-06-09 18:03] LABS: BACTERIA,URINE NONE SEEN /HPF (Neg); MUCUS STRANDS FEW /LPF (Neg); RBC,URINE NONE SEEN /HPF (0-2); SQUAMOUS EPITHELIAL CELL,UR FEW /LPF (FEW)
[2024-06-09 18:10] VITALS: PULSE 89; RESP 19; O2SAT 97
[2024-06-09 19:41] VITALS: PULSE 72; RESP 15; O2SAT 97
[2024-06-09 19:50] VITALS: PULSE 73; RESP 15
[2024-06-09] MEDS: methylPREDNISolone sod succ 125mg/2ml vial IV SCH (20:09)
[2024-06-09] MEDS: heparin, porcine 5000 units/ml vial SQ SCH (20:09)
[2024-06-09 22:58] VITALS: PULSE 99; RESP 22; O2SAT 96
[2024-06-09 23:07] VITALS: PULSE 88; RESP 22
[2024-06-09] MEDS: oxyCODONE SR 10mg (sust. release) tab PO ONE (23:11)
[2024-06-09 23:45] VITALS: BP 116/67; PULSE 77; RESP 20; TEMP 97.6; O2SAT 97
[2024-06-10] MEDS: acetaminophen 325mg tablet PO PRN (05:55)
[2024-06-10 06:00] VITALS: BP 139/77; PULSE 71; RESP 19; TEMP 97.4; O2SAT 92
[2024-06-10 07:36] VITALS: PULSE 71; RESP 18; O2SAT 93
[2024-06-10] MEDS ORDERED: albuterol 2.5 MG/3 ML nebule NEB PRN (08:00)
[2024-06-10] MEDS ORDERED: tamsulosin 0.4mg capsule PO SCH (08:00)
[2024-06-10] MEDS: pregabalin 75mg capsule PO SCH (08:41)
[2024-06-10] MEDS: metoprolol tartrate 50mg tablet PO SCH (08:41)
[2024-06-10] MEDS: amiodarone 200mg tablet PO SCH (08:42)
[2024-06-10] MEDS: atorvastatin 20mg tablet PO SCH (08:42)
[2024-06-10] MEDS: ESCITALOPRAM 10 mg tablet 10 MG TABLET PO SCH (08:42)
[2024-06-10] MEDS: azithromycin 250mg tablet PO SCH (08:52)
[2024-06-10] MEDS: methadone 10mg tablet PO SCH (08:52)
[2024-06-10] MEDS: ipratropium/albuterol 3ml nebule NEB SCH (09:08)
[2024-06-10 09:17] LABS: BASOPHILS % (AUTO) 0.1 % (0-1); EOSINOPHILS % (AUTO) 0 % (0-6); HEMATOCRIT 40.6 % (42.0-52.0); LYMPHOCYTES # (AUTO) 0.9 X10'3 (1.1-4.8); LYMPHOCYTES % (AUTO) 20.9 % (21-51); MEAN CORPUSCULAR HEMOGLOBIN 27.6 PG (27.0-31.0); MEAN CORPUSCULAR HGB CONC 32.1 g/dL (33.0-36.5); MEAN CORPUSCULAR VOLUME 85.9 FL (78-98); MEAN PLATELET VOLUME 8.2 FL (7.4-10.4); MONOCYTES # (AUTO) 0.1 X10'3 (0-0.9); MONOCYTES % (AUTO) 3.3 % (2-12); NEUTROPHILS # (AUTO) 3.3 X10'3 (1.8-7.7); NEUTROPHILS % (AUTO) 75.7 % (42-75); PLATELET COUNT 174 X10'3 (140-440); RED BLOOD COUNT 4.73 X10'6 (4.70-6.10); RED CELL DISTRIBUTION WIDTH 17.1 % (11.5-14.5); WHITE BLOOD COUNT 4.4 X10'3 (4.5-11.0)
[2024-06-10 09:50] LABS: ALANINE AMINOTRANSFERASE 15 U/L (12-78); ALBUMIN 3.5 G/DL (3.4-5.0); ALBUMIN/GLOBULIN RATIO 0.9 (1.1-1.5); ALKALINE PHOSPHATASE 81 IU/L (46-116); ANION GAP 15 (8-16); ASPARTATE AMINO TRANSFERASE 15 U/L (10-37); BILIRUBIN,TOTAL 0.4 MG/DL (0.1-1.0); BLOOD UREA NITROGEN 15 MG/DL (7-18); BUN/CREATININE RATIO 10.8 (10.0-20.0); CALCIUM 8.8 MG/DL (8.5-10.1); CHLORIDE 105 MMOL/L (99-107); CHOL/HDL RATIO 3.1 (0.00-4.99); CHOLESTEROL 175 MG/DL (0-200); CREATININE 1.39 MG/DL (0.60-1.10); FREE T4 (FREE THYROXINE) 1.27 NG/DL (0.73-1.40); GLUCOSE 152 MG/DL (70-104); HDL CHOLESTEROL 56 MG/DL (35-60); LDL CHOLESTEROL 100 MG/DL (50-100); POTASSIUM 4.3 MMOL/L (3.5-5.1); SODIUM 141 MMOL/L (135-145); THYROID STIMULATING HORMONE 0.31 ulU/ml (0.34-4.50); TOTAL CARBON DIOXIDE 21.1 MMOL/L (24-32); TOTAL PROTEIN 7.4 G/DL (6.4-8.2); TRIGLYCERIDES 92 MG/DL (20-135); eCRCL 57 ML/MIN; eGFR 52 ML/MIN
[2024-06-10 10:00] VITALS: BP 133/72; PULSE 74; RESP 14; TEMP 98.4; O2SAT 92
[2024-06-10 10:02] LABS: HEMOGLOBIN A1C 5.8 % (4.5-6.2)
[2024-06-10] MEDS: normal saline 1000ml 1,000 ML IV ONE ×2 (11:50→14:47)
[2024-06-10] MEDS: methylPREDNISolone sod succ/PF 40mg inj. IV SCH (16:22)
[2024-06-10] MEDS: rivaroxaban 20mg tablet PO SCH (16:26)
[2024-06-10 18:00] VITALS: BP 158/100; PULSE 69; RESP 18; TEMP 98.7; O2SAT 100
[2024-06-10 19:16] LABS: APTT 35 SECONDS (22-32); D-DIMER 0.68 MG/L FEU (0-0.50); INR 1.4 INR; PROTHROMBIN TIME 13.9 SECONDS (9.0-12.0)
[2024-06-10 22:00] VITALS: BP 160/89; PULSE 76; RESP 19; TEMP 98.1; O2SAT 94
[2024-06-10] MEDS: risperiDONE 2mg tablet PO SCH (22:02)
[2024-06-10] MEDS: normal saline 1000ml 1,000 ML IV SCH (22:02)
[2024-06-10] MEDS: traZODone 50mg tablet PO PRN (22:20)
[2024-06-11 02:06] LABS: TOTAL PROTEIN,URINE RANDOM 7.3 MG/DL
[2024-06-11 06:00] VITALS: BP 164/92; PULSE 82; RESP 19; TEMP 97.7; O2SAT 96
[2024-06-11 06:58] LABS: BASOPHILS % (AUTO) 0 % (0-1); EOSINOPHILS % (AUTO) 0 % (0-6); HEMATOCRIT 35.9 % (42.0-52.0); HEMOGLOBIN 11.7 g/dl (14.0-17.9); LYMPHOCYTES # (AUTO) 0.9 X10'3 (1.1-4.8); LYMPHOCYTES % (AUTO) 11.9 % (21-51); MEAN CORPUSCULAR HGB CONC 32.6 g/dL (33.0-36.5); MEAN CORPUSCULAR VOLUME 85.9 FL (78-98); MEAN PLATELET VOLUME 8.3 FL (7.4-10.4); MONOCYTES # (AUTO) 0.1 X10'3 (0-0.9); MONOCYTES % (AUTO) 1.6 % (2-12); NEUTROPHILS # (AUTO) 6.4 X10'3 (1.8-7.7); NEUTROPHILS % (AUTO) 86.5 % (42-75); PLATELET COUNT 162 X10'3 (140-440); RED BLOOD COUNT 4.18 X10'6 (4.70-6.10); RED CELL DISTRIBUTION WIDTH 17.1 % (11.5-14.5); WHITE BLOOD COUNT 7.4 X10'3 (4.5-11.0)
[2024-06-11 07:28] LABS: ALANINE AMINOTRANSFERASE 15 U/L (12-78); ALBUMIN 2.9 G/DL (3.4-5.0); ALBUMIN/GLOBULIN RATIO 0.8 (1.1-1.5); ALKALINE PHOSPHATASE 70 IU/L (46-116); ANION GAP 11 (8-16); ASPARTATE AMINO TRANSFERASE 14 U/L (10-37); BILIRUBIN,TOTAL 0.3 MG/DL (0.1-1.0); BLOOD UREA NITROGEN 21 MG/DL (7-18); BUN/CREATININE RATIO 19.3 (10.0-20.0); CALCIUM 8.5 MG/DL (8.5-10.1); CHLORIDE 109 MMOL/L (99-107); CREATININE 1.09 MG/DL (0.60-1.10); GLUCOSE 168 MG/DL (70-104); POTASSIUM 4.6 MMOL/L (3.5-5.1); SODIUM 141 MMOL/L (135-145); TOTAL CARBON DIOXIDE 20.8 MMOL/L (24-32); TOTAL PROTEIN 6.4 G/DL (6.4-8.2); eCRCL 73 ML/MIN; eGFR 69 ML/MIN
[2024-06-11] MEDS: albuterol 60 PUFF/8GM Inhaler (90mcg/1 puff) IH PRN (09:15)
[2024-06-11 09:16] VITALS: PULSE 72; RESP 20; O2SAT 95
[2024-06-11 09:18] VITALS: PULSE 74; RESP 20
[2024-06-11 10:00] VITALS: BP 128/63; PULSE 74; RESP 17; TEMP 97.9; O2SAT 98
[2024-06-11 10:22] VITALS: BP_SYST 164; PULSE 82
[2024-06-11] MEDS ORDERED: AZIT500T9 PO (12:58)
[2024-06-11] MEDS ORDERED: BUDE10.2 INH (12:58)
[2024-06-11] MEDS ORDERED: DEXA6TAB PO (12:58)
[2024-06-11] MEDS ORDERED: NIRM1TAB9 PO (12:58)
[2024-06-11] MEDS ORDERED: CEFD300C3 PO (12:58)
[2024-06-11] MEDS ORDERED: LACT1CAP26 PO (12:58)
[2024-06-11] MEDS: FLU VACC TS2024-25(6MOS UP)/PF 45 MCG/0.5 ML SYRINGE IMVAC ONE (15:05)
== END 2024-06-11 16:05 | disposition home or self-care (01) | DRG 137 ==
LOC: ER 13:33 → ORTHO 4S 15:28
PROVIDERS: ADMIT Internal Medicine; ATTEND Family Medicine
DX: U07.1 COVID-19 (principal); N17.0 Acute kidney failure with tubular necrosis; J12.82 Pneumonia due to coronavirus disease 2019; I13.0 Hypertensive heart and chronic kidney disease with heart failure and stage 1 through stage 4 chronic kidney disease, or unspecified chronic kidney disease; J15.9 Unspecified bacterial pneumonia; I50.9 Heart failure, unspecified; I48.20 Chronic atrial fibrillation, unspecified; E11.22 Type 2 diabetes mellitus with diabetic chronic kidney disease; N18.30 Chronic kidney disease, stage 3 unspecified; N40.0 Benign prostatic hyperplasia without lower urinary tract symptoms; J44.1 Chronic obstructive pulmonary disease with (acute) exacerbation; F32.A Depression, unspecified; Z95.0 Presence of cardiac pacemaker; Z87.891 Personal history of nicotine dependence; Z79.01 Long term (current) use of anticoagulants; Z79.899 Other long term (current) drug therapy; Z23 Encounter for immunization
CPT/HCPCS: 36415; 71045; 80048; 80053; 80061; 80305; 81001; 82570; 82948; 83036; 83605; 83735; 83930; 83935; 84145; 84156; 84300; 84439; 84443; 84484; 85025; 85379; 85610; 85730; 86140; 87040; 87081; 87088; 87207; 87502; 87503; 87811; 93005; 93306; 94640; 94760; 99285; A4615; G0378; J0696; J1644; J2919; J7030

== ENCOUNTER 2024-06-25 10:39 | Emergency (ER) | payer MEDICAID ==
[~2024-06-25] VITALS: Ht 177.8 cm; Wt 127.2 kg
[~2024-06-25 10:39] MED LIST changes: +AZIT500T9 PO; +BUDE10.2 INH; +DEXA6TAB PO; +LACT1CAP26 PO; -NICO-631 TD; +NIRM1TAB9 PO
[2024-06-25 10:48] VITALS: TEMP 97.3
[2024-06-25 11:05] LABS: BASOPHILS % (AUTO) 0.3 % (0-1); EOSINOPHILS # (AUTO) 0.1 X10'3 (0-0.9); EOSINOPHILS % (AUTO) 1.8 % (0-6); HEMATOCRIT 42.6 % (42.0-52.0); HEMOGLOBIN 13.7 g/dl (14.0-17.9); LYMPHOCYTES # (AUTO) 1.9 X10'3 (1.1-4.8); MEAN CORPUSCULAR HGB CONC 32.1 g/dL (33.0-36.5); MEAN CORPUSCULAR VOLUME 87.2 FL (78-98); MEAN PLATELET VOLUME 7.9 FL (7.4-10.4); MONOCYTES # (AUTO) 0.7 X10'3 (0-0.9); MONOCYTES % (AUTO) 10.1 % (2-12); NEUTROPHILS # (AUTO) 4.1 X10'3 (1.8-7.7); NEUTROPHILS % (AUTO) 59.8 % (42-75); PLATELET COUNT 165 X10'3 (140-440); RED BLOOD COUNT 4.88 X10'6 (4.70-6.10); RED CELL DISTRIBUTION WIDTH 17.6 % (11.5-14.5); WHITE BLOOD COUNT 6.8 X10'3 (4.5-11.0)
[2024-06-25 11:36] LABS: ALANINE AMINOTRANSFERASE 15 U/L (12-78); ALBUMIN 3.3 G/DL (3.4-5.0); ALBUMIN/GLOBULIN RATIO 0.9 (1.1-1.5); ALKALINE PHOSPHATASE 81 IU/L (46-116); ANION GAP 8 (8-16); ASPARTATE AMINO TRANSFERASE 12 U/L (10-37); BILIRUBIN,TOTAL 0.7 MG/DL (0.1-1.0); BLOOD UREA NITROGEN 16 MG/DL (7-18); BUN/CREATININE RATIO 9.8 (10.0-20.0); CHLORIDE 103 MMOL/L (99-107); CREATININE 1.63 MG/DL (0.60-1.10); GLUCOSE 102 MG/DL (70-104); POTASSIUM 4.3 MMOL/L (3.5-5.1); PRO BRAIN NATRIURETIC PEPTIDE 187 PG/ML (0-125); SODIUM 137 MMOL/L (135-145); TOTAL CARBON DIOXIDE 26.3 MMOL/L (24-32); eCRCL 49 ML/MIN; eGFR 43 ML/MIN
[2024-06-25 11:41] LABS: CALCIUM 8.7 MG/DL (8.5-10.1)
[2024-06-25] MEDS ORDERED: LIDO700A32 TOP (15:33)
[2024-06-25] MEDS: ketorolac trometh 15mg/ml vial 15 MG/ML ML IM ONE (16:21)
[2024-06-25 16:28] VITALS: BP 148/88; PULSE 98; RESP 18; O2SAT 98
== END 2024-06-25 16:36 | disposition home or self-care (01) ==
LOC: ER 10:40
DX: M54.50 Low back pain, unspecified (principal); I13.0 Hypertensive heart and chronic kidney disease with heart failure and stage 1 through stage 4 chronic kidney disease, or unspecified chronic kidney disease; E11.22 Type 2 diabetes mellitus with diabetic chronic kidney disease; N18.9 Chronic kidney disease, unspecified; I50.23 Acute on chronic systolic (congestive) heart failure; J44.9 Chronic obstructive pulmonary disease, unspecified; F32.A Depression, unspecified; I48.91 Unspecified atrial fibrillation; Z86.73 Personal history of transient ischemic attack (TIA), and cerebral infarction without residual deficits; F12.90 Cannabis use, unspecified, uncomplicated; Z88.6 Allergy status to analgesic agent; Z95.0 Presence of cardiac pacemaker; Z98.890 Other specified postprocedural states; W19.XXXA Unspecified fall, initial encounter; Y93.89 Activity, other specified; Y92.89 Other specified places as the place of occurrence of the external cause; Y99.8 Other external cause status
CPT/HCPCS: 36415; 70450; 71045; 80053; 83880; 84484; 85025; 93005; 96372; 99285; J1885

== ENCOUNTER 2024-07-27 14:28 | Emergency (ER) | payer MEDICAID ==
[~2024-07-27] VITALS: Ht 177.8 cm; Wt 130.0 kg
[~2024-07-27 14:28] MED LIST changes: +LIDO700A32 TOP
[2024-07-27] MEDS: morphine 4 MG/ML inj SYRINge IV ONE (15:05)
[2024-07-27 15:20] LABS: BASOPHILS % (AUTO) 0.4 % (0-1); EOSINOPHILS # (AUTO) 0.1 X10'3 (0-0.9); EOSINOPHILS % (AUTO) 1.6 % (0-6); HEMATOCRIT 39.6 % (42.0-52.0); HEMOGLOBIN 12.6 g/dl (14.0-17.9); LYMPHOCYTES # (AUTO) 2.2 X10'3 (1.1-4.8); LYMPHOCYTES % (AUTO) 34.4 % (21-51); MEAN CORPUSCULAR HEMOGLOBIN 27.2 PG (27.0-31.0); MEAN CORPUSCULAR HGB CONC 31.7 g/dL (33.0-36.5); MEAN CORPUSCULAR VOLUME 85.9 FL (78-98); MEAN PLATELET VOLUME 9.2 FL (7.4-10.4); MONOCYTES # (AUTO) 0.6 X10'3 (0-0.9); NEUTROPHILS # (AUTO) 3.4 X10'3 (1.8-7.7); NEUTROPHILS % (AUTO) 54.6 % (42-75); PLATELET COUNT 159 X10'3 (140-440); RED BLOOD COUNT 4.61 X10'6 (4.70-6.10); RED CELL DISTRIBUTION WIDTH 16.8 % (11.5-14.5); WHITE BLOOD COUNT 6.3 X10'3 (4.5-11.0)
[2024-07-27 15:26] LABS: ALANINE AMINOTRANSFERASE 9 U/L (12-78); ALBUMIN 3.8 G/DL (3.4-5.0); ALBUMIN/GLOBULIN RATIO 1.1 (1.1-1.5); ALKALINE PHOSPHATASE 103 IU/L (46-116); ANION GAP 6 (8-16); ASPARTATE AMINO TRANSFERASE 19 U/L (10-37); BILIRUBIN,TOTAL 0.8 MG/DL (0.1-1.0); BLOOD UREA NITROGEN 13 MG/DL (7-18); BUN/CREATININE RATIO 9.7 (10.0-20.0); CHLORIDE 104 MMOL/L (99-107); CREATININE 1.34 MG/DL (0.60-1.10); GLUCOSE 84 MG/DL (70-104); POTASSIUM 4.7 MMOL/L (3.5-5.1); SODIUM 139 MMOL/L (135-145); TOTAL CARBON DIOXIDE 28.8 MMOL/L (24-32); TOTAL PROTEIN 7.3 G/DL (6.4-8.2); eCRCL 59 ML/MIN; eGFR 54 ML/MIN
[2024-07-27 15:38] LABS: PRO BRAIN NATRIURETIC PEPTIDE 491 PG/ML (0-125)
[2024-07-27] MEDS: ketorolac trometh 30MG/ML vial 30 MG/ML VIAL IV ONE (16:31)
[2024-07-27 18:04] VITALS: BP 127/80; PULSE 62; RESP 18; TEMP 97; O2SAT 92
== END 2024-07-27 18:08 | disposition home or self-care (01) ==
LOC: ER 14:28
DX: R55 Syncope and collapse (principal); I13.0 Hypertensive heart and chronic kidney disease with heart failure and stage 1 through stage 4 chronic kidney disease, or unspecified chronic kidney disease; I50.9 Heart failure, unspecified; N18.9 Chronic kidney disease, unspecified; E11.22 Type 2 diabetes mellitus with diabetic chronic kidney disease; I48.91 Unspecified atrial fibrillation; Z88.6 Allergy status to analgesic agent; Z79.01 Long term (current) use of anticoagulants; Z86.73 Personal history of transient ischemic attack (TIA), and cerebral infarction without residual deficits; Z95.0 Presence of cardiac pacemaker; W18.30XA Fall on same level, unspecified, initial encounter; Y93.89 Activity, other specified; Y92.89 Other specified places as the place of occurrence of the external cause; Y99.8 Other external cause status
CPT/HCPCS: 36415; 70450; 71045; 72125; 72170; 73560; 73600; 80053; 83880; 84484; 85025; 93005; 96374; 96375; 99285; J1885; J2270; A6590

== ENCOUNTER 2024-09-28 14:15 | Emergency (ER) | payer MEDICAID ==
[~2024-09-28] VITALS: Ht 177.8 cm; Wt 131.8 kg
[~2024-09-28 14:15] MED LIST changes: +AMI200T PO; -AMIO200T67 PO; -AZIT500T9 PO; -CLIN-97 PO; -DEXA6TAB PO; +EMPA25TA PO; -FLO0.4C PO; -LIDO700A32 TOP; -NIRM1TAB9 PO; +PRED10TA23 PO; +TAMS-55 PO
[2024-09-28] MEDS: ketorolac trometh 30MG/ML vial 30 MG/ML VIAL IM ONE (14:41)
[2024-09-28] MEDS ORDERED: CYCL-394 PO (15:22)
[2024-09-28 15:51] VITALS: BP 143/78; PULSE 72; RESP 17; TEMP 98; O2SAT 96
== END 2024-09-28 15:35 | disposition home or self-care (01) ==
LOC: ER 14:16
DX: M75.32 Calcific tendinitis of left shoulder (principal); G47.30 Sleep apnea, unspecified; E11.22 Type 2 diabetes mellitus with diabetic chronic kidney disease; I13.0 Hypertensive heart and chronic kidney disease with heart failure and stage 1 through stage 4 chronic kidney disease, or unspecified chronic kidney disease; I50.9 Heart failure, unspecified; N18.9 Chronic kidney disease, unspecified; J44.9 Chronic obstructive pulmonary disease, unspecified; F32.A Depression, unspecified; I48.91 Unspecified atrial fibrillation; F12.90 Cannabis use, unspecified, uncomplicated; Z86.73 Personal history of transient ischemic attack (TIA), and cerebral infarction without residual deficits; Z88.6 Allergy status to analgesic agent; Z95.0 Presence of cardiac pacemaker
CPT/HCPCS: 73030; 96372; 99283; J1885; A4565

== ENCOUNTER 2025-01-08 14:14 | Emergency (ER) | payer MEDICAID ==
[~2025-01-08] VITALS: Ht 177.8 cm; Wt 128.0 kg
[~2025-01-08 14:14] MED LIST changes: -AMI200T PO; +AMIO200T76 PO
--- NOTE | 2025-01-08 14:28 | Physician Documentation ---
History of Present Illness Chief Complaint: See Chief Complaint Stated Complaint: "LUMPS AROUND PACEMAKER" Primary Medical Doctor: [facility] HPI Patient is a 62-year-old male that presents to the emergency department for evaluation of lumps around his pacemaker. Reports he is concerned about infection. Patient denies any fevers nausea or vomiting diarrhea. Patient reports that he has slight increase in his shortness a breath possibly due to the heat. Reports that he might feel lightheaded. 1454: Has a he has seen his [facility] on the of this month. Denies any chest pain shortness of breath nausea vomiting. Had the pacemaker in place for two years Day of Onset: Jan 08, 2025 Medication Reconciliation Allergies: Coded Allergies: ibuprofen (Verified Adverse Reaction, Unknown, GI UPSET, 01/08/25) Scheduled Amiodarone Hcl (Cordarone), 200 MG PO BID, (Reported) Atorvastatin Calcium (LIPITOR tablet), 20 MG PO DAILY, (Reported) Budesonide/Formoterol Fumarate (Symbicort 160-4.5 Mcg Inhaler), 2 PUFFS INH Q12H Empagliflozin (Jardiance), 1 TAB PO QAM, (Reported) Escitalopram Oxalate (Escitalopram Oxalate), 1.5 TAB PO QAM, (Reported) Lactobacillus Rhamnosus (Culturelle), 1 CAP PO BID Methadone Hcl* (Dolophine*), 1 TAB PO BID Metoprolol Tartrate* (Metoprolol Tartrate*), 1 TAB PO Q12H, (Reported) Prednisone (Prednisone), 10 MG PO DAILY Pregabalin (Pregabalin), 1 CAP PO BID, (Reported) Risperidone (Risperidone Odt), 1 TAB SL HS, (Reported) Rivaroxaban (Xarelto), 1 TAB PO QDD, (Reported) Tamsulosin Hcl* (Flomax*), 1 CAP PO QDPC, (Reported) Scheduled PRN Albuterol Sulfate (Proventil Hfa), 2 PUFFS INH Q4H PRN for SOB or wheezing, (Reported) Oxycodone Hcl (Oxycodone Hcl), 1 TAB PO BID PRN for severe pain (7-10), (Reported) Trazodone HCl (Trazodone HCl), 1 TAB PO HSMR1 PRN for sleep, (Reported) Past Medical History Past Medical History: CVA/TIA/Stroke, Seizures, Atrial Fibrillation, Congestive Heart Failure, Hypertension, Asthma, COPD, Hepatitis C, Chronic Kidney Disease, Diabetes, Depression Past Surgical History: orthopedic surgeries, pacemaker Patient History: Patient reports no known family medical history. Alcohol Use: None Drug Use: marijuana, other Lives with: Family Lives In: Home Review of Systems All Other Systems at this time: Reviewed and Negative ROS As stated above in the HPI, otherwise all systems are reviewed and negative. Physical Exam Vital Signs: Temperature: 97.2, Heart Rate: 80, Respiratory Rate: 16, BP: 166/99, Pulse Oximetry: 96, Weight: 128.000 Physical Exam General: Alert, no apparent distress. Respiratory: Lungs clear, no respiratory distress. Chest: No accessory muscle use. Cardiovascular: Regular rate and rhythm, no murmurs. Neurologic: Oriented x4. Psychiatric: Normal mood and affect. Skin: Normal color, warm and dry. No edema, no ecchymosis. Progress Results/Orders Results/Orders Orders - ZHEN JIMÉNEZ WALKING DRAGLINE OPERATOR Stat Ekg (01/08/25 ) Chest,Two Views (01/08/25 14:24) Cbc/Diff (01/08/25 14:24) PBNP (01/08/25 14:24) Vital Signs 01/08/25 14:18 Temp 97.2 Pulse 80 Resp 16 B/P (MAP) 166/99 Pulse Ox 96 Medical Decision Making Findings Since labs are unremarkable for any signs of infection. I examined the patient where he was concerned of developing lumps which I could not appreciate nor the was there any signs of discharge or developing erythema or warmth. See any reason to pursue further evaluation at this time as he is hemodynamically stable pain-free. He has been followed by [facility] of [facility] in the outpatient setting which I think is the most appropriate avenue for further treatment at this time. Did tell the patient to return if he has any worsening symptoms. Differential Dx:Considerations: Include: AAA, Angina/OK, Aortic dissection, Appendicitis, Bowel obstruction, Cholangitis, Cholelithasis, Constipation, Diverticular disease, Esophageal rupture, Esophagitis, Gastritis/PUD, Gastroenteritis, GI hemorrhage, Hernia, Hepatitis, Inflammatory BD, Ischemic bowel, Pancreatitis, Porphyria, Testicular torsion, Trauma, intraabdominal, Urinary obstruction, Urinary tract infection, Urolithiasis, Other Departure Disposition: 01 HOME / SELF CARE / HOMELESS Impression: Primary Impression: Pacemaker Condition: Stable Additional Instructions: Please follow up with the your primary care and/or [facility] for further evaluation. If you have any worsening concerns they including a fever increased pain swelling redness at the pacemaker site please return to the ED immediateatley Referrals: NO PRIMARY CARE PROVIDER (PCP) Signature Scribe Signature: y Attestation: Scribed for Priyanka Cho Blast Furnace Keeper by Priyanka Rodriguez NP . 01/08/25 16:56 ZHEN JIMÉNEZP Jan 08, 2025 14:28 PRIYANKA CHO NP Jan 08, 2025 16:57
--- NOTE | 2025-01-08 14:37 | ELECTROCARDIOGRAPH REPORT ---
[facility] Test Date: 2025-01-08 Test Time: 14:35:49 Pat Name: JENNIFER GOFF Department: EMERGENCY ROOM Room: Gender: M Library Circulation Assistant: VERNA : 1960 Requested By: ZHEN JIMÉNEZ Order Number: [id number] Reading MD: Measurements Intervals [place] Rate: 74 P: 0 MA: 239 QRS: 66 QRSD: 110 T: 45 QT: 426 QTc: 473 Interpretive Statements Atrial-paced complexes Prolonged MA interval Please click the below link to view image of tracing.
--- NOTE | 2025-01-08 15:12 | RADIOLOGY REPORT ---
Chest x-ray Technique: PA and lateral views Comparison: 08/07/2024 CLINICAL INDICATION: SOB, evaluate pacemaker for "lumps" FINDINGS: Heart size is slightly enlarged. There are pacer leads in the heart. Aorta is tortuous. No infiltrates or effusions. IMPRESSION: 1. No acute cardiopulmonary pathology
[2025-01-08 15:19] LABS: MEAN PLATELET VOLUME 8.3 FL (7.4-10.4); RED CELL DISTRIBUTION WIDTH 16.4 % (11.5-14.5)
[2025-01-08 17:07] VITALS: BP 144/92; PULSE 75; RESP 16; TEMP 98.6; O2SAT 99
== END 2025-01-08 17:08 | disposition home or self-care (01) ==
LOC: ER 14:15
DX: Z95.0 Presence of cardiac pacemaker (principal); E11.22 Type 2 diabetes mellitus with diabetic chronic kidney disease; I13.0 Hypertensive heart and chronic kidney disease with heart failure and stage 1 through stage 4 chronic kidney disease, or unspecified chronic kidney disease; I50.9 Heart failure, unspecified; N18.9 Chronic kidney disease, unspecified; J44.9 Chronic obstructive pulmonary disease, unspecified; I48.91 Unspecified atrial fibrillation; F32.A Depression, unspecified; F12.90 Cannabis use, unspecified, uncomplicated; Z86.73 Personal history of transient ischemic attack (TIA), and cerebral infarction without residual deficits; Z88.6 Allergy status to analgesic agent
CPT/HCPCS: 36415; 71046; 83880; 85025; 93005; 99285

== ENCOUNTER 2025-04-22 12:39 | Outpatient (CLI) | payer MEDICAID ==
--- NOTE | 2025-04-22 15:26 | RADIOLOGY REPORT ---
EXAM: MR MRI LUMBAR SPINE CLINICAL HISTORY: RADICULOPATHY, LUMBAR REGION COMPARISON: None Technique: MRI of the lumbar spine was performed without contrast. Findings: Vertebral body height is maintained. Vertebral alignment is anatomic. Diffuse edema at L1-2 endplates with mild L2 superior endplate height loss. no significant edema within the L1-2 disc space. Probable Schmorl's node within the L1 inferior endplate posteriorly. L1 hemangioma. The conus medullaris is normal in position and signal intensity. L1-L2: Disc bulge with superimposed right paracentral /subarticular disc protrusion as well as facet arthropathy and ligamentum flavum thickening. Moderate to severe right and moderate left foraminal stenosis. Overall moderate to severe spinal canal narrowing at this level with the effacement of the right subarticular zone. L2-L3: Disc bulge with facet arthropathy and ligamentum flavum thickening. Mild bilateral foraminal stenosis. Mild spinal canal narrowing. L3-L4: Disc bulge with facet arthropathy and ligamentum flavum thickening. Mild right and moderate left foraminal stenosis. Mild spinal canal narrowing. L4-L5: Disc bulge with facet arthropathy and ligamentum flavum thickening. Moderate to severe right and moderate left foraminal stenosis. Mild spinal canal narrowing. L5-S1: Disc level not well assessed as this level was out of field of view on the axial sequence. Given this limitation, no high-grade spinal canal stenosis. Mild left foraminal narrowing. No mass is identified within the lumbar spinal canal or paravertebral soft tissues. IMPRESSION: Limited study with L5-S1 disc level out of field of view on axial images. Multilevel degenerate changes, most pronounced at L1-2 as described. Probable degenerative endplate edema at L1-2 level, associated with mild L2 superior endplate deformity ; superimposed acute fracture is possible.
== END 2025-04-22 23:59 | disposition home or self-care (01) ==
LOC: MRI 12:39
PROVIDERS: ATTEND Anesthesiology
DX: M47.26 Other spondylosis with radiculopathy, lumbar region (principal)
CPT/HCPCS: 72148

== ENCOUNTER 2025-05-08 14:35 | Emergency (ER) | payer MEDICAID ==
[~2025-05-08] VITALS: Ht 180.3 cm; Wt 131.4 kg
[2025-05-08 14:52] VITALS: BP 113/80; PULSE 74; O2SAT 97
--- NOTE | 2025-05-08 15:32 | RADIOLOGY REPORT ---
CLINICAL INDICATION: FOOT PAIN TECHNIQUE: 3 views of the left foot were performed. DI FOOT, COMPLETE (3VW MIN) Comparison: DI WRIST, COMPLETE (3VW MIN) on DOS: 03/07/24 FINDINGS/IMPRESSION: 1. No acute fracture of the left foot. 2. Old fractures of the 4th and 5th metatarsal bones. There may also be an old healed fracture of the 1st proximal phalanx. 3. Mild osteoarthritis of the 1st MTP joint and IP joints of the toes. 4. 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
[2025-05-08 18:06] LABS: MEAN PLATELET VOLUME 8.0 FL (7.4-10.4); RED CELL DISTRIBUTION WIDTH 17.1 % (11.5-14.5)
[2025-05-08 18:23] LABS: CREATININE 1.42 MG/DL (0.60-1.10); TOTAL CARBON DIOXIDE 30.5 MMOL/L (24-32); eCRCL 57 ML/MIN; eGFR 50 ML/MIN
[2025-05-08] MEDS ORDERED: iohexol 300mg/ml 100ml inj. ONE (19:54)
--- NOTE | 2025-05-08 21:12 | RADIOLOGY REPORT ---
Procedure: CT CT LOWER EXTREMITY W/ IV CONTRAST 05/08/2025 08:05 PM Indication: R/O osteo left great toe Comparison Study: DI KNEE LIMITED (AP/LAT) on DOS: 07/27/24, DI ANKLE,LIMITED (AP/LAT) on DOS: 07/27/24 Technique: Axial images of the left extremity from the mid peterson to the foot were obtained and reformatted in coronal and sagittal planes. All CT scans at this medical facility are performed using dose modulation techniques as appropriate to a performed exam including the following: Automated exposure control was utilized; Adjustment of the MA And/or KV according to patient size; And use of iterative reconstruction technique. FINDINGS: No definite osseous erosions, notably involving the tuft of the 1st digit. No fracture or subluxation. There is no significant soft swelling or fluid collection. There is atrophy of the intrinsic muscles of the foot. There are mild degenerative changes within the midfoot. Mild degenerative changes within the tibiotalar joint. Small posterior and inferior calcaneal spurs. Nondisplaced fractures involving the 4th and 5th metatarsal shafts. IMPRESSION: Nondisplaced fractures involving the 4th and 5th metatarsal shafts. Correlate with point tenderness. No CT evidence of osteomyelitis of the 1st digit. MRI is more sensitive for detection of osteomyelitis.
[2025-05-08 21:13] VITALS: RESP 18
[2025-05-08] MEDS: HYDROcodone/acetaminophen 10/325mg tab PO ONE (21:13)
--- NOTE | 2025-05-08 21:51 | Physician Documentation ---
History of Present Illness ~ Chief Complaint: Toe pain Stated Complaint: L FOOT PAIN Time Seen by MD: 15:55 Primary Medical Doctor: [facility] HPI Patient 65-year-old male that presents to the emergency department for evaluation of left great toe pain and wound. Patient reports that he is diabetic has significant neuropathy in his had a wound on the underside of his toe for several weeks with worsening over the last couple of days. Patient reports that it bleeds and drains when he tries to walk around. Patient reports significant pain to the toe and increased swelling and erythema. Denies fever chills nausea vomiting diarrhea at this time. Patient reports that he does see a dog hair clipper but he has not seen him for quite some time. No other symptoms reported at this time. Tetanus witin 5 years: No Medication Reconciliation Allergies: Coded Allergies: ibuprofen (Verified Adverse Reaction, Unknown, GI UPSET, 01/08/25) Scheduled Amiodarone Hcl (Cordarone), 200 MG PO BID, (Reported) Atorvastatin Calcium (LIPITOR tablet), 20 MG PO DAILY, (Reported) Budesonide/Formoterol Fumarate (Symbicort 160-4.5 Mcg Inhaler), 2 PUFFS INH Q12H Empagliflozin (Jardiance), 1 TAB PO QAM, (Reported) Escitalopram Oxalate (Escitalopram Oxalate), 1.5 TAB PO QAM, (Reported) Lactobacillus Rhamnosus (Culturelle), 1 CAP PO BID Methadone Hcl* (Dolophine*), 1 TAB PO BID Metoprolol Tartrate* (Metoprolol Tartrate*), 1 TAB PO Q12H, (Reported) Prednisone (Prednisone), 10 MG PO DAILY Pregabalin (Pregabalin), 1 CAP PO BID, (Reported) Risperidone (Risperidone Odt), 1 TAB SL HS, (Reported) Rivaroxaban (Xarelto), 1 TAB PO QDD, (Reported) Tamsulosin Hcl* (Flomax*), 1 CAP PO QDPC, (Reported) Scheduled PRN Albuterol Sulfate (Proventil Hfa), 2 PUFFS INH Q4H PRN for SOB or wheezing, (Reported) Oxycodone Hcl (Oxycodone Hcl), 1 TAB PO BID PRN for severe pain (7-10), (Reported) Trazodone HCl (Trazodone HCl), 1 TAB PO HSMR1 PRN for sleep, (Reported) Past Medical History Past Medical History: CVA/TIA/Stroke, Seizures, Atrial Fibrillation, Congestive Heart Failure, Hypertension, Asthma, COPD, Hepatitis C, Chronic Kidney Disease, Diabetes, Depression Past Surgical History: orthopedic surgeries, pacemaker Patient History: Patient reports no known family medical history. Alcohol Use: None Drug Use: marijuana, other Lives with: Family Lives In: Home Review of Systems ROS As stated above in the HPI, otherwise all systems are reviewed and negative. Constitutional: Reports: no symptoms reported, see HPI, chills, diaphoresis, fever, malaise, weakness, other Eyes: Reports: no symptoms reported, see HPI, pain, discharge, blurred vision, double vision, itching, photophobia, redness, tearing, other ENT: Reports: no symptoms reported, see HPI, ear pain, ear bleeding, ear discharge, hearing loss, ear ringing, nose pain, nose bleeding, nose congestion, nose discharge, throat pain, throat swelling, voice change, mouth pain, mouth bleeding, mouth swelling, other Respiratory: Reports: no symptoms reported, see HPI, cough, orthopnea, shortness of breath, SOB with exertion, SOB at rest, stridor, wheezing, hemoptysis, pain with breathing, other Cardiovascular: Reports: no symptoms reported, see HPI, chest pain, left arm pain, diaphoresis, lightheadedness, syncope, edema, palpitations, irregular heart rate, other Gastrointestinal: Reports: no symptoms reported, see HPI, abdomen distended, abdominal pain, nausea, vomiting, diarrhea, constipated, melena, hematemesis, hematochezia, rectal bleeding, rectal pain, dysphagia, poor appetite, poor fluid intake, other Genitourinary: Reports: no symptoms reported, see HPI, burning, discharge, dysuria, frequency, flank pain, hematuria, incontinence, pain, decreased urine output, urgency, other Male Genitalia: Reports: no symptoms reported, see HPI, penile discharge, penile sore, testicular pain, testicular swelling, other Neurological: Reports: no symptoms reported, see HPI, speech problem, headache, dizziness, fainting, tingling, left sided numbness, right sided numbness, left sided weakness, right sided weakness, problems walking, unable to move lower ext, unable to move upper ext, petit mal seizures, tonic-clonic seizures, cognitive dysfunction, other Musculoskeletal: Reports: no symptoms reported, see HPI, pain, swelling, back pain, gout, joint pain, joint swelling, muscle pain, muscle swelling, muscle stiffness, neck pain, other Physical Exam Vital Signs: Temperature: 97.5, Heart Rate: 74, Respiratory Rate: 18, BP: 113/80, Pulse Oximetry: 97, Weight: 131.360 Oxygen Flow Rate: 0 Physical Exam VITALS: Reviewed and as above. GENERAL: Alert, no apparent distress. HEENT: Normocephalic, atraumatic, PERRL, EOMI, dry mucosa, no erythema RESPIRATORY: Lungs clear, normal breath sounds, no respiratory distress. CHEST: No accessory muscle use, no retractions CV: Regular rate, rhythm, no edema, no murmur, No: JVD GI: Soft, non-tender, bowels sounds present, no rebound, guarding, or rigidity BACK: No CVA tenderness, or swelling MUSCULOSKELETAL No deformities, swelling noted to the left great toe wound on the posterior side with drainage erythema and warmth noted. SKIN: Warm and dry, no rash NEURO: Oriented x4, No motor or sensory deficit PSYCH: Normal mood and affect, no agitation Progress Results/Orders Results/Orders Orders - ZHEN JIMÉNEZ SEMICONDUCTOR WAFERS ETCH OPERATOR Ct Lower Extremity (05/08/25 19:22) Completed Orders - ZHEN JIMÉNEZ SEMICONDUCTOR WAFERS ETCH OPERATOR Cbc/Diff (05/08/25 17:23) CMP (05/08/25 17:23) [place] (05/08/25 17:23) Ct Lower Extremity (05/08/25 19:22) Iohexol 300mg/Ml 100ml Inj. (Omnipaque-3 (05/08/25 19:54) Hydrocodone/Apap 10/325 ([place] 10/325mg (05/08/25 20:45) Medications Received in ER Medications (Trade) Dose Ordered Sig/Alonso Route PRN Reason Start Time Stop Time Status Last Admin Dose Admin ([place] 10/325mg tab) 1 tab ONCE ONCE PO 05/08/25 20:45 05/08/25 20:46 DC 05/08/25 21:13 1 TAB Vital Signs 05/08/25 05/08/25 14:52 21:13 Temp 97.5 Pulse 74 Resp 15 18 B/P (MAP) 113/80 Pulse Ox 97 O2 Flow Rate 0 Laboratory Tests Test 05/08/25 17:59 White Blood Count 6.1 Red Blood Count 4.62 L Hemoglobin 12.9 L Hematocrit 39.9 L Mean Corpuscular Volume 86.4 Mean Corpuscular Hemoglobin 27.9 Mean Corpuscular Hemoglobin Concent 32.3 L Red Cell Distribution Width 17.1 H Platelet Count 172 Mean Platelet Volume 8.0 Neutrophils (%) (Auto) 57.1 Lymphocytes (%) (Auto) 31.7 Monocytes (%) (Auto) 8.8 Eosinophils (%) (Auto) 1.8 Basophils (%) (Auto) 0.6 Neutrophils # (Auto) 3.5 Lymphocytes # (Auto) 1.9 Monocytes # (Auto) 0.5 Eosinophils # (Auto) 0.1 Basophils # (Auto) 0.0 CBC Comment Sodium Level 142 Potassium Level 4.9 Chloride Level 108 H Carbon Dioxide Level 30.5 Anion Gap 4 L Blood Urea Nitrogen 25 H Creatinine 1.42 H Estimated GFR/1.73 m2 50 BUN/Creatinine Ratio 17.6 Glucose Level 85 Lactic Acid Level 1.2 Calcium Level 8.4 L Total Bilirubin 0.4 Aspartate Amino Transf (AST/SGOT) 18 Alanine Aminotransferase (ALT/SGPT) 16 Alkaline Phosphatase 97 Total Protein 7.5 Albumin 3.8 Globulin 3.7 Albumin/Globulin Ratio 1.0 L Chemistry Comments Medical Decision Making Additional information obtaine: other Findings Medical Decision-Making This 65-year-old male with diabetes mellitus and significant peripheral neuropathy presented to the emergency department with left great toe pain, wound, and signs of infection. The patient reported a chronic wound on the p lantar aspect of the great toe present for several weeks with acute worsening over recent days, characterized by bleeding, drainage with ambulation, increased pain, swelling, and erythema. Clinical examination revealed findings consistent with a mild to moderate diabetic foot infection with local cellulitis. Diagnostic Evaluation: The diagnosis of diabetic foot infection was made clinically based on the presence of local inflammatory signs including erythema, swelling, tenderness, and purulent drainage. CT imaging of the foot was performed and ruled out osteomyelitis, which is critical given that approximately 20% of diabetic foot infections involve bone. The absence of systemic symptoms (fever, chills, nausea, vomiting) and the localized nature of the infection support classification as a [id number] infection. Treatment Plan: Given the absence of osteomyelitis, lack of systemic symptoms, and localized nature of the infection, outpatient management with oral antibiotics is appropriate. The patient will be discharged on cephalexin (Keflex) for treatment of the soft tissue infection and cellulitis. Cephalexin provides adequate gram-positive coverage, particularly for Staphylococcus aureus and streptococci, which are the most common pathogens in d iabetic foot infections. Per Infectious Diseases Society of [place] guidelines, the recommended duration of antibiotic therapy for soft tissue diabetic foot infections is 1-2 weeks. The patient will be prescribed a 10-14 day course, with instructions to complete the full course even if symptoms improve. If evidence of infection has not resolved after 4 weeks of therapy, re-evalu ation and consideration of alternative treatments would be warranted. Disposition and Follow-up: The patient is being discharged home with instructions for: Oral cephalexin therapy as prescribed Strict non-weight bearing or offloading of the affected foot Daily wound care and dressing changes Close follow-up with podiatry within 3-5 days for wound assessment and debridement as needed Return precautions for worsening erythema extending beyond 2 cm from the wound margin, development of systemic symptoms (fever, chills), or failure to improve within 48-72 hours The patient has been counseled on the importance of glycemic control, proper foot care, and adherence to the antibiotic regimen. Given his history of significant neuropathy, education was provided regarding daily foot inspection and the need for protective footwear to prevent future ulceration. Risk Stratification: This patient has multiple risk factors for diabetic foot complications including diabetes mellitus, significant peripheral neuropathy, and chronic foot ulceration. However, the current infection is classified as mild to moderate without bone involvement or systemic manifestations, making outpatient management with oral antibiotics appropriate. The patient demonstrates adequate understanding of the treatment plan and has reliable follow-up arranged. General Diff Dx:Considerations: Include: Abrasion, Contusion, Fracture, Hematoma, Laceration, Malunion, Neurovascular injury, Open fracture, Sprain, Ulcer, Other Knee Diff Dx:Considerations: Include: Abrasion, Arthritis, Contusion, DJD, Fracture-femur, Fracture-fibula, Fracture-patella, Fracture-tibia, Gout, Hematoma, Laceration, Meniscus injury, Neurovascular injury, Open fracture, Rheumatoid arthritis, Septic, Sprain, Sprain-MCL, Sprain-LCL, Sprain-ACL, Sprain-PCL, Other Ankle Diff Dx:Considerations: Include: Abrasion, Arthritis, Contusion, DJD, Fracture-metatarsal, Fracture-fibula, Fracture-tarsal, Fracture-tibia, Gout, Hematoma, Laceration, Malunion, Neurovascular injury, Nonunion, Open fracture, Osteomyelitis, Rheumatoid arthritis, Sprain, Septic, Ulcer, Other Foot Diff Dx:Considerations: Include: Abrasion, Arthritis, Cellulitis, Contusion, Dislocation, DJD, Fracture-metatarsal, Fracture-phalynx, Fracture- tarsal, Gout, Hematoma, Ingrown toenail, Laceration, Malunion, Neurovascular injury, Open fracture, Paronychia, Puncture, Rheumatoid, Sprain, Septic, Subungual hematoma, Ulcer, Other Toe Diff Dx:Considerations: Include: Abrasion, Cellulitis, Contusion, Dislocation, Felon, Fracture, Hematoma, Laceration, Neurovascular injury, Open fracture, Paronychia, Subungual hematoma, Other Departure Impression: Primary Impression: Toe swelling Additional Impressions: Pain of toe Cellulitis of great toe, left Condition: Stable (Cellulitis) Discharge Instructions: Cellulitis, Adult, Aras-ts-Tspd Referrals: NO PRIMARY CARE PROVIDER (PCP) Prescriptions Cephalexin*Monohydrate* (Keflex*) 500 Mg Capsule 1 CAP PO QID for 7 Days, #28 CAP Prov: ZHEN JIMÉNEZ 05/08/25 Education Educated: Patient Educated regarding: diagnosis, treatment, need for follow up Signature Scribe Signature: A Attestation: Scribed for Zhen Jiménez by RUBY Oliva . 05/08/25 21:54 ZHEN JIMÉNEZ May 08, 2025 21:51
[2025-05-08] MEDS ORDERED: CEPH-585 PO (21:53)
[2025-05-08 22:08] VITALS: TEMP 97.5
== END 2025-05-08 22:24 | disposition home or self-care (01) ==
LOC: ER 14:36
DX: L03.032 Cellulitis of left toe (principal); I13.0 Hypertensive heart and chronic kidney disease with heart failure and stage 1 through stage 4 chronic kidney disease, or unspecified chronic kidney disease; E11.22 Type 2 diabetes mellitus with diabetic chronic kidney disease; E11.40 Type 2 diabetes mellitus with diabetic neuropathy, unspecified; N18.9 Chronic kidney disease, unspecified; F32.A Depression, unspecified; I48.91 Unspecified atrial fibrillation; F12.90 Cannabis use, unspecified, uncomplicated; J44.9 Chronic obstructive pulmonary disease, unspecified; Z95.0 Presence of cardiac pacemaker; Z88.6 Allergy status to analgesic agent; Z86.73 Personal history of transient ischemic attack (TIA), and cerebral infarction without residual deficits; Z86.19 Personal history of other infectious and parasitic diseases; Z79.899 Other long term (current) drug therapy
CPT/HCPCS: 36415; 73630; 73701; 80053; 83605; 85025; 99285; Q9967; A6258